=== PATIENT | female | born 1950 | race Caucasian/White ===

== ENCOUNTER 2025-03-13 08:30 | Outpatient (BNV) | payer OTHER, SELFPAY | END 2025-03-26 11:15 | PROVIDERS: Admitting Provider Psychiatry & Neurology Psychiatry; Visit Provider Internal Medicine Cardiovascular Disease | DX: R00.0 Tachycardia, unspecified (principal) | CPT/HCPCS: 93010 ==

== ENCOUNTER 2025-03-13 08:30 | Inpatient (IN) | payer OTHER, SELFPAY ==
--- NOTE | ~2025-03-13 | XR_ITS ---
CLINICAL HISTORY: constipation 1 view abdomen Comparison: None Findings: Nonobstructive bowel gas pattern. Moderate colonic stool. No abnormal calcifications. Surgical clips in the left upper quadrant in left lower quadrant. Left basilar subsegmental atelectasis versus scarring. No acute fractures. Degenerative changes of the spine. Mild deformity of left superior and inferior pubic rami likely healed fractures. IMPRESSION: 1. Nonobstructive bowel gas pattern. 2. Moderate colonic stool. This document has been electronically signed by: Lyssa Smith MD on 03/16/2025 17:26:45
[2025-03-13 09:42] VITALS: BP 120/58; PULSE 92; RESP 16; TEMP 36.5; O2SAT 100
--- OUTSIDE RECORDS SUMMARY | 2025-03-13 09:57 | XMS_ITS | Patient Health Record ---
Author Organization [facility] Address [address] [place] [address] Care Team Providers Care Tonguer Name Role Phone Marc Alvarez Primary Care Provider [phone] Mary Amaya Unavailable [phone] Noah, Osmar Unavailable [phone] Marissa Dillard Unavailable [phone] Anival Thomas Unavailable [phone] Demarco Goss Unavailable [phone] Janice Mary Unavailable [phone] Lauren Eldridge Unavailable [phone] Massiel Townsend Unavailable [phone] Allergies Allergen (clinical drug ingredient) Drug/Non Drug Allergy documented on EMR Reaction Allergy Type Onset Date Status contrast dye (uncoded) central nervous system Allergy Active succinylcholine Anectine shortness of breath and palpatations Drug Allergy Active Latex Latex throat closes Allergy Active Penicillin rash Drug Allergy Active Results Component Value Reference Range Notes CLOZAPINE Reviewed date:01/16/2025 01:51:18 PM Interpretation: Performing Lab: Notes/Report: [facility] Reported Date/Time: [id number] [facility] Results Received Date/Time: [id number] [facility] Collection Date/Time: [id number] Testing performed at: [facility], [facility], [address], [place], [place], , Sales Agent Business Services: Abdiel Metzger M.D.,PhD [facility] NORCLOZAPINE 52 25-400 mcg/L CLOZAPINE 148 The therapeutic response begins to appear at 100 mcg/L. Refractory schizophrenia appears to require a therapeutic concentration of at least 350 mcg/L This test was developed and its analytical performance characteristics have been determined by [facility] [place], [place]. It has not been cleared or approved by the U.S. Food and Drug Administration. This assay has been validated pursuant to the CLIA regulations and is used for clinical purposes. (trough, at steady state). Toxic range: Greater than 900 mcg/L CLOZAPINE Reviewed date:12/11/2024 11:48:02 AM Interpretation: Performing Lab: Notes/Report: [facility] Reported Date/Time: [id number] [facility] Results Received Date/Time: [id number] [facility] Collection Date/Time: [id number] Testing performed at: [employer], [address], [place], [place], , Sales Agent Business Services: Abdiel Metzger M.D.,PhD [facility] NORCLOZAPINE 47 25-400 mcg/L CLOZAPINE 156 The therapeutic response begins to appear at 100 mcg/L. Refractory schizophrenia appears to require a therapeutic concentration of at least 350 mcg/L (trough, at steady state). Toxic range: Greater than 900 mcg/L This test was developed and its analytical performance characteristics have been determined by [facility] [place], [place]. It has not been cleared or approved by the U.S. Food and Drug Administration. This assay has been validated pursuant to the CLIA regulations and is used for clinical purposes. CLOZAPINE Reviewed date:11/20/2024 08:28:24 PM Interpretation: Performing Lab: Notes/Report: [facility] Reported Date/Time: [id number] [facility] Results Received Date/Time: [id number] [facility] Collection Date/Time: [id number] [facility], [address], [place], [place], , Sales Agent Business [employer]: Abdiel Metzger M.D.,PhD [facility] NORCLOZAPINE 48 25-400 mcg/L CLOZAPINE 163 The therapeutic response begins to appear at 100 mcg/L. Refractory schizophrenia appears to require a therapeutic concentration of at least 350 mcg/L (trough, at steady state). Toxic range: Greater than 900 mcg/L This test was developed and its analytical performance characteristics have been determined by [facility] [place], [place]. It has not been cleared or approved by the U.S. Food and Drug Administration. This assay has been validated pursuant to the CLIA regulations and is used for clinical purposes. CT abdomen pelvis wo con Reviewed date:08/15/2024 02:52:14 PM Interpretation: Performing Lab: Notes/Report: See Below For Report [facility] CT abdomen pelvis w con Reviewed date:08/13/2024 11:44:30 AM Interpretation: Performing Lab: Notes/Report: See Below For Report [facility] XRAY ABDOMEN Reviewed date:09/10/2024 12:31:01 PM Interpretation:large stool burden Performing Lab: Notes/Report: EXAM: XR ABDOMEN INDICATION: Upper abdominal pain COMPARISON: None. TECHNIQUE: 2 view/s of the abdomen. FINDINGS: There is a nonspecific, nonobstructive bowel gas pattern. No evidence of free intraperitoneal air. There is a large colonic stool burden. Postoperative changes from ventral abdominal wall hernia repair. No suspicious calcifications are seen. There is a scoliotic curvature of the thoracolumbar spine with multilevel degenerative changes. IMPRESSION: Nonspecific, nonobstructive bowel gas pattern with a large colonic stool burden compatible fecal stasis and constipation. Electronically Signed By: Gab Lehman M.D. Signature Date: 09/07/2024 1:[address] CHEST LUNG CANCER SCREENI NG Reviewed date:04/18/2024 12:58:30 PM Interpretation: Performing Lab: Notes/Report: Exam: CT CHEST, LOW DOSE SCREENING History: Smoking history. Technique: CT helical 2.5 mm axial slices are obtained in lung and mediastinal windows, with 2.5 mm coronal and sagittal reconstruction slices. The CTDIvol is 2.04 mGy with the Total Exam DLP 64.21 mGy-cm. Comparison: CT chest low-dose screening 03/28/2023, 12/13/2020, 11/24/2019 Findings: Thoracic inlet: Unremarkable Tracheobronchial tree: Patent. No bronchiectasis. Lung parenchyma/pleura: No airspace consolidation. Left lung base linear scarring and atelectatic volume loss with elevated left hemidiaphragm, stable. No pleural effusions or pleural plaques. Right Lung Nodules: Interval development of a right middle lobe ill-defined margin mixed solid and groundglass opacity nodule measuring 15 mm in greatest dimensions, with a 10 mm solid nodular component (axial image 49, sagittal image 45, coronal image 52). Left Lung Nodules: None Mediastinum/cora: No mass nor abnormal lymphadenopathy. Cardiovascular: Cardiomegaly. Moderate aortic valvular calcification. Calcified mitral annulus. No pericardial effusion. Mild scattered coronary artery atherosclerotic calcifications. Normal course and caliber of the thoracic vasculature. Osseous/soft tissue: No fracture nor suspicious osseous abnormality. No subcutaneous abnormality. Visualized upper abdomen: Benign likely postinflammatory nodular calcification upper pole left renal parenchyma, stable. Midline subdiaphragmatic surgical clips anteriorly reidentified. Multiple benign splenules left upper quadrant of the abdomen, stable. Impression: Interval development of an ill-defined margined right middle lobe mixed solid and groundglass opacity nodule. LUNG-RADS category: 4B: SUSPICIOUS Additional diagnostic testing, PET CT and/or tissue sampling recommended. A [facility] message has been communicated to Mary Camacho via the [employer] application on 04/09/2024 6:53 AM, Message ID [id number]. Electronically Signed By: Mike Kaur M.D. Signature Date: 04/09/2024 6:53 AM XR chest 2V Reviewed date:07/16/2024 05:17:09 PM Interpretation: Performing Lab: Notes/Report: See Below For Report [facility] XR lumbar spine 2-3V Reviewed date:07/16/2024 05:17:09 PM Interpretation: Performing Lab: Notes/Report: See Below For Report [facility] Urinalysis Microscopic w/Ref baudilio to Culture ([facility]) Reviewed date:11/23/2024 03:32:07 PM Interpretation: Performing Lab:[facility] [address] [address]. Dietitian Helper Wilbur Watson MD Notes/Report: UWBC 6-10 None URBC 0-2 None UEPI 0-5 None CASTS None Seen None BACTERIA None Seen None ULTRASOUND ABDOMEN LIMITED Reviewed date:10/05/2024 03:32:02 PM Interpretation: Performing Lab: Notes/Report: PROCEDURE: Abdominal ultrasound INDICATION: Right upper quadrant abdominal pain COMPARISON: None. FINDINGS: Waters scale and color doppler imaging was performed. LIVER: Normal in size. Hepatic echotexture is normal without focal lesion. No intrahepatic biliary dilatation.Main portal vein is patent with appropriate directional flow. GALLBLADDER: No gallstones. No wall thickening, pericholecystic fluid or sonographic Busch's sign. CBD: 4 mm. PANCREAS: Visualized portions are unremarkable. RIGHT KIDNEY: The right kidney is normal in size and demonstrates normal echogenicity and echotexture. No evidence of hydronephrosis or nephrolithiasis. Anechoic simple cyst at the lower pole measuring 1.7 cm. PROXIMAL IVC: Visualized portions are unremarkable. There is no ascites. IMPRESSION: 1. No evidence of cholelithiasis or acute cholecystitis. 2. Small 1.7 cm right renal cyst. Electronically Signed By: Gab Lehman M.D. Signature Date: 10/05/2024 11:21 AM CULTURE, URINE, ROUTINE Reviewed date:11/27/2024 07:38:41 AM Interpretation: Performing Lab:[facility] [address] [place] [address] Notes/Report: LAB ORDERED BY: MARY AMAYA NP REQUESTED COPY TO [facility] GAMMA FACILITIES OPERATOR: RICH JHA URINE CULTURE SEE TEXT SOURCE SOURCE UNSPECIFIED. EVALUATED 'CLEAN CATCH'. STATUS: FINAL REPORT ORGANISM #1: 10,000 - <100,000 CFU/ML OF GROWTH SUGGESTIVE OF NORMAL UROGENITAL MESSI OR FECAL CONTAMINATION. RECOLLECT SPECIMEN FOR REPEAT CULTURE IF CLINICALLY INDICATED. DELIVERY TO LABORATORY SHOULD BE WITHIN 2 HOURS OF COLLECTION AND REFRIGERATED IF THERE IS A DELAY IN TRANSPORT. PET PET/CT SKULL TO MID THIG H Reviewed date:04/23/2024 08:20:06 AM Interpretation: Performing Lab: Notes/Report: Reason For Referral Reason cardiology f/u Referral Organization [facility] Luis Felipe plunkett Referring Provider First Name Marc Referring Provider Last Name Antonio Referring Provider Speciality Family Pra ctice Referred Organization [facility] Referred Provider Laurne Eldridge Referred Address [address] [place] [id number], Referred Provider Specialty Nurse Jus Bennett Notes Montserrat Huffman 04/16 05:11:45 PM >PCP referral is not required within the members referral mi'kmaq. Referral Priority Routine Reason cardiology f/u Referral Organization [facility] dimitrios Referring Provider First Name Marc Referring Provider Last Name [place] Referring Provider [facility] ctice Referred Organization [facility] Referred Provider ChenteLauren Referred Address [address], [place],[id number] Referred Provider Specialty Nurse Jus mg General Notes Montserrat Macias 04:05:03 PM > Referral not required Referral Priority Routine Reason refer to [facility] for back pain, needs home exercise program. pt needs morning appts ONLY Referring Provider First Name Marc Referring Provider Last Name Alvarez Referring Provider [facility] ctice Referred Provider Demarco Goss Referred Provider Specialty Physical The markelist General Notes Danielle Ruby 024 01:42:04 PM > Please call pt and schedule appt then send back to me thank you, Gianna De La Cruz 07/18/2024 02:59:08 PM > Patient left me on hold we will call Ernestina tavarez Lucille 07/24/2024 10:55:13 AM >please specify body part, Taylor Saha 08/01/2024 10:36:53 AM >pt has apt 08/29/24, Montserrat Huffman 08/01/2024 11:41:05 AM >no referral required. Referral Priority Routine Reason refer to [facility] for back pain, needs home exercise program. pt needs morning appts ONLY Diagnosis 1 Low back pain, unspe cified (M54.50) Referral Organization [facility] Luis Felipe plunkett Referring Provider First Name Marc Referring Provider Last Name Alvarez Referring Provider [facility] ctice Referred Organization [facility] Referred Provider Demarco Goss Referred Address [address], [place],[address],[place] Referred Provider Specialty Physical The clem General Notes Danielle Ruby 024 01:42:04 PM > Please call pt and schedule appt then send back to me thank youJono Rosemarie 07/18/2024 02:59:08 PM > Patient left me on hold we will call backErnestina Lucille 07/24/2024 10:55:13 AM >please specify body part, Taylor Saha 08/01/2024 10:36:53 AM >pt has apt 08/29/24, Montserrat Huffman 08/01/2024 11:41:05 AM >no referral required. Referral Priority Routine Reason REFER TO GI DONALD, RE CENT HOSPITALIZATION, MAY NEED COLONOSCOPY Diagnosis 1 Bowel perforation (K 63.1) Referral Organization [facility] Referring Provider First Name Marc Referring Provider Last Name [place] Referring Provider [facility] ctice Referred Provider Specialty Gastroentero logy Clinical Notes this is donald Referral Priority Routine Reason Please add Home PT t o patient's current services Diagnosis 1 Unsteady gait (R26.8 1) Diagnosis 2 Frequent falls (R29. 6) Diagnosis 3 Fibromyalgia (M79.7) Diagnosis 4 Arthralgia of multip le joints (M25.50) Referral Organization [facility] Referring Provider First Name Marc Referring Provider Last Name [place] Referring Provider [facility] ctice Referred Provider [facility] Referred Provider Specialty Home Health General Notes Requesting home PT e valuation for established patient. Clinical Notes faxed records thru E CW/fax complete Referral Priority Routine Medications Medication SIG (Take, Route, Frequency, Duration) Notes Start Date End Date Status Docusate Sodium 100 MG 1 capsule as needed Orally Once a day for 30 days Active Lidocaine 4 % 1 patch as needed Externally Once a day Not-Taking Lexapro 10 MG 1 tablet Orally Once a day for 30 day(s) Not-Taking Jardiance 25 MG TAKE 1 TABLET BY MOUTH EVERY DAY FOR 90 DAYS for 90 Active Metoclopramide HCl 10 TAKE 1 TABLET BY MOUTH TWICE DAILY DIRECTED for 30 Not-Taking Furosemide 40 MG TAKE 1 TABLET BY MOUTH TWICE A DAY FOR 30 DAYS for 30 Active metformin 500 mg 1 PO BID Roney01/22/2013 Entered by ANDRE MCRAE 01/22/2013 Not-Taking Losartan Potassium 100 mg 1 tablet Orally Once a day for 90 Not-Taking Esomeprazole Magnesium 20 MG TAKE 1 CAPSULE BY MOUTH TWICE A DAY for 90 days Active LORazepam 0.5 MG 1 tablet as needed Orally every 6 hrs Not-Taking Melatonin 3 MG as directed Orally AT NIGHT Active MiraLax 17 grams as directed Orally Once a day for 30 days 03/03/2015 Not-Taking Depakote ER 250 MG 1 tablet Orally Once a day Active Ferrous Sulfate 325 (65 Fe) MG TAKE 1 TABLET BY MOUTH EVERY DAY FOR ANEMIA for 90 days Active cloZAPine 100 MG 1 tablet Orally Once a day for 30 days Active rollator walker 1 DX: R 26.9 12/22/2022 Un known Loratadine 10 MG TAKE 1 TABLET BY MOUTH EVERY DAY FOR SEASONAL ALLERGIES 30 DAYS for 30 Active Ketoconazole 2 % 1 application as needed for vaginal itching Externally Once a day Active Metamucil 4 in 1 Fiber 55.6 % 1 teaspoon Orally once daily for 30 days 1 bottle 12/27/2024 06/25/2025 Active NOVOLOG 70/30 FLEXPEN (INSULIN ASPART 70/30 PEN) SC 01/22/2013 Not-Taking Nitroglycerin 0.4 MG as directed Sublingual q5 minutes prn chest pain for 30 Not-Taking traMADol HCl 50 MG 1 tablet as needed Orally q 8 hours prn pain Dx M79.7 08/29/2024 Active predniSONE 20 MG 2 tablets daily Orally Once a day Not-Taking Spironolactone 25 MG 1 tablet Orally Once a day for 90 days Active Pantoprazole Sodium 40 TAKE 1 TABLET BY MOUTH TWICE DAILY for 90 Not-Taking OLANZapine 5 MG 1 PO BID Roney01/22/2013 Entered by ANDRE MCRAE 01/22/2013 Not-Taking Nystatin 224749 UNIT/ML 4 mL Mouth/Throat Four times a day Not-Taking Acetaminophen 500 MG 1 tablet as needed Orally every 4 hrs Not-Taking quetiapine 25 mg 1 tablet by mouth in the morning Not-Taking A Thru Z Select - as directed Orally Not-Taking PROVENTIL HFA (ALBUTEROL INHALER HFA) 2 PUFF INH Q6H Roney05/22/2009 Entered by TIMMY LARSONMJoshuaAJoshua 05/22/2009 Not-Taking Triamcinolone Acetonide 0.025 % 1 application Externally 2 x daily 11/26/2024 Active ProAir HFA 108 (90 Base) MCG/ACT 2 puffs as needed Inhalation every 6 hrs Not-Taking traZODone HCl 100 MG 1 tablet at bedtime Orally Once a day Active Prevnar 20 0.5 ML as directed Intramuscular Not-Taking BONIVA (IBANDRONATE SODIUM) 3 MG 3 ML IV as directed Roney01/22/2013 Entered by ANDRE MCRAE 01/22/2013 Not-Taking Benztropine Mesylate 0.5 MG 1 tablet at bedtime Orally Once a day Not-Taking Benadryl 25 mg at bedtime Not-Taking Acid Merchandise For Resale Purchasing Agent Complete 10-800-165 MG 1 tablet as needed Orally Twice a day Not-Taking tramadol per pt not taking 1 PO Q6H 01/22/2013 Not-Taking SEROquel 25 mg 1 tablet Orally Once a day/ prn Not-Taking Remeron 15 MG 1 tablet before bedtime in the evening Orally Once a day Not-Taking cloZAPine 100 MG 1 tablet Orally Once a day for 30 day(s) Not-Taking Venlafaxine HCl ER 37.5 MG 1 capsule with food Orally bid Not-Taking Chlorthalidone 25 MG 1/2 tablet in the morning Orally Once a day Not-Taking Tylenol 1 tab Oral 650mg Not-Takin g CALCIUM + D (600 MG SHISHMAREF IRA CA) (CALCIUM CARBONATE 1500 MG (600 MG SHISHMAREF IRA CA)/ VIT D 200 IU) Not-Taking Trelegy Ellipta 100-62.5-25 MCG/ACT 1 puff Inhalation Once a day Not-Taking Trazodone 50mg 2 tabs Hs Not-T aking Crestor 20 MG 1 tablet Orally Once a day Not-Taking COMBIVENT (IPRATROPIUM AND ALBUTEROL SULFATE) 2 PUFF INH QID Roney01/22/2013 Entered by ANDRE MCRAE 01/22/2013 Not-Taking Zofran 4 MG 1 tablet as needed Orally tid for 30 05/05/2018 Not-Taking Colace 100 MG 1 capsule as needed Orally BID for 30 day(s) 05/18/2018 Not-Taking VITAMIN D2 (ERGOCALCIFEROL) 21011 UNITS 25 PO QWEEK Roney01/22/2013 Entered by ANDRE MCRAE 01/22/2013 Not-Taking Cogentin 1 MG 1 tablet at bedtime Orally Once a day Not-Taking VESIcare 5 MG 1 tablet Orally Once a day Not-Taking DOK 100 MG 1 capsule as needed Orally BID for 30 Not-Taking Atorvastatin Calcium 40 MG TAKE 1 TABLET BY MOUTH EVERY DAY for 90 Active Depakote ER 500 MG 1 tablet Orally Once a day Not-Taking Cyanocobalamin 100 MCG as directed Orally daily Not-Takin g Fluzone High-Dose 0.5 ML as directed Intramuscular Not-Taking Flonase 50 MCG/ACT 2 sprays each nostril Nasally QHS x 5 d, then continue prn for 30 day(s) 07/17/2020 Not-Taking Flonase 50 MCG/ACT 1 spray in each nostril Nasally Once a day Not-Taking Doxycycline 100 mg by mouth twice a day Not-Taking ZyPREXA 20 MG 1 tablet Orally Once a day Not-Taking JANUVIA (SITAGLIPTIN) per pt not taking 1 PO QD 01/22/2013 Not-Taking Haloperidol 5 MG 1 tablet Orally Once a day for 30 day(s) Not-Taking Calcium Carb-Cholecalciferol 600-10 MG-MCG TAKE 1 TABLET BY MOUTH TWICE A DAY WITH A MEAL for 30 Active Physical Therapy as directed Right groin strain 12/12/2020 Unknown one touch vario test strips Unknown Aspirin Low Dose 81 MG TAKE 1 TABLET BY MOUTH EVERY DAY for 90 Active One Touch Delica Lancets Unknown Albuterol Sulfate HFA 108 (90 Base) MCG/ACT INHALE 2 PUFFS INTO THE LUNGS EVERY 4 HOURS NEEDED FOR 30 DAYS for 30 Active Compression Stockings Knee Highs use daily while awake Sock 11/11/2022 Unknown Senna-Time 8.6 MG TAKE 2 TABLETS BY MOUTH EVERY DAY AT BEDTIME for 30 days Active Immunizations Vaccine Route Administration Date Status Comme nts Flu Given Out of Office Unknown 06/21/2024 Administered Flu, Flulaval Quad Unknown 07/18/2023 Others Pneumovax PPV23 IM Intramuscular 11/26/2019 Administered Shingrix Unknown 06/07/2022 Administered Shingrix Unknown 08/03/2024 Administered Vic Moderna Unknown 01/03/2024 Administered Zoster Shingles Unknown 08/03/2024 Administered ZZZZZPrevnar 13 Unknown 09/30/2016 Administered Social History Tobacco Use: Social History Observation Description Date Details (start date - stop date) Former Smoker NA - NA Tobacco Control (Standard) Question Answer Notes Tobacco use: Former smoker How long has it been since you last smoked? Grea ter than 10 years Section Notes: pets: one dog (real hair) pets: one dog (real hair) former smoker- quit 20 years ago 04/2024 pets: one dog (real hair) former smoker- quit 4 years ago pets: one dog (real hair) former smoker- quit 4 years ago pets: one dog (real hair) pets: one dog (real hair) former smoker- quit 20 years ago 04/2024 pets: one dog (real hair) former smoker- quit 4 years ago pets: one dog (real hair) former smoker- quit 4 years ago pets: one dog (real hair) former smoker- quit 4 years ago pets: one dog (real hair) former smoker- quit 4 years ago pets: one dog (real hair) former smoker- quit 4 years ago pets: one dog (real hair) former smoker- quit 4 years ago pets: one dog (real hair) pets: one dog (real hair) former smoker- quit 4 years ago pets: one dog (real hair) former smoker- quit 4 years ago pets: one dog (real hair) former smoker- quit 4 years ago pets: one dog (real hair) former smoker- quit 4 years ago pets: one dog (real hair) former smoker- quit 4 years ago pets: one dog (real hair) former smoker- quit 4 years ago pets: one dog (real hair) former smoker- quit 4 years ago pets: one dog (real hair) former smoker- quit 4 years ago pets: one dog (real hair) former smoker- quit 4 years ago pets: one dog (real hair) former smoker- quit 20 years ago 04/2024 pets: one dog (real hair) former smoker- quit 4 years ago pets: one dog (real hair) former smoker- quit 4 years ago pets: one dog (real hair) former smoker- quit 4 years ago pets: one dog (real hair) former smoker- quit 4 years ago pets: one dog (real hair) former smoker- quit 4 years ago pets: one dog (real hair) former smoker- quit 4 years ago pets: one dog (real hair) former smoker- quit 20 years ago 04/2024 pets: one dog (real hair) former smoker- quit 4 years ago pets: one dog (real hair) former smoker- quit 4 years ago pets: one dog (real hair) former smoker- quit 4 years ago pets: one dog (real hair) former smoker- quit 20 years ago 04/2024 pets: one dog (real hair) former smoker- quit 20 years ago 04/2024 pets: one dog (real hair) former smoker- quit 20 years ago 04/2024 pets: one dog (real hair) former smoker- quit 20 years ago 04/2024 pets: one dog (real hair) former smoker- quit 20 years ago 04/2024 pets: one dog (real hair) former smoker- quit 4 years ago pets: one dog (real hair) former smoker- quit 4 years ago pets: one dog (real hair) former smoker- quit 4 years ago pets: one dog (real hair) former smoker- quit 4 years ago pets: one dog (real hair) former smoker- quit 4 years ago pets: one dog (real hair) former smoker- quit 20 years ago 04/2024 pets: one dog (real hair) pets: one dog (real hair) former smoker- quit 4 years ago pets: one dog (real hair) former smoker- quit 4 years ago pets: one dog (real hair) former smoker- quit 4 years ago pets: one dog (real hair) former smoker- quit 4 years ago pets: one dog (real hair) pets: one dog (real hair) pets: one dog (real hair) former smoker- quit 4 years ago pets: one dog (real hair) former smoker- quit 4 years ago pets: one dog (real hair) former smoker- quit 4 years ago pets: one dog (real hair) former smoker- quit 4 years ago pets: one dog (real hair) former smoker- quit 4 years ago pets: one dog (real hair) former smoker- quit 4 years ago pets: one dog (real hair) former smoker- quit 4 years ago pets: one dog (real hair) former smoker- quit 4 years ago pets: one dog (real hair) former smoker- quit 4 years ago pets: one dog (real hair) former smoker- quit 4 years ago pets: one dog (real hair) former smoker- quit 4 years ago pets: one dog (real hair) former smoker- quit 20 years ago 04/2024 pets: one dog (real hair) pets: one dog (real hair) former smoker- quit 4 years ago pets: one dog (real hair) former smoker- quit 20 years ago 04/2024 Problems Problem Type SNOMED Code ICD Code Onset Dates Problem Status W/U Status Risk Notes Problem [id number] Pulmonary nodule (R91.1) Active confirmed Problem Iron deficiency anemia (38197558) Iron deficiency anemia (D50.9) Active confirmed Problem 79794202 Essential (primary) hypertension (I10) Active confirmed Problem [id number] Fibromyalgia (M79.7) Active confirmed complaining about diffuse soft tisue and joint pain Problem 152466904 Lung nodule (R91.1) Active confirmed Problem Shortness of breath (240374272) Shortness of breath (R06.02) Active confirmed Problem Morbid obesity (710990575) Morbid obesity (E66.01) Active confirmed Problem 117264469 Gastroparesis (K31.84) Active confirmed Problem 170592610 COPD exacerbatio n (J44.1) Active confirmed Problem Breast screening requested (907743619) Breast screening (Z12.39) Active confirmed Problem 767971176 Obesity (BMI 30-39.9) (E66.9) Active confirmed Problem 53491116 Achalasia (K22.0) Active confirmed Problem 735324991 Iron deficiency anemia due to chronic blood loss (D50.0) Active confirmed Problem Unsteady gait (08866888) Unsteady gait (R26.81) Active confirmed Problem 665109651 BMI 40.0-44.9, adult (Z68.41) Active confirmed Problem [id number] Lumbar paraspi nal muscle spasm (M62.830) Active confirmed Problem Frequent falls (R29.6) Active confirmed Problem 35190977899132 Morbid (severe) obesity due to excess calories (E66.01) Active confirmed Problem 831372777 BMI 36.0-36.9,adult (Z68.36) Active confirmed Problem 29665818 Schizophrenia (F20.9) 2008 Active confirmed Roney: Schizophreni a; Problem 061121581 Mixed hyperlipidemia (E78.2) Active confirmed Problem 97853173 Uterine prolapse (N81.4) Active confirmed Problem 282172666 Chronic diastoli c congestive heart failure (I50.32) Active confirmed Problem 33869002 Abnormality of gait (R26.9) Active confirmed Problem 106917868 GERD without esophagitis (K21.9) Active confirmed Problem History of polyp of colon (397417996) History of colon polyps (Z86.010) Active confirmed Problem Difficulty swallowing (635880430) Difficulty swallowing (R13.10) Active confirmed Problem 06717546 Hyperlipidemia LDL goal <160 (E78.5) 2008 Active confirmed Roney: Hyperlipidem ia; Problem 965273209 Type 2 diabetes mellitus without complications (E11.9) Active confirmed Problem Cigarette smoker (07994483) Cigarette smoker (F17.210) Active confirmed Problem 93981748 Mucopurulent chronic bronchitis (J41.1) Active confirmed Problem 82611265 Slow transit constipation (K59.01) Active confirmed Problem 22691804 Calculus of gallbladder without cholecystitis without obstruction (K80.20) Active confirmed Problem 715930675 Chest pain on breathing (R07.1) Active confirmed Problem 871350780 Generalized abdominal pain (R10.84) Active confirmed Problem 906361611 [facility] (current) use of insulin (Z79.4) Active confirmed Problem 78270357 Other chronic pain (G89.29) Active confirmed Problem 357113275 Nonrheumatic aortic valve stenosis (I35.0) Active confirmed Problem 156467071 Coronary artery calcification seen on CAT scan (I25.10) Active confirmed Problem 80249540 Diaphragmatic hernia (K44.9) 2008 Active confirmed Roney: Hiatal hernia; Problem Gastroesophageal reflux disease without esophagitis (821209850) Gastroesophageal reflux disease without esophagitis (K21.9) Active confirmed Problem Tobacco user (563705989) 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) Active confirmed Problem 58880424 Benign neoplasm of colon (D12.6) 2008 Active confirmed Roney: History of; H/O Colonic polyp; Problem 03538538 Bronchiectasis without complication (J47.9) Active confirmed Problem 07491364 Iron deficiency anemia, unspecified iron deficiency anemia type (D50.9) Active confirmed Problem 405303190 Leukocytosis, unspecified type (D72.829) Active confirmed Problem 42545450 Nicotine use disorder (F17.200) Active confirmed Problem 214746423 Polypharmacy (Z79.899) Active confirmed Problem 78348100 Psychiatric illness (F99) Active confirmed Problem 37310938 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) Active confirmed Problem 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, 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 Problem Acute exacerbation of chronic schizophrenia (954214569) Acute exacerbation of chronic schizophrenia (F20.9) Active confirmed Problem 822568456 Chronic heart failure with preserved ejection fraction (I50.32) Active confirmed Problem 675237439 Hyperglycemia du e to diabetes mellitus (E11.65) Active confirmed Problem 957215295 Chronic kidney disease, stage 3a (N18.31) Active confirmed Problem 916453974 Body mass index [BMI] 36.0-36.9, adult (Z68.36) Active confirmed Problem 956161158 Body mass index [BMI] 38.0-38.9, adult (Z68.38) Active confirmed Problem Esophagitis (30487944) Esophagitis (K20.90) Active confirmed Vital Signs Heart Rate 80 /min 12/27/2024 Temperature 97.7 degrees Fahrenheit 11/23/2024 Respiratory Rate 16 /min 06/26/2024 Blood pressure diastolic 74 mm Hg 11/23/2024 Oximetry 97 % 12/27/2024 Height 60 in 12/27/2024 Blood pressure systolic 122 mm Hg 11/23/2024 Weight 182 lbs 12/27/2024 BMI 35.54 kg/m2 12/27/2024 Encounters Encounter Location Date Provider Diagnosis [facility] [address] [place] [id number] 03/29/2024 Marc Alvarez Schizophrenia F20.9 [facility] [address] [place], [place] [id number] 04/12/2024 Marc Alvarez Acute exacerbation o f chronic schizophrenia F20.9 [facility] [address] [place], [place] [id number] 04/26/2024 Marc Briscoes Acute exacerbation o f chronic schizophrenia F20.9 [facility] [address] [place] [id number] 05/17/2024 Marc Alvarez Acute exacerbation o f chronic schizophrenia F20.9 [facility] [address] [place] [address] [id number] 06/13/2024 Marc Briscoes [facility] [address] [place], [place] [id number] 06/14/2024 Marc Alvarez Acute exacerbation o f chronic schizophrenia F20.9 [facility] [address] [place], [place] [id number] 06/26/2024 Lauren Eldridge [facility] [address] [place], [place] [id number] 07/18/2024 Marc Alvarez Schizophrenia F20.9 [facility] [address] [place], [place] [id number] 07/26/2024 Marc Alvarez Schizophrenia F20.9 [facility] [address] [place], [place] [id number] 07/31/2024 Marc Alvarez [facility] [address] [place], [place] [id number] 08/15/2024 Marc Alvarez [facility] [address] [place], [place] [id number] 08/28/2024 Marissa Gilma [facility] [address] [place], [place] [id number] 08/29/2024 Marc Alvraez [facility] [address] [place], [place] [id number] 08/31/2024 Marc Alvarez [facility] [address] [place], [place] [id number] 09/10/2024 Massiel Curalov [facility] [address] [place], [place] [id number] 09/11/2024 Massiel Vaughnalohelio Pain of upper abdome n R10.10 and Calculus of gallbladder without cholecystitis without obstruction K80.20 [facility] [address] [place], [place] [id number] 10/05/2024 Massiel Curalov [facility] [address] [place], [place] [id number] 10/08/2024 Massiel Vaughnalohelio [facility] [address] [place], [place] [id number] 10/18/2024 Marc Alvarez Acute exacerbation o f chronic schizophrenia F20.9 [facility] [address] [place], [place] [id number] 11/14/2024 Mary Amaya [facility] [address] [place] [address] 11/23/2024 Mary Camacho [facility] [address] [place], [place] [id number] 11/26/2024 Marc Alvarez Vaginitis and vulvovaginitis N76.0 [facility] [address] [place], [place] [id number] 12/20/2024 Lauren Eldridge Chronic heart failur e with preserved ejection fraction I50.32 [place] [address] [place], [place] [id number] 02/15/2025 Marc Alvarez [facility] [address] [place], [place] [id number] 02/26/2025 Massiel Townsend [facility] [address] [place], [place] [id number] 03/01/2025 Marc Alvarez Acute exacerbation o f chronic schizophrenia F20.9 [facility] [address] [place] [address] 02/07/[address] [facility] [address] [place], [place] [id number] 12/27/2024 Massiel Townsend Change in bowel habi ts R19.4 and Incomplete defecation R15.0 [facility] [address] [place], [place] [id number] 10/24/2024 Marc Alvarez Abnormality of gait R26.9 ; Hyperlipidemia LDL goal <160 E78.5 ; Essential (primary) hypertension I10 ; Morbid (severe) obesity due to excess calories E66.01 ; Type 2 diabetes mellitus without complications E11.9 ; Health care maintenance Z00.00 and Other snf (current) drug therapy Z79.899 [facility] [address] [place], [place] [id number] 09/07/2024 Massiel Townsend Change in bowel habi ts R19.4 ; Pain of upper abdomen R10.10 ; Calculus of gallbladder without cholecystitis without obstruction K80.20 and Free intraperitoneal air K66.8 [facility] [address] [place], [place] [id number] 08/29/2024 Marc Alvarez Fibromyalgia M79.7 ; Bowel perforation K63.1 ; Psychiatric illness F99 ; Generalized abdominal pain R10.84 ; Arthralgia of multiple joints M25.50 ; Other snf (current) drug therapy Z79.899 and Health care maintenance Z00.00 [facility] [address] [place] [address] 04/17/2024 Mary Janice History of tobacco abuse Z87.891 ; Shortness of breath R06.02 ; Hypoxia R09.02 ; Mucopurulent chronic bronchitis J41.1 ; Bronchiectasis without complication J47.9 ; Iron deficiency anemia, unspecified iron deficiency anemia type D50.9 ; Morbid obesity E66.01 ; Suspected sleep apnea R29.818 ; Chronic diastolic congestive heart failure I50.32 and Pulmonary nodule R91.1 [facility] [address] [place], [place] [id number] 07/04/2024 Marc Alvarez Essential (primary) hypertension I10 ; Diabetes 1.5, managed as type 1 E10.9 ; Morbid (severe) obesity due to excess calories E66.01 ; Other termite control technician (current) drug therapy Z79.899 and Health care maintenance Z00.00 [facility] [address] [place] [address] 05/02/2024 Mary Oskueshellie History of tobacco abuse Z87.891 ; Shortness of breath R06.02 ; Hypoxia R09.02 ; Mucopurulent chronic bronchitis J41.1 ; Bronchiectasis without complication J47.9 ; Iron deficiency anemia, unspecified iron deficiency anemia type D50.9 ; Morbid obesity E66.01 ; Suspected sleep apnea R29.818 ; Chronic diastolic congestive heart failure I50.32 and Pulmonary nodule [facility]91.1 [facility] [address] [place], [place] [id number] 11/23/2024 Mary Amaya Vaginal itching N89. 8 and Pelvic pressure in female R10.2 [facility] [address] [place], [place] [id number] 07/18/2024 Marc Alvarez Low back pain, unspecified M54.50 ; Other chronic pain G89.29 ; BMI 36.0-36.9,adult Z68.36 ; Morbid (severe) obesity due to excess calories E66.01 ; Body mass index [BMI] 36.0-36.9, adult Z68.36 ; Lumbar paraspinal muscle spasm M62.830 and Schizophrenia F20.9 [facility] [address] [place], [place] [id number] 03/28/2024 Marc Alvarez Hyperlipidemia LDL goal <160 E78.5 ; Health care maintenance Z00.00 ; Essential (primary) hypertension I10 and Other snf (current) drug therapy Z79.899 [facility] [place] [address] [place] [id number] 08/24/2024 Marc Alvarez Bowel perforation K63.1 ; Hospital discharge follow-up Z09 ; Generalized abdominal pain R10.84 and Lung nodule R91.1 [facility] [address] [place], [place] [id number] 04/30/2024 Lauren Eldridge Essential hypertensi on I10 ; Nonrheumatic aortic valve stenosis I35.0 ; Chronic heart failure with preserved ejection fraction I50.32 ; Coronary artery calcification seen on CAT scan I25.10 and Mixed hyperlipidemia E78.2 [facility] [address] [place], [place] [id number] 06/26/2024 Lauren Eldridge Chronic heart failur e with preserved ejection fraction I50.32 and Palpitations R00.2 [facility] [address] [id number] 04/07/2024 Mary Camacho History of tobacco abuse Z87.891 [facility] [address] [id number] 10/05/2024 Massiel Curalov Pain of upper abdome n R10.10 and Calculus of gallbladder without cholecystitis without obstruction K80.20 [facility] [address] [place] [address] 04/07/2024 Mary Oskuei [facility] [address] [id number] 09/07/2024 Massiel Curalov Pain of upper abdome n R10.10 ; Calculus of gallbladder without cholecystitis without obstruction K80.20 ; Change in bowel habits R19.4 and Free intraperitoneal air K66.8 Assessments Encounter Date Diagnosis (ICD Code) Assessment Notes Treatment Notes Treatment Clinical Notes Section Notes 11/23/2024 Vaginal itching (ICD-10 - N89.8) 11/23/2024 Pelvic pressure in female (ICD-10 - R10.2) Urine dip results only showed trace leukocytes however no nitrates. Not overly impressive for urinary tract infection therefore will hold off on any antibiotic treatment at this time. Will wait for urine culture 12/20/2024 Chronic heart failure with preserved ejection fraction (ICD-10 - I50.32) 12/27/2024 Change in bowel habits (ICD-10 - R19.4) patient is a 74-year-old female here today for follow-up on her bowels. She reports she continues with bowel issues. She states she has 1 stool daily, 3 on the [place] stool scale. She has no longer having diarrhea. She states she feels like she can not leave the house. She is unable to describe why. She denies SI but very upset that her boyfriend is in the care home. I suspect that some of her IBS symptoms are related to her emotional distress over this. She has not taking MiraLax as prescribed. I recommended that she can trial Metamucil 1 tsp once daily instead as she voices that her bowels become too loose with the MiraLax. I will follow up with her in 2-3 months to see how she is doing. 12/27/2024 Incomplete defecation (ICD-10 - R15.0) we discussed doing rectal manometry as she has fecal and urinary incontinence at times, she declined this. She also declined a repeat colonoscopy. She has no red flag symptoms 03/01/2025 Acute exacerbation of chronic schizophrenia (ICD-10 - F20.9) 07/18/2024 Low back pain, unspecified (ICD-10 - M54.50) 07/18/2024 Other chronic pain (ICD-10 - G89.29) 09/07/2024 Change in bowel habits (ICD-10 - R19.4) Patient is a 74-year-old female with a history of schizophrenia, hyperlipidemia, hypertension, obesity, achalasia, LUCIO, type 2 diabetes, GERD, and benign neoplasm of the colon. she is here today for hospital follow-up. She was seen at [facility] 08/13/24. Seen at [facility] for hand pain and abd pain. She had an abdominal CT 08/13 which showed free intraperitonel air, no bowel obstruction or wall thickening, there was a duodenal diverticulum, and a 5 mm nonobstructing left kidney stone. She had a f/u CT 08/14 with no significant change in the free air the next day 08/14/24. She was seen by surgery, no recommendation for surgery, f/u with GI. Abdominal u/s to assess abdominal pain. Pt has a negative murphys sign, unlikely cholelithiasis. Her pain is not postprandial, unlikely biliary colic. Abdominal exam is benign without any tenderness. Her symptoms are most consistent with overflow diarrhea related to constipation. I have ordered a KUB to assess for fecal loading. Further recommendations based on KUB results. She has no nausea or vomiting, unlikely SBO. 09/07/2024 Pain of upper abdomen (ICD-10 - R10.10) 09/07/2024 Pain of upper abdomen (ICD-10 - R10.10) 09/11/2024 Pain of upper abdomen (ICD-10 - R10.10) 04/17/2024 History of tobacco abuse (ICD-10 - Z87.891) 72-year-old female with prior history of splenectomy and multiple prior pneumonias, 77-ketc-bnjq smoking history and likely COPD who has exertional dyspnea as well as frequent episodes of bronchitis. Bronchiectasis noted on chest CTs due to previous recurrent infections. She may also have ongoing silent reflux, which explains her cough. She does not have daily sputum and therefore would not qualify for chest vest therapy or would not likely benefit from NaCl NEB. She also has mild anemia, which is contributing. Patient is morbidly obese and extremely sedentary. Patient's shortness of breathPatient's shortness of breath is likely combination of congestive heart failure and obesity. Pulmonary function testing shows significantt restrictive physiology. LDCT shows a 1.5 cm RML GGO/solid nodule with 1 cm solid component. Will obtain a PET/CT and then assess for CT guided biopsy 04/17/2024 Shortness of breath (ICD-10 - R06.02) On lasix 72-year-old female with prior history of splenectomy and multiple prior pneumonias, 63-tgox-cbaw smoking history and likely COPD who has exertional dyspnea as well as frequent episodes of bronchitis. Bronchiectasis noted on chest CTs due to previous recurrent infections. She may also have ongoing silent reflux, which explains her cough. She does not have daily sputum and therefore would not qualify for chest vest therapy or would not likely benefit from NaCl NEB. She also has mild anemia, which is contributing. Patient is morbidly obese and extremely sedentary. Patient's shortness of breathPatient's shortness of breath is likely combination of congestive heart failure and obesity. Pulmonary function testing shows significantt restrictive physiology. LDCT shows a 1.5 cm RML GGO/solid nodule with 1 cm solid component. Will obtain a PET/CT and then assess for CT guided biopsy 04/30/2024 Essential hypertension (ICD-10 - I10) stable hypertension, patient is normotensive on exam today 128/74. She remains on spironolactone 25 mg once daily. Discussed low-sodium dietary options. She will continue medical management echocardiogram showed no atrial enlargement. 04/30/2024 Nonrheumatic aortic valve stenosis (ICD-10 - I35.0) Stable nonrheumatic Aortic stenosis, monitored as mild on last echocardiogram January 02, 2024. Patient will continue with echocardiograms annually. Patient remains asymptomatic 03/29/2024 Schizophrenia (ICD-10 - F20.9) 04/26/2024 Acute exacerbation of chronic schizophrenia (ICD-10 - F20.9) 05/17/2024 Acute exacerbation of chronic schizophrenia (ICD-10 - F20.9) 06/26/2024 Palpitations (ICD-10 - R00.2) 30 day event will be planned to assess for patient's palpitations. She appears stable. She will follow-up on testing 06/26/2024 Chronic heart failure with preserved ejection fraction (ICD-10 - I50.32) Stable chronic heart failure with preserved ejection fraction. Patient appears euvolemic on exam today. Requesting refills on Lasix and spironolactone. Continue to encourage a low-sodium diet and remain on furosemide and spironolactone. patient previously on losartan and Jardiance daily, these were discontinued at some point. Patient can not recall why 03/28/2024 Health care maintenance (ICD-10 - Z00.00) Reviewed Diagnoses and Medication List. Explained Risk/Benefit of Medications. Discussed treatment options 03/28/2024 Hyperlipidemia LDL goal <160 (ICD-10 - E78.5) 10/24/2024 Abnormality of gait (ICD-10 - R26.9) 07/18/2024 Schizophrenia (ICD-10 - F20.9) 07/26/2024 Schizophrenia (ICD-10 - F20.9) 10/24/2024 Hyperlipidemia LDL goal <160 (ICD-10 - E78.5) Roney: Hyperlipidem ia; 08/24/2024 Hospital discharge follow-up (ICD-10 - Z09) Hospital records reviewed. Medications reviewed and reconciled. Reviewed treatment at the hospital and addressed ongoing symptoms. Patient advised to contact office if any problems with recent changes in treatment regimen. 08/24/2024 Bowel perforation (ICD-10 - K63.1) 08/29/2024 Fibromyalgia (ICD-10 - M79.7) complaining about diffuse soft tisue and joint pain 08/29/2024 Bowel perforation (ICD-10 - K63.1) her abdominal exam is improved compared to last visit 10/05/2024 Pain of upper abdomen (ICD-10 - R10.10) 10/18/2024 Acute exacerbation of chronic schizophrenia (ICD-10 - F20.9) 11/26/2024 Vaginitis and vulvovaginitis (ICD-10 - N76.0) 06/14/2024 Acute exacerbation of chronic schizophrenia (ICD-10 - F20.9) 05/02/2024 History of tobacco abuse (ICD-10 - Z87.891) 72-year-old female with prior history of splenectomy and multiple prior pneumonias, 88-wbyu-hrbt smoking history and likely COPD who has exertional dyspnea as well as frequent episodes of bronchitis. Bronchiectasis noted on chest CTs due to previous recurrent infections. She has chronic GERD and related cough. She does not have daily sputum and therefore would not qualify for chest vest therapy or would not likely benefit from NaCl NEB. She also has mild anemia, which is contributing. Patient is morbidly obese and extremely sedentary. Patient's shortness of breathPatient's shortness of breath is likely combination of congestive heart failure and obesity. Pulmonary function testing shows significantt restrictive physiology. Had a LDCT which shows a new 1.5 cm GGO/solid nodule; PET CT was negative and showed almost complete resolution of the RML nodule 05/02/2024 Shortness of breath (ICD-10 - R06.02) On lasix 72-year-old female with prior history of splenectomy and multiple prior pneumonias, 60-neyg-mbut smoking history and likely COPD who has exertional dyspnea as well as frequent episodes of bronchitis. Bronchiectasis noted on chest CTs due to previous recurrent infections. She has chronic GERD and related cough. She does not have daily sputum and therefore would not qualify for chest vest therapy or would not likely benefit from NaCl NEB. She also has mild anemia, which is contributing. Patient is morbidly obese and extremely sedentary. Patient's shortness of breathPatient's shortness of breath is likely combination of congestive heart failure and obesity. Pulmonary function testing shows significantt restrictive physiology. Had a LDCT which shows a new 1.5 cm GGO/solid nodule; PET CT was negative and showed almost complete resolution of the RML nodule 04/12/2024 Acute exacerbation of chronic schizophrenia (ICD-10 - F20.9) 04/07/2024 History of tobacco abuse (ICD-10 - Z87.891) 07/04/2024 Essential (primary) hypertension (ICD-10 - I10) 05/02/2024 Hypoxia (ICD-10 - R09.02) Mild hypoxia on exertion. No indication for supplemental oxygen. 72-year-old female with prior history of splenectomy and multiple prior pneumonias, 39-cyuw-ycwv smoking history and likely COPD who has exertional dyspnea as well as frequent episodes of bronchitis. Bronchiectasis noted on chest CTs due to previous recurrent infections. She has chronic GERD and related cough. She does not have daily sputum and therefore would not qualify for chest vest therapy or would not likely benefit from NaCl NEB. She also has mild anemia, which is contributing. Patient is morbidly obese and extremely sedentary. Patient's shortness of breathPatient's shortness of breath is likely combination of congestive heart failure and obesity. Pulmonary function testing shows significantt restrictive physiology. Had a LDCT which shows a new 1.5 cm GGO/solid nodule; PET CT was negative and showed almost complete resolution of the RML nodule 10/05/2024 Calculus of gallbladder without cholecystitis without obstruction (ICD-10 - K80.20) 08/24/2024 Generalized abdominal pain (ICD-10 - R10.84) 03/28/2024 Essential (primary) hypertension (ICD-10 - I10) 04/30/2024 Chronic heart failure with preserved ejection fraction (ICD-10 - I50.32) Stable chronic heart failure with preserved ejection fracture. Patient appears euvolemic here on exam today. Echocardiogram December 29, 2019 4 continues to show impaired relaxation with diastolic function, normal left atrial pressure and EF 55-60%. She will continue with diuretics for volume control. 10/24/2024 Essential (primary) hypertension (ICD-10 - I10) 04/17/2024 Hypoxia (ICD-10 - R09.02) Mild hypoxia on exertion. No indication for supplemental oxygen. 72-year-old female with prior history of splenectomy and multiple prior pneumonias, 22-qjzy-uzog smoking history and likely COPD who has exertional dyspnea as well as frequent episodes of bronchitis. Bronchiectasis noted on chest CTs due to previous recurrent infections. She may also have ongoing silent reflux, which explains her cough. She does not have daily sputum and therefore would not qualify for chest vest therapy or would not likely benefit from NaCl NEB. She also has mild anemia, which is contributing. Patient is morbidly obese and extremely sedentary. Patient's shortness of breathPatient's shortness of breath is likely combination of congestive heart failure and obesity. Pulmonary function testing shows significantt restrictive physiology. LDCT shows a 1.5 cm RML GGO/solid nodule with 1 cm solid component. Will obtain a PET/CT and then assess for CT guided biopsy 08/29/2024 Psychiatric illness (ICD-10 - F99) 07/04/2024 Diabetes 1.5, managed as type 1 (ICD-10 - E10.9) 09/11/2024 Calculus of gallbladder without cholecystitis without obstruction (ICD-10 - K80.20) 09/07/2024 Calculus of gallbladder without cholecystitis without obstruction (ICD-10 - K80.20) 07/18/2024 BMI 36.0-36.9,adult (ICD-10 - Z68.36) 07/18/2024 Morbid (severe) obesity due to excess calories (ICD-10 - E66.01) 09/07/2024 Change in bowel habits (ICD-10 - R19.4) 09/07/2024 Calculus of gallbladder without cholecystitis without obstruction (ICD-10 - K80.20) 04/17/2024 Mucopurulent chronic bronchitis (ICD-10 - J41.1) 72-year-old female with prior history of splenectomy and multiple prior pneumonias, 40-jwcn-oimb smoking history and likely COPD who has exertional dyspnea as well as frequent episodes of bronchitis. Bronchiectasis noted on chest CTs due to previous recurrent infections. She may also have ongoing silent reflux, which explains her cough. She does not have daily sputum and therefore would not qualify for chest vest therapy or would not likely benefit from NaCl NEB. She also has mild anemia, which is contributing. Patient is morbidly obese and extremely sedentary. Patient's shortness of breathPatient's shortness of breath is likely combination of congestive heart failure and obesity. Pulmonary function testing shows significantt restrictive physiology. LDCT shows a 1.5 cm RML GGO/solid nodule with 1 cm solid component. Will obtain a PET/CT and then assess for CT guided biopsy 04/30/2024 Coronary artery calcification seen on CAT scan (ICD-10 - I25.10) stable mild scattered coronary artery atherosclerotic calcifications seen on recent chest CT scan 04/07/2024. patient has had 3 previous nuclear stress test that showed no evidence of ischemia. She does remain on secondary prevention with aspirin 81 mg daily, atorvastatin daily. patient remains asymptomatic. She will continue with medical management. 10/24/2024 Morbid (severe) obesity due to excess calories (ICD-10 - E66.01) 03/28/2024 Other termite control technician (current) drug therapy (ICD-10 - Z79.899) Keep all the other medications same. Encouraged compliance 08/24/2024 Lung nodule (ICD-10 - R91.1) 08/29/2024 Generalized abdominal pain (ICD-10 - R10.84) 05/02/2024 Mucopurulent chronic bronchitis (ICD-10 - J41.1) 72-year-old female with prior history of splenectomy and multiple prior pneumonias, 06-oipp-fryb smoking history and likely COPD who has exertional dyspnea as well as frequent episodes of bronchitis. Bronchiectasis noted on chest CTs due to previous recurrent infections. She has chronic GERD and related cough. She does not have daily sputum and therefore would not qualify for chest vest therapy or would not likely benefit from NaCl NEB. She also has mild anemia, which is contributing. Patient is morbidly obese and extremely sedentary. Patient's shortness of breathPatient's shortness of breath is likely combination of congestive heart failure and obesity. Pulmonary function testing shows significantt restrictive physiology. Had a LDCT which shows a new 1.5 cm GGO/solid nodule; PET CT was negative and showed almost complete resolution of the RML nodule 07/04/2024 Morbid (severe) obesity due to excess calories (ICD-10 - E66.01) 05/02/2024 Bronchiectasis without complication (ICD-10 - J47.9) Normal immunoglobulin levels 72-year-old female with prior history of splenectomy and multiple prior pneumonias, 93-ihyc-kfap smoking history and likely COPD who has exertional dyspnea as well as frequent episodes of bronchitis. Bronchiectasis noted on chest CTs due to previous recurrent infections. She has chronic GERD and related cough. She does not have daily sputum and therefore would not qualify for chest vest therapy or would not likely benefit from NaCl NEB. She also has mild anemia, which is contributing. Patient is morbidly obese and extremely sedentary. Patient's shortness of breathPatient's shortness of breath is likely combination of congestive heart failure and obesity. Pulmonary function testing shows significantt restrictive physiology. Had a LDCT which shows a new 1.5 cm GGO/solid nodule; PET CT was negative and showed almost complete resolution of the RML nodule 08/29/2024 Arthralgia of multiple joints (ICD-10 - M25.50) 10/24/2024 Type 2 diabetes mellitus without complications (ICD-10 - E11.9) 04/30/2024 Mixed hyperlipidemia (ICD-10 - E78.2) Stable lipid profile patient remains on atorvastatin 40 mg once daily, secondary prevention aspirin 81 mg once daily. Last LDL 59 at goal March 29, 2024. she will continue with medical management, low-fat low-cholesterol diet encouraged 04/17/2024 Bronchiectasis without complication (ICD-10 - J47.9) Normal immunoglobulin levels 72-year-old female with prior history of splenectomy and multiple prior pneumonias, 64-uojt-mzyg smoking history and likely COPD who has exertional dyspnea as well as frequent episodes of bronchitis. Bronchiectasis noted on chest CTs due to previous recurrent infections. She may also have ongoing silent reflux, which explains her cough. She does not have daily sputum and therefore would not qualify for chest vest therapy or would not likely benefit from NaCl NEB. She also has mild anemia, which is contributing. Patient is morbidly obese and extremely sedentary. Patient's shortness of breathPatient's shortness of breath is likely combination of congestive heart failure and obesity. Pulmonary function testing shows significantt restrictive physiology. LDCT shows a 1.5 cm RML GGO/solid nodule with 1 cm solid component. Will obtain a PET/CT and then assess for CT guided biopsy 07/04/2024 Other termite control technician (current) drug therapy (ICD-10 - Z79.899) Keep all the other medications same. Encouraged compliance 09/07/2024 Free intraperitoneal air (ICD-10 - K66.8) 09/07/2024 Free intraperitoneal air (ICD-10 - K66.8) 07/18/2024 Body mass index [BMI] 36.0-36.9, adult (ICD-10 - Z68.36) 07/18/2024 Lumbar paraspinal muscle spasm (ICD-10 - M62.830) 04/17/2024 Iron deficiency anemia, unspecified iron deficiency anemia type (ICD-10 - D50.9) Improved, last hemoglobin was 10 Normal colonoscopy. Patient is on iron supplements 72-year-old female with prior history of splenectomy and multiple prior pneumonias, 50-jdow-szna smoking history and likely COPD who has exertional dyspnea as well as frequent episodes of bronchitis. Bronchiectasis noted on chest CTs due to previous recurrent infections. She may also have ongoing silent reflux, which explains her cough. She does not have daily sputum and therefore would not qualify for chest vest therapy or would not likely benefit from NaCl NEB. She also has mild anemia, which is contributing. Patient is morbidly obese and extremely sedentary. Patient's shortness of breathPatient's shortness of breath is likely combination of congestive heart failure and obesity. Pulmonary function testing shows significantt restrictive physiology. LDCT shows a 1.5 cm RML GGO/solid nodule with 1 cm solid component. Will obtain a PET/CT and then assess for CT guided biopsy 08/29/2024 Other snf (current) drug therapy (ICD-10 - Z79.899) Keep all the other medications same. Encouraged compliance 10/24/2024 Health care maintenance (ICD-10 - Z00.00) Reviewed Diagnoses and Medication List. Explained Risk/Benefit of Medications. Discussed treatment options 05/02/2024 Iron deficiency anemia, unspecified iron deficiency anemia type (ICD-10 - D50.9) Improved, last hemoglobin was > 10 Normal colonoscopy. Patient is on iron supplements 72-year-old female with prior history of splenectomy and multiple prior pneumonias, 58-wxvt-vgly smoking history and likely COPD who has exertional dyspnea as well as frequent episodes of bronchitis. Bronchiectasis noted on chest CTs due to previous recurrent infections. She has chronic GERD and related cough. She does not have daily sputum and therefore would not qualify for chest vest therapy or would not likely benefit from NaCl NEB. She also has mild anemia, which is contributing. Patient is morbidly obese and extremely sedentary. Patient's shortness of breathPatient's shortness of breath is likely combination of congestive heart failure and obesity. Pulmonary function testing shows significantt restrictive physiology. Had a LDCT which shows a new 1.5 cm GGO/solid nodule; PET CT was negative and showed almost complete resolution of the RML nodule 07/04/2024 Health care maintenance (ICD-10 - Z00.00) Reviewed Diagnoses and Medication List. Explained Risk/Benefit of Medications. Discussed treatment options 05/02/2024 Morbid obesity (ICD-10 - E66.01) On [facility] I encouraged patient to continue to focus on weight loss and stay active.Patient will Blood work history she comes back. 72-year-old female with prior history of splenectomy and multiple prior pneumonias, 28-smtj-mwzj smoking history and likely COPD who has exertional dyspnea as well as frequent episodes of bronchitis. Bronchiectasis noted on chest CTs due to previous recurrent infections. She has chronic GERD and related cough. She does not have daily sputum and therefore would not qualify for chest vest therapy or would not likely benefit from NaCl NEB. She also has mild anemia, which is contributing. Patient is morbidly obese and extremely sedentary. Patient's shortness of breathPatient's shortness of breath is likely combination of congestive heart failure and obesity. Pulmonary function testing shows significantt restrictive physiology. Had a LDCT which shows a new 1.5 cm GGO/solid nodule; PET CT was negative and showed almost complete resolution of the RML nodule 08/29/2024 Health care maintenance (ICD-10 - Z00.00) Reviewed Diagnoses and Medication List. Explained Risk/Benefit of Medications. Discussed treatment options 10/24/2024 Other snf (current) drug therapy (ICD-10 - Z79.899) Keep all the other medications same. Encouraged compliance 04/17/2024 Morbid obesity (ICD-10 - E66.01) On [employer] I encouraged patient to continue to focus on weight loss and stay active.Patient will Blood work history she comes back. 72-year-old female with prior history of splenectomy and multiple prior pneumonias, 72-jfpp-vxhe smoking history and likely COPD who has exertional dyspnea as well as frequent episodes of bronchitis. Bronchiectasis noted on chest CTs due to previous recurrent infections. She may also have ongoing silent reflux, which explains her cough. She does not have daily sputum and therefore would not qualify for chest vest therapy or would not likely benefit from NaCl NEB. She also has mild anemia, which is contributing. Patient is morbidly obese and extremely sedentary. Patient's shortness of breathPatient's shortness of breath is likely combination of congestive heart failure and obesity. Pulmonary function testing shows significantt restrictive physiology. LDCT shows a 1.5 cm RML GGO/solid nodule with 1 cm solid component. Will obtain a PET/CT and then assess for CT guided biopsy 07/18/2024 Schizophrenia (ICD-10 - F20.9) 04/17/2024 Suspected sleep apnea (ICD-10 - R29.818) Follow up with Sleep clinic next month 72-year-old female with prior history of splenectomy and multiple prior pneumonias, 11-gofg-ycmy smoking history and likely COPD who has exertional dyspnea as well as frequent episodes of bronchitis. Bronchiectasis noted on chest CTs due to previous recurrent infections. She may also have ongoing silent reflux, which explains her cough. She does not have daily sputum and therefore would not qualify for chest vest therapy or would not likely benefit from NaCl NEB. She also has mild anemia, which is contributing. Patient is morbidly obese and extremely sedentary. Patient's shortness of breathPatient's shortness of breath is likely combination of congestive heart failure and obesity. Pulmonary function testing shows significantt restrictive physiology. LDCT shows a 1.5 cm RML GGO/solid nodule with 1 cm solid component. Will obtain a PET/CT and then assess for CT guided biopsy 05/02/2024 Suspected sleep apnea (ICD-10 - R29.818) Follow up with Sleep clinic next month 72-year-old female with prior history of splenectomy and multiple prior pneumonias, 10-jvji-lbqw smoking history and likely COPD who has exertional dyspnea as well as frequent episodes of bronchitis. Bronchiectasis noted on chest CTs due to previous recurrent infections. She has chronic GERD and related cough. She does not have daily sputum and therefore would not qualify for chest vest therapy or would not likely benefit from NaCl NEB. She also has mild anemia, which is contributing. Patient is morbidly obese and extremely sedentary. Patient's shortness of breathPatient's shortness of breath is likely combination of congestive heart failure and obesity. Pulmonary function testing shows significantt restrictive physiology. Had a LDCT which shows a new 1.5 cm GGO/solid nodule; PET CT was negative and showed almost complete resolution of the RML nodule 05/02/2024 Chronic diastolic congestive heart failure (ICD-10 - I50.32) 72-year-old female with prior history of splenectomy and multiple prior pneumonias, 35-ineq-hptt smoking history and likely COPD who has exertional dyspnea as well as frequent episodes of bronchitis. Bronchiectasis noted on chest CTs due to previous recurrent infections. She has chronic GERD and related cough. She does not have daily sputum and therefore would not qualify for chest vest therapy or would not likely benefit from NaCl NEB. She also has mild anemia, which is contributing. Patient is morbidly obese and extremely sedentary. Patient's shortness of breathPatient's shortness of breath is likely combination of congestive heart failure and obesity. Pulmonary function testing shows significantt restrictive physiology. Had a LDCT which shows a new 1.5 cm GGO/solid nodule; PET CT was negative and showed almost complete resolution of the RML nodule 04/17/2024 Chronic diastolic congestive heart failure (ICD-10 - I50.32) 72-year-old female with prior history of splenectomy and multiple prior pneumonias, 90-eycm-uuqz smoking history and likely COPD who has exertional dyspnea as well as frequent episodes of bronchitis. Bronchiectasis noted on chest CTs due to previous recurrent infections. She may also have ongoing silent reflux, which explains her cough. She does not have daily sputum and therefore would not qualify for chest vest therapy or would not likely benefit from NaCl NEB. She also has mild anemia, which is contributing. Patient is morbidly obese and extremely sedentary. Patient's shortness of breathPatient's shortness of breath is likely combination of congestive heart failure and obesity. Pulmonary function testing shows significantt restrictive physiology. LDCT shows a 1.5 cm RML GGO/solid nodule with 1 cm solid component. Will obtain a PET/CT and then assess for CT guided biopsy 04/17/2024 Pulmonary nodule (ICD-10 - R91.1) 72-year-old female with prior history of splenectomy and multiple prior pneumonias, 70-laaf-deen smoking history and likely COPD who has exertional dyspnea as well as frequent episodes of bronchitis. Bronchiectasis noted on chest CTs due to previous recurrent infections. She may also have ongoing silent reflux, which explains her cough. She does not have daily sputum and therefore would not qualify for chest vest therapy or would not likely benefit from NaCl NEB. She also has mild anemia, which is contributing. Patient is morbidly obese and extremely sedentary. Patient's shortness of breathPatient's shortness of breath is likely combination of congestive heart failure and obesity. Pulmonary function testing shows significantt restrictive physiology. LDCT shows a 1.5 cm RML GGO/solid nodule with 1 cm solid component. Will obtain a PET/CT and then assess for CT guided biopsy 05/02/2024 Pulmonary nodule (ICD-10 - R91.1) LDCT 03/2025 72-year-old female with prior history of splenectomy and multiple prior pneumonias, 36-kfox-lfco smoking history and likely COPD who has exertional dyspnea as well as frequent episodes of bronchitis. Bronchiectasis noted on chest CTs due to previous recurrent infections. She has chronic GERD and related cough. She does not have daily sputum and therefore would not qualify for chest vest therapy or would not likely benefit from NaCl NEB. She also has mild anemia, which is contributing. Patient is morbidly obese and extremely sedentary. Patient's shortness of breathPatient's shortness of breath is likely combination of congestive heart failure and obesity. Pulmonary function testing shows significantt restrictive physiology. Had a LDCT which shows a new 1.5 cm GGO/solid nodule; PET CT was negative and showed almost complete resolution of the RML nodule 03/28/2024 Other Diabetes Mellitus Type 2 Management: a. Order blood work for diabetes monitoring, including HbA1c. b. Review results and adjust medications if necessary. c. Educate patient on appropriate dietary choices, emphasizing the importance of limiting carbohydrate intake, especially from bagels and sugary beverages. Sleep Disturbances Management: a. Encourage patient to maintain a regular sleep schedule. b. Follow up on the appointment with the sleep specialist. Urinary Incontinence Management: a. Monitor the situation. b. Advise the patient to try a different brand of pads if the current ones are causing discomfort. Fall Risk Management: a. Encourage patient to continue using the cane for ambulation. b. Advise patient to be cautious to prevent falls. General Health Maintenance Management: a. Continue monitoring patient's overall health, including blood pressure and annual urine tests. b. Schedule a follow-up appointment in three months. Medication Refills Management: a. Instruct patient to call if any medication refills are required before the next appointment. Followup w sleep specialist. I will add some additional lab work to monitor diabetes when she has her weekly labs done tomorrow. She refuses to go in fasting for the blood draw. She follows with psychiatric provider. Reviewed components wellness visit. Emphasize safety issues. I will call her if I need to adjust medication when I see the blood work. Counseled her to limit carbs in the diet. 07/04/2024 Other Check labs nex t. Followup with psych. She has followup w promotions specialist. She also will follow-up for event monitor at [facility] ordered by cardiology. She has a form that she needs completed for her insurance but only brought the second page. I did not change any medication at this time. 07/18/2024 Other Chronic Back Pain Management: - patient was given Lidocaine patch at ER but was not covered by her insurance. I advised her that that medication is usually only covered for Shingles pain. a. Prescribe meloxicam for pain relief. b. Prescribe tizanidine for muscle spasms. c. Refer the patient to physical therapy for muscle stretching and heat application. d. Schedule a follow-up appointment in one month to assess treatment effectiveness. Constipation Management: a. Encourage increased fluid and fiber intake. b. Monitor bowel movements and consider prescribing a stool softener or laxative if needed. Occasional Tachycardia Management: a. Monitor the patient's heart rate during future visits. b. Consider further evaluation if the problem worsens or becomes more frequent. Insomnia Management: a. Encourage regular sleep schedule and good sleep hygiene practices. b. The prescribed tizanidine may help with sleep due to its sedative effect. c. Reassess sleep quality at the next appointment. Tingling and Burning Sensation in Toes Management: a. Monitor the patient's symptoms. b. Consider further evaluation if the problem persists or worsens. c. Encourage reduced sugar intake and good foot care. Additional Notes: a. Patient uses a hospital bed at home. b. Patient prefers morning appointments. c. Patient has changed insurance to [facility]. d. Recommend range of motion exercises for the back, demonstrated, 10-[address]. As the Primary Care Provider, I am the focal point for comprehensive, consistent, and ongoing outpatient care for this patient. As the Primary Care Provider, I am the focal point for comprehensive, consistent, and ongoing outpatient care for this patient. 08/24/2024 Other Gastroenteritis Management: a. Prescribe Levaquin for another week, one pill daily in the morning. b. Monitor symptoms and follow up in 5 days. c. If abdominal pain worsens, advise the patient to seek emergency care. d. Patient reports vomiting twice recently. Abdominal Pain Management: a. Encourage the patient to complete blood work today at [facility] to check for infection. b. Follow up in 5 days to assess improvement. c. If pain worsens, advise the patient to seek emergency care. d. Patient reports pain is better than when in hospital but still present, especially when eating. Oncology Referral Management: a. Investigate the canceled oncology appointment and obtain details. b. Reschedule the appointment as needed. c. Patient mentions PET scan due to a spot seen. Will review records. That may have been done as part of the work up from the promotions specialist rather than related to recent GI issue. Colonoscopy Referral Management: a. Refer the patient to a GI specialist. Consider colonoscopy evaluation. b. Patient specifically requested this. Visual Disturbances Management: a. Is asking for referral to a different warehouse distribution specialist but I recommend that she follow up with her established eye doctor, Dr. Santillan, for evaluation and management. b. Patient reports seeing shadows and unclear vision. Dizziness Management: a. Monitor symptoms and address during the follow-up visit if persistent. b. Patient mentions feeling dizzy during the visit. Penicillin Allergy Management: a. Document allergy and avoid prescribing penicillin-based medications. Nutrition Management: a. Patient reports eating like a bird due to pain when eating. b. Monitor nutritional intake during follow-up. Blood Sugar Management: a. Patient mentioned blood sugar of 134 before leaving home. b. Consider monitoring during follow-up. Home Care Management: a. Patient reports having a nurse visit at home around 3:30-4:00 PM. b. Coordinate care with home health if needed. She is a very poor historian. Recent hospitalization, presumably for gastroenteritis after eating at [employer]. X-ray did show free air in the bowel. Etiology is still undetermined. She states that she had a referral to oncology, did not keep that appointment, we will try to get details about that. She is still having significant lower abdominal pain, I am going to keep her on antibiotic. I want her to check blood work today. She feels that she needs colonoscopy, will refer to GI office. I will see her back in just 5 days. I told her if the abdominal pain gets worse then she does need to go back to the emergency room. I will review records, try to get additional details, this is a very difficult patient 08/29/2024 Other Abdominal Pain Management: a. Continue monitoring the patient's progress. b. If the pain worsens, the patient should contact the clinic. Weight Loss Management: a. Monitor weight changes. b. Address any concerns during follow-up visits. Musculoskeletal Pain Management: a. Prescribe tramadol for joint pain management. b. Instruct the patient to take it as needed for severe pain. Paresthesia Management: a. Further evaluation may be needed if symptoms persist or worsen. b. Monitor during follow-up visits. Mobility Concerns Management: a. Provide the patient with the contact information for the [employer] ([phone]). b. Advise them to initiate the process. c. Schedule a separate visit for anchor.travelooter paperwork if needed. Nausea and Vomiting Management: a. Monitor for any further episodes. b. Address during follow-up visits if necessary. Follow-up Appointments Management: a. Schedule a follow-up appointment with Dr. Alvarez on September 26 at 8:50 AM. Laboratory Results Management: a. Continue monitoring lab results as needed during follow-up visits. Antibiotic Treatment Management: a. No further antibiotic treatment needed at this time. Home Care Management: a. Consider discussing home therapy options during the next visit. Reassured regarding progress. She can stop Levaquin when finished. She request evaluation for home physical therapy. Will see if we can arrange that through current nursing that administers her psychiatric meds. I gave her information for the [facility] and [facility], she needs to call them to get paperwork started. When she is ready will need a dedicated scooter visit to complete the paperwork. I will give her a small prescription of tramadol to use for pain. She should let me know if the abdominal pain gets worse again. 09/07/2024 Other recommended calling her PCP regarding her vaginal itching Parts of this note have been generated with voice recognition software. An attempt at proofreading has been made to minimize errors. Please contact the office for clarification. 10/24/2024 Other Mobility Impairment Management: a. Continue use of walker and cane for ambulation. b. Proceed with installation of tub cutout for easier bathroom access. c. Maintain handicapped parking space for accessibility. Dysphagia and Cervical Pain Management: a. Monitor symptoms and reassess at next visit. Diabetes Mellitus Management: a. Order blood work for diabetes screening at next laboratory visit. b. Continue current management plan (details not provided in transcript). c. Follow up in 3 months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
--- NOTE | 2025-03-13 11:19 | P.CONHOSP_ITS ---
History of Present Illness Data of Consult Service Date: 03/13/25 Primary Care Provider: Nonstaff Physician HPI Reason for consult: Medical evaluation 74-year-old female with a past medical history of hypertension, GERD, COPD, type 2 diabetes, anxiety and depression, CKD and schizophrenia, was brought to the ED by her son after experience auditory hallucinations and agitation. She had not been taking her medications for a couple of days. She was found to have a positive UTI and started on cefpodoxime 200 BID. On exam she is awake and alert, her vitals are stable. Patient with elevated LIPID panel, CKD with Creatinine clearance est 24. Review of Systems 2 Review of Systems: Denies any shortness of breath, chest pain, dizziness, lightheadedness, abdominal pain or discomfort, nausea vomiting or diarrhea PMFSH Social History Household Members: None Housing: Apartment Housing Other:: [facility] building Do you presently have visiting nurse or other home services: Yes Patient Tobacco Use Status: Former Tobacco user Tobacco use type: Cigarette Cigarette Packs Per Day: 1 Years Smoked: 45 Smoked in Last 30 Days: No e-Cigarette/Vaping Use: Never Used Patient Interested in Nicotine Replacement: No Patient Given Instructions on How to Stop Smoking: No Second Hand Smoke Exposure: No Have you been hit, kicked, punched, or otherwise hurt by someone within the past year? If so, by whom?: No Do you feel safe in your current relationship?: No Current Relationship Is there a partner from a previous relationship who is making you feel unsafe now?: No Are you made to feel afraid or neglected: No Islam Healthcare Practices: Pt is islam, sometimes prays Advance Directives: No Advance Directives Information Provided: Yes Do you have a plan to hurt others: No Plan Recently lost weight without trying: Unsure How much weight loss: Not applicable Eating poorly because of decreased appetite: No Nutrition screen score: 2 Nutrition Risks: No Nutritional Risk Patient : No : No Poor oral hygiene: No Meds Allergies Allergy/AdvReac Type Severity Reaction Status Date / Time Iodinated Contrast Media Allergy Severe hives Verified 03/13/25 11:42 Penicillins Allergy Severe Unknown Verified 03/13/25 11:42 lactose AdvReac Intermediate loose stool Verified 03/13/25 11:42 lisinopril AdvReac Intermediate Cough Verified 03/13/25 11:42 succinylcholine AdvReac Unknown Unknown Verified 03/13/25 11:42 [From Anectine] Active Medications: Current Medications Acetaminophen (Acetaminophen 325 Mg Tablet) 650 mg PO Q6H PRN PRN Reason: Headache/Pain, Scale 1-10 Al Hydroxide/Mg Hydroxide (Magnesium Hydrox/Alum Hydrox 30 Ml Oral.Susp) 30 ml PO Q6H PRN PRN Reason: Heartburn/Nausea Magnesium Hydroxide (Milk Of Magnesia 30 Ml Oral.Susp) 30 ml PO DAILY PRN PRN Reason: Constipation Olanzapine (Olanzapine 2.5 Mg Tablet) 2.5 mg PO TID PRN PRN Reason: agitation Trazodone HCl (Trazodone Hcl 50 Mg Tablet) 50 mg PO BEDTIME PRN PRN Reason: Insomnia Home Medications ?Medication ?Instructions ?Recorded ?Confirmed ?Last Taken ?Type aspirin 81 mg tablet,delayed 81 mg PO DAILY 03/13/25 03/13/25 Unknown History release cefpodoxime 200 mg tablet 200 mg PO BID 03/13/25 03/13/25 03/12/25 00:00 History 200 clozapine 100 mg tablet (Clozaril) 100 mg PO QAM 03/13/25 03/13/25 03/12/25 09:00 History 100 divalproex 250 mg tablet,extended 250 mg PO DAILY 03/13/25 03/13/25 03/12/25 18:00 History release 24 hr (Depakote ER) 250 divalproex 500 mg tablet,extended 500 mg PO 03/13/25 Unknown History release 24 hr empagliflozin 25 mg tablet 25 mg PO DAILY 03/13/25 03/13/25 Unknown History (Jardiance) esomeprazole magnesium 20 mg 20 mg PO BID 03/13/25 03/13/25 Unknown History capsule,delayed release ferrous sulfate 325 mg (65 mg 325 mg PO DAILY anemia 03/13/25 03/13/25 Unknown History iron) tablet furosemide 40 mg tablet 40 mg PO BID 03/13/25 03/13/25 Unknown History sennosides 8.6 mg tablet (senna) 17.2 mg PO BEDTIME 03/13/25 03/13/25 Unknown History spironolactone 25 mg tablet 25 mg PO DAILY 03/13/25 03/13/25 Unknown History spironolactone 25 mg tablet 25 mg PO DAILY 03/13/25 03/13/25 Unknown History Physical Exam 2 Vital Signs and Narrative: Vital Signs: Last Vital Signs Temp 97.7 F 03/13/25 09:42 Pulse 92 03/13/25 09:42 Resp 16 03/13/25 09:42 BP 120/58 L 03/13/25 09:42 Pulse Ox 100 03/13/25 09:42 O2 Del Method Room Air 03/13/25 09:42 Alert and oriented X3, able to give good history. Neuro: CN II-X11 intact, no deficits, visual acuity intact EYES: PERRLA, EOM intact ENT: hearing intact, uvula midline, lips moist Cardiac: S1 S2 RRR, no murmur, no JVD, no edema in Lower ext Pulmonary: lungs clear to auscultation, No increased WOB. Abdominal: BS active in all 4 quadrants, no guarding, tenderness + obesity MSK: Strength 5/5 upper and lower extremities : no CVA tenderness no bladder distension Extremities: No edema in lower extremities Psych: mood stable, quiet, engaging and cooperatve Skin: Warm and dry, Intact Results Labs 03/13/25 10:47 Assessment and Plan (1) UTI (urinary tract infection): Status: Acute Plan Type 2 diabetes with chronic kidney disease stage 3 Renally dose all meds. Estimated creatinine clearance 24 Continue Jardiance Consistent carbohydrate diet Schizophrenia/depression anxiety Per psychiatric team Urinary tract infection Found to have a UTI. Continue cefpodoxime 200 BID to complete course
[2025-03-13 11:21] VITALS: BMI 34.7
[2025-03-13 11:21] LABS: Alanine Aminotransferase 26 U/L (0-31); Albumin Level 4.5 g/dL (3.5-5.0); Alkaline Phosphatase 59 U/L (39-117); Anion Gap 15 (12-20); Aspartate Amino Transferase 24 U/L (5-31); Bilirubin Total 0.5 mg/dL (0.0-1.0); Blood Urea Nitrogen 19 mg/dL (9-16); Calcium 10.1 mg/dL (8.4-10.2); Carbon Dioxide 30 mmol/L (22-29); Chloride 99 mmol/L (96-108); Cholesterol 221 mg/dL (<200); Estimated Glomerular Filt Rate 44; Glucose Random 173 mg/dL (60-115); HDL Cholesterol 39 mg/dL (>40); LDL Cholesterol Calculated 134 mg/dL (<100); Potassium 4.5 mmol/L (3.3-5.1); Sodium 139 mmol/L (135-145); Total Protein 7.8 g/dL (6.5-8.0); Triglycerides 243 mg/dL (<150)
[2025-03-13 11:26] LABS: Estimated Average Glucose 146 mg/dL; Hemoglobin A1C 168.9344 umol/L; Hemoglobin A1c % 6.7 % (<6.0); Total Hemoglobin (HGBA1C) 3372.1126 umol/L
[2025-03-13 11:35] LABS: TSH reflex Free T4 2.48 uIU/mL (0.32-4.0)
--- NOTE | 2025-03-13 11:42 | P.HPPS_ITS ---
HPI Date of Service: 03/13/25 Chief Complaint: Unspecified Psychosis Sources of Information: patient interviewed, chart reviewed and crisis/core team assessment reviewed HPI Subjective Notes: Yeung Warning and Conditional Voluntary Narrative: Ms. Encarnacion is a 74 year-old woman with hx of schizophrenia. She was initially brought to [facility] ED due to increase agitation and auditory hallucinations in context of pt stopping antipsychotic clozapine. Pertinent labs completed in the ED include CBC with no leukocytosis, MCV slightly elevated 99 with H&H low end of normal (will check B12). CMP without electrolyte abnormalities, BUN 1.06, BUN 18. LFTs wnl. depakote level 12.5. Utox was negative. UA showed glucose and leukocytes. She was started on antibiotic for UTI. No information as to behavioral health assessment was completed. While patient was being transported to [facility], pt reported chest pain and was brought to [facility]. She had EKG which did not show signs of ischemia, negative troponin x 2 at 1:43 and 00:47 on 03/13/2025. On the unit, pt presents as somewhat guarded. She reports she stopped medications, unclear cause. She reports she does this at times. She reports she became more anxious and hearing more voices. When asked about what the voices are telling her, she seems somewhat guarded, stating they always ask me this questions. Despite this telegraphic typewriter installer explaining that since we are just meeting her want to hear from her. She later during interview asks this telegraphic typewriter installer if I can hear the noise which there was non in the room. She reports voices continue to talk to her telling her you're never going to get out of here. She reports voices tell her at times derogatory statements, but would not elaborate. She also hints that voices may tell her medications are not safe. She adamantly denies suicidal or homicidal ideation. She reports feeling anxious and also having poor sleep. She is in agreement to restart clozaril. Past Psychiatric History: Inpt: reports number of admission but can't remember when or where. She reports last one was a long time a go. She could not tell whether it was in the past 5 years or more than that. OP: Pt reports seeing Alma Rosa Ramesh, but she is no longer in the practice. She now sees Génesis Buck NP ([phone]). Past medication trials: depakote, clozapine. Pt can't remember if she has been on other medications. Medical Evaluation Reviewed: Yes [facility] Family History: mother- bipolar Social History: Pt reports she was born in [facility]. She reports she has been twice. She has two sons one but pt did not elaborate how or when, reported long time ago. She reports she did not finish [employer]. 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 Substance History: none Trauma History: not disclosed Diagnostics Vital Signs (24Hr): Vital Signs - 24 hr 03/13/25 09:42 Temperature 97.7 F Pulse Rate 92 Respiratory Rate 16 Blood Pressure 120/58 L Pulse Oximetry 100 Oxygen Delivery Method Room Air BMI result Body Mass Index 34.7 Labs 03/13/25 10:47 Labs: Laboratory Results - last 48 hr 03/13/25 10:47 Sodium 139 Potassium 4.5 Chloride 99 Carbon Dioxide 30 H Anion Gap 15 BUN 19 H Creatinine 1.20 Estim Creat Clear Calc TNP Estimated GFR 44 Random Glucose 173 H Estimat Average Glucose 146 Hemoglobin A1c % 6.7 H Calcium 10.1 Total Bilirubin 0.5 AST 24 ALT 26 Alkaline Phosphatase 59 Total Protein 7.8 Albumin 4.5 Triglycerides 243 H Cholesterol 221 H LDL Cholesterol, Calc 134 H HDL Cholesterol 39 L TSH 2.48 Meds/Allergies Meds Home Medications ?Medication ?Instructions ?Recorded ?Confirmed ?Type aspirin 81 mg tablet,delayed 81 mg PO DAILY 03/13/25 03/13/25 History release cefpodoxime 200 mg tablet 200 mg PO BID 03/13/25 03/13/25 History clozapine 100 mg tablet (Clozaril) 100 mg PO QAM 03/13/25 03/13/25 History divalproex 250 mg tablet,extended 250 mg PO DAILY 03/13/25 03/13/25 History release 24 hr (Depakote ER) divalproex 500 mg tablet,extended 500 mg PO 03/13/25 History release 24 hr empagliflozin 25 mg tablet 25 mg PO DAILY 03/13/25 03/13/25 History (Jardiance) esomeprazole magnesium 20 mg 20 mg PO BID 03/13/25 03/13/25 History capsule,delayed release ferrous sulfate 325 mg (65 mg 325 mg PO DAILY anemia 03/13/25 03/13/25 History iron) tablet furosemide 40 mg tablet 40 mg PO BID 03/13/25 03/13/25 History sennosides 8.6 mg tablet (senna) 17.2 mg PO BEDTIME 03/13/25 03/13/25 History spironolactone 25 mg tablet 25 mg PO DAILY 03/13/25 03/13/25 History spironolactone 25 mg tablet 25 mg PO DAILY 03/13/25 03/13/25 History Allergies Allergies Allergy/AdvReac Type Severity Reaction Status Date / Time Iodinated Contrast Media Allergy Severe hives Verified 03/13/25 11:42 Penicillins Allergy Severe Unknown Verified 03/13/25 11:42 lactose AdvReac Intermediate loose stool Verified 03/13/25 11:42 lisinopril AdvReac Intermediate Cough Verified 03/13/25 11:42 succinylcholine AdvReac Unknown Unknown Verified 03/13/25 11:42 [From Anectine] Mental Status Exam Mental Status Exam Narrative: Appearance: wearing hospital gown, fair hygiene, in NAD behavior: somewhat guarded and apprehensive Psychomotor: no tremors, no ataxia, no agitation or retardation. Speech: clear, mild delayed in response seems related to being internally preoccupied, spontaneous TP: thought blocking TC: bothered by voices Mood: anxious Affect: congruent SI: denies HI: denies VH/AH: auditory hallucinations, some derogatory comments, denies command hallucinations Delusions: some paranoia. Insight/judgment: poor x 2. Memory/cog: alert, oriented to place, month and year. vaguely to situation. MOCA completed score 8/30 with impairment in executive function/visuospatial (2/5), naming (2/3), attention (which suspects related to underlying psychosis), language flunce and repetition, recall, abstraction, orientation. Although do suspect underlying cognitive impairment, active psychosis may have affected some of the scores. ACL 4.2 Assessment & Plan Assessment & Plan (1) Schizophrenia: Status: Acute Qualifiers: Schizophrenia type: paranoid schizophrenia Qualified Code(s): F20.0 - Paranoid schizophrenia Code(s): F20.9 - Schizophrenia, unspecified Plan Ms. Encarnacion is a 74 year-old woman with hx of schizophrenia who was brought initially to [facility] ED due to increase AH, agitation. No details as to extend of agitation. It appears she intermittently stops clozaril. She presents as internally preoccupied and somewhat guarded. She denies SI/HI. She does not present with any aggression or agitation. We discussed risks, benefits and alternative treatment options, she agrees to restart (which ws restarted in ED) clozapine 100mg po daily. Pt also gave permission to contact her psychiatric provider Génesis Buck NP ([phone]) and her son for collateral information. PLAN 1. Admit to S1, CV, 15 minutes checks for safety 2. continue clozapine 100mg po daily, will check levels in about a week or so 3. continue depakote, will check ammonia and depakote levels in about 5 days. 4. obtain collateral information 5. OT assessments completed- MOCA 06/15, however, pt internally preoccupied which could have affected attention and recall. 6. aftercare planning. Patient educated on: diagnosis, medication risk/benefits and substance abuse Reason for continued inpatient stay Substantial Risk for: inability to function Statement Statement: I have reviewed the history and physical and performed a pertinent examination on my patient. No changes have occurred unless specified. If the History and Physical was not performed prior to admission, the Hospitalist's service will be consulted for completing the admission physical. Time Spent With Patient Time: Total time managing care of this patient today ____ minutes.
[2025-03-13] MEDS: Divalproex Sodium ER 250 MG TAB.ER.24H 750 MG PO (12:45)
[2025-03-13] MEDS: cefuroxime axetiL 500 MG TABLET PO (12:45)
[2025-03-13] MEDS: cloZAPine 100 MG TABLET PO (12:46)
[2025-03-13] MEDS: Loratadine 10 MG TABLET PO (12:46)
[2025-03-13] MEDS: Empagliflozin 25 MG TABLET PO (12:47)
[2025-03-13 12:52] LABS: Folate 14.1 ng/mL (> or = 4.0); Vitamin B12 445 pg/mL (200-900)
[2025-03-13 13:00] LABS: Neut%MD 75.6 %; Neutrophils Absolute Auto 7.2 x10*3/uL (2.0-8.3); WBCANC 9.5 X10*3/uL
[2025-03-13 13:23] VITALS: BP 121/60
[2025-03-13] MEDS: Spironolactone 25 MG TABLET PO (13:23)
[2025-03-13] MEDS: Furosemide 40 MG TABLET PO ×2 (13:23→20:36)
--- NOTE | 2025-03-13 17:49 | PC.ADMIT ---
Pt is a 74 year old female with a PMH significant for COPD and diabetes mellitus, who arrived to S1 via EMS on a CV @ 10:00 for the treatment of Schizophrenia. Precipitants of this admission include recent medication non-adherence and pt becoming increasingly agitated at home. Upon arrival to the unit, pt is AOx3 (oriented to self, place, and date) but with limited insight into situation. Pt was at times difficult to understand and tangential but calm and cooperative with the admission process. Pt has HCP who is her son Kam Encarnacion [phone]. Pt endorses hearing voices but could not elaborate on what they are saying. Pt also endorsed occasional visual hallucinations. Pt rated 6/10 for depression and no anxiety. Pt was adherent with meds and meals, cooperative with admission questions. Skin check revealed a rash under breast area. Pt denies SI/HI (no ideation, plan, or intent) and stated she feels safe on the unit, however pt got easily overwhelmed with loud noises on the unit and became anxious and requesting to go home. Scheduled medications were offered including Clozapine and Depakote, after which pt slept in bed for an extended time.
[2025-03-13 20:00] VITALS: BP 111/56; PULSE 95; RESP 16; TEMP 36.4; O2SAT 92
[2025-03-13 20:36] VITALS: BP 111/56
[2025-03-13] MEDS: Atorvastatin Calcium 40 MG TABLET PO (20:36)
[2025-03-13] MEDS: traZODone HCL 50 MG TABLET PO (20:38)
[2025-03-14] MEDS: Omeprazole 20 MG CAPSULE.DR PO (06:18)
[2025-03-14 08:38] VITALS: BP 97/56; PULSE 83; TEMP 36.9; O2SAT 98
[2025-03-14] MEDS: Fluticasone/Umeclidinium/Vilanterol 100/62.5/25 BLST.W.DEV 1 PUFF INHALE (09:23)
[2025-03-14] MEDS: Divalproex Sodium ER 250 MG TAB.ER.24H 750 MG PO (09:24)
[2025-03-14] MEDS: cloZAPine 100 MG TABLET PO (09:24)
[2025-03-14] MEDS: Ferrous Sulfate 324 MG TABLET.DR PO (09:25)
[2025-03-14] MEDS: Empagliflozin 25 MG TABLET PO (09:25)
[2025-03-14] MEDS: Aspirin Enteric Coated 81 MG TABLET.DR PO (09:26)
[2025-03-14] MEDS: Loratadine 10 MG TABLET PO (09:26)
[2025-03-14] MEDS: cefuroxime axetiL 500 MG TABLET PO (12:18)
[2025-03-14 13:51] VITALS: BMI 35.0
--- NOTE | 2025-03-14 15:21 | HO.PSYCHPN ---
Subjective Subjective Date of Service: 03/14/25 Reason For Visit: Unspecified Psychosis Subjective Notes: Conditional Voluntary Interim History: Pt slept most of the night. She continues to present as internally preoccupied, minimizes symptoms of psychosis and delusions but very guarded about taking medications and not forthcoming about extend of delusional content. She reports she does not think she needs medications because she thinks they are not being digested. When asked to elaborate, pt changes topic and then does not provide more information. She reports she has not heard the voices but during meeting keep mentioning that they are talking to her. She does not think she should talk about them. Review of Systems Review of Systems Denies any shortness of breath, chest pain, dizziness, lightheadedness, abdominal pain or discomfort, nausea vomiting or diarrhea Mental Status Exam Mental Status Exam Narrative: Appearance: wearing hospital gown, fair hygiene, in NAD behavior: somewhat guarded and apprehensive Psychomotor: no tremors, no ataxia, no agitation or retardation. Speech: clear, mild delayed in response seems related to being internally preoccupied, spontaneous TP: thought blocking TC: bothered by voices Mood: anxious Affect: congruent SI: denies HI: denies VH/AH: auditory hallucinations, some derogatory comments, denies command hallucinations Delusions: some paranoia. Insight/judgment: poor x 2. Memory/cog: alert, oriented to place, month and year. vaguely to situation. MOCA completed score 8/30 with impairment in executive function/visuospatial (2/5), naming (2/3), attention (which suspects related to underlying psychosis), language flunce and repetition, recall, abstraction, orientation. Although do suspect underlying cognitive impairment, active psychosis may have affected some of the scores. ACL 4.2 Diagnostics Vital Signs (24Hr): Vital Signs - 24 hr 03/13/25 20:00 03/13/25 20:36 03/14/25 08:38 Temperature 97.5 F 98.4 F Pulse Rate 95 83 Respiratory Rate 16 Blood Pressure 111/56 L 111/56 L 97/56 L Pulse Oximetry 92 98 Oxygen Delivery Method Room Air Room Air BMI result Body Mass Index 35.0 Labs 03/13/25 10:47 Labs: Laboratory Results - last 48 hr 03/13/25 03/13/25 03/13/25 10:47 11:55 12:52 Absolute Neuts (auto) 7.2 Sodium 139 Potassium 4.5 Chloride 99 Carbon Dioxide 30 H Anion Gap 15 BUN 19 H Creatinine 1.20 Estim Creat Clear Calc TNP Estimated GFR 44 Random Glucose 173 H Estimat Average Glucose 146 Hemoglobin A1c % 6.7 H Calcium 10.1 Total Bilirubin 0.5 AST 24 ALT 26 Alkaline Phosphatase 59 Total Protein 7.8 Albumin 4.5 Triglycerides 243 H Cholesterol 221 H LDL Cholesterol, Calc 134 H HDL Cholesterol 39 L Vitamin B12 445 Folate 14.1 TSH 2.48 Medications Medications Current Medications Acetaminophen (Acetaminophen 325 Mg Tablet) 650 mg PO Q6H PRN PRN Reason: Headache/Pain, Scale 1-10 Al Hydroxide/Mg Hydroxide (Magnesium Hydrox/Alum Hydrox 30 Ml Oral.Susp) 30 ml PO Q6H PRN PRN Reason: Heartburn/Nausea Aspirin (Aspirin Enteric Coated 81 Mg Tablet.) 81 mg PO DAILY [facility] Last Admin: 03/14/25 09:26 Dose: 81 mg Atorvastatin Calcium (Atorvastatin Calcium 40 Mg Tablet) 40 mg PO BEDTIME [facility] Last Admin: 03/13/25 20:36 Dose: 40 mg Cefuroxime Axetil (Cefuroxime Axetil 500 Mg Tablet) 500 mg PO Q24H [facility] Stop: 03/24/25 12:31 Last Admin: 03/14/25 12:18 Dose: 500 mg Clozapine (Clozapine 100 Mg Tablet) 100 mg PO DAILY [facility] Last Admin: 03/14/25 09:24 Dose: 100 mg Divalproex Sodium (Divalproex Sodium Er 250 Mg Tab.Er.24h) 750 mg PO DAILY [facility] Last Admin: 03/14/25 09:24 Dose: 750 mg Empagliflozin (Empagliflozin 25 Mg Tablet) 25 mg PO DAILY [facility] Last Admin: 03/14/25 09:25 Dose: 25 mg Ferrous Sulfate (Ferrous Sulfate 324 Mg Tablet.) 324 mg PO DAILY [facility] Last Admin: 03/14/25 09:25 Dose: 324 mg Fluticasone/Umeclidinium/Vilanterol (Fluticasone/Umeclidinium/Vilanterol 100/62.5/25 Blst.W.Dev) 1 puff INHALE RDAILY [facility] Last Admin: 03/14/25 09:23 Dose: 1 puff Furosemide (Furosemide 40 Mg Tablet) 40 mg PO BID [facility]; Protocol Last Admin: 03/14/25 09:31 Dose: Not Given Loratadine (Loratadine 10 Mg Tablet) 10 mg PO DAILY [facility] Last Admin: 03/14/25 09:26 Dose: 10 mg Magnesium Hydroxide (Milk Of Magnesia 30 Ml Oral.Susp) 30 ml PO DAILY PRN PRN Reason: Constipation Nitroglycerin (Nitroglycerin 0.4 Mg Tab.Subl) 0.4 mg SUBLINGUAL Q5MX3 PRN PRN Reason: Chest Pain Olanzapine (Olanzapine 2.5 Mg Tablet) 2.5 mg PO TID PRN PRN Reason: agitation Omeprazole (Omeprazole 20 Mg Capsule.Dr) 20 mg PO DAILY@0630 [facility] Last Admin: 03/14/25 06:18 Dose: 20 mg Senna (Sennosides 8.6 Mg Tablet) 17.2 mg PO BEDTIME [facility] Last Admin: 03/14/25 01:01 Dose: Not Given Spironolactone (Spironolactone 25 Mg Tablet) 25 mg PO DAILY [facility]; Protocol Last Admin: 03/14/25 09:31 Dose: Not Given Trazodone HCl (Trazodone Hcl 50 Mg Tablet) 50 mg PO BEDTIME PRN PRN Reason: Insomnia Last Admin: 03/13/25 20:38 Dose: 50 mg Allergies Allergies Allergy/AdvReac Type Severity Reaction Status Date / Time Iodinated Contrast Media Allergy Severe hives Verified 03/13/25 11:42 Penicillins Allergy Severe Unknown Verified 03/13/25 11:42 lactose AdvReac Intermediate loose stool Verified 03/13/25 11:42 lisinopril AdvReac Intermediate Cough Verified 03/13/25 11:42 succinylcholine AdvReac Unknown Unknown Verified 03/13/25 11:42 [From Anectine] Assessment & Plan Assessment & Plan (1) Schizophrenia: Qualifiers: Schizophrenia type: paranoid schizophrenia Qualified Code(s): F20.0 - Paranoid schizophrenia Status: Acute Code(s): F20.9 - Schizophrenia, unspecified Plan Ms. Encarnacion is a 74 year-old woman with hx of schizophrenia who was brought initially to [facility] ED due to increase AH, agitation. No details as to extend of agitation. It appears she intermittently stops clozaril. She presents as internally preoccupied and somewhat guarded. She denies SI/HI. She does not present with any aggression or agitation. We discussed risks, benefits and alternative treatment options, she agrees to restart (which ws restarted in ED) clozapine 100mg po daily. Pt also gave permission to contact her psychiatric provider Génesis Buck NP ([phone]) and her son for collateral information. PLAN 03/14 continue medications. will check clozapine level in few days and adjust dose. Reason for continued inpatient stay Substantial Risk for: inability to function Time Spent With Patient Time: Total time managing care of this patient today ____ minutes.
[2025-03-14 20:00] VITALS: BP 115/64; PULSE 79; RESP 16; TEMP 36.1; O2SAT 97
[2025-03-14] MEDS: Sennosides 8.6 MG TABLET 17.2 MG PO (20:21)
[2025-03-14] MEDS: Atorvastatin Calcium 40 MG TABLET PO (20:21)
[2025-03-15] MEDS: Omeprazole 20 MG CAPSULE.DR PO (06:31)
[2025-03-15 08:00] VITALS: BP 122/56; PULSE 86; RESP 16; TEMP 36.9; O2SAT 96
[2025-03-15 10:42] VITALS: BP 122/56
[2025-03-15] MEDS: Ferrous Sulfate 324 MG TABLET.DR PO (10:42)
[2025-03-15] MEDS: Spironolactone 25 MG TABLET PO (10:42)
[2025-03-15] MEDS: Empagliflozin 25 MG TABLET PO (10:42)
[2025-03-15] MEDS: Divalproex Sodium ER 250 MG TAB.ER.24H 750 MG PO (10:42)
[2025-03-15] MEDS: cloZAPine 100 MG TABLET PO (10:42)
[2025-03-15] MEDS: Aspirin Enteric Coated 81 MG TABLET.DR PO (10:43)
[2025-03-15] MEDS: Loratadine 10 MG TABLET PO (10:43)
--- NOTE | 2025-03-15 11:38 | P.PNPSI_ITS ---
Subjective Subjective Date of Service: 03/15/25 Reason For Visit: Unspecified Psychosis Subjective Notes: Conditional Voluntary Interim History: Pt slept most of the night. She continues to present as internally preoccupied, minimizes symptoms of psychosis and delusions but very guarded about taking medications and not forthcoming about extend of delusional content. pt reports she thinks she has a cassette/tape in her stomach which was inserted several years ago when she was in [place]. She thinks this is preventing medications to be dissolved. continues to present as delusional, guarded. Review of Systems Review of Systems Denies any shortness of breath, chest pain, dizziness, lightheadedness, abdominal pain or discomfort, nausea vomiting or diarrhea Mental Status Exam Mental Status Exam Narrative: Appearance: wearing hospital gown, fair hygiene, in NAD behavior: somewhat guarded and apprehensive Psychomotor: no tremors, no ataxia, no agitation or retardation. Speech: clear, mild delayed in response seems related to being internally preoccupied, spontaneous TP: thought blocking TC: bothered by voices Mood: anxious Affect: congruent SI: denies HI: denies VH/AH: auditory hallucinations, some derogatory comments, denies command hallucinations Delusions: some paranoia. Insight/judgment: poor x 2. Memory/cog: alert, oriented to place, month and year. vaguely to situation. MOCA completed score 8/30 with impairment in executive function/visuospatial (2/5), naming (2/3), attention (which suspects related to underlying psychosis), language flunce and repetition, recall, abstraction, orientation. Although do suspect underlying cognitive impairment, active psychosis may have affected some of the scores. ACL 4.2 Diagnostics Vital Signs (24Hr): Vital Signs - 24 hr 03/14/25 20:00 03/15/25 08:00 03/15/25 10:42 Temperature 97 F 98.4 F Pulse Rate 79 86 Respiratory Rate 16 16 Blood Pressure 115/64 122/56 L 122/56 L Pulse Oximetry 97 96 Oxygen Delivery Method Room Air Room Air BMI result Body Mass Index 35.0 Labs 03/13/25 10:47 Labs: Laboratory Results - last 48 hr 03/13/25 03/13/25 11:55 12:52 Absolute Neuts (auto) 7.2 Vitamin B12 445 Folate 14.1 Medications Medications Current Medications Acetaminophen (Acetaminophen 325 Mg Tablet) 650 mg PO Q6H PRN PRN Reason: Headache/Pain, Scale 1-10 Al Hydroxide/Mg Hydroxide (Magnesium Hydrox/Alum Hydrox 30 Ml Oral.Susp) 30 ml PO Q6H PRN PRN Reason: Heartburn/Nausea Aspirin (Aspirin Enteric Coated 81 Mg Tablet.) 81 mg PO DAILY [facility] Last Admin: 03/15/25 10:43 Dose: 81 mg Atorvastatin Calcium (Atorvastatin Calcium 40 Mg Tablet) 40 mg PO BEDTIME [facility] Last Admin: 03/14/25 20:21 Dose: 40 mg Cefuroxime Axetil (Cefuroxime Axetil 500 Mg Tablet) 500 mg PO Q24H [facility] Stop: 03/24/25 12:31 Last Admin: 03/14/25 12:18 Dose: 500 mg Clozapine (Clozapine 100 Mg Tablet) 100 mg PO DAILY [facility] Last Admin: 03/15/25 10:42 Dose: 100 mg Divalproex Sodium (Divalproex Sodium Er 250 Mg Tab.Er.24h) 750 mg PO DAILY [facility] Last Admin: 03/15/25 10:42 Dose: 750 mg Empagliflozin (Empagliflozin 25 Mg Tablet) 25 mg PO DAILY [facility] Last Admin: 03/15/25 10:42 Dose: 25 mg Ferrous Sulfate (Ferrous Sulfate 324 Mg Tablet.) 324 mg PO DAILY [facility] Last Admin: 03/15/25 10:42 Dose: 324 mg Fluticasone/Umeclidinium/Vilanterol (Fluticasone/Umeclidinium/Vilanterol 100/62.5/25 Blst.W.Dev) 1 puff INHALE RDAILY [facility] Last Admin: 03/15/25 10:55 Dose: Not Given Furosemide (Furosemide 40 Mg Tablet) 40 mg PO BID [facility]; Protocol Last Admin: 03/14/25 09:31 Dose: Not Given Loratadine (Loratadine 10 Mg Tablet) 10 mg PO DAILY [facility] Last Admin: 03/15/25 10:43 Dose: 10 mg Magnesium Hydroxide (Milk Of Magnesia 30 Ml Oral.Susp) 30 ml PO DAILY PRN PRN Reason: Constipation Nitroglycerin (Nitroglycerin 0.4 Mg Tab.Subl) 0.4 mg SUBLINGUAL Q5MX3 PRN PRN Reason: Chest Pain Olanzapine (Olanzapine 2.5 Mg Tablet) 2.5 mg PO TID PRN PRN Reason: agitation Omeprazole (Omeprazole 20 Mg Capsule.) 20 mg PO DAILY@0630 [facility] Last Admin: 03/15/25 06:31 Dose: 20 mg Senna (Sennosides 8.6 Mg Tablet) 17.2 mg PO BEDTIME [facility] Last Admin: 03/14/25 20:21 Dose: 17.2 mg Spironolactone (Spironolactone 25 Mg Tablet) 25 mg PO DAILY [facility]; Protocol Last Admin: 03/15/25 10:42 Dose: 25 mg Trazodone HCl (Trazodone Hcl 50 Mg Tablet) 50 mg PO BEDTIME PRN PRN Reason: Insomnia Last Admin: 03/13/25 20:38 Dose: 50 mg Allergies Allergies Allergy/AdvReac Type Severity Reaction Status Date / Time Iodinated Contrast Media Allergy Severe hives Verified 03/13/25 11:42 Penicillins Allergy Severe Unknown Verified 03/13/25 11:42 lactose AdvReac Intermediate loose stool Verified 03/13/25 11:42 lisinopril AdvReac Intermediate Cough Verified 03/13/25 11:42 succinylcholine AdvReac Unknown Unknown Verified 03/13/25 11:42 [From Anectine] Assessment & Plan Assessment & Plan (1) Schizophrenia: Qualifiers: Schizophrenia type: paranoid schizophrenia Qualified Code(s): F20.0 - Paranoid schizophrenia Status: Acute Code(s): F20.9 - Schizophrenia, unspecified Plan Ms. Encarnacion is a 74 year-old woman with hx of schizophrenia who was brought initially to [facility] ED due to increase AH, agitation. No details as to extend of agitation. It appears she intermittently stops clozaril. She presents as internally preoccupied and somewhat guarded. She denies SI/HI. She does not present with any aggression or agitation. We discussed risks, benefits and alternative treatment options, she agrees to restart (which ws restarted in ED) clozapine 100mg po daily. Pt also gave permission to contact her psychiatric provider Génesis Buck NP ([phone]) and her son for collateral information. PLAN 03/14 continue medications. will check clozapine level in few days and adjust dose. 03/15 continue tx. will order KUB r/o constipation Reason for continued inpatient stay Substantial Risk for: inability to function Time Spent With Patient Time: Total time managing care of this patient today ____ minutes.
[2025-03-15] MEDS: cefuroxime axetiL 500 MG TABLET PO (12:45)
[2025-03-15 20:00] VITALS: BP 129/65; PULSE 95; RESP 16; TEMP 36.3; O2SAT 96
[2025-03-15] MEDS: Sennosides 8.6 MG TABLET 17.2 MG PO (20:34)
[2025-03-15] MEDS: traZODone HCL 50 MG TABLET PO (20:34)
[2025-03-15] MEDS: Atorvastatin Calcium 40 MG TABLET PO (20:34)
[2025-03-16] MEDS: Omeprazole 20 MG CAPSULE.DR PO (05:48)
[2025-03-16 08:00] VITALS: BP 126/56; PULSE 76; RESP 16; TEMP 36.7; O2SAT 97
[2025-03-16] MEDS: Divalproex Sodium ER 250 MG TAB.ER.24H 750 MG PO (09:18)
[2025-03-16] MEDS: Fluticasone/Umeclidinium/Vilanterol 100/62.5/25 BLST.W.DEV 1 PUFF INHALE (09:18)
[2025-03-16 09:19] VITALS: BP 126/56
[2025-03-16] MEDS: cloZAPine 100 MG TABLET PO (09:19)
[2025-03-16] MEDS: Empagliflozin 25 MG TABLET PO (09:19)
[2025-03-16] MEDS: Spironolactone 25 MG TABLET PO (09:19)
[2025-03-16] MEDS: Ferrous Sulfate 324 MG TABLET.DR PO (09:19)
[2025-03-16] MEDS: Loratadine 10 MG TABLET PO (09:19)
[2025-03-16] MEDS: Aspirin Enteric Coated 81 MG TABLET.DR PO (09:19)
[2025-03-16] MEDS: cefuroxime axetiL 500 MG TABLET PO (12:49)
[2025-03-16] MEDS: Milk of Magnesia 30 ML ORAL.SUSP PO (16:20)
--- NOTE | 2025-03-16 17:35 | P.PNPSI_ITS ---
Subjective Subjective Date of Service: 03/16/25 Reason For Visit: Unspecified Psychosis Interim History: Pt slept most of the night. She continues to present as internally preoccupied, minimizes symptoms of psychosis and delusions but very guarded about taking medications and not forthcoming about extend of delusional content. had KUB which shows constipation. pt reports she thinks she has a cassette/tape in her stomach which was inserted several years ago when she was in [place]. She thinks this is preventing medications to be dissolved. continues to present as delusional, guarded. Review of Systems Review of Systems Denies any shortness of breath, chest pain, dizziness, lightheadedness, abdominal pain or discomfort, nausea vomiting or diarrhea Mental Status Exam Mental Status Exam Narrative: Appearance: wearing hospital gown, fair hygiene, in NAD behavior: somewhat guarded and apprehensive Psychomotor: no tremors, no ataxia, no agitation or retardation. Speech: clear, mild delayed in response seems related to being internally preoccupied, spontaneous TP: thought blocking TC: bothered by voices Mood: anxious Affect: congruent SI: denies HI: denies VH/AH: auditory hallucinations, some derogatory comments, denies command hallucinations Delusions: some paranoia. Insight/judgment: poor x 2. Memory/cog: alert, oriented to place, month and year. vaguely to situation. MOCA completed score 8/30 with impairment in executive function/visuospatial (2/5), naming (2/3), attention (which suspects related to underlying psychosis), language flunce and repetition, recall, abstraction, orientation. Although do suspect underlying cognitive impairment, active psychosis may have affected some of the scores. ACL 4.2 Diagnostics Vital Signs (24Hr): Vital Signs - 24 hr 03/15/25 20:00 03/16/25 08:00 03/16/25 09:19 Temperature 97.3 F 98.1 F Pulse Rate 95 76 Respiratory Rate 16 16 Blood Pressure 129/65 126/56 L 126/56 L Pulse Oximetry 96 97 Oxygen Delivery Method Room Air Room Air BMI result Body Mass Index 35.0 Labs 03/16/25 17:47 03/16/25 17:47 Medications Medications Current Medications Acetaminophen (Acetaminophen 325 Mg Tablet) 650 mg PO Q6H PRN PRN Reason: Headache/Pain, Scale 1-10 Al Hydroxide/Mg Hydroxide (Magnesium Hydrox/Alum Hydrox 30 Ml Oral.Susp) 30 ml PO Q6H PRN PRN Reason: Heartburn/Nausea Aspirin (Aspirin Enteric Coated 81 Mg Tablet.) 81 mg PO DAILY [facility] Last Admin: 03/16/25 09:19 Dose: 81 mg Atorvastatin Calcium (Atorvastatin Calcium 40 Mg Tablet) 40 mg PO BEDTIME [facility] Last Admin: 03/15/25 20:34 Dose: 40 mg Cefuroxime Axetil (Cefuroxime Axetil 500 Mg Tablet) 500 mg PO Q24H [facility] Stop: 03/24/25 12:31 Last Admin: 03/16/25 12:49 Dose: 500 mg Clozapine (Clozapine 100 Mg Tablet) 100 mg PO DAILY [facility] Last Admin: 03/16/25 09:19 Dose: 100 mg Divalproex Sodium (Divalproex Sodium Er 250 Mg Tab.Er.24h) 750 mg PO DAILY [facility] Last Admin: 03/16/25 09:18 Dose: 750 mg Empagliflozin (Empagliflozin 25 Mg Tablet) 25 mg PO DAILY [facility] Last Admin: 03/16/25 09:19 Dose: 25 mg Ferrous Sulfate (Ferrous Sulfate 324 Mg Tablet.) 324 mg PO DAILY [facility] Last Admin: 03/16/25 09:19 Dose: 324 mg Fluticasone/Umeclidinium/Vilanterol (Fluticasone/Umeclidinium/Vilanterol 100/62.5/25 Blst.W.Dev) 1 puff INHALE RDAILY [facility] Last Admin: 03/16/25 09:18 Dose: 1 puff Furosemide (Furosemide 40 Mg Tablet) 40 mg PO BID [facility]; Protocol Last Admin: 03/14/25 09:31 Dose: Not Given Loratadine (Loratadine 10 Mg Tablet) 10 mg PO DAILY [facility] Last Admin: 03/16/25 09:19 Dose: 10 mg Magnesium Hydroxide (Milk Of Magnesia 30 Ml Oral.Susp) 30 ml PO DAILY PRN PRN Reason: Constipation Last Admin: 03/16/25 16:20 Dose: 30 ml Nitroglycerin (Nitroglycerin 0.4 Mg Tab.Subl) 0.4 mg SUBLINGUAL Q5MX3 PRN PRN Reason: Chest Pain Olanzapine (Olanzapine 2.5 Mg Tablet) 2.5 mg PO TID PRN PRN Reason: agitation Omeprazole (Omeprazole 20 Mg Capsule.) 20 mg PO DAILY@0630 [facility] Last Admin: 03/16/25 05:48 Dose: 20 mg Senna (Sennosides 8.6 Mg Tablet) 17.2 mg PO BEDTIME [facility] Last Admin: 03/15/25 20:34 Dose: 17.2 mg Spironolactone (Spironolactone 25 Mg Tablet) 25 mg PO DAILY [facility]; Protocol Last Admin: 03/16/25 09:19 Dose: 25 mg Trazodone HCl (Trazodone Hcl 50 Mg Tablet) 50 mg PO BEDTIME PRN PRN Reason: Insomnia Last Admin: 03/15/25 20:34 Dose: 50 mg Allergies Allergies Allergy/AdvReac Type Severity Reaction Status Date / Time Iodinated Contrast Media Allergy Severe hives Verified 03/13/25 11:42 Penicillins Allergy Severe Unknown Verified 03/13/25 11:42 lactose AdvReac Intermediate loose stool Verified 03/13/25 11:42 lisinopril AdvReac Intermediate Cough Verified 03/13/25 11:42 succinylcholine AdvReac Unknown Unknown Verified 03/13/25 11:42 [From Anectine] Assessment & Plan Assessment & Plan (1) Schizophrenia: Qualifiers: Schizophrenia type: paranoid schizophrenia Qualified Code(s): F20.0 - Paranoid schizophrenia Status: Acute Code(s): F20.9 - Schizophrenia, unspecified Plan Ms. Encarnacion is a 74 year-old woman with hx of schizophrenia who was brought initially to [facility] ED due to increase AH, agitation. No details as to extend of agitation. It appears she intermittently stops clozaril. She presents as internally preoccupied and somewhat guarded. She denies SI/HI. She does not present with any aggression or agitation. We discussed risks, benefits and alternative treatment options, she agrees to restart (which ws restarted in ED) clozapine 100mg po daily. Pt also gave permission to contact her psychiatric provider Génesis Buck NP ([phone]) and her son for collateral information. PLAN 03/14 continue medications. will check clozapine level in few days and adjust dose. 03/15 continue tx. will order KUB r/o constipation 03/16 continue tx. Reason for continued inpatient stay Substantial Risk for: inability to function Time Spent With Patient Time: Total time managing care of this patient today ____ minutes.
[2025-03-16 17:51] LABS: MANUAL DIFF FLAG NO
[2025-03-16 17:54] LABS: Basophils Absolute Auto 0.1 X10*3/uL (0.0-0.2); Basophils Percent Auto 0.7 % (0-2); Eosinophils Absolute Auto 0.6 X10*3/uL (0.0-0.4); Eosinophils Percent Auto 6.7 % (0-4); Hematocrit 35.6 % (37.0-47.0); Hemoglobin 12.1 g/dl (12.0-16.0); Imm Gran Abs Auto 0.02 X10*3/uL (0.00-0.03); Imm Gran Pct Auto 0.2 % (0.0-0.4); Lymphocytes Absolute Auto 2.1 X10*3/uL (1.2-4.9); Lymphocytes Percent Auto 23.2 % (20-40); Mean Corpuscular Hemoglobin 32.9 pg (27.0-33.0); Mean Corpuscular Volume 96.7 fL (80.0-98.0); Mean Platelet Volume 9.7 fL (9.4-12.3); Monocytes Absolute Auto 0.8 X10*3/uL (0.1-1.2); Monocytes Percent Auto 9.1 % (2-11); Neutrophils Absolute Auto 5.4 x10*3/uL (2.0-8.3); Neutrophils Percent Auto 60.1 % (45-73); Platelet Count 273 X10*3/uL (160-400); Red Blood Count 3.68 X10*6/uL (4.20-5.50); Red Cell Distribution Width 13.1 % (11.0-16.0)
[2025-03-16 18:13] LABS: Alanine Aminotransferase 22 U/L (0-31); Albumin Level 4.4 g/dL (3.5-5.0); Alkaline Phosphatase 61 U/L (39-117); Anion Gap 15 (12-20); Aspartate Amino Transferase 19 U/L (5-31); Bilirubin Total 0.3 mg/dL (0.0-1.0); Blood Urea Nitrogen 20 mg/dL (9-16); Carbon Dioxide 28 mmol/L (22-29); Chloride 96 mmol/L (96-108); Creatinine Clr Calc Pharmacy 40.4; Estimated Glomerular Filt Rate 45; Glucose Random 155 mg/dL (60-115); Potassium 4.5 mmol/L (3.3-5.1); Sodium 134 mmol/L (135-145); Total Protein 7.6 g/dL (6.5-8.0)
[2025-03-16 19:43] VITALS: BP 108/58; PULSE 85; RESP 16; TEMP 36.3; O2SAT 96
[2025-03-16] MEDS: traZODone HCL 50 MG TABLET PO (19:44)
[2025-03-16] MEDS: Atorvastatin Calcium 40 MG TABLET PO (19:44)
[2025-03-16] MEDS: Sennosides 8.6 MG TABLET 17.2 MG PO (19:45)
[2025-03-17 08:00] VITALS: BP 111/61; PULSE 95; RESP 16; TEMP 36.6; O2SAT 95
[2025-03-17 08:22] VITALS: BP 111/61
[2025-03-17] MEDS: Empagliflozin 25 MG TABLET PO (08:22)
[2025-03-17] MEDS: Aspirin Enteric Coated 81 MG TABLET.DR PO (08:22)
[2025-03-17] MEDS: cloZAPine 100 MG TABLET PO (08:22)
[2025-03-17] MEDS: Spironolactone 25 MG TABLET PO (08:22)
[2025-03-17] MEDS: Loratadine 10 MG TABLET PO (08:23)
[2025-03-17] MEDS: Fluticasone/Umeclidinium/Vilanterol 100/62.5/25 BLST.W.DEV 1 PUFF INHALE (08:23)
[2025-03-17] MEDS: Divalproex Sodium ER 250 MG TAB.ER.24H 750 MG PO (08:23)
[2025-03-17] MEDS: Omeprazole 20 MG CAPSULE.DR PO (08:23)
[2025-03-17] MEDS: Ferrous Sulfate 324 MG TABLET.DR PO (10:52)
[2025-03-17] MEDS: cefuroxime axetiL 500 MG TABLET PO (14:00)
[2025-03-17 20:00] VITALS: BP 128/65; PULSE 90; RESP 16; TEMP 36.2; O2SAT 95
[2025-03-17] MEDS: Atorvastatin Calcium 40 MG TABLET PO (20:35)
[2025-03-17] MEDS: Sennosides 8.6 MG TABLET 17.2 MG PO (20:35)
--- NOTE | 2025-03-17 21:44 | P.PNPSI_ITS ---
Subjective Subjective Date of Service: 03/17/25 Reason For Visit: Unspecified Psychosis Interim History: Pt slept most of the night. She continues to present as internally preoccupied, minimizes symptoms of psychosis and delusions but very guarded about taking medications and not forthcoming about extend of delusional content. had KUB which shows constipation. pt reports she thinks she has a cassette/tape in her stomach which was inserted several years ago when she was in [place]. She thinks this is preventing medications to be dissolved. continues to present as delusional, guarded. Review of Systems Review of Systems Denies any shortness of breath, chest pain, dizziness, lightheadedness, abdominal pain or discomfort, nausea vomiting or diarrhea Mental Status Exam Mental Status Exam Narrative: Appearance: wearing hospital gown, fair hygiene, in NAD behavior: somewhat guarded and apprehensive Psychomotor: no tremors, no ataxia, no agitation or retardation. Speech: clear, mild delayed in response seems related to being internally preoccupied, spontaneous TP: thought blocking TC: bothered by voices Mood: anxious Affect: congruent SI: denies HI: denies VH/AH: auditory hallucinations, some derogatory comments, denies command hallucinations Delusions: some paranoia. Insight/judgment: poor x 2. Memory/cog: alert, oriented to place, month and year. vaguely to situation. MOCA completed score 8/30 with impairment in executive function/visuospatial (2/5), naming (2/3), attention (which suspects related to underlying psychosis), language flunce and repetition, recall, abstraction, orientation. Although do suspect underlying cognitive impairment, active psychosis may have affected some of the scores. ACL 4.2 Diagnostics Vital Signs (24Hr): Vital Signs - 24 hr 03/17/25 08:00 03/17/25 08:22 Temperature 97.9 F Pulse Rate 95 Respiratory Rate 16 Blood Pressure 111/61 111/61 Pulse Oximetry 95 Oxygen Delivery Method Room Air BMI result Body Mass Index 35.0 Labs 03/16/25 17:47 03/16/25 17:47 Labs: Laboratory Results - last 48 hr 03/16/25 17:47 WBC 9.0 RBC 3.68 L Hgb 12.1 Hct 35.6 L MCV 96.7 MCH 32.9 MCHC 34.0 RDW 13.1 Plt Count 273 MPV 9.7 Immature Gran % (Auto) 0.2 Neut % (Auto) 60.1 Lymph % (Auto) 23.2 [place] % (Auto) 9.1 Eos % (Auto) 6.7 H Baso % (Auto) 0.7 Lymph # (Auto) 2.1 [place] # (Auto) 0.8 Eos # (Auto) 0.6 H Baso # (Auto) 0.1 Abs Immat Gran (auto) 0.02 Absolute Neuts (auto) 5.4 Absolute Nucleated RBC 0.000 Nucleated RBC % (auto) 0.0 Sodium 134 L Potassium 4.5 Chloride 96 Carbon Dioxide 28 Anion Gap 15 BUN 20 H Creatinine 1.17 Estim Creat Clear Calc 40.4 Estimated GFR 45 Random Glucose 155 H Calcium 10.0 Total Bilirubin 0.3 AST 19 ALT 22 Alkaline Phosphatase 61 Total Protein 7.6 Albumin 4.4 Medications Medications Current Medications Acetaminophen (Acetaminophen 325 Mg Tablet) 650 mg PO Q6H PRN PRN Reason: Headache/Pain, Scale 1-10 Al Hydroxide/Mg Hydroxide (Magnesium Hydrox/Alum Hydrox 30 Ml Oral.Susp) 30 ml PO Q6H PRN PRN Reason: Heartburn/Nausea Aspirin (Aspirin Enteric Coated 81 Mg Tablet.) 81 mg PO DAILY [facility] Last Admin: 03/17/25 08:22 Dose: 81 mg Atorvastatin Calcium (Atorvastatin Calcium 40 Mg Tablet) 40 mg PO BEDTIME [facility] Last Admin: 03/17/25 20:35 Dose: 40 mg Cefuroxime Axetil (Cefuroxime Axetil 500 Mg Tablet) 500 mg PO Q24H [facility] Stop: 03/24/25 12:31 Last Admin: 03/17/25 14:00 Dose: 500 mg Clozapine (Clozapine 100 Mg Tablet) 100 mg PO DAILY [facility] Last Admin: 03/17/25 08:22 Dose: 100 mg Divalproex Sodium (Divalproex Sodium Er 250 Mg Tab.Er.24h) 750 mg PO DAILY [facility] Last Admin: 03/17/25 08:23 Dose: 750 mg Empagliflozin (Empagliflozin 25 Mg Tablet) 25 mg PO DAILY [facility] Last Admin: 03/17/25 08:22 Dose: 25 mg Ferrous Sulfate (Ferrous Sulfate 324 Mg Tablet.) 324 mg PO DAILY [facility] Last Admin: 03/17/25 10:52 Dose: 324 mg Fluticasone/Umeclidinium/Vilanterol (Fluticasone/Umeclidinium/Vilanterol 100/62.5/25 Blst.W.Dev) 1 puff INHALE RDAILY [facility] Last Admin: 03/17/25 08:23 Dose: 1 puff Furosemide (Furosemide 40 Mg Tablet) 40 mg PO BID [facility]; Protocol Last Admin: 03/14/25 09:31 Dose: Not Given Loratadine (Loratadine 10 Mg Tablet) 10 mg PO DAILY [facility] Last Admin: 03/17/25 08:23 Dose: 10 mg Magnesium Hydroxide (Milk Of Magnesia 30 Ml Oral.Susp) 30 ml PO DAILY PRN PRN Reason: Constipation Last Admin: 03/16/25 16:20 Dose: 30 ml Nitroglycerin (Nitroglycerin 0.4 Mg Tab.Subl) 0.4 mg SUBLINGUAL Q5MX3 PRN PRN Reason: Chest Pain Olanzapine (Olanzapine 2.5 Mg Tablet) 2.5 mg PO TID PRN PRN Reason: agitation Omeprazole (Omeprazole 20 Mg Capsule.Dr) 20 mg PO DAILY@0630 [facility] Last Admin: 03/17/25 08:23 Dose: 20 mg Senna (Sennosides 8.6 Mg Tablet) 17.2 mg PO BEDTIME [facility] Last Admin: 03/17/25 20:35 Dose: 17.2 mg Spironolactone (Spironolactone 25 Mg Tablet) 25 mg PO DAILY [facility]; Protocol Last Admin: 03/17/25 08:22 Dose: 25 mg Trazodone HCl (Trazodone Hcl 50 Mg Tablet) 50 mg PO BEDTIME PRN PRN Reason: Insomnia Last Admin: 03/16/25 19:44 Dose: 50 mg Allergies Allergies Allergy/AdvReac Type Severity Reaction Status Date / Time Iodinated Contrast Media Allergy Severe hives Verified 03/13/25 11:42 Penicillins Allergy Severe Unknown Verified 03/13/25 11:42 lactose AdvReac Intermediate loose stool Verified 03/13/25 11:42 lisinopril AdvReac Intermediate Cough Verified 03/13/25 11:42 succinylcholine AdvReac Unknown Unknown Verified 03/13/25 11:42 [From Anectine] Assessment & Plan Assessment & Plan (1) Schizophrenia: Qualifiers: Schizophrenia type: paranoid schizophrenia Qualified Code(s): F20.0 - Paranoid schizophrenia Status: Acute Code(s): F20.9 - Schizophrenia, unspecified Plan Ms. Encarnacion is a 74 year-old woman with hx of schizophrenia who was brought initially to [facility] ED due to increase AH, agitation. No details as to extend of agitation. It appears she intermittently stops clozaril. She presents as internally preoccupied and somewhat guarded. She denies SI/HI. She does not present with any aggression or agitation. We discussed risks, benefits and alternative treatment options, she agrees to restart (which ws restarted in ED) clozapine 100mg po daily. Pt also gave permission to contact her psychiatric provider Génesis Buck NP ([phone]) and her son for collateral information. PLAN 03/14 continue medications. will check clozapine level in few days and adjust dose. 03/15 continue tx. will order KUB r/o constipation 03/17 continue tx. may increase clozapine. Reason for continued inpatient stay Substantial Risk for: inability to function Time Spent With Patient Time: Total time managing care of this patient today ____ minutes.
[2025-03-18] MEDS: Omeprazole 20 MG CAPSULE.DR PO (06:03)
[2025-03-18 08:00] VITALS: BP 129/59; PULSE 88; RESP 16; TEMP 36.4; O2SAT 93
[2025-03-18] MEDS: Spironolactone 25 MG TABLET PO (08:17)
[2025-03-18] MEDS: cloZAPine 100 MG TABLET PO (08:17)
[2025-03-18] MEDS: Divalproex Sodium ER 250 MG TAB.ER.24H 750 MG PO (08:17)
[2025-03-18] MEDS: Empagliflozin 25 MG TABLET PO (08:18)
[2025-03-18] MEDS: Ferrous Sulfate 324 MG TABLET.DR PO (08:18)
[2025-03-18] MEDS: Loratadine 10 MG TABLET PO (08:18)
[2025-03-18] MEDS: Fluticasone/Umeclidinium/Vilanterol 100/62.5/25 BLST.W.DEV 1 PUFF INHALE (08:22)
[2025-03-18] MEDS: Aspirin Enteric Coated 81 MG TABLET.DR PO (09:33)
--- NOTE | 2025-03-18 11:10 | P.PNPSI_ITS ---
Subjective Subjective Date of Service: 03/18/25 Reason For Visit: Unspecified Psychosis Subjective Notes: Conditional Voluntary Interim History: Pt slept most of the night. She continues to present as internally preoccupied, minimizes symptoms of psychosis and delusions but very guarded about taking medications. She is suspicious and paranoid towards staff here. She has agreed to take medications now. No SI/HI. Review of Systems Review of Systems Denies any shortness of breath, chest pain, dizziness, lightheadedness, abdominal pain or discomfort, nausea vomiting or diarrhea Mental Status Exam Mental Status Exam Narrative: Appearance: wearing hospital gown, fair hygiene, in NAD behavior: somewhat guarded and apprehensive Psychomotor: no tremors, no ataxia, no agitation or retardation. Speech: clear, mild delayed in response seems related to being internally preoccupied, spontaneous TP: thought blocking TC: bothered by voices Mood: anxious Affect: congruent SI: denies HI: denies VH/AH: auditory hallucinations, some derogatory comments, denies command hallucinations Delusions: some paranoia. Insight/judgment: poor x 2. Memory/cog: alert, oriented to place, month and year. vaguely to situation. MOCA completed score 8/30 with impairment in executive function/visuospatial (2/5), naming (2/3), attention (which suspects related to underlying psychosis), language flunce and repetition, recall, abstraction, orientation. Although do suspect underlying cognitive impairment, active psychosis may have affected some of the scores. ACL 4.2 Diagnostics Vital Signs (24Hr): Vital Signs - 24 hr 03/17/25 20:00 03/18/25 08:00 Temperature 97.2 F 97.5 F Pulse Rate 90 88 Respiratory Rate 16 16 Blood Pressure 128/65 129/59 L Pulse Oximetry 95 93 Oxygen Delivery Method Room Air Room Air BMI result Body Mass Index 35.0 Labs 03/16/25 17:47 03/16/25 17:47 Labs: Laboratory Results - last 48 hr 03/16/25 17:47 WBC 9.0 RBC 3.68 L Hgb 12.1 Hct 35.6 L MCV 96.7 MCH 32.9 MCHC 34.0 RDW 13.1 Plt Count 273 MPV 9.7 Immature Gran % (Auto) 0.2 Neut % (Auto) 60.1 Lymph % (Auto) 23.2 [place] % (Auto) 9.1 Eos % (Auto) 6.7 H Baso % (Auto) 0.7 Lymph # (Auto) 2.1 [place] # (Auto) 0.8 Eos # (Auto) 0.6 H Baso # (Auto) 0.1 Abs Immat Gran (auto) 0.02 Absolute Neuts (auto) 5.4 Absolute Nucleated RBC 0.000 Nucleated RBC % (auto) 0.0 Sodium 134 L Potassium 4.5 Chloride 96 Carbon Dioxide 28 Anion Gap 15 BUN 20 H Creatinine 1.17 Estim Creat Clear Calc 40.4 Estimated GFR 45 Random Glucose 155 H Calcium 10.0 Total Bilirubin 0.3 AST 19 ALT 22 Alkaline Phosphatase 61 Total Protein 7.6 Albumin 4.4 Medications Medications Current Medications Acetaminophen (Acetaminophen 325 Mg Tablet) 650 mg PO Q6H PRN PRN Reason: Headache/Pain, Scale 1-10 Al Hydroxide/Mg Hydroxide (Magnesium Hydrox/Alum Hydrox 30 Ml Oral.Susp) 30 ml PO Q6H PRN PRN Reason: Heartburn/Nausea Aspirin (Aspirin Enteric Coated 81 Mg Tablet.) 81 mg PO DAILY [facility] Last Admin: 03/18/25 09:33 Dose: 81 mg Atorvastatin Calcium (Atorvastatin Calcium 40 Mg Tablet) 40 mg PO BEDTIME [facility] Last Admin: 03/17/25 20:35 Dose: 40 mg Cefuroxime Axetil (Cefuroxime Axetil 500 Mg Tablet) 500 mg PO Q24H [facility] Stop: 03/24/25 12:31 Last Admin: 03/17/25 14:00 Dose: 500 mg Clozapine (Clozapine 100 Mg Tablet) 100 mg PO DAILY [facility] Last Admin: 03/18/25 08:17 Dose: 100 mg Divalproex Sodium (Divalproex Sodium Er 250 Mg Tab.Er.24h) 750 mg PO DAILY [facility] Last Admin: 03/18/25 08:17 Dose: 750 mg Empagliflozin (Empagliflozin 25 Mg Tablet) 25 mg PO DAILY [facility] Last Admin: 03/18/25 08:18 Dose: 25 mg Ferrous Sulfate (Ferrous Sulfate 324 Mg Tablet.) 324 mg PO DAILY [facility] Last Admin: 03/18/25 08:18 Dose: 324 mg Fluticasone/Umeclidinium/Vilanterol (Fluticasone/Umeclidinium/Vilanterol 100/62.5/25 Blst.W.Dev) 1 puff INHALE RDAILY [facility] Last Admin: 03/18/25 08:22 Dose: 1 puff Furosemide (Furosemide 40 Mg Tablet) 40 mg PO BID [facility]; Protocol Last Admin: 03/14/25 09:31 Dose: Not Given Loratadine (Loratadine 10 Mg Tablet) 10 mg PO DAILY [facility] Last Admin: 03/18/25 08:18 Dose: 10 mg Magnesium Hydroxide (Milk Of Magnesia 30 Ml Oral.Susp) 30 ml PO DAILY PRN PRN Reason: Constipation Last Admin: 03/16/25 16:20 Dose: 30 ml Nitroglycerin (Nitroglycerin 0.4 Mg Tab.Subl) 0.4 mg SUBLINGUAL Q5MX3 PRN PRN Reason: Chest Pain Olanzapine (Olanzapine 2.5 Mg Tablet) 2.5 mg PO TID PRN PRN Reason: agitation Omeprazole (Omeprazole 20 Mg Capsule.Dr) 20 mg PO DAILY@0630 [facility] Last Admin: 03/18/25 06:03 Dose: 20 mg Senna (Sennosides 8.6 Mg Tablet) 17.2 mg PO BEDTIME [facility] Last Admin: 03/17/25 20:35 Dose: 17.2 mg Spironolactone (Spironolactone 25 Mg Tablet) 25 mg PO DAILY [facility]; Protocol Last Admin: 03/18/25 08:17 Dose: 25 mg Trazodone HCl (Trazodone Hcl 50 Mg Tablet) 50 mg PO BEDTIME PRN PRN Reason: Insomnia Last Admin: 03/16/25 19:44 Dose: 50 mg Allergies Allergies Allergy/AdvReac Type Severity Reaction Status Date / Time Iodinated Contrast Media Allergy Severe hives Verified 03/13/25 11:42 Penicillins Allergy Severe Unknown Verified 03/13/25 11:42 lactose AdvReac Intermediate loose stool Verified 03/13/25 11:42 lisinopril AdvReac Intermediate Cough Verified 03/13/25 11:42 succinylcholine AdvReac Unknown Unknown Verified 03/13/25 11:42 [From Anectine] Assessment & Plan Assessment & Plan (1) Schizophrenia: Qualifiers: Schizophrenia type: paranoid schizophrenia Qualified Code(s): F20.0 - Paranoid schizophrenia Status: Acute Code(s): F20.9 - Schizophrenia, unspecified Plan Ms. Encarnacion is a 74 year-old woman with hx of schizophrenia who was brought initially to [facility] ED due to increase AH, agitation. No details as to extend of agitation. It appears she intermittently stops clozaril. She presents as internally preoccupied and somewhat guarded. She denies SI/HI. She does not present with any aggression or agitation. We discussed risks, benefits and alternative treatment options, she agrees to restart (which ws restarted in ED) clozapine 100mg po daily. Pt also gave permission to contact her psychiatric provider Génesis Buck NP ([phone]) and her son for collateral information. PLAN 03/14 continue medications. will check clozapine level in few days and adjust dose. 03/15 continue tx. will order KUB r/o constipation 03/17 continue tx. may increase clozapine. 03/18 continue tx. Reason for continued inpatient stay Substantial Risk for: inability to function Time Spent With Patient Time: Total time managing care of this patient today ____ minutes.
[2025-03-18] MEDS: cefuroxime axetiL 500 MG TABLET PO (12:03)
[2025-03-18 20:00] VITALS: BP 113/56; PULSE 84; RESP 17; TEMP 36.9; O2SAT 96
[2025-03-18] MEDS: Sennosides 8.6 MG TABLET 17.2 MG PO (20:07)
[2025-03-18] MEDS: Atorvastatin Calcium 40 MG TABLET PO (20:07)
[2025-03-19] MEDS: Omeprazole 20 MG CAPSULE.DR PO (06:06)
[2025-03-19 08:00] VITALS: BP 130/57; PULSE 80; RESP 16; TEMP 36.9; O2SAT 95
[2025-03-19] MEDS: Divalproex Sodium ER 250 MG TAB.ER.24H 750 MG PO (09:59)
[2025-03-19] MEDS: Loratadine 10 MG TABLET PO (09:59)
[2025-03-19] MEDS: cloZAPine 100 MG TABLET PO (10:00)
[2025-03-19] MEDS: Spironolactone 25 MG TABLET PO (10:00)
[2025-03-19] MEDS: Empagliflozin 25 MG TABLET PO (10:00)
[2025-03-19] MEDS: Aspirin Enteric Coated 81 MG TABLET.DR PO (10:01)
[2025-03-19] MEDS: Ferrous Sulfate 324 MG TABLET.DR PO (10:01)
[2025-03-19] MEDS: Fluticasone/Umeclidinium/Vilanterol 100/62.5/25 BLST.W.DEV 1 PUFF INHALE (11:19)
[2025-03-19] MEDS: cefuroxime axetiL 500 MG TABLET PO (13:01)
--- NOTE | 2025-03-19 16:10 | HO.PSYCHPN ---
Subjective Subjective Date of Service: 03/19/25 Reason For Visit: Unspecified Psychosis Interim History: Pt slept most of the night. She continues to present as internally preoccupied, minimizes symptoms of psychosis and delusions but very guarded about taking medications. She is suspicious and paranoid towards staff here. She has agreed to take medications now. No SI/HI. Review of Systems Review of Systems Denies any shortness of breath, chest pain, dizziness, lightheadedness, abdominal pain or discomfort, nausea vomiting or diarrhea Mental Status Exam Mental Status Exam Narrative: Appearance: wearing hospital gown, fair hygiene, in NAD behavior: somewhat guarded and apprehensive Psychomotor: no tremors, no ataxia, no agitation or retardation. Speech: clear, mild delayed in response seems related to being internally preoccupied, spontaneous TP: thought blocking TC: bothered by voices Mood: anxious Affect: congruent SI: denies HI: denies VH/AH: auditory hallucinations, some derogatory comments, denies command hallucinations Delusions: some paranoia. Insight/judgment: poor x 2. Memory/cog: alert, oriented to place, month and year. vaguely to situation. MOCA completed score 8/30 with impairment in executive function/visuospatial (2/5), naming (2/3), attention (which suspects related to underlying psychosis), language flunce and repetition, recall, abstraction, orientation. Although do suspect underlying cognitive impairment, active psychosis may have affected some of the scores. ACL 4.2 Diagnostics Vital Signs (24Hr): Vital Signs - 24 hr 03/18/25 20:00 03/19/25 08:00 Temperature 98.4 F 98.4 F Pulse Rate 84 80 Respiratory Rate 17 16 Blood Pressure 113/56 L 130/57 L Pulse Oximetry 96 95 Oxygen Delivery Method Room Air Room Air BMI result Body Mass Index 35.0 Labs 03/16/25 17:47 03/16/25 17:47 Medications Medications Current Medications Acetaminophen (Acetaminophen 325 Mg Tablet) 650 mg PO Q6H PRN PRN Reason: Headache/Pain, Scale 1-10 Al Hydroxide/Mg Hydroxide (Magnesium Hydrox/Alum Hydrox 30 Ml Oral.Susp) 30 ml PO Q6H PRN PRN Reason: Heartburn/Nausea Aspirin (Aspirin Enteric Coated 81 Mg Tablet.) 81 mg PO DAILY [facility] Last Admin: 03/19/25 10:01 Dose: 81 mg Atorvastatin Calcium (Atorvastatin Calcium 40 Mg Tablet) 40 mg PO BEDTIME [facility] Last Admin: 03/18/25 20:07 Dose: 40 mg Cefuroxime Axetil (Cefuroxime Axetil 500 Mg Tablet) 500 mg PO Q24H [facility] Stop: 03/24/25 12:31 Last Admin: 03/19/25 13:01 Dose: 500 mg Clozapine (Clozapine 100 Mg Tablet) 100 mg PO DAILY [facility] Last Admin: 03/19/25 10:00 Dose: 100 mg Divalproex Sodium (Divalproex Sodium Er 250 Mg Tab.Er.24h) 750 mg PO DAILY [facility] Last Admin: 03/19/25 09:59 Dose: 750 mg Empagliflozin (Empagliflozin 25 Mg Tablet) 25 mg PO DAILY [facility] Last Admin: 03/19/25 10:00 Dose: 25 mg Ferrous Sulfate (Ferrous Sulfate 324 Mg Tablet.Dr) 324 mg PO DAILY [facility] Last Admin: 03/19/25 10:01 Dose: 324 mg Fluticasone/Umeclidinium/Vilanterol (Fluticasone/Umeclidinium/Vilanterol 100/62.5/25 Blst.W.Dev) 1 puff INHALE RDAILY [facility] Last Admin: 03/19/25 11:19 Dose: 1 puff Furosemide (Furosemide 40 Mg Tablet) 40 mg PO BID [facility]; Protocol Last Admin: 03/14/25 09:31 Dose: Not Given Loratadine (Loratadine 10 Mg Tablet) 10 mg PO DAILY [facility] Last Admin: 03/19/25 09:59 Dose: 10 mg Magnesium Hydroxide (Milk Of Magnesia 30 Ml Oral.Susp) 30 ml PO DAILY PRN PRN Reason: Constipation Last Admin: 03/16/25 16:20 Dose: 30 ml Nitroglycerin (Nitroglycerin 0.4 Mg Tab.Subl) 0.4 mg SUBLINGUAL Q5MX3 PRN PRN Reason: Chest Pain Olanzapine (Olanzapine 2.5 Mg Tablet) 2.5 mg PO TID PRN PRN Reason: agitation Omeprazole (Omeprazole 20 Mg Capsule.Dr) 20 mg PO DAILY@0630 [facility] Last Admin: 03/19/25 06:06 Dose: 20 mg Senna (Sennosides 8.6 Mg Tablet) 17.2 mg PO BEDTIME [facility] Last Admin: 03/18/25 20:07 Dose: 17.2 mg Spironolactone (Spironolactone 25 Mg Tablet) 25 mg PO DAILY [facility]; Protocol Last Admin: 03/19/25 10:00 Dose: 25 mg Trazodone HCl (Trazodone Hcl 50 Mg Tablet) 50 mg PO BEDTIME PRN PRN Reason: Insomnia Last Admin: 03/16/25 19:44 Dose: 50 mg Allergies Allergies Allergy/AdvReac Type Severity Reaction Status Date / Time Iodinated Contrast Media Allergy Severe hives Verified 03/13/25 11:42 Penicillins Allergy Severe Unknown Verified 03/13/25 11:42 lactose AdvReac Intermediate loose stool Verified 03/13/25 11:42 lisinopril AdvReac Intermediate Cough Verified 03/13/25 11:42 succinylcholine AdvReac Unknown Unknown Verified 03/13/25 11:42 [From Anectine] Assessment & Plan Assessment & Plan (1) Schizophrenia: Qualifiers: Schizophrenia type: paranoid schizophrenia Qualified Code(s): F20.0 - Paranoid schizophrenia Status: Acute Code(s): F20.9 - Schizophrenia, unspecified Plan Ms. Encarnacion is a 74 year-old woman with hx of schizophrenia who was brought initially to [facility] ED due to increase AH, agitation. No details as to extend of agitation. It appears she intermittently stops clozaril. She presents as internally preoccupied and somewhat guarded. She denies SI/HI. She does not present with any aggression or agitation. We discussed risks, benefits and alternative treatment options, she agrees to restart (which ws restarted in ED) clozapine 100mg po daily. Pt also gave permission to contact her psychiatric provider Génesis Buck NP ([phone]) and her son for collateral information. PLAN 03/14 continue medications. will check clozapine level in few days and adjust dose. 03/15 continue tx. will order KUB r/o constipation 03/17 continue tx. may increase clozapine. 03/18 continue tx. 03/19 increase clozapine to 100mg po daily and 50mg po qhs. Reason for continued inpatient stay Substantial Risk for: inability to function Time Spent With Patient Time: Total time managing care of this patient today ____ minutes.
[2025-03-19 20:00] VITALS: BP 134/60; PULSE 83; RESP 16; TEMP 36.9; O2SAT 98
[2025-03-19] MEDS: Sennosides 8.6 MG TABLET 17.2 MG PO (20:47)
[2025-03-19] MEDS: Atorvastatin Calcium 40 MG TABLET PO (20:47)
[2025-03-19] MEDS: cloZAPine 25 MG TABLET 50 MG PO (20:47)
[2025-03-20] MEDS: Omeprazole 20 MG CAPSULE.DR PO (06:00)
[2025-03-20 07:44] LABS: Neutrophils Absolute Auto 5.4 x10*3/uL (2.0-8.3); WBCANC 9.1 X10*3/uL
[2025-03-20 09:05] VITALS: BP 113/57; PULSE 88; RESP 18; TEMP 36.7; O2SAT 98
[2025-03-20] MEDS: Fluticasone/Umeclidinium/Vilanterol 100/62.5/25 BLST.W.DEV 1 PUFF INHALE (09:06)
[2025-03-20] MEDS: Divalproex Sodium ER 250 MG TAB.ER.24H 750 MG PO (09:07)
[2025-03-20] MEDS: Loratadine 10 MG TABLET PO (09:07)
[2025-03-20] MEDS: Ferrous Sulfate 324 MG TABLET.DR PO (09:08)
[2025-03-20] MEDS: Aspirin Enteric Coated 81 MG TABLET.DR PO (09:08)
[2025-03-20] MEDS: Spironolactone 25 MG TABLET PO (09:08)
[2025-03-20] MEDS: cloZAPine 100 MG TABLET PO (09:08)
[2025-03-20] MEDS: Empagliflozin 25 MG TABLET PO (09:08)
[2025-03-20] MEDS: cefuroxime axetiL 500 MG TABLET PO (11:55)
--- NOTE | 2025-03-20 13:33 | P.PNPSI_ITS ---
Subjective Subjective Date of Service: 03/20/25 Reason For Visit: Unspecified Psychosis Interim History: c/o left CVA pain. noted to have UTI. per staff, flat, withdrawn. anxiety. taking meds. + meals. slept well overnight. worsened AH, reactivity, negativity. Mental Status Exam Mental Status Exam Narrative: Appearance: wearing hospital gown, fair hygiene, in NAD behavior: somewhat guarded and apprehensive Psychomotor: no tremors, no ataxia, no agitation or retardation. Speech: clear, mild delayed in response seems related to being internally preoccupied, spontaneous TP: linear TC: bothered by left CVA pain Mood: not assessed Affect: constricted, hyper-intense SI: none expressed HI: none expressed VH/AH: none expressed Delusions: none expressed Insight/judgment: poor x 2. Memory/cog: alert, oriented to place, month and year. vaguely to situation. MOCA completed score 8/30 with impairment in executive function/visuospatial (2/5), naming (2/3), attention (which suspects related to underlying psychosis), language flunce and repetition, recall, abstraction, orientation. Although do suspect underlying cognitive impairment, active psychosis may have affected some of the scores. ACL 4.2 Diagnostics Vital Signs (24Hr): Vital Signs - 24 hr 03/19/25 20:00 03/20/25 09:05 Temperature 98.4 F 98.1 F Pulse Rate 83 88 Respiratory Rate 16 18 Blood Pressure 134/60 113/57 L Pulse Oximetry 98 98 Oxygen Delivery Method Room Air Room Air BMI result Body Mass Index 35.0 Labs 03/16/25 17:47 03/16/25 17:47 Labs: Laboratory Results - last 48 hr 03/20/25 07:21 Absolute Neuts (auto) 5.4 Medications Medications Current Medications Acetaminophen (Acetaminophen 325 Mg Tablet) 650 mg PO Q6H PRN PRN Reason: Headache/Pain, Scale 1-10 Al Hydroxide/Mg Hydroxide (Magnesium Hydrox/Alum Hydrox 30 Ml Oral.Susp) 30 ml PO Q6H PRN PRN Reason: Heartburn/Nausea Aspirin (Aspirin Enteric Coated 81 Mg Tablet.) 81 mg PO DAILY [facility] Last Admin: 03/20/25 09:08 Dose: 81 mg Atorvastatin Calcium (Atorvastatin Calcium 40 Mg Tablet) 40 mg PO BEDTIME [facility] Last Admin: 03/19/25 20:47 Dose: 40 mg Cefuroxime Axetil (Cefuroxime Axetil 500 Mg Tablet) 500 mg PO Q24H [facility] Stop: 03/24/25 12:31 Last Admin: 03/20/25 11:55 Dose: 500 mg Clozapine (Clozapine 100 Mg Tablet) 100 mg PO DAILY [facility] Last Admin: 03/20/25 09:08 Dose: 100 mg Clozapine (Clozapine 25 Mg Tablet) 50 mg PO BEDTIME [facility] Last Admin: 03/19/25 20:47 Dose: 50 mg Divalproex Sodium (Divalproex Sodium Er 250 Mg Tab.Er.24h) 750 mg PO DAILY [facility] Last Admin: 03/20/25 09:07 Dose: 750 mg Empagliflozin (Empagliflozin 25 Mg Tablet) 25 mg PO DAILY [facility] Last Admin: 03/20/25 09:08 Dose: 25 mg Ferrous Sulfate (Ferrous Sulfate 324 Mg Tablet.Dr) 324 mg PO DAILY [facility] Last Admin: 03/20/25 09:08 Dose: 324 mg Fluticasone/Umeclidinium/Vilanterol (Fluticasone/Umeclidinium/Vilanterol 100/62.5/25 Blst.W.Dev) 1 puff INHALE RDAILY [facility] Last Admin: 03/20/25 09:06 Dose: 1 puff Furosemide (Furosemide 40 Mg Tablet) 40 mg PO BID [facility]; Protocol Last Admin: 03/14/25 09:31 Dose: Not Given Loratadine (Loratadine 10 Mg Tablet) 10 mg PO DAILY [facility] Last Admin: 03/20/25 09:07 Dose: 10 mg Magnesium Hydroxide (Milk Of Magnesia 30 Ml Oral.Susp) 30 ml PO DAILY PRN PRN Reason: Constipation Last Admin: 03/16/25 16:20 Dose: 30 ml Nitroglycerin (Nitroglycerin 0.4 Mg Tab.Subl) 0.4 mg SUBLINGUAL Q5MX3 PRN PRN Reason: Chest Pain Olanzapine (Olanzapine 2.5 Mg Tablet) 2.5 mg PO TID PRN PRN Reason: agitation Omeprazole (Omeprazole 20 Mg Capsule.Dr) 20 mg PO DAILY@0630 [facility] Last Admin: 03/20/25 06:00 Dose: 20 mg Senna (Sennosides 8.6 Mg Tablet) 17.2 mg PO BEDTIME [facility] Last Admin: 03/19/25 20:47 Dose: 17.2 mg Spironolactone (Spironolactone 25 Mg Tablet) 25 mg PO DAILY [facility]; Protocol Last Admin: 03/20/25 09:08 Dose: 25 mg Trazodone HCl (Trazodone Hcl 50 Mg Tablet) 50 mg PO BEDTIME PRN PRN Reason: Insomnia Last Admin: 03/16/25 19:44 Dose: 50 mg Allergies Allergies Allergy/AdvReac Type Severity Reaction Status Date / Time Iodinated Contrast Media Allergy Severe hives Verified 03/13/25 11:42 Penicillins Allergy Severe Unknown Verified 03/13/25 11:42 lactose AdvReac Intermediate loose stool Verified 03/13/25 11:42 lisinopril AdvReac Intermediate Cough Verified 03/13/25 11:42 succinylcholine AdvReac Unknown Unknown Verified 03/13/25 11:42 [From Anectine] Assessment & Plan Assessment & Plan (1) Schizophrenia: Qualifiers: Schizophrenia type: paranoid schizophrenia Qualified Code(s): F20.0 - Paranoid schizophrenia Status: Acute Code(s): F20.9 - Schizophrenia, unspecified Plan Ms. Encarnacion is a 74 year-old woman with hx of schizophrenia who was brought initially to [facility] ED due to increase AH, agitation. No details as to extend of agitation. It appears she intermittently stops clozaril. She presents as internally preoccupied and somewhat guarded. She denies SI/HI. She does not present with any aggression or agitation. We discussed risks, benefits and alternative treatment options, she agrees to restart (which ws restarted in ED) clozapine 100mg po daily. Pt also gave permission to contact her psychiatric provider Génesis Buck NP ([phone]) and her son for collateral information. PLAN 03/14 continue medications. will check clozapine level in few days and adjust dose. 03/15 continue tx. will order KUB r/o constipation 03/17 continue tx. may increase clozapine. 03/18 continue tx. 03/19 increase clozapine to 100mg po daily and 50mg po qhs. 03/20: being treated for UTI. c/o left CVA pain. otherwise no complaints or requests. eating well, sleeping well. monitor for resolution of UTI and w/u CVA pain if persists. Reason for continued inpatient stay Substantial Risk for: inability to function Time Spent With Patient Time: Total time managing care of this patient today ____ minutes.
[2025-03-20] MEDS: Nicotine 14 MG PATCH.TD24 TRANSDERMA (14:44)
[2025-03-20] MEDS: Acetaminophen 325 MG TABLET 650 MG PO ×2 (15:00→22:17)
[2025-03-20 20:00] VITALS: BP 109/61; PULSE 70; RESP 18; TEMP 36.3; O2SAT 98
[2025-03-20] MEDS: cloZAPine 25 MG TABLET 50 MG PO (20:46)
[2025-03-20] MEDS: Atorvastatin Calcium 40 MG TABLET PO (20:46)
[2025-03-20] MEDS: Sennosides 8.6 MG TABLET 17.2 MG PO (20:46)
[2025-03-20] MEDS: traZODone HCL 50 MG TABLET PO (20:46)
[2025-03-21] MEDS: Omeprazole 20 MG CAPSULE.DR PO (06:06)
[2025-03-21 08:00] VITALS: BP 127/61; PULSE 82; RESP 16; TEMP 36.7; O2SAT 95
[2025-03-21] MEDS: Nicotine 14 MG PATCH.TD24 TRANSDERMA (08:19)
[2025-03-21] MEDS: Empagliflozin 25 MG TABLET PO (08:20)
[2025-03-21] MEDS: Ferrous Sulfate 324 MG TABLET.DR PO (08:20)
[2025-03-21] MEDS: Divalproex Sodium ER 250 MG TAB.ER.24H 750 MG PO (08:20)
[2025-03-21] MEDS: cloZAPine 100 MG TABLET PO (08:20)
[2025-03-21] MEDS: Spironolactone 25 MG TABLET PO (08:20)
[2025-03-21] MEDS: Loratadine 10 MG TABLET PO (08:20)
[2025-03-21] MEDS: Aspirin Enteric Coated 81 MG TABLET.DR PO (08:20)
[2025-03-21] MEDS: Fluticasone/Umeclidinium/Vilanterol 100/62.5/25 BLST.W.DEV 1 PUFF INHALE (08:21)
[2025-03-21 11:24] VITALS: BMI 35.6
[2025-03-21 11:29] LABS: Glucose, Whole Blood 178 mg/dL (60-115)
[2025-03-21] MEDS: cefuroxime axetiL 500 MG TABLET PO (11:55)
--- NOTE | 2025-03-21 12:21 | P.PNPSI_ITS ---
Subjective Subjective Date of Service: 03/21/25 Reason For Visit: Unspecified Psychosis Subjective Notes: Conditional Voluntary Interim History: Pt slept through the night. She reports hearing voices on and off but praying so they stop talking to her. when asked about what voices are saying to her she deflects the topics stating I'm praying it goes away. She denies SI/HI. She is somewhat suspicious about staff here. She is taking medications as prescribed. reports she had BM. Diagnostics Vital Signs (24Hr): Vital Signs - 24 hr 03/20/25 20:00 03/21/25 08:00 Temperature 97.4 F 98.1 F Pulse Rate 70 82 Respiratory Rate 18 16 Blood Pressure 109/61 127/61 Pulse Oximetry 98 95 Oxygen Delivery Method Room Air Room Air BMI result Body Mass Index 35.6 Labs 03/16/25 17:47 03/16/25 17:47 Labs: Laboratory Results - last 48 hr 03/20/25 03/21/25 07:21 11:23 Absolute Neuts (auto) 5.4 POC Glucose 178 H Medications Medications Current Medications Acetaminophen (Acetaminophen 325 Mg Tablet) 650 mg PO Q6H PRN PRN Reason: Headache/Pain, Scale 1-10 Last Admin: 03/20/25 22:17 Dose: 650 mg Al Hydroxide/Mg Hydroxide (Magnesium Hydrox/Alum Hydrox 30 Ml Oral.Susp) 30 ml PO Q6H PRN PRN Reason: Heartburn/Nausea Aspirin (Aspirin Enteric Coated 81 Mg Tablet.) 81 mg PO DAILY [facility] Last Admin: 03/21/25 08:20 Dose: 81 mg Atorvastatin Calcium (Atorvastatin Calcium 40 Mg Tablet) 40 mg PO BEDTIME [facility] Last Admin: 03/20/25 20:46 Dose: 40 mg Cefuroxime Axetil (Cefuroxime Axetil 500 Mg Tablet) 500 mg PO Q24H [facility] Stop: 03/24/25 12:31 Last Admin: 03/21/25 11:55 Dose: 500 mg Clozapine (Clozapine 100 Mg Tablet) 100 mg PO DAILY [facility] Last Admin: 03/21/25 08:20 Dose: 100 mg Clozapine (Clozapine 25 Mg Tablet) 50 mg PO BEDTIME [facility] Last Admin: 03/20/25 20:46 Dose: 50 mg Divalproex Sodium (Divalproex Sodium Er 250 Mg Tab.Er.24h) 750 mg PO DAILY [facility] Last Admin: 03/21/25 08:20 Dose: 750 mg Empagliflozin (Empagliflozin 25 Mg Tablet) 25 mg PO DAILY [facility] Last Admin: 03/21/25 08:20 Dose: 25 mg Ferrous Sulfate (Ferrous Sulfate 324 Mg Tablet.) 324 mg PO DAILY [facility] Last Admin: 03/21/25 08:20 Dose: 324 mg Fluticasone/Umeclidinium/Vilanterol (Fluticasone/Umeclidinium/Vilanterol 100/62.5/25 Blst.W.Dev) 1 puff INHALE RDAILY [facility] Last Admin: 03/21/25 08:21 Dose: 1 puff Furosemide (Furosemide 40 Mg Tablet) 40 mg PO BID [facility]; Protocol Last Admin: 03/14/25 09:31 Dose: Not Given Loratadine (Loratadine 10 Mg Tablet) 10 mg PO DAILY [facility] Last Admin: 03/21/25 08:20 Dose: 10 mg Magnesium Hydroxide (Milk Of Magnesia 30 Ml Oral.Susp) 30 ml PO DAILY PRN PRN Reason: Constipation Last Admin: 03/16/25 16:20 Dose: 30 ml Nicotine (Nicotine 14 Mg Patch.Td24) 14 mg TRANSDERMA DAILY [facility] Last Admin: 03/21/25 08:19 Dose: 14 mg Nitroglycerin (Nitroglycerin 0.4 Mg Tab.Subl) 0.4 mg SUBLINGUAL Q5MX3 PRN PRN Reason: Chest Pain Olanzapine (Olanzapine 2.5 Mg Tablet) 2.5 mg PO TID PRN PRN Reason: agitation Omeprazole (Omeprazole 20 Mg Capsule.) 20 mg PO DAILY@0630 [facility] Last Admin: 03/21/25 06:06 Dose: 20 mg Senna (Sennosides 8.6 Mg Tablet) 17.2 mg PO BEDTIME [facility] Last Admin: 03/20/25 20:46 Dose: 17.2 mg Spironolactone (Spironolactone 25 Mg Tablet) 25 mg PO DAILY [facility]; Protocol Last Admin: 03/21/25 08:20 Dose: 25 mg Trazodone HCl (Trazodone Hcl 50 Mg Tablet) 50 mg PO BEDTIME PRN PRN Reason: Insomnia Last Admin: 03/20/25 20:46 Dose: 50 mg Allergies Allergies Allergy/AdvReac Type Severity Reaction Status Date / Time Iodinated Contrast Media Allergy Severe hives Verified 03/13/25 11:42 Penicillins Allergy Severe Unknown Verified 03/13/25 11:42 lactose AdvReac Intermediate loose stool Verified 03/13/25 11:42 lisinopril AdvReac Intermediate Cough Verified 03/13/25 11:42 succinylcholine AdvReac Unknown Unknown Verified 03/13/25 11:42 [From Anectine] Assessment & Plan Assessment & Plan (1) Schizophrenia: Qualifiers: Schizophrenia type: paranoid schizophrenia Qualified Code(s): F20.0 - Paranoid schizophrenia Status: Acute Code(s): F20.9 - Schizophrenia, unspecified Plan Ms. Encarnacion is a 74 year-old woman with hx of schizophrenia who was brought initially to [facility] ED due to increase AH, agitation. No details as to extend of agitation. It appears she intermittently stops clozaril. She presents as internally preoccupied and somewhat guarded. She denies SI/HI. She does not present with any aggression or agitation. We discussed risks, benefits and alternative treatment options, she agrees to restart (which ws restarted in ED) clozapine 100mg po daily. Pt also gave permission to contact her psychiatric provider Génesis Buck NP ([phone]) and her son for collateral information. PLAN 03/14 continue medications. will check clozapine level in few days and adjust dose. 03/15 continue tx. will order KUB r/o constipation 03/17 continue tx. may increase clozapine. 03/18 continue tx. 03/19 increase clozapine to 100mg po daily and 50mg po qhs. 03/20: being treated for UTI. c/o left CVA pain. otherwise no complaints or requests. eating well, sleeping well. monitor for resolution of UTI and w/u CVA pain if persists. 03/21 increase clozaril to 100mg po BID. Reason for continued inpatient stay Substantial Risk for: inability to function Time Spent With Patient Time: Total time managing care of this patient today ____ minutes.
[2025-03-21] MEDS: Acetaminophen 325 MG TABLET 650 MG PO (15:14)
[2025-03-21 20:00] VITALS: RESP 18
[2025-03-21 20:17] LABS: Glucose, Whole Blood 142 mg/dL (60-115)
[2025-03-21] MEDS: Atorvastatin Calcium 40 MG TABLET PO (20:57)
[2025-03-21] MEDS: cloZAPine 25 MG TABLET 50 MG PO (20:58)
[2025-03-21] MEDS: Sennosides 8.6 MG TABLET 17.2 MG PO (20:58)
[2025-03-21] MEDS: traZODone HCL 50 MG TABLET PO (21:04)
[2025-03-22] MEDS: Omeprazole 20 MG CAPSULE.DR PO (05:57)
[2025-03-22 06:23] LABS: Glucose, Whole Blood 115 mg/dL (60-115)
[2025-03-22 08:00] VITALS: BP 122/58; PULSE 92; RESP 18; TEMP 36.6; O2SAT 95
[2025-03-22] MEDS: Fluticasone/Umeclidinium/Vilanterol 100/62.5/25 BLST.W.DEV 1 PUFF INHALE (09:02)
[2025-03-22] MEDS: Aspirin Enteric Coated 81 MG TABLET.DR PO (09:02)
[2025-03-22] MEDS: Nicotine 14 MG PATCH.TD24 TRANSDERMA (09:03)
[2025-03-22] MEDS: Divalproex Sodium ER 250 MG TAB.ER.24H 750 MG PO (09:04)
[2025-03-22 09:05] VITALS: BP 122/58
[2025-03-22] MEDS: cloZAPine 100 MG TABLET PO ×2 (09:05→20:30)
[2025-03-22] MEDS: Spironolactone 25 MG TABLET PO (09:05)
[2025-03-22] MEDS: Ferrous Sulfate 324 MG TABLET.DR PO (09:05)
[2025-03-22] MEDS: Empagliflozin 25 MG TABLET PO (09:05)
[2025-03-22] MEDS: Loratadine 10 MG TABLET PO (09:05)
--- NOTE | 2025-03-22 10:44 | HO.PSYCHPN ---
Subjective Subjective Date of Service: 03/22/25 Reason For Visit: Unspecified Psychosis Subjective Notes: Conditional Voluntary Interim History: Pt slept through the night. She continues to report hearing voices on and off but praying so they stop talking to her. she is not fully forthcoming in terms of paranoid delusions and content of auditory hallucinations. She is taking medications as prescribed. Less ideas about not needing medications nor wanting to take medications. She denies SI/HI. She is somewhat suspicious about staff here. She is taking medications as prescribed. reports she had BM. Review of Systems Review of Systems Denies any shortness of breath, chest pain, dizziness, lightheadedness, abdominal pain or discomfort, nausea vomiting or diarrhea Mental Status Exam Mental Status Exam Narrative: Appearance: wearing hospital gown, fair hygiene, in NAD behavior: somewhat guarded and apprehensive Psychomotor: no tremors, no ataxia, no agitation or retardation. Speech: clear, mild delayed in response seems related to being internally preoccupied, spontaneous TP: linear TC: bothered by left CVA pain Mood: not assessed Affect: constricted, hyper-intense SI: none expressed HI: none expressed VH/AH: none expressed Delusions: none expressed Insight/judgment: poor x 2. Memory/cog: alert, oriented to place, month and year. vaguely to situation. MOCA completed score 8/30 with impairment in executive function/visuospatial (2/5), naming (2/3), attention (which suspects related to underlying psychosis), language flunce and repetition, recall, abstraction, orientation. Although do suspect underlying cognitive impairment, active psychosis may have affected some of the scores. ACL 4.2 Diagnostics Vital Signs (24Hr): Vital Signs - 24 hr 03/21/25 20:00 03/22/25 08:00 03/22/25 09:05 Temperature 97.9 F Pulse Rate 92 Respiratory Rate 18 18 Blood Pressure 122/58 L 122/58 L Pulse Oximetry 95 Oxygen Delivery Method Room Air BMI result Body Mass Index 35.6 Labs 03/16/25 17:47 03/16/25 17:47 Labs: Laboratory Results - last 48 hr 03/21/25 03/21/25 03/22/25 11:23 20:12 06:17 POC Glucose 178 H 142 H 115 Medications Medications Current Medications Acetaminophen (Acetaminophen 325 Mg Tablet) 650 mg PO Q6H PRN PRN Reason: Headache/Pain, Scale 1-10 Last Admin: 03/21/25 15:14 Dose: 650 mg Al Hydroxide/Mg Hydroxide (Magnesium Hydrox/Alum Hydrox 30 Ml Oral.Susp) 30 ml PO Q6H PRN PRN Reason: Heartburn/Nausea Aspirin (Aspirin Enteric Coated 81 Mg Tablet.) 81 mg PO DAILY [facility] Last Admin: 03/22/25 09:02 Dose: 81 mg Atorvastatin Calcium (Atorvastatin Calcium 40 Mg Tablet) 40 mg PO BEDTIME [facility] Last Admin: 03/21/25 20:57 Dose: 40 mg Cefuroxime Axetil (Cefuroxime Axetil 500 Mg Tablet) 500 mg PO Q24H [facility] Stop: 03/24/25 12:31 Last Admin: 03/21/25 11:55 Dose: 500 mg Clozapine (Clozapine 100 Mg Tablet) 100 mg PO DAILY [facility] Last Admin: 03/22/25 09:05 Dose: 100 mg Clozapine (Clozapine 100 Mg Tablet) 100 mg PO BEDTIME [facility] Divalproex Sodium (Divalproex Sodium Er 250 Mg Tab.Er.24h) 750 mg PO DAILY [facility] Last Admin: 03/22/25 09:04 Dose: 750 mg Empagliflozin (Empagliflozin 25 Mg Tablet) 25 mg PO DAILY [facility] Last Admin: 03/22/25 09:05 Dose: 25 mg Ferrous Sulfate (Ferrous Sulfate 324 Mg Tablet.) 324 mg PO DAILY [facility] Last Admin: 03/22/25 09:05 Dose: 324 mg Fluticasone/Umeclidinium/Vilanterol (Fluticasone/Umeclidinium/Vilanterol 100/62.5/25 Blst.W.Dev) 1 puff INHALE RDAILY [facility] Last Admin: 03/22/25 09:02 Dose: 1 puff Furosemide (Furosemide 40 Mg Tablet) 40 mg PO BID [facility]; Protocol Last Admin: 03/14/25 09:31 Dose: Not Given Loratadine (Loratadine 10 Mg Tablet) 10 mg PO DAILY [facility] Last Admin: 03/22/25 09:05 Dose: 10 mg Magnesium Hydroxide (Milk Of Magnesia 30 Ml Oral.Susp) 30 ml PO DAILY PRN PRN Reason: Constipation Last Admin: 03/16/25 16:20 Dose: 30 ml Nicotine (Nicotine 14 Mg Patch.Td24) 14 mg TRANSDERMA DAILY [facility] Last Admin: 03/22/25 09:03 Dose: 14 mg Nitroglycerin (Nitroglycerin 0.4 Mg Tab.Subl) 0.4 mg SUBLINGUAL Q5MX3 PRN PRN Reason: Chest Pain Olanzapine (Olanzapine 2.5 Mg Tablet) 2.5 mg PO TID PRN PRN Reason: agitation Omeprazole (Omeprazole 20 Mg Capsule.Dr) 20 mg PO DAILY@0630 [facility] Last Admin: 03/22/25 05:57 Dose: 20 mg Senna (Sennosides 8.6 Mg Tablet) 17.2 mg PO BEDTIME [facility] Last Admin: 03/21/25 20:58 Dose: 17.2 mg Spironolactone (Spironolactone 25 Mg Tablet) 25 mg PO DAILY [facility]; Protocol Last Admin: 03/22/25 09:05 Dose: 25 mg Trazodone HCl (Trazodone Hcl 50 Mg Tablet) 50 mg PO BEDTIME PRN PRN Reason: Insomnia Last Admin: 03/21/25 21:04 Dose: 50 mg Allergies Allergies Allergy/AdvReac Type Severity Reaction Status Date / Time Iodinated Contrast Media Allergy Severe hives Verified 03/13/25 11:42 Penicillins Allergy Severe Unknown Verified 03/13/25 11:42 lactose AdvReac Intermediate loose stool Verified 03/13/25 11:42 lisinopril AdvReac Intermediate Cough Verified 03/13/25 11:42 succinylcholine AdvReac Unknown Unknown Verified 03/13/25 11:42 [From Anectine] Assessment & Plan Assessment & Plan (1) Schizophrenia: Qualifiers: Schizophrenia type: paranoid schizophrenia Qualified Code(s): F20.0 - Paranoid schizophrenia Status: Acute Code(s): F20.9 - Schizophrenia, unspecified Plan Ms. Encarnacion is a 74 year-old woman with hx of schizophrenia who was brought initially to [facility] ED due to increase AH, agitation. No details as to extend of agitation. It appears she intermittently stops clozaril. She presents as internally preoccupied and somewhat guarded. She denies SI/HI. She does not present with any aggression or agitation. We discussed risks, benefits and alternative treatment options, she agrees to restart (which ws restarted in ED) clozapine 100mg po daily. Pt also gave permission to contact her psychiatric provider Génesis Buck NP ([phone]) and her son for collateral information. PLAN 03/14 continue medications. will check clozapine level in few days and adjust dose. 03/15 continue tx. will order KUB r/o constipation 03/17 continue tx. may increase clozapine. 03/18 continue tx. 03/19 increase clozapine to 100mg po daily and 50mg po qhs. 03/20: being treated for UTI. c/o left CVA pain. otherwise no complaints or requests. eating well, sleeping well. monitor for resolution of UTI and w/u CVA pain if persists. 03/21 increase clozaril to 100mg po BID. 03/22 continue tx. Reason for continued inpatient stay Substantial Risk for: inability to function Time Spent With Patient Time: Total time managing care of this patient today ____ minutes.
[2025-03-22] MEDS: cefuroxime axetiL 500 MG TABLET PO (12:27)
[2025-03-22 19:58] LABS: Glucose, Whole Blood 112 mg/dL (60-115)
[2025-03-22 20:00] VITALS: BP 122/59; PULSE 77; RESP 16; TEMP 36.2; O2SAT 94
[2025-03-22] MEDS: Sennosides 8.6 MG TABLET 17.2 MG PO (20:30)
[2025-03-22] MEDS: traZODone HCL 50 MG TABLET PO (20:30)
[2025-03-22] MEDS: Atorvastatin Calcium 40 MG TABLET PO (20:30)
[2025-03-23] MEDS: traZODone HCL 50 MG TABLET PO ×2 (01:43→20:56)
[2025-03-23] MEDS: Omeprazole 20 MG CAPSULE.DR PO (05:35)
[2025-03-23 06:35] LABS: Glucose, Whole Blood 98 mg/dL (60-115)
[2025-03-23 08:00] VITALS: BP 120/58; PULSE 80; RESP 18; TEMP 36.7; O2SAT 96
[2025-03-23] MEDS: cloZAPine 100 MG TABLET PO ×2 (08:51→20:55)
[2025-03-23] MEDS: Divalproex Sodium ER 250 MG TAB.ER.24H 750 MG PO (08:52)
[2025-03-23] MEDS: Loratadine 10 MG TABLET PO (08:52)
[2025-03-23] MEDS: Ferrous Sulfate 324 MG TABLET.DR PO (08:52)
[2025-03-23] MEDS: Empagliflozin 25 MG TABLET PO (08:52)
[2025-03-23] MEDS: Aspirin Enteric Coated 81 MG TABLET.DR PO (08:52)
[2025-03-23] MEDS: Spironolactone 25 MG TABLET PO (08:53)
[2025-03-23] MEDS: Nicotine 14 MG PATCH.TD24 TRANSDERMA (08:57)
[2025-03-23] MEDS: Fluticasone/Umeclidinium/Vilanterol 100/62.5/25 BLST.W.DEV 1 PUFF INHALE (09:22)
--- NOTE | 2025-03-23 09:36 | HO.PSYCHPN ---
Subjective Subjective Date of Service: 03/23/25 Reason For Visit: Unspecified Psychosis Interim History: gruff, no complaints. per staff, slept 6 hours. FSBS good. attending groups. taking meals. irritable. Mental Status Exam Mental Status Exam Narrative: Appearance: wearing hospital gown, fair hygiene, in NAD behavior: somewhat guarded and apprehensive Psychomotor: no tremors, no ataxia, no agitation or retardation. Speech: clear, mild delayed in response seems related to being internally preoccupied, spontaneous TP: linear TC: no complaints or requests Mood: not assessed Affect: constricted, normo-intense SI: none expressed HI: none expressed VH/AH: none expressed Delusions: none expressed Insight/judgment: poor x 2. Memory/cog: alert, oriented to place, month and year. vaguely to situation. MOCA completed score 8/30 with impairment in executive function/visuospatial (2/5), naming (2/3), attention (which suspects related to underlying psychosis), language flunce and repetition, recall, abstraction, orientation. Although do suspect underlying cognitive impairment, active psychosis may have affected some of the scores. ACL 4.2 Diagnostics Vital Signs (24Hr): Vital Signs - 24 hr 03/22/25 20:00 03/23/25 08:00 Temperature 97.2 F 98.1 F Pulse Rate 77 80 Respiratory Rate 16 18 Blood Pressure 122/59 L 120/58 L Pulse Oximetry 94 96 Oxygen Delivery Method Room Air Room Air BMI result Body Mass Index 35.6 Labs 03/16/25 17:47 03/16/25 17:47 Labs: Laboratory Results - last 48 hr 03/21/25 03/21/25 03/22/25 11:23 20:12 06:17 POC Glucose 178 H 142 H 115 03/22/25 03/23/25 19:48 06:04 POC Glucose 112 98 Medications Medications Current Medications Acetaminophen (Acetaminophen 325 Mg Tablet) 650 mg PO Q6H PRN PRN Reason: Headache/Pain, Scale 1-10 Last Admin: 03/21/25 15:14 Dose: 650 mg Al Hydroxide/Mg Hydroxide (Magnesium Hydrox/Alum Hydrox 30 Ml Oral.Susp) 30 ml PO Q6H PRN PRN Reason: Heartburn/Nausea Aspirin (Aspirin Enteric Coated 81 Mg Tablet.) 81 mg PO DAILY [facility] Last Admin: 03/23/25 08:52 Dose: 81 mg Atorvastatin Calcium (Atorvastatin Calcium 40 Mg Tablet) 40 mg PO BEDTIME [facility] Last Admin: 03/22/25 20:30 Dose: 40 mg Cefuroxime Axetil (Cefuroxime Axetil 500 Mg Tablet) 500 mg PO Q24H [facility] Stop: 03/24/25 12:31 Last Admin: 03/22/25 12:27 Dose: 500 mg Clozapine (Clozapine 100 Mg Tablet) 100 mg PO DAILY [facility] Last Admin: 03/23/25 08:51 Dose: 100 mg Clozapine (Clozapine 100 Mg Tablet) 100 mg PO BEDTIME [facility] Last Admin: 03/22/25 20:30 Dose: 100 mg Divalproex Sodium (Divalproex Sodium Er 250 Mg Tab.Er.24h) 750 mg PO DAILY [facility] Last Admin: 03/23/25 08:52 Dose: 750 mg Empagliflozin (Empagliflozin 25 Mg Tablet) 25 mg PO DAILY [facility] Last Admin: 03/23/25 08:52 Dose: 25 mg Ferrous Sulfate (Ferrous Sulfate 324 Mg Tablet.Dr) 324 mg PO DAILY [facility] Last Admin: 03/23/25 08:52 Dose: 324 mg Fluticasone/Umeclidinium/Vilanterol (Fluticasone/Umeclidinium/Vilanterol 100/62.5/25 Blst.W.Dev) 1 puff INHALE RDAILY [facility] Last Admin: 03/23/25 09:22 Dose: 1 puff Furosemide (Furosemide 40 Mg Tablet) 40 mg PO BID [facility]; Protocol Last Admin: 03/14/25 09:31 Dose: Not Given Loratadine (Loratadine 10 Mg Tablet) 10 mg PO DAILY [facility] Last Admin: 03/23/25 08:52 Dose: 10 mg Magnesium Hydroxide (Milk Of Magnesia 30 Ml Oral.Susp) 30 ml PO DAILY PRN PRN Reason: Constipation Last Admin: 03/16/25 16:20 Dose: 30 ml Nicotine (Nicotine 14 Mg Patch.Td24) 14 mg TRANSDERMA DAILY [facility] Last Admin: 03/23/25 08:57 Dose: 14 mg Nitroglycerin (Nitroglycerin 0.4 Mg Tab.Subl) 0.4 mg SUBLINGUAL Q5MX3 PRN PRN Reason: Chest Pain Olanzapine (Olanzapine 2.5 Mg Tablet) 2.5 mg PO TID PRN PRN Reason: agitation Omeprazole (Omeprazole 20 Mg Capsule.) 20 mg PO DAILY@0630 [facility] Last Admin: 03/23/25 05:35 Dose: 20 mg Senna (Sennosides 8.6 Mg Tablet) 17.2 mg PO BEDTIME [facility] Last Admin: 03/22/25 20:30 Dose: 17.2 mg Spironolactone (Spironolactone 25 Mg Tablet) 25 mg PO DAILY [facility]; Protocol Last Admin: 03/23/25 08:53 Dose: 25 mg Trazodone HCl (Trazodone Hcl 50 Mg Tablet) 50 mg PO BEDTIME PRN PRN Reason: Insomnia Last Admin: 03/23/25 01:43 Dose: 50 mg Allergies Allergies Allergy/AdvReac Type Severity Reaction Status Date / Time Iodinated Contrast Media Allergy Severe hives Verified 03/13/25 11:42 Penicillins Allergy Severe Unknown Verified 03/13/25 11:42 lactose AdvReac Intermediate loose stool Verified 03/13/25 11:42 lisinopril AdvReac Intermediate Cough Verified 03/13/25 11:42 succinylcholine AdvReac Unknown Unknown Verified 03/13/25 11:42 [From Anectine] Assessment & Plan Assessment & Plan (1) Schizophrenia: Qualifiers: Schizophrenia type: paranoid schizophrenia Qualified Code(s): F20.0 - Paranoid schizophrenia Status: Acute Code(s): F20.9 - Schizophrenia, unspecified Plan Ms. Encarnacion is a 74 year-old woman with hx of schizophrenia who was brought initially to [facility] ED due to increase AH, agitation. No details as to extend of agitation. It appears she intermittently stops clozaril. She presents as internally preoccupied and somewhat guarded. She denies SI/HI. She does not present with any aggression or agitation. We discussed risks, benefits and alternative treatment options, she agrees to restart (which ws restarted in ED) clozapine 100mg po daily. Pt also gave permission to contact her psychiatric provider Génesis Buck NP ([phone]) and her son for collateral information. PLAN 03/14 continue medications. will check clozapine level in few days and adjust dose. 03/15 continue tx. will order KUB r/o constipation 03/17 continue tx. may increase clozapine. 03/18 continue tx. 03/19 increase clozapine to 100mg po daily and 50mg po qhs. 03/20: being treated for UTI. c/o left CVA pain. otherwise no complaints or requests. eating well, sleeping well. monitor for resolution of UTI and w/u CVA pain if persists. 03/21 increase clozaril to 100mg po BID. 03/22 continue tx. 03/23: no complaints or requests. continue current mgmt. Reason for continued inpatient stay Substantial Risk for: inability to function Time Spent With Patient Time: Total time managing care of this patient today ____ minutes.
[2025-03-23] MEDS: cefuroxime axetiL 500 MG TABLET PO (11:48)
[2025-03-23 20:00] VITALS: BP 117/57; PULSE 92; RESP 18; TEMP 36.1; O2SAT 97
[2025-03-23 20:18] LABS: Glucose, Whole Blood 121 mg/dL (60-115)
[2025-03-23] MEDS: Sennosides 8.6 MG TABLET 17.2 MG PO (20:55)
[2025-03-23] MEDS: Atorvastatin Calcium 40 MG TABLET PO (20:55)
[2025-03-24] MEDS: Omeprazole 20 MG CAPSULE.DR PO (05:30)
[2025-03-24 06:27] LABS: Glucose, Whole Blood 117 mg/dL (60-115)
[2025-03-24 07:48] VITALS: BP 134/57; PULSE 86; RESP 20; TEMP 36.2; O2SAT 96
[2025-03-24] MEDS: Aspirin Enteric Coated 81 MG TABLET.DR PO (08:32)
[2025-03-24] MEDS: Loratadine 10 MG TABLET PO (08:32)
[2025-03-24] MEDS: Spironolactone 25 MG TABLET PO (08:32)
[2025-03-24] MEDS: Divalproex Sodium ER 250 MG TAB.ER.24H 750 MG PO (08:33)
[2025-03-24] MEDS: Empagliflozin 25 MG TABLET PO (08:33)
[2025-03-24] MEDS: cloZAPine 100 MG TABLET PO ×2 (08:33→20:54)
[2025-03-24] MEDS: Ferrous Sulfate 324 MG TABLET.DR PO (08:33)
[2025-03-24] MEDS: Nicotine 14 MG PATCH.TD24 TRANSDERMA (08:33)
[2025-03-24] MEDS: Fluticasone/Umeclidinium/Vilanterol 100/62.5/25 BLST.W.DEV 1 PUFF INHALE (08:33)
[2025-03-24] MEDS: cefuroxime axetiL 500 MG TABLET PO (11:37)
--- NOTE | 2025-03-24 15:23 | P.PNPSI_ITS ---
Subjective Subjective Date of Service: 03/24/25 Reason For Visit: Unspecified Psychosis Interim History: no requests or complaints aside from she would like to go home. per staff, improved. less paranoid. more social. FSBS 117. slept 7 hours. Mental Status Exam Mental Status Exam Narrative: Appearance: wearing hospital gown, fair hygiene, in NAD behavior: somewhat guarded and apprehensive Psychomotor: no tremors, no ataxia, no agitation or retardation. Speech: clear, mild delayed in response seems related to being internally preoccupied, spontaneous TP: linear TC: asking to go home Mood: not assessed Affect: constricted, normo-intense SI: none expressed HI: none expressed VH/AH: none expressed Delusions: none expressed Insight/judgment: poor x 2. Memory/cog: alert, oriented to place, month and year. vaguely to situation. MOCA completed score 8/30 with impairment in executive function/visuospatial (2/5), naming (2/3), attention (which suspects related to underlying psychosis), language flunce and repetition, recall, abstraction, orientation. Although do suspect underlying cognitive impairment, active psychosis may have affected some of the scores. ACL 4.2 Diagnostics Vital Signs (24Hr): Vital Signs - 24 hr 03/23/25 20:00 03/24/25 07:48 Temperature 97 F 97.1 F Pulse Rate 92 86 Respiratory Rate 18 20 Blood Pressure 117/57 L 134/57 L Pulse Oximetry 97 96 Oxygen Delivery Method Room Air Room Air BMI result Body Mass Index 35.6 Labs 03/16/25 17:47 03/16/25 17:47 Labs: Laboratory Results - last 48 hr 03/22/25 03/23/25 03/23/25 19:48 06:04 19:59 POC Glucose 112 98 121 H 03/24/25 06:11 POC Glucose 117 H Medications Medications Current Medications Acetaminophen (Acetaminophen 325 Mg Tablet) 650 mg PO Q6H PRN PRN Reason: Headache/Pain, Scale 1-10 Last Admin: 03/21/25 15:14 Dose: 650 mg Al Hydroxide/Mg Hydroxide (Magnesium Hydrox/Alum Hydrox 30 Ml Oral.Susp) 30 ml PO Q6H PRN PRN Reason: Heartburn/Nausea Aspirin (Aspirin Enteric Coated 81 Mg Tablet.) 81 mg PO DAILY [facility] Last Admin: 03/24/25 08:32 Dose: 81 mg Atorvastatin Calcium (Atorvastatin Calcium 40 Mg Tablet) 40 mg PO BEDTIME [facility] Last Admin: 03/23/25 20:55 Dose: 40 mg Clozapine (Clozapine 100 Mg Tablet) 100 mg PO DAILY [facility] Last Admin: 03/24/25 08:33 Dose: 100 mg Clozapine (Clozapine 100 Mg Tablet) 100 mg PO BEDTIME [facility] Last Admin: 03/23/25 20:55 Dose: 100 mg Divalproex Sodium (Divalproex Sodium Er 250 Mg Tab.Er.24h) 750 mg PO DAILY [facility] Last Admin: 03/24/25 08:33 Dose: 750 mg Empagliflozin (Empagliflozin 25 Mg Tablet) 25 mg PO DAILY [facility] Last Admin: 03/24/25 08:33 Dose: 25 mg Ferrous Sulfate (Ferrous Sulfate 324 Mg Tablet.) 324 mg PO DAILY [facility] Last Admin: 03/24/25 08:33 Dose: 324 mg Fluticasone/Umeclidinium/Vilanterol (Fluticasone/Umeclidinium/Vilanterol 100/62.5/25 Blst.W.Dev) 1 puff INHALE RDAILY [facility] Last Admin: 03/24/25 08:33 Dose: 1 puff Furosemide (Furosemide 40 Mg Tablet) 40 mg PO BID [facility]; Protocol Last Admin: 03/14/25 09:31 Dose: Not Given Loratadine (Loratadine 10 Mg Tablet) 10 mg PO DAILY [facility] Last Admin: 03/24/25 08:32 Dose: 10 mg Magnesium Hydroxide (Milk Of Magnesia 30 Ml Oral.Susp) 30 ml PO DAILY PRN PRN Reason: Constipation Last Admin: 03/16/25 16:20 Dose: 30 ml Nicotine (Nicotine 14 Mg Patch.Td24) 14 mg TRANSDERMA DAILY [facility] Last Admin: 03/24/25 08:33 Dose: 14 mg Nitroglycerin (Nitroglycerin 0.4 Mg Tab.Subl) 0.4 mg SUBLINGUAL Q5MX3 PRN PRN Reason: Chest Pain Olanzapine (Olanzapine 2.5 Mg Tablet) 2.5 mg PO TID PRN PRN Reason: agitation Omeprazole (Omeprazole 20 Mg Capsule.) 20 mg PO DAILY@0630 [facility] Last Admin: 03/24/25 05:30 Dose: 20 mg Senna (Sennosides 8.6 Mg Tablet) 17.2 mg PO BEDTIME [facility] Last Admin: 03/23/25 20:55 Dose: 17.2 mg Spironolactone (Spironolactone 25 Mg Tablet) 25 mg PO DAILY [facility]; Protocol Last Admin: 03/24/25 08:32 Dose: 25 mg Trazodone HCl (Trazodone Hcl 50 Mg Tablet) 50 mg PO BEDTIME PRN PRN Reason: Insomnia Last Admin: 03/23/25 20:56 Dose: 50 mg Allergies Allergies Allergy/AdvReac Type Severity Reaction Status Date / Time Iodinated Contrast Media Allergy Severe hives Verified 03/13/25 11:42 Penicillins Allergy Severe Unknown Verified 03/13/25 11:42 lactose AdvReac Intermediate loose stool Verified 03/13/25 11:42 lisinopril AdvReac Intermediate Cough Verified 03/13/25 11:42 succinylcholine AdvReac Unknown Unknown Verified 03/13/25 11:42 [From Anectine] Assessment & Plan Assessment & Plan (1) Schizophrenia: Qualifiers: Schizophrenia type: paranoid schizophrenia Qualified Code(s): F20.0 - Paranoid schizophrenia Status: Acute Code(s): F20.9 - Schizophrenia, unspecified Plan Ms. Encarnacion is a 74 year-old woman with hx of schizophrenia who was brought initially to [facility] ED due to increase AH, agitation. No details as to extend of agitation. It appears she intermittently stops clozaril. She presents as internally preoccupied and somewhat guarded. She denies SI/HI. She does not present with any aggression or agitation. We discussed risks, benefits and alternative treatment options, she agrees to restart (which ws restarted in ED) clozapine 100mg po daily. Pt also gave permission to contact her psychiatric provider Génesis Buck NP ([phone]) and her son for collateral information. PLAN 03/14 continue medications. will check clozapine level in few days and adjust dose. 03/15 continue tx. will order KUB r/o constipation 03/17 continue tx. may increase clozapine. 03/18 continue tx. 03/19 increase clozapine to 100mg po daily and 50mg po qhs. 03/20: being treated for UTI. c/o left CVA pain. otherwise no complaints or requests. eating well, sleeping well. monitor for resolution of UTI and w/u CVA pain if persists. 03/21 increase clozaril to 100mg po BID. 03/22 continue tx. 03/23: no complaints or requests. continue current mgmt. 03/24: asking to go home. per staff, less paranoid, more social. continue current mgmt. Reason for continued inpatient stay Substantial Risk for: inability to function Time Spent With Patient Time: Total time managing care of this patient today ____ minutes.
[2025-03-24 19:27] VITALS: BP 113/58; PULSE 85; TEMP 36.3; O2SAT 97
[2025-03-24] MEDS: Atorvastatin Calcium 40 MG TABLET PO (20:54)
[2025-03-24] MEDS: traZODone HCL 50 MG TABLET PO (20:54)
[2025-03-24] MEDS: Sennosides 8.6 MG TABLET 17.2 MG PO (20:54)
[2025-03-24 22:08] LABS: Glucose, Whole Blood 123 mg/dL (60-115)
[2025-03-25] MEDS: Omeprazole 20 MG CAPSULE.DR PO (06:24)
[2025-03-25 06:38] LABS: Glucose, Whole Blood 103 mg/dL (60-115)
[2025-03-25 08:25] VITALS: BP 135/60; PULSE 86; RESP 20; TEMP 36.3; O2SAT 95
[2025-03-25] MEDS: cloZAPine 100 MG TABLET PO ×2 (08:27→20:19)
[2025-03-25] MEDS: Divalproex Sodium ER 250 MG TAB.ER.24H 750 MG PO (08:27)
[2025-03-25] MEDS: Ferrous Sulfate 324 MG TABLET.DR PO (08:28)
[2025-03-25] MEDS: Aspirin Enteric Coated 81 MG TABLET.DR PO (08:28)
[2025-03-25] MEDS: Empagliflozin 25 MG TABLET PO (08:28)
[2025-03-25] MEDS: Loratadine 10 MG TABLET PO (08:28)
[2025-03-25] MEDS: Spironolactone 25 MG TABLET PO (08:28)
[2025-03-25] MEDS: Fluticasone/Umeclidinium/Vilanterol 100/62.5/25 BLST.W.DEV 1 PUFF INHALE (08:45)
[2025-03-25] MEDS: Nicotine 14 MG PATCH.TD24 TRANSDERMA (09:19)
--- NOTE | 2025-03-25 09:25 | HO.PSYCHPN ---
Subjective Subjective Date of Service: 03/25/25 Reason For Visit: Unspecified Psychosis Subjective Notes: Conditional Voluntary Interim History: Pt slept. Pt reports not feeling work. No SI/HI. continues to report hearing voices and suspicious towards staff but will not disclose theme of delusions or what voices are saying. SHe is taking medications as prescribed. Medication Compliance: Yes Review of Systems Review of Systems Denies any shortness of breath, chest pain, dizziness, lightheadedness, abdominal pain or discomfort, nausea vomiting or diarrhea Mental Status Exam Mental Status Exam Narrative: Appearance: wearing hospital gown, fair hygiene, in NAD behavior: somewhat guarded and apprehensive Psychomotor: no tremors, no ataxia, no agitation or retardation. Speech: clear, mild delayed in response seems related to being internally preoccupied, spontaneous TP: linear TC: asking to go home Mood: not assessed Affect: constricted, normo-intense SI: none expressed HI: none expressed VH/AH: none expressed Delusions: none expressed Insight/judgment: poor x 2. Memory/cog: alert, oriented to place, month and year. vaguely to situation. MOCA completed score 8/30 with impairment in executive function/visuospatial (2/5), naming (2/3), attention (which suspects related to underlying psychosis), language flunce and repetition, recall, abstraction, orientation. Although do suspect underlying cognitive impairment, active psychosis may have affected some of the scores. ACL 4.2 Diagnostics Vital Signs (24Hr): Vital Signs - 24 hr 03/24/25 19:27 03/25/25 08:25 Temperature 97.3 F 97.3 F Pulse Rate 85 86 Respiratory Rate 20 Blood Pressure 113/58 L 135/60 Pulse Oximetry 97 95 Oxygen Delivery Method Room Air Room Air BMI result Body Mass Index 35.6 Labs 03/16/25 17:47 03/16/25 17:47 Labs: Laboratory Results - last 48 hr 03/23/25 03/24/25 03/24/25 19:59 06:11 22:02 POC Glucose 121 H 117 H 123 H 03/25/25 06:21 POC Glucose 103 Medications Medications Current Medications Acetaminophen (Acetaminophen 325 Mg Tablet) 650 mg PO Q6H PRN PRN Reason: Headache/Pain, Scale 1-10 Last Admin: 03/21/25 15:14 Dose: 650 mg Al Hydroxide/Mg Hydroxide (Magnesium Hydrox/Alum Hydrox 30 Ml Oral.Susp) 30 ml PO Q6H PRN PRN Reason: Heartburn/Nausea Aspirin (Aspirin Enteric Coated 81 Mg Tablet.) 81 mg PO DAILY [facility] Last Admin: 03/25/25 08:28 Dose: 81 mg Atorvastatin Calcium (Atorvastatin Calcium 40 Mg Tablet) 40 mg PO BEDTIME [facility] Last Admin: 03/24/25 20:54 Dose: 40 mg Clozapine (Clozapine 100 Mg Tablet) 100 mg PO DAILY [facility] Last Admin: 03/25/25 08:27 Dose: 100 mg Clozapine (Clozapine 100 Mg Tablet) 100 mg PO BEDTIME [facility] Last Admin: 03/24/25 20:54 Dose: 100 mg Divalproex Sodium (Divalproex Sodium Er 250 Mg Tab.Er.24h) 750 mg PO DAILY [facility] Last Admin: 03/25/25 08:27 Dose: 750 mg Empagliflozin (Empagliflozin 25 Mg Tablet) 25 mg PO DAILY [facility] Last Admin: 03/25/25 08:28 Dose: 25 mg Ferrous Sulfate (Ferrous Sulfate 324 Mg Tablet.) 324 mg PO DAILY [facility] Last Admin: 03/25/25 08:28 Dose: 324 mg Fluticasone/Umeclidinium/Vilanterol (Fluticasone/Umeclidinium/Vilanterol 100/62.5/25 Blst.W.Dev) 1 puff INHALE RDAILY [facility] Last Admin: 03/25/25 08:45 Dose: 1 puff Furosemide (Furosemide 40 Mg Tablet) 40 mg PO BID [facility]; Protocol Last Admin: 03/14/25 09:31 Dose: Not Given Loratadine (Loratadine 10 Mg Tablet) 10 mg PO DAILY [facility] Last Admin: 03/25/25 08:28 Dose: 10 mg Magnesium Hydroxide (Milk Of Magnesia 30 Ml Oral.Susp) 30 ml PO DAILY PRN PRN Reason: Constipation Last Admin: 03/16/25 16:20 Dose: 30 ml Nicotine (Nicotine 14 Mg Patch.Td24) 14 mg TRANSDERMA DAILY [facility] Last Admin: 03/25/25 09:19 Dose: 14 mg Nitroglycerin (Nitroglycerin 0.4 Mg Tab.Subl) 0.4 mg SUBLINGUAL Q5MX3 PRN PRN Reason: Chest Pain Olanzapine (Olanzapine 2.5 Mg Tablet) 2.5 mg PO TID PRN PRN Reason: agitation Omeprazole (Omeprazole 20 Mg Capsule.) 20 mg PO DAILY@0630 [facility] Last Admin: 03/25/25 06:24 Dose: 20 mg Senna (Sennosides 8.6 Mg Tablet) 17.2 mg PO BEDTIME [facility] Last Admin: 03/24/25 20:54 Dose: 17.2 mg Spironolactone (Spironolactone 25 Mg Tablet) 25 mg PO DAILY [facility]; Protocol Last Admin: 03/25/25 08:28 Dose: 25 mg Trazodone HCl (Trazodone Hcl 50 Mg Tablet) 50 mg PO BEDTIME PRN PRN Reason: Insomnia Last Admin: 03/24/25 20:54 Dose: 50 mg Allergies Allergies Allergy/AdvReac Type Severity Reaction Status Date / Time Iodinated Contrast Media Allergy Severe hives Verified 03/13/25 11:42 Penicillins Allergy Severe Unknown Verified 03/13/25 11:42 lactose AdvReac Intermediate loose stool Verified 03/13/25 11:42 lisinopril AdvReac Intermediate Cough Verified 03/13/25 11:42 succinylcholine AdvReac Unknown Unknown Verified 03/13/25 11:42 [From Anectine] Assessment & Plan Assessment & Plan (1) Schizophrenia: Qualifiers: Schizophrenia type: paranoid schizophrenia Qualified Code(s): F20.0 - Paranoid schizophrenia Status: Acute Code(s): F20.9 - Schizophrenia, unspecified Plan Ms. Encarnacion is a 74 year-old woman with hx of schizophrenia who was brought initially to [facility] ED due to increase AH, agitation. No details as to extend of agitation. It appears she intermittently stops clozaril. She presents as internally preoccupied and somewhat guarded. She denies SI/HI. She does not present with any aggression or agitation. We discussed risks, benefits and alternative treatment options, she agrees to restart (which ws restarted in ED) clozapine 100mg po daily. Pt also gave permission to contact her psychiatric provider Génesis Buck NP ([phone]) and her son for collateral information. PLAN 03/14 continue medications. will check clozapine level in few days and adjust dose. 03/15 continue tx. will order KUB r/o constipation 03/17 continue tx. may increase clozapine. 03/18 continue tx. 03/19 increase clozapine to 100mg po daily and 50mg po qhs. 03/20: being treated for UTI. c/o left CVA pain. otherwise no complaints or requests. eating well, sleeping well. monitor for resolution of UTI and w/u CVA pain if persists. 03/21 increase clozaril to 100mg po BID. 03/22 continue tx. 03/23: no complaints or requests. continue current mgmt. 03/24: asking to go home. per staff, less paranoid, more social. continue current mgmt. 03/25 continue tx. clozaril level scheduled for tomorrow AM. Reason for continued inpatient stay Substantial Risk for: inability to function Time Spent With Patient Time: Total time managing care of this patient today ____ minutes.
[2025-03-25 20:00] VITALS: BP 123/56; PULSE 82; TEMP 36.3; O2SAT 97
[2025-03-25] MEDS: Atorvastatin Calcium 40 MG TABLET PO (20:19)
[2025-03-25] MEDS: Sennosides 8.6 MG TABLET 17.2 MG PO (20:19)
[2025-03-25 20:37] LABS: Glucose, Whole Blood 127 mg/dL (60-115)
--- NOTE | 2025-03-26 | ECG_ITS ---
Test Reason : tachycardia Blood Pressure : */* mmHG Vent. Rate : 119 BPM Atrial Rate : 119 BPM P-R Int : 168 ms QRS Dur : 74 ms QT Int : 304 ms P-R-T Axes : 41 -37 30 degrees QTcB Int : 427 ms Sinus tachycardia Left axis deviation Anterior infarct , age undetermined Abnormal ECG No previous ECGs available Referred By: Vane Bueno Electronically Signed By: MARTHA PANDYA MD
[2025-03-26] MEDS: Omeprazole 20 MG CAPSULE.DR PO (05:34)
[2025-03-26 06:14] LABS: Glucose, Whole Blood 132 mg/dL (60-115)
[2025-03-26 08:00] VITALS: BP 125/86; PULSE 103; RESP 18; TEMP 36.6
[2025-03-26] MEDS: Acetaminophen 325 MG TABLET 650 MG PO ×2 (08:12→12:25)
[2025-03-26 08:13] VITALS: BP 125/86
[2025-03-26] MEDS: Aspirin Enteric Coated 81 MG TABLET.DR PO (08:13)
[2025-03-26] MEDS: Spironolactone 25 MG TABLET PO (08:13)
[2025-03-26] MEDS: Loratadine 10 MG TABLET PO (08:13)
[2025-03-26] MEDS: Empagliflozin 25 MG TABLET PO (08:13)
[2025-03-26] MEDS: Divalproex Sodium ER 250 MG TAB.ER.24H 750 MG PO (08:13)
[2025-03-26] MEDS: Ferrous Sulfate 324 MG TABLET.DR PO (08:13)
[2025-03-26] MEDS: cloZAPine 100 MG TABLET PO (08:14)
[2025-03-26] MEDS: Fluticasone/Umeclidinium/Vilanterol 100/62.5/25 BLST.W.DEV 1 PUFF INHALE (08:14)
[2025-03-26] MEDS: Nicotine 14 MG PATCH.TD24 TRANSDERMA (08:14)
[2025-03-26 09:30] VITALS: BP 90/46; PULSE 126; RESP 20; TEMP 37; O2SAT 95
[2025-03-26 09:35] LABS: Glucose, Whole Blood 140 mg/dL (60-115)
[2025-03-26] MEDS: Ondansetron ODT 4 MG TAB.RAPDIS TRANSLINGU (10:21)
[2025-03-26 10:46] LABS: Basophils Percent Auto 0.2 % (0-2); Eosinophils Percent Auto 0.1 % (0-4); Hemoglobin 12.2 g/dl (12.0-16.0); Imm Gran Abs Auto 0.04 X10*3/uL (0.00-0.03); Imm Gran Pct Auto 0.3 % (0.0-0.4); Lymphocytes Absolute Auto 0.6 X10*3/uL (1.2-4.9); Lymphocytes Percent Auto 3.7 % (20-40); MANUAL DIFF FLAG SCAN; Mean Platelet Volume 10.6 fL (9.4-12.3); Monocytes Absolute Auto 0.4 X10*3/uL (0.1-1.2); Monocytes Percent Auto 2.9 % (2-11); Neutrophils Percent Auto 92.8 % (45-73); Platelet Count 283 X10*3/uL (160-400); SCAN SMEAR FLAG 1; White Blood Count 15.1 X10*3/uL (4.8-10.8)
[2025-03-26 11:00] LABS: Alanine Aminotransferase 18 U/L (0-31); Albumin Level 4.3 g/dL (3.5-5.0); Alkaline Phosphatase 68 U/L (39-117); Anion Gap 16 (12-20); Aspartate Amino Transferase 19 U/L (5-31); Bilirubin Total 0.3 mg/dL (0.0-1.0); Blood Urea Nitrogen 21 mg/dL (9-16); Calcium 9.6 mg/dL (8.4-10.2); Carbon Dioxide 26 mmol/L (22-29); Chloride 102 mmol/L (96-108); Creatinine Clr Calc Pharmacy 46.3; Estimated Glomerular Filt Rate 53; Glucose Random 140 mg/dL (60-115); Potassium 4.6 mmol/L (3.3-5.1); Sodium 139 mmol/L (135-145); Total Protein 7.1 g/dL (6.5-8.0)
[2025-03-26] MEDS: 0.9 % Sodium Chloride 1,000 ML 999 ML IV (11:01)
--- NOTE | 2025-03-26 11:01 | P.PNPSI_ITS ---
Subjective Subjective Reason For Visit: Unspecified Psychosis Diagnostics Vital Signs (24Hr): Vital Signs - 24 hr 03/25/25 20:00 03/26/25 08:00 03/26/25 08:13 Temperature 97.3 F 97.9 F Pulse Rate 82 103 H Respiratory Rate 18 Blood Pressure 123/56 L 125/86 125/86 Pulse Oximetry 97 Oxygen Delivery Method Room Air 03/26/25 09:30 Temperature 98.6 F Pulse Rate 126 H Respiratory Rate 20 Blood Pressure 90/46 L Pulse Oximetry 95 Oxygen Delivery Method Room Air BMI result Body Mass Index 35.6 Labs 03/26/25 10:24 03/26/25 10:24 Labs: Laboratory Results - last 48 hr 03/24/25 03/25/25 03/25/25 22:02 06:21 19:59 WBC RBC Hgb Hct MCV MCH MCHC RDW Plt Count MPV Sodium Potassium Chloride Carbon Dioxide Anion Gap BUN Creatinine Estim Creat Clear Calc Estimated GFR POC Glucose 123 H 103 127 H Random Glucose Calcium Total Bilirubin AST ALT Alkaline Phosphatase Total Protein Albumin 03/26/25 03/26/25 03/26/25 06:03 09:27 10:24 WBC 15.1 H RBC 3.70 L Hgb 12.2 Hct 37.0 MCV 100.0 H MCH 33.0 MCHC 33.0 RDW 13.0 Plt Count 283 MPV 10.6 Sodium 139 Potassium 4.6 Chloride 102 Carbon Dioxide 26 Anion Gap 16 BUN 21 H Creatinine 1.03 Estim Creat Clear Calc 46.3 Estimated GFR 53 POC Glucose 132 H 140 H Random Glucose 140 H Calcium 9.6 Total Bilirubin 0.3 AST 19 ALT 18 Alkaline Phosphatase 68 Total Protein 7.1 Albumin 4.3 Medications Medications Current Medications Acetaminophen (Acetaminophen 325 Mg Tablet) 650 mg PO Q6H PRN PRN Reason: Headache/Pain, Scale 1-10 Last Admin: 03/26/25 08:12 Dose: 650 mg Al Hydroxide/Mg Hydroxide (Magnesium Hydrox/Alum Hydrox 30 Ml Oral.Susp) 30 ml PO Q6H PRN PRN Reason: Heartburn/Nausea Aspirin (Aspirin Enteric Coated 81 Mg Tablet.Dr) 81 mg PO DAILY [facility] Last Admin: 03/26/25 08:13 Dose: 81 mg Atorvastatin Calcium (Atorvastatin Calcium 40 Mg Tablet) 40 mg PO BEDTIME [facility] Last Admin: 03/25/25 20:19 Dose: 40 mg Clozapine (Clozapine 100 Mg Tablet) 100 mg PO DAILY [facility] Last Admin: 03/26/25 08:14 Dose: 100 mg Clozapine (Clozapine 100 Mg Tablet) 100 mg PO BEDTIME [facility] Last Admin: 03/25/25 20:19 Dose: 100 mg Divalproex Sodium (Divalproex Sodium Er 250 Mg Tab.Er.24h) 750 mg PO DAILY [facility] Last Admin: 03/26/25 08:13 Dose: 750 mg Empagliflozin (Empagliflozin 25 Mg Tablet) 25 mg PO DAILY [facility] Last Admin: 03/26/25 08:13 Dose: 25 mg Ferrous Sulfate (Ferrous Sulfate 324 Mg Tablet.) 324 mg PO DAILY [facility] Last Admin: 03/26/25 08:13 Dose: 324 mg Fluticasone/Umeclidinium/Vilanterol (Fluticasone/Umeclidinium/Vilanterol 100/62.5/ Blst.W.Dev) 1 puff INHALE RDAILY [facility] Last Admin: 03/26/25 08:14 Dose: 1 puff Furosemide (Furosemide 40 Mg Tablet) 40 mg PO BID [facility]; Protocol Last Admin: 03/14/25 09:31 Dose: Not Given Loratadine (Loratadine 10 Mg Tablet) 10 mg PO DAILY [facility] Last Admin: 03/26/25 08:13 Dose: 10 mg Magnesium Hydroxide (Milk Of Magnesia 30 Ml Oral.Susp) 30 ml PO DAILY PRN PRN Reason: Constipation Last Admin: 03/16/25 16:20 Dose: 30 ml Nicotine (Nicotine 14 Mg Patch.Td24) 14 mg TRANSDERMA DAILY [facility] Last Admin: 03/26/25 08:14 Dose: 14 mg Nitroglycerin (Nitroglycerin 0.4 Mg Tab.Subl) 0.4 mg SUBLINGUAL Q5MX3 PRN PRN Reason: Chest Pain Olanzapine (Olanzapine 2.5 Mg Tablet) 2.5 mg PO TID PRN PRN Reason: agitation Omeprazole (Omeprazole 20 Mg Capsule.) 20 mg PO DAILY@0630 [facility] Last Admin: 03/26/25 05:34 Dose: 20 mg Ondansetron HCl (Ondansetron Odt 4 Mg Tab.Rapdis) 4 mg TRANSLINGU Q6H PRN PRN Reason: Nausea and Vomiting Last Admin: 03/26/25 10:21 Dose: 4 mg Senna (Sennosides 8.6 Mg Tablet) 17.2 mg PO BEDTIME [facility] Last Admin: 03/25/25 20:19 Dose: 17.2 mg Spironolactone (Spironolactone 25 Mg Tablet) 25 mg PO DAILY [facility]; Protocol Last Admin: 03/26/25 08:13 Dose: 25 mg Trazodone HCl (Trazodone Hcl 50 Mg Tablet) 50 mg PO BEDTIME PRN PRN Reason: Insomnia Last Admin: 03/24/25 20:54 Dose: 50 mg Allergies Allergies Allergy/AdvReac Type Severity Reaction Status Date / Time Iodinated Contrast Media Allergy Severe hives Verified 03/13/25 11:42 Penicillins Allergy Severe Unknown Verified 03/13/25 11:42 lactose AdvReac Intermediate loose stool Verified 03/13/25 11:42 lisinopril AdvReac Intermediate Cough Verified 03/13/25 11:42 succinylcholine AdvReac Unknown Unknown Verified 03/13/25 11:42 [From Anectine] Assessment & Plan Assessment & Plan (1) Schizophrenia: Qualifiers: Schizophrenia type: paranoid schizophrenia Qualified Code(s): F20.0 - Paranoid schizophrenia Status: Acute Code(s): F20.9 - Schizophrenia, unspecified Plan Ms. Encarnacion is a 74 year-old woman with hx of schizophrenia who was brought initially to [facility] ED due to increase AH, agitation. No details as to extend of agitation. It appears she intermittently stops clozaril. She presents as internally preoccupied and somewhat guarded. She denies SI/HI. She does not present with any aggression or agitation. We discussed risks, benefits and alternative treatment options, she agrees to restart (which ws restarted in ED) clozapine 100mg po daily. Pt also gave permission to contact her psychiatric provider Génesis Buck NP ([phone]) and her son for collateral information. PLAN 03/14 continue medications. will check clozapine level in few days and adjust dose. 03/15 continue tx. will order KUB r/o constipation 03/17 continue tx. may increase clozapine. 03/18 continue tx. 03/19 increase clozapine to 100mg po daily and 50mg po qhs. 03/20: being treated for UTI. c/o left CVA pain. otherwise no complaints or requests. eating well, sleeping well. monitor for resolution of UTI and w/u CVA pain if persists. 03/21 increase clozaril to 100mg po BID. 03/22 continue tx. 03/23: no complaints or requests. continue current mgmt. 03/24: asking to go home. per staff, less paranoid, more social. continue current mgmt. 03/25 continue tx. clozaril level scheduled for tomorrow AM. Time Spent With Patient Time: Total time managing care of this patient today ____ minutes.
[2025-03-26 11:11] LABS: Lactic Acid 3.9 mmol/L (0.5-2.0)
--- NOTE | 2025-03-26 11:13 | PC.NURSE ---
Lab called with critical lab value, lactic acid of 3.9. Vane Lyn, America Bosch, Andrez Fierro, and Estefanía Agneles notified via priority tiger text.
--- NOTE | 2025-03-26 11:23 | HO.PM.IMCN ---
History of Present Illness Data of Consult Service Date: 03/26/25 Primary Care Provider: Nonstaff Physician ALBA Reason for consult: Medical evaluation 74-year-old female with a past medical history of hypertension, GERD, COPD, type 2 diabetes, anxiety and depression, CKD and schizophrenia and history of UTI she was brought to the ED by her son after experience auditory hallucinations and agitation and has been on the Geripsych unit for further treatment Prior to admit she had been off her medications. She has been medically stable since admit. Notified by nursing that she has experienced shaking, nausea and decreased oxygen saturations. On exam she reporting suprapubic pain, denies any shortness of breath or chest pain. Her lungs are clear. Patient has a history of UTIs, recently treated with cefpodoxime on admission. Patient is tachycardic on exam, feels fatigued. Denies any other concerns. Review of Systems Review of Systems: Denies any shortness of breath, chest pain, dizziness, lightheadedness, abdominal pain or discomfort, nausea vomiting or diarrhea PMFSH Social History Household Members: None Housing: Apartment Housing Other:: federal building Do you presently have visiting nurse or other home services: Yes Patient Tobacco Use Status: Former Tobacco user Tobacco use type: Cigarette Cigarette Packs Per Day: 1 Years Smoked: 45 e-Cigarette/Vaping Use: Never Used Second Hand Smoke Exposure: No service: No Sexual orientation: Straight/Heterosexual Meds Allergies Allergy/AdvReac Type Severity Reaction Status Date / Time Iodinated Contrast Media Allergy Severe hives Verified 03/13/25 11:42 Penicillins Allergy Severe Unknown Verified 03/13/25 11:42 lactose AdvReac Intermediate loose stool Verified 03/13/25 11:42 lisinopril AdvReac Intermediate Cough Verified 03/13/25 11:42 succinylcholine AdvReac Unknown Unknown Verified 03/13/25 11:42 [From Anectine] Active Medications: Current Medications Acetaminophen (Acetaminophen 325 Mg Tablet) 650 mg PO Q6H PRN PRN Reason: Headache/Pain, Scale 1-10 Last Admin: 03/26/25 08:12 Dose: 650 mg Al Hydroxide/Mg Hydroxide (Magnesium Hydrox/Alum Hydrox 30 Ml Oral.Susp) 30 ml PO Q6H PRN PRN Reason: Heartburn/Nausea Aspirin (Aspirin Enteric Coated 81 Mg Tablet.) 81 mg PO DAILY [facility] Last Admin: 03/26/25 08:13 Dose: 81 mg Atorvastatin Calcium (Atorvastatin Calcium 40 Mg Tablet) 40 mg PO BEDTIME [facility] Last Admin: 03/25/25 20:19 Dose: 40 mg Clozapine (Clozapine 100 Mg Tablet) 100 mg PO DAILY [facility] Last Admin: 03/26/25 08:14 Dose: 100 mg Clozapine (Clozapine 100 Mg Tablet) 100 mg PO BEDTIME [facility] Last Admin: 03/25/25 20:19 Dose: 100 mg Divalproex Sodium (Divalproex Sodium Er 250 Mg Tab.Er.24h) 750 mg PO DAILY [facility] Last Admin: 03/26/25 08:13 Dose: 750 mg Empagliflozin (Empagliflozin 25 Mg Tablet) 25 mg PO DAILY [facility] Last Admin: 03/26/25 08:13 Dose: 25 mg Ferrous Sulfate (Ferrous Sulfate 324 Mg Tablet.) 324 mg PO DAILY [facility] Last Admin: 03/26/25 08:13 Dose: 324 mg Fluticasone/Umeclidinium/Vilanterol (Fluticasone/Umeclidinium/Vilanterol 100/62.5/25 Blst.W.Dev) 1 puff INHALE RDAILY [facility] Last Admin: 03/26/25 08:14 Dose: 1 puff Furosemide (Furosemide 40 Mg Tablet) 40 mg PO BID [facility]; Protocol Last Admin: 03/14/25 09:31 Dose: Not Given Loratadine (Loratadine 10 Mg Tablet) 10 mg PO DAILY [facility] Last Admin: 03/26/25 08:13 Dose: 10 mg Magnesium Hydroxide (Milk Of Magnesia 30 Ml Oral.Susp) 30 ml PO DAILY PRN PRN Reason: Constipation Last Admin: 03/16/25 16:20 Dose: 30 ml Nicotine (Nicotine 14 Mg Patch.Td24) 14 mg TRANSDERMA DAILY [facility] Last Admin: 03/26/25 08:14 Dose: 14 mg Nitroglycerin (Nitroglycerin 0.4 Mg Tab.Subl) 0.4 mg SUBLINGUAL Q5MX3 PRN PRN Reason: Chest Pain Olanzapine (Olanzapine 2.5 Mg Tablet) 2.5 mg PO TID PRN PRN Reason: agitation Omeprazole (Omeprazole 20 Mg Capsule.) 20 mg PO DAILY@0630 [facility] Last Admin: 03/26/25 05:34 Dose: 20 mg Ondansetron HCl (Ondansetron Odt 4 Mg Tab.Rapdis) 4 mg TRANSLINGU Q6H PRN PRN Reason: Nausea and Vomiting Last Admin: 03/26/25 10:21 Dose: 4 mg Senna (Sennosides 8.6 Mg Tablet) 17.2 mg PO BEDTIME [facility] Last Admin: 03/25/25 20:19 Dose: 17.2 mg Spironolactone (Spironolactone 25 Mg Tablet) 25 mg PO DAILY [facility]; Protocol Last Admin: 03/26/25 08:13 Dose: 25 mg Trazodone HCl (Trazodone Hcl 50 Mg Tablet) 50 mg PO BEDTIME PRN PRN Reason: Insomnia Last Admin: 03/24/25 20:54 Dose: 50 mg Physical Exam Vital Signs and Narrative: Vital Signs: Last Vital Signs Temp 98.6 F 03/26/25 09:30 Pulse 126 H 03/26/25 09:30 Resp 20 03/26/25 09:30 BP 90/46 L 03/26/25 09:30 Pulse Ox 95 03/26/25 09:30 O2 Del Method Room Air 03/26/25 09:30 BMI result Body Mass Index 35.6 CONST: Alert and oriented, in NAD. Appears fatigued HEENT: Normocephalic, atraumatic, MMM, Eyes clear, Neck supple RESP: Lungs clear, RRR even and regular HEART:,RRR, S1, S2. no edema GI:Abdomen Soft NT, ND. + BS times four :Mild suprapubic tenderness SKIN: Warm dry and intact, no visible lesions or rashes NEURO:CN II-XII Intact bilaterally, Sensation intact. Speech clear PSYCH: Normal affect Results Labs 03/26/25 10:24 03/26/25 10:24 Labs: Laboratory Results - last 24 hr 03/25/25 03/26/25 03/26/25 19:59 06:03 09:27 MCV MCH MCHC RDW Plt Count MPV Anion Gap Estim Creat Clear Calc Estimated GFR POC Glucose 127 H 132 H 140 H Random Glucose Lactic Acid Calcium Total Bilirubin AST ALT Alkaline Phosphatase Total Protein Albumin 03/26/25 10:24 MCV 100.0 H MCH 33.0 MCHC 33.0 RDW 13.0 Plt Count 283 MPV 10.6 Anion Gap 16 Estim Creat Clear Calc 46.3 Estimated GFR 53 POC Glucose Random Glucose 140 H Lactic Acid 3.9 H* Calcium 9.6 Total Bilirubin 0.3 AST 19 ALT 18 Alkaline Phosphatase 68 Total Protein 7.1 Albumin 4.3 Assessment and Plan (1) UTI (urinary tract infection): Status: Acute Plan 74 year old female with PMH of hypertension, GERD, COPD, type 2 diabetes, anxiety and depression, CKD and schizophrenia and history of UTI initially admitted on Geripsych unit for hallucinations and not taking her medicatins. She has been medically stable since admit. Notified by nursing that she has experienced shaking, nausea and decreased oxygen saturations. Patient is being transferred to medical floor with sepsis. Sepsis suspected due to UTI/Leukocytosis Patient with hypotension, tachycardia EKG demonstrates Sinus tachycardia Now febrile- Received Tylenol. 1L IV fluids ordered and Ceftriaxone 1000 mgs Given UA pending. Will order chest Xray to rule out PNA Lactate level 3.9, WBC 15.1 Renal function stable UA pending Type 2 diabetes with chronic kidney disease stage 3 Renally dose all meds. Continue Jardiance Consistent carbohydrate diet Schizophrenia/depression anxiety Per psychiatric team
--- NOTE | 2025-03-26 11:27 | P.DS_ITS ---
DS: Providers Provider Date of Service: 03/26/25 Date of admission: 03/13/25 08:30 Date of discharge: 03/26/25 Primary care physician: Nonstaff Physician Consults: 03/12/25 22:30 Consult to Hospitalist Routine Comment: Consulting Provider: [facility] Hospitalists Reason For Exam: admission physical 03/26/25 09:43 Consult to Hospitalist Routine Comment: Consulting Provider: [facility] Hospitalists Reason For Exam: shaking, hotn, nausea DS: Diagnosis Discharge Diagnosis (1) Schizophrenia: Status: Acute DS: Medications Discharge Medications Home Medications: Previous Rx's ?Medication ?Instructions ?Recorded acetaminophen 325 mg tablet 650 mg (2 x 325 mg) PO Q6H PRN 03/26/25 Headache/Pain, Scale 1-10 #0 tabs aspirin 81 mg tablet,delayed 81 mg PO DAILY #0 tabs 03/26/25 release atorvastatin 40 mg tablet 40 mg PO BEDTIME #0 tabs 03/26/25 clozapine 100 mg tablet 100 mg PO BEDTIME #0 tabs 03/26/25 clozapine 100 mg tablet 100 mg PO DAILY #0 tabs 03/26/25 divalproex 250 mg tablet,extended 750 mg (3 x 250 mg) PO DAILY #0 03/26/25 release 24 hr tabs empagliflozin 25 mg tablet 25 mg PO DAILY #0 tabs 03/26/25 (Jardiance) ferrous sulfate 324 mg (65 mg 324 mg PO DAILY #0 tabs 03/26/25 iron) tablet,delayed release fluticasone fur. 100 mcg-umeclid 1 inh inhalation RDAILY #0 ea 03/26/25 62.5 mcg-vilant 25 mcg inhalat.powder (Trelegy Ellipta) loratadine 10 mg tablet 10 mg PO DAILY #0 tabs 03/26/25 nicotine 14 mg/24 hr daily 14 mg transdermal DAILY #0 ea 03/26/25 transdermal patch nitroglycerin 0.4 mg sublingual 0.4 mg sublingual Q5MX3 PRN Chest 03/26/25 tablet (Nitrostat) Pain #0 tabs omeprazole 20 mg capsule,delayed 20 mg PO DAILY@0630 #0 caps 03/26/25 release ondansetron 4 mg disintegrating 4 mg translingual Q6H PRN Nausea 03/26/25 tablet And Vomiting #0 tabs sennosides 8.6 mg tablet (Senna 17.2 mg (2 x 8.6 mg) PO BEDTIME #0 03/26/25 Lax) tabs spironolactone 25 mg tablet 25 mg PO DAILY #0 tabs 03/26/25 trazodone 50 mg tablet 50 mg PO BEDTIME PRN Insomnia #0 03/26/25 tabs Mental Status Exam Mental Status Exam Narrative: Pt in bed, feeling weak, able to speak, alert, oriented x 4. complaining of nausea. Data Data Completed and Pending Completed studies during hospitalization [Text1]: 03/20/25 03/21/25 03/21/25 07:21 11:23 20:12 WBC RBC Hgb Hct MCV MCH MCHC RDW Plt Count MPV Immature Gran % (Auto) Neut % (Auto) Lymph % (Auto) [place] % (Auto) Eos % (Auto) Baso % (Auto) Lymph # (Auto) [place] # (Auto) Eos # (Auto) Baso # (Auto) Abs Immat Gran (auto) Absolute Neuts (auto) 5.4 Absolute Nucleated RBC Nucleated RBC % (auto) Sodium Potassium Chloride Carbon Dioxide Anion Gap BUN Creatinine Estim Creat Clear Calc Estimated GFR POC Glucose 178 H 142 H Random Glucose Lactic Acid Calcium Total Bilirubin AST ALT Alkaline Phosphatase Total Protein Albumin Clozapine Norclozapine 03/22/25 03/22/25 03/23/25 06:17 19:48 06:04 WBC RBC Hgb Hct MCV MCH MCHC RDW Plt Count MPV Immature Gran % (Auto) Neut % (Auto) Lymph % (Auto) [place] % (Auto) Eos % (Auto) Baso % (Auto) Lymph # (Auto) [place] # (Auto) Eos # (Auto) Baso # (Auto) Abs Immat Gran (auto) Absolute Neuts (auto) Absolute Nucleated RBC Nucleated RBC % (auto) Sodium Potassium Chloride Carbon Dioxide Anion Gap BUN Creatinine Estim Creat Clear Calc Estimated GFR POC Glucose 115 112 98 Random Glucose Lactic Acid Calcium Total Bilirubin AST ALT Alkaline Phosphatase Total Protein Albumin Clozapine Norclozapine 03/23/25 03/24/25 03/24/25 19:59 06:11 22:02 WBC RBC Hgb Hct MCV MCH MCHC RDW Plt Count MPV Immature Gran % (Auto) Neut % (Auto) Lymph % (Auto) [place] % (Auto) Eos % (Auto) Baso % (Auto) Lymph # (Auto) [place] # (Auto) Eos # (Auto) Baso # (Auto) Abs Immat Gran (auto) Absolute Neuts (auto) Absolute Nucleated RBC Nucleated RBC % (auto) Sodium Potassium Chloride Carbon Dioxide Anion Gap BUN Creatinine Estim Creat Clear Calc Estimated GFR POC Glucose 121 H 117 H 123 H Random Glucose Lactic Acid Calcium Total Bilirubin AST ALT Alkaline Phosphatase Total Protein Albumin Clozapine Norclozapine 03/25/25 03/25/25 03/26/25 06:21 19:59 06:03 WBC RBC Hgb Hct MCV MCH MCHC RDW Plt Count MPV Immature Gran % (Auto) Neut % (Auto) Lymph % (Auto) [place] % (Auto) Eos % (Auto) Baso % (Auto) Lymph # (Auto) [place] # (Auto) Eos # (Auto) Baso # (Auto) Abs Immat Gran (auto) Absolute Neuts (auto) Absolute Nucleated RBC Nucleated RBC % (auto) Sodium Potassium Chloride Carbon Dioxide Anion Gap BUN Creatinine Estim Creat Clear Calc Estimated GFR POC Glucose 103 127 H 132 H Random Glucose Lactic Acid Calcium Total Bilirubin AST ALT Alkaline Phosphatase Total Protein Albumin Clozapine Norclozapine 03/26/25 03/26/25 03/26/25 07:58 09:27 10:24 WBC 15.1 H RBC 3.70 L Hgb 12.2 Hct 37.0 MCV 100.0 H MCH 33.0 MCHC 33.0 RDW 13.0 Plt Count 283 MPV 10.6 Immature Gran % (Auto) Pending Neut % (Auto) Pending Lymph % (Auto) Pending [place] % (Auto) Pending Eos % (Auto) Pending Baso % (Auto) Pending Lymph # (Auto) Pending [place] # (Auto) Pending Eos # (Auto) Pending Baso # (Auto) Pending Abs Immat Gran (auto) Pending Absolute Neuts (auto) Pending Absolute Nucleated RBC Pending Nucleated RBC % (auto) Pending Sodium 139 Potassium 4.6 Chloride 102 Carbon Dioxide 26 Anion Gap 16 BUN 21 H Creatinine 1.03 Estim Creat Clear Calc 46.3 Estimated GFR 53 POC Glucose 140 H Random Glucose 140 H Lactic Acid 3.9 H* Calcium 9.6 Total Bilirubin 0.3 AST 19 ALT 18 Alkaline Phosphatase 68 Total Protein 7.1 Albumin 4.3 Clozapine Pending Norclozapine Pending 03/26/25 10:39 Blood - Venous Blood Culture - Pending 03/26/25 10:33 Blood - Venous Blood Culture - Pending DS: Summary Hospital Course Hospital Course: Ms. Encarnacion is a 74 year-old woman with hx of schizophrenia. She was initially brought to [facility] ED due to increase agitation and auditory hallucinations in context of pt stopping antipsychotic clozapine. Pertinent labs completed in the ED include CBC with no leukocytosis, MCV slightly elevated 99 with H&H low end of normal (will check B12). CMP without electrolyte abnormalities, BUN 1.06, BUN 18. LFTs wnl. depakote level 12.5. Utox was negative. UA showed glucose and leukocytes. She was started on antibiotic for UTI. No information as to behavioral health assessment was completed. While patient was being transported to [facility], pt reported chest pain and was brought to [facility]. She had EKG which did not show signs of ischemia, negative troponin x 2 at 1:43 and 00:47 on 03/13/2025. On the unit, pt presents as somewhat guarded. She reports she stopped medications, unclear cause. She reports she does this at times. She reports she became more anxious and hearing more voices. When asked about what the voices are telling her, she seems somewhat guarded, stating they always ask me this questions. Despite this creative services writer explaining that since we are just meeting her want to hear from her. She later during interview asks this creative services writer if I can hear the noise which there was non in the room. She reports voices continue to talk to her telling her you're never going to get out of here. She reports voices tell her at times derogatory statements, but would not elaborate. She also hints that voices may tell her medications are not safe. She adamantly denies suicidal or homicidal ideation. She reports feeling anxious and also having poor sleep. She is in agreement to restart clozaril. Past Psychiatric History: Inpt: reports number of admission but can't remember when or where. She reports last one was a long time a go. She could not tell whether it was in the past 5 years or more than that. OP: Pt reports seeing Alma Rosa Ramesh, but she is no longer in the practice. She now sees Génesis Buck NP ([phone]). HOSPITAL COURSE On the unit, pt was admitted on CV and placed on 15 minutes checks for safety. Pt presented with auditory hallucinations, paranoid delusions. She was not forthcoming as to theme of delusional content and auditory hallucinations but presented as very fearful and mistrustful of staff. She denied SI/HI. We discussed risks, benefits and alternative treatment options, pt agreed to titrate clozaril to 100mg po BID. She was continued on depakote 750mg po daily. She was transferred to medical floor due to pt presenting with s/s of sepsis including hotn, febrile, leukocytosis, elevated lactic acid. O2sat stable on RA >90%. BP improved with IV fluids. Status at Discharge Cognitive/behavioral status at discharge: Pt with s/s of sepsis. Functional status at discharge: independent ambulation Overall status at discharge: patient is not back to baseline Time Spent with Patient Time attestation: Total time managing care of this patient today _40___ minutes. Time spent: Greater than 30 minutes Discharge Plan Discharge Anticipated Discharge Date/Time: 03/26/25 11:19 Patient Disposition: Xfer Acute Care Hospital Discharge Diagnosis: Schizophrenia Referrals: Physician,Nonstaff [Primary Care Provider] - 1 Week Discharge Medications: New loratadine 10 mg Tablet 10 mg PO DAILY Qty: 0 0RF Trelegy Ellipta 100-62.5-25 mcg Blister With Device 1 inh inhalation RDAILY Qty: 0 0RF atorvastatin 40 mg Tablet 40 mg PO BEDTIME Qty: 0 0RF sennosides [Senna Lax] 8.6 mg Tablet 17.2 mg PO BEDTIME Qty: 0 0RF acetaminophen 325 mg Tablet 650 mg PO Q6H PRN (Reason: Headache/Pain, Scale 1-10) Qty: 0 0RF nicotine 14 mg/24 hr Patch 24 Hour 14 mg transdermal DAILY Qty: 0 0RF trazodone 50 mg Tablet 50 mg PO BEDTIME PRN (Reason: Insomnia) Qty: 0 0RF clozapine 100 mg Tablet 100 mg PO DAILY Qty: 0 0RF clozapine 100 mg Tablet 100 mg PO BEDTIME Qty: 0 0RF aspirin 81 mg Tablet,Delayed Release (Dr/Ec) 81 mg PO DAILY Qty: 0 0RF spironolactone 25 mg Tablet 25 mg PO DAILY Qty: 0 0RF Protocol: Hold for SBP< HOLD for SBP < : 90 nitroglycerin [Nitrostat] 0.4 mg Tablet, Sublingual 0.4 mg sublingual Q5MX3 PRN (Reason: Chest Pain) Qty: 0 0RF omeprazole 20 mg Capsule,Delayed Release(Dr/Ec) 20 mg PO DAILY@0630 Qty: 0 0RF ondansetron 4 mg Tablet,Disintegrating 4 mg translingual Q6H PRN (Reason: Nausea And Vomiting) Qty: 0 0RF divalproex 250 mg Tablet Extended Release 24 Hr 750 mg PO DAILY Qty: 0 0RF ferrous sulfate 324 mg (65 mg iron) Tablet,Delayed Release (Dr/Ec) 324 mg PO DAILY Qty: 0 0RF Jardiance 25 mg Tablet 25 mg PO DAILY Qty: 0 0RF Discontinued clozapine [Clozaril] 100 mg tablet 100 mg PO QAM divalproex [Depakote ER] 250 mg tablet extended release 24 hr 250 mg PO DAILY cefpodoxime 200 mg Tablet 200 mg PO BID Rx Instructions: must administer with a meal/food Jardiance 25 mg tablet 25 mg PO DAILY divalproex 500 mg tablet extended release 24 hr 500 mg PO furosemide 40 mg tablet 40 mg PO BID aspirin 81 mg tablet,delayed release (DR/EC) 81 mg PO DAILY esomeprazole magnesium 20 mg capsule,delayed release(DR/EC) 20 mg PO BID ferrous sulfate 325 mg (65 mg iron) tablet 325 mg PO DAILY spironolactone 25 mg tablet 25 mg PO DAILY spironolactone 25 mg tablet 25 mg PO DAILY sennosides [senna] 8.6 mg tablet 17.2 mg PO BEDTIME Discharge Orders: Discharge Order (Routine); Ordered 03/26/25 Ordered By: Vane Bueno Diet: Advance to usual diet Activity on Discharge: As tolerated Stand Alone Forms: Patient Portal Discharge page Print Language: Bahraini Care Plan Goals: transfer to medicine Health Concerns: transfer to medicine Plan of Treatment: transfer to medicine Assessment: Pt in bed, unwell physically. febrile.
[2025-03-26 11:40] LABS: Appearance Urine Cloudy; Color Urine Yellow; Glucose Urine UA >=1000 mg/dL (Negative); Leukocyte Esterase Urine Moderate (2+) (Negative); Nitrite Urine Negative (Negative); PH 5.5 (5.0-9.0); Specific Gravity - Urine >= 1.030 (1.005-1.025); UMIC TRIGGER UACC YES; Urine Blood Negative (Negative); Urine Ketones Trace mg/dL (Negative); Urine Protein Negative (Neg-Trace)
[2025-03-26] MEDS: cefTRIAXone sodium 1 GM VIAL IM (11:42)
[2025-03-26 11:53] LABS: Bacteria Urine Trace (None Seen); Hyaline Casts Urine 0-2 /LPF (0-2); RBC Urine 0-2 /HPF (0-2); UACC Culture Trigger YES; WBC Clumps Urine Present
[2025-03-26 12:42] LABS: Reflex Lactate? Lactic Acid Added
[2025-03-26 13:23] LABS: ~Lactic Acid-LAB USE ONLY 1.4 mmol/L (0.5-2.0)
--- NOTE | 2025-03-26 13:45 | PC.NURSE ---
Patient didn't feel well at am. Alert, oriented x4, after breakfast c/o feeling tired, weak, generalized pains and aches, occasional chills. Medicated with Tylenol with some good effect. VS at 8am: 107/53 on one arm and 125/86 on the other arm, p 103, T 97.9, O2sat 90-93% on RA. At 9:30 noted increased heart rate 126, BP 90/46, T 98.6, R 20, O2sat 91-95% on RA. Pt nauseated and vomited, some shakiness of her arms. Assessed by the provider Vane ATKINSON and America Bosch, new orders for labs, ECG, KUB, IV fluids, urine sample for u/a and cult., also IM Rocephin. IV site on right antecubital unremarkable. IV hydration completed without issue, urine sample collected, labs done, Rocephin IM administered. At 11:10am T 100.4, P 121, BP 132/64. Critical Lactic acid 3.9 reported to Vane. Pt's temp gradually increased to 101.1 at 12:00, BP 160/124, p 106, O2sat 91% on RA. Received Tylenol 650mg per provider America Bosch. permission. New order to discharge to medical floor R [id number]. Report given to Rain CHANDLER. Pt left the unit via a stretcher, able to get up from her bed to a stretcher. Accompanied by two nurses.
[2025-03-26 14:36] LABS: SLIDE REVIEW VERIFIED
[2025-03-29 23:43] LABS: Clozapine (Clozaril) 492 mcg/L; Norclozapine 125 mcg/L (25-400)
== END 2025-03-26 13:00 | disposition short-term general hospital (02) | DRG 885 ==
PROVIDERS: Psychiatry & Neurology Psychiatry; Social Worker; Admitting Provider Psychiatry & Neurology Psychiatry
DX: F20.9 Schizophrenia, unspecified (principal); N39.0 Urinary tract infection, site not specified; J44.9 Chronic obstructive pulmonary disease, unspecified; F32.A Depression, unspecified; F41.9 Anxiety disorder, unspecified; I12.9 Hypertensive chronic kidney disease with stage 1 through stage 4 chronic kidney disease, or unspecified chronic kidney disease; N18.30 Chronic kidney disease, stage 3 unspecified; E11.22 Type 2 diabetes mellitus with diabetic chronic kidney disease; Z87.891 Personal history of nicotine dependence; Z79.899 Other long term (current) drug therapy
CPT/HCPCS: 36415; 74018; 80053; 80061; 80159; 81001; 82607; 82746; 82947; 83036; 83605; 84443; 85025; 85048; 87040; 87086; 93005; J0696

== ENCOUNTER 2025-03-13 08:30 | Outpatient (BNV) | payer OTHER, SELFPAY | END 2025-03-16 15:22 | PROVIDERS: Admitting Provider Psychiatry & Neurology Psychiatry; Visit Provider Specialist | DX: K56.41 Fecal impaction (principal); R14.0 Abdominal distension (gaseous) | CPT/HCPCS: 74018 ==

== ENCOUNTER → 2025-03-13 08:30 | Outpatient (BNV) | payer OTHER, SELFPAY | PROVIDERS: Admitting Provider Psychiatry & Neurology Psychiatry; Visit Provider Social Worker | DX: F20.0 Paranoid schizophrenia (principal) | CPT/HCPCS: 90792; 99231; 99232; 99239 ==

== ENCOUNTER → 2025-03-13 08:30 | Outpatient (BNV) | payer OTHER, SELFPAY | PROVIDERS: Admitting Provider Psychiatry & Neurology Psychiatry; Visit Provider Nurse Practitioner Family | DX: N39.0 Urinary tract infection, site not specified (principal) | CPT/HCPCS: 99222 ==

== ENCOUNTER 2025-03-26 11:48 | Outpatient (BNV) | payer OTHER, SELFPAY | END 2025-03-26 12:35 | PROVIDERS: Admitting Provider Internal Medicine; Visit Provider Radiology Diagnostic Radiology | DX: R91.8 Other nonspecific abnormal finding of lung field (principal) | CPT/HCPCS: 71045; 71250 ==

== ENCOUNTER 2025-03-26 11:48 | Outpatient (BNV) | payer OTHER, SELFPAY | END 2025-03-28 15:05 | PROVIDERS: Admitting Provider Internal Medicine; Visit Provider Radiology Diagnostic Radiology | DX: S32.502A Unspecified fracture of left pubis, initial encounter for closed fracture (principal) | CPT/HCPCS: 73502 ==

== ENCOUNTER 2025-03-26 11:48 | Outpatient (BNV) | payer OTHER, SELFPAY | END 2025-03-29 11:20 | PROVIDERS: Admitting Provider Internal Medicine; PCP Family Medicine; Visit Provider Radiology Diagnostic Radiology | DX: M17.12 Unilateral primary osteoarthritis, left knee (principal) | CPT/HCPCS: 73560 ==

== ENCOUNTER 2025-03-26 11:48 | Inpatient (IN) | payer OTHER, SELFPAY ==
--- NOTE | ~2025-03-26 | XR_ITS ---
EXAMINATION: XR KNEE, LEFT CLINICAL INFORMATION: PAIN COMPARISON: None available. TECHNIQUE: AP and lateral views of the left knee. FINDINGS: Joint space narrowing involving the medial compartment with associated sclerosis along the articular surface of the medial tibial plateau. Marginal osteophyte formation and medial tibial plateau. No acute cortical disruption or malalignment. No lytic or blastic lesions. No suprapatellar bursa joint effusion. XR/XR knee LT 2V IMPRESSION: Medial compartment osteoarthrosis. Electronically signed by: Wood Page MD 03/29/2025 11:36 AM EDT
--- NOTE | ~2025-03-26 | CT_ITS ---
EXAMINATION: CT CHEST WITHOUT IV CONTRAST INDICATION: eval right lung mass COMPARISON: Correlation is made with an AP portable view of the chest performed earlier in the day. TECHNIQUE: Helical CT scan of the chest was performed without intravenous contrast. Coronal and sagittal reformatted images were generated and reviewed. This CT exam was performed with one or more of the following dose reduction techniques: automated exposure control, adjustment of the mA and/or kV according to patient size, use of iterative reconstruction technique. DLP: 282 mGy-cm CHEST: THYROID: There is a 1.3 cm left thyroid nodule. LUNGS: There are confluent airspace opacities with air bronchograms in both lower lobes, consistent with pneumonia. MEDIASTINUM: There is a 1.3 cm precarinal lymph node. BERTHA: Evaluation of the hilar regions is limited by lack of intravenous contrast material. CARDIOVASCULATURE: The heart is normal in size. There is no pericardial effusion. The thoracic aorta is normal in caliber. DEGREE OF CORONARY CALCIFICATION: none PLEURA: There is no pleural effusion. No pneumothorax. MAIN AIRWAYS: The mainstem bronchi and proximal branches are patent. AXILLA: There is no axillary lymphadenopathy. BONES AND SOFT TISSUES: There is degenerative disc disease of the spine. UPPER ABDOMEN: The visualized portions of the liver and adrenal glands have an unremarkable unenhanced appearance. Multiple spleen fragments are noted with an associated surgical clip. This may be posttraumatic in nature. CT/CT chest wo IV con IMPRESSION: Bilateral lower lobe pneumonia. Follow-up is recommended to document resolution and exclude neoplasm. Electronically signed by: Zeus Peterson MD 03/27/2025 08:10 AM EDT
--- NOTE | ~2025-03-26 | XR_ITS ---
EXAMINATION: XR HIP, LEFT CLINICAL INFORMATION: pain COMPARISON: None available. TECHNIQUE: Two views of the left hip. FINDINGS: Cortical irregularity in the superior and inferior left pubic rami. Left femoral head is intact and well seated in the left acetabulum. Proximal left femur is intact. Degenerative changes in the symphysis pubis. XR/XR hip LT min 2V IMPRESSION: Traumatic deformity, superior and inferior left pubic rami. No acute fracture or dislocation left hip. Electronically signed by: Wood Page MD 03/28/2025 03:43 PM EDT
--- NOTE | ~2025-03-26 | XR_ITS ---
EXAMINATION: XR CHEST 1 VIEW HISTORY: fever, leukocytosis COMPARISON: There are no prior studies available for comparison. FINDINGS: A single AP portable view of the chest performed at 1:35 PM is submitted. There is a lobulated masslike opacity in the right hilar region. There is patchy airspace opacity at the left lung base which may represent pneumonia. There is a small left pleural effusion. No definite right pleural effusion. No pneumothorax or pulmonary vascular congestion. The heart is normal in size. The aorta is calcified. There is degenerative disc disease of the spine. XR/XR chest 1V IMPRESSION: Masslike opacity in the right hilar region. Probable left lower lobe pneumonia with an associated pleural effusion. Findings were communicated to America Grayson NP on 03/26/2025 at 3:16 pm, and acknowledged as read. Electronically signed by: Zeus Peterson MD 03/26/2025 03:19 PM EDT
--- NOTE | ~2025-03-26 | CT_ITS ---
CLINICAL HISTORY: eval left hip xray findings,... hip pain CT pelvis without contrast Comparison: CR/SR - XR HIP LT MIN 2V - 03/28/25 15:10 EDT Findings: The left superior and inferior pubic rami cortical irregularity seen on the prior radiographs appears old. No evidence of acute fracture. Mild right worse than left hip osteoarthritis. Lumbosacral facet osteoarthritis and mild discogenic degenerative disease. Transitional lumbosacral anatomy with a left-sided assimilation joint. Mild degenerative change of the bilateral sacroiliac joints and pubic symphysis. Operative change of the ventral abdomen. Calcific atherosclerosis. IMPRESSION: Old healed left pubic rami fractures. No acute fracture. Mild right worse than left hip osteoarthritis. This document has been electronically signed by: Carroll Gallagher DO on 03/30/2025 09:11:36
[2025-03-26 13:34] VITALS: BP 107/54; PULSE 122; RESP 16; TEMP 37.3; O2SAT 91; BMI 30.4
--- OUTSIDE RECORDS SUMMARY | 2025-03-26 15:19 | XMS_ITS | Encounter Summary ---
Author Organization [facility] Address [address] [place] [address] Care Team Providers Care Meter Reader Name Role Phone Zeus Santillan MD Unavailable Cassie Blair Unavailable Kiran Gonsalez MD Unavailable [phone] Arabelal Fong NP Unavailable [phone] Martin Avalos MD Unavailable [phone] Antonio MOLINA DO, Charles H. Primary Care Provid er Encounter Details Date Type Department Care Team (Late st Contact Info) Description 06/12/2024 Procedure Pass [facility] - [address] [address] Social History Tobacco Use Types Packs/Day Years Used Date Smoking Tobacco: Former Cigarettes 1 45 0 10/17/1969 - 10/17/2014 Smokeless Tobacco: Former Comments:quit 2017 Alcohol Use Standard Drinks/Week Comments Not Currently 0 (1 standard drink = 0.6 oz pur e alcohol) Comments No Sex and Gender Information Value Date Recorded Sex Assigned at Female 07/09/2022 12:41 PM EDT Legal Sex Female 11:21 PM EDT Gender Identity Female 07/09/2022 12:41 PM EDT Sexual Orientation Straight 08/07/2024 1: 18 AM EDT documented as of this encounter Plan of Treatment Upcoming Encounters Date Type Department Care Team (Late st Contact Info) Description 05/21/2025 1:15 PM EDT Office Visit [facility] [address] [place] [address] Marc Gr MD [address] [place] [address] documented as of this encounter Visit Diagnoses Not on filedocumented in this encounter Care Teams Meter Reader Relationship Specialty Start Date End Date Marc Alvarez III, DO [address] [place] [address] PCP - General Family Medicine 11/02/22 Zeus Santillan MD [address] [place] [id number] Physician Ophthalmology 09/06/15 Cassie Blair [address] [place] [phone] Mental Health 09/06/15 Kiran Gonsalez MD [address] [place] [phone] Physician Gastroenterology 09/06/15 Arabella Fong NP [address] [place] [phone] Nurse Practitioner Endocrinology 09/06/15 Martin Avalos MD [address] [place] [address] [facility] [place] [address] Physician Cardiology 09/06/15 documented as of this encounter
[2025-03-26 15:44] LABS: Anion Gap 12 (12-20); Blood Urea Nitrogen 19 mg/dL (9-16); Calcium 9.1 mg/dL (8.4-10.2); Carbon Dioxide 28 mmol/L (22-29); Chloride 104 mmol/L (96-108); Creatinine Clr Calc Pharmacy 42.3; Estimated Glomerular Filt Rate 50; Glucose Random 134 mg/dL (60-115); Potassium 4.7 mmol/L (3.3-5.1); Sodium 139 mmol/L (135-145)
--- NOTE | 2025-03-26 15:46 | P.HPHOSP_ITS ---
History of Present Illness Date of Service: 03/26/25 Chief Complaint: Medical H&P 74-year-old female with a past medical history of hypertension, GERD, COPD, type 2 diabetes, anxiety and depression, CKD and schizophrenia and history of UTI she was initially brought to the ED by her son after experiencing auditory hallucinations and agitation and has been on the Geripsych unit for further treatment Prior to admit she had been off her medications. She has been medically stable since admit. Notified by nursing that she had rigors, nausea and decreased oxygen saturations. Met sepsis criteria, Lactic acid 3.9, inproved to 1.4. WBC Chest Xray with lobulated mass like opacity right [place], probable Left LLL with small pleural effusion. Chest CT ordered for further examination. On exam she reporting SOB, + nausea. UA positive, Received ceftriaxone times one dose and 1 L IVF. Patient is tachycardic on exam, feels fatigued. EKG demonstrated sinus tach, no ischemic changes. Review of Systems 2 Review of Systems: Reports shortness of breath. Denies chest pain, dizziness, lightheadedness, abdominal pain or discomfort, + nausea, no vomiting or diarrhea PMFSH Social History Household Members: None Housing: Apartment Housing Other:: federal building Do you presently have visiting nurse or other home services: Yes Patient Tobacco Use Status: Former Tobacco user Tobacco use type: Cigarette Cigarette Packs Per Day: 1 Years Smoked: 45 e-Cigarette/Vaping Use: Never Used Second Hand Smoke Exposure: No Have you been hit, kicked, punched, or otherwise hurt by someone within the past year? If so, by whom?: No Do you feel safe in your current relationship?: No Is there a partner from a previous relationship who is making you feel unsafe now?: No Are you made to feel afraid or neglected: No Advance Directives: No Advance Directives Information Provided: No Do you have a plan to hurt others: No Plan Recently lost weight without trying: No Eating poorly because of decreased appetite: No Nutrition Risks: No Nutritional Risk Patient : No Poor oral hygiene: No service: No Sexual orientation: Straight/Heterosexual Meds Allergies Allergy/AdvReac Type Severity Reaction Status Date / Time Iodinated Contrast Media Allergy Severe hives Verified 03/13/25 11:42 Penicillins Allergy Severe Unknown Verified 03/13/25 11:42 lactose AdvReac Intermediate loose stool Verified 03/13/25 11:42 lisinopril AdvReac Intermediate Cough Verified 03/13/25 11:42 succinylcholine AdvReac Unknown Unknown Verified 03/13/25 11:42 [From Anectine] Active Medications: Current Medications Calcium Carbonate (Calcium Carbonate 750 Mg Tab.Chew) 750 mg PO Q4H PRN PRN Reason: Heartburn Ceftriaxone Sodium (Ceftriaxone Sodium 1 Gm Vial) 1 gm IVPUSH Q24H WILVER Enoxaparin Sodium (Enoxaparin Sodium 40 Mg/0.4 Ml Syringe) 40 mg SUBCUT Q24H WILVER Melatonin (Melatonin 3 Mg Tablet) 6 mg PO BEDTIME PRN PRN Reason: Insomnia Oxycodone HCl (Oxycodone Hcl Immed Release 5 Mg Tablet) 5 mg PO Q6H PRN PRN Reason: Pain, Severe (Pain Scale 7-10) Sodium Chloride (0.9 % Sodium Chloride Flush 3 Ml Syringe) 3 ml IVFLUSH QSHIFT WILVER Physical Exam 2 Vital Signs and Narrative: Vital Signs: Last Vital Signs Temp 99.1 F 03/26/25 13:34 Pulse 122 H 03/26/25 13:34 Resp 16 03/26/25 13:34 BP 107/54 L 03/26/25 13:34 Pulse Ox 91 L 03/26/25 13:34 O2 Del Method Room Air 03/26/25 13:34 BMI result Body Mass Index 30.4 CONST: Alert and oriented, in NAD. Appears fatigued, more alert than this morning HEENT: Normocephalic, atraumatic, MMM, Eyes clear, Neck supple RESP: Lungs clear and diminished LLL, no wheeze or crackles noted. RRR even and regular HEART:,RRR, S1, S2. no edema GI:Abdomen Soft NT, ND. + BS times four :Mild suprapubic tenderness SKIN: Warm dry and intact, no visible lesions or rashes NEURO:CN II-XII Intact bilaterally, Sensation intact. Speech clear PSYCH: Normal affect Results Labs 03/26/25 15:21 Labs: Laboratory Results - last 24 hr 03/26/25 15:21 Anion Gap 12 Estim Creat Clear Calc 42.3 Estimated GFR 50 Random Glucose 134 H Calcium 9.1 Imaging Radiologist's Impressions: Impressions Chest X-Ray 03/26/25 12:35 IMPRESSION: Masslike opacity in the right hilar region. Probable left lower lobe pneumonia with an associated pleural effusion. Findings were communicated to America Grayson NP on 03/26/2025 at 3:16 pm, and acknowledged as read. Electronically signed by: Zeus Peterson MD 03/26/2025 03:19 PM EDT RP Assessment and Plan (1) UTI (urinary tract infection): Qualifiers: Urinary tract infection type: site unspecified Hematuria presence: w ithout hematuria Qualified Code(s): N39.0 - Urinary tract infection, site not specified Status: Acute (2) LLL pneumonia: Qualifiers: Pneumonia type: due to unspecified organism Qualified Code(s): J18.9 - Pneumonia, unspecified organism Status: Acute Plan 74 year old female with PMH of hypertension, GERD, COPD, type 2 diabetes, anxiety and depression, CKD and schizophrenia and history of UTI initially admitted on Geripsych unit for hallucinations and not taking her medicatins. She has been medically stable since admit to Geripsych. Developed rigors, fever, SOB. Patient is being transferred to medical floor with sepsis, UTI and probable PNA. Sepsis suspected due to UTI/LLL PNA EKG demonstrates Sinus tachycardia Now afebrile S/P 1 Liter IV fluids and Ceftriaxone 1000 mgs Given UA positive, culture pending Lactate level initially 3.9, improved to 1.4 after IV fluids. Renal function stable Type 2 diabetes with chronic kidney disease stage 3 Renally dose all meds. Continue Jardiance Consistent carbohydrate diet Lispro SS and POC glucose. Schizophrenia/depression anxiety Per psychiatric team Quality Stroke Does the patient have a stroke diagnosis?: No VTE Prior VTE?: No VTE Risk Level:: Medical - moderate - high VTE Device Contraindication: Treatment Not Indicated VTE Drug Contraindication: N/A - Med Ordered
[2025-03-26 15:56] VITALS: BP 100/48; PULSE 105; RESP 18; TEMP 36.5; O2SAT 92
[2025-03-26] MEDS: 0.9 % Sodium Chloride Flush 3 ML SYRINGE IVFLUSH ×2 (16:05→21:49)
[2025-03-26 16:58] LABS: Glucose, Whole Blood 124 mg/dL (60-115)
--- NOTE | 2025-03-26 18:45 | PC.NURSE ---
Patient's belongings given to Maksim/S3 by Mayra/S1 financial secretary. Voice mail left to Kam Encarnacion patient's son, for callback. .
[2025-03-26 19:11] VITALS: BP 105/51; PULSE 98; RESP 18; TEMP 37.6; O2SAT 94
[2025-03-26 21:25] LABS: Glucose, Whole Blood 95 mg/dL (60-115)
[2025-03-26] MEDS: oxyCODONE HCl Immed Release 5 MG TABLET PO (21:46)
[2025-03-26] MEDS: Calcium Carbonate 750 MG TAB.CHEW PO (21:46)
[2025-03-26] MEDS: Melatonin 3 MG TABLET 6 MG PO (21:47)
[2025-03-27 03:09] VITALS: BP 97/54; PULSE 99; RESP 16; TEMP 36.2; O2SAT 94
[2025-03-27 06:25] LABS: Basophils Absolute Auto 0.1 X10*3/uL (0.0-0.2); Basophils Percent Auto 0.4 % (0-2); Eosinophils Absolute Auto 0.2 X10*3/uL (0.0-0.4); Eosinophils Percent Auto 0.9 % (0-4); Hematocrit 32.2 % (37.0-47.0); Hemoglobin 10.6 g/dl (12.0-16.0); Imm Gran Abs Auto 0.24 X10*3/uL (0.00-0.03); Lymphocytes Absolute Auto 1.4 X10*3/uL (1.2-4.9); Lymphocytes Percent Auto 5.7 % (20-40); MANUAL DIFF FLAG SCAN; Mean Corpuscular HGB Conc 32.9 g/dl (31.0-35.0); Mean Corpuscular Hemoglobin 33.3 pg (27.0-33.0); Mean Corpuscular Volume 101.3 fL (80.0-98.0); Mean Platelet Volume 10.8 fL (9.4-12.3); Monocytes Percent Auto 8.1 % (2-11); Neutrophils Absolute Auto 20.6 x10*3/uL (2.0-8.3); Neutrophils Percent Auto 83.9 % (45-73); Platelet Count 251 X10*3/uL (160-400); Red Blood Count 3.18 X10*6/uL (4.20-5.50); Red Cell Distribution Width 13.3 % (11.0-16.0); SCAN SMEAR FLAG 1; White Blood Count 24.6 X10*3/uL (4.8-10.8)
[2025-03-27 06:51] LABS: Anion Gap 12 (12-20); Blood Urea Nitrogen 21 mg/dL (9-16); Calcium 9.4 mg/dL (8.4-10.2); Carbon Dioxide 29 mmol/L (22-29); Chloride 102 mmol/L (96-108); Creatinine Clr Calc Pharmacy 42.8; Estimated Glomerular Filt Rate 50; Glucose Random 84 mg/dL (60-115); Potassium 4.7 mmol/L (3.3-5.1); Sodium 138 mmol/L (135-145)
[2025-03-27 07:13] VITALS: BP 98/62; PULSE 94; RESP 16; TEMP 36.5; O2SAT 92
[2025-03-27 07:37] LABS: Glucose, Whole Blood 110 mg/dL (60-115)
[2025-03-27 07:44] LABS: SLIDE REVIEW VERIFIED
--- NOTE | 2025-03-27 07:44 | PHA.MEDREC ---
Pharmacy Consult ? Medication Reconciliation Pharmacy has completed the medication reconciliation. Utilized [id number], pt transferred from 182 to 368. Med rec completed.
--- NOTE | 2025-03-27 09:09 | HO.PM.IMPN ---
Subjective Subjective Date of Service: 03/27/25 Interval History: fatigue Physical Exam Vital Signs: Vital Signs: Last Vital Signs Temp 97.7 F 03/27/25 07:13 Pulse 94 03/27/25 07:13 Resp 16 03/27/25 07:13 BP 98/62 03/27/25 07:13 Pulse Ox 92 03/27/25 07:13 O2 Del Method Room Air 03/27/25 07:13 BMI result Body Mass Index 30.4 General: lethargic O X 3, no acute distress Resp: Crackles bilateral, no accessory muscles used CVS: S1,S2,RRR GI: soft, non tender, non distended Neuro: motor grossly intact Objective Data Active Medications Aspirin (Aspirin Enteric Coated 81 Mg Tablet.) 81 mg PO DAILY [facility] Atorvastatin Calcium (Atorvastatin Calcium 40 Mg Tablet) 40 mg PO BEDTIME [facility] Calcium Carbonate (Calcium Carbonate 750 Mg Tab.Chew) 750 mg PO Q4H PRN PRN Reason: Heartburn Last Admin: 03/26/25 21:46 Dose: 750 mg Documented By: GABRIELE Ceftriaxone Sodium (Ceftriaxone Sodium 1 Gm Vial) 1 gm IVPUSH Q24H [facility] Clozapine (Clozapine 100 Mg Tablet) 100 mg PO BEDTIME [facility] Clozapine (Clozapine 100 Mg Tablet) 100 mg PO DAILY [facility] Divalproex Sodium (Divalproex Sodium Er 250 Mg Tab.Er.24h) 750 mg PO DAILY [facility] Enoxaparin Sodium (Enoxaparin Sodium 40 Mg/0.4 Ml Syringe) 40 mg SUBCUT Q24H [facility] Last Admin: 03/26/25 16:00 Dose: Not Given Documented By: SATISH Non-Admin Reason: pt not on unit Ferrous Sulfate (Ferrous Sulfate 324 Mg Tablet.) 324 mg PO DAILY [facility] Fluticasone/Umeclidinium/Vilanterol (Fluticasone/Umeclidinium/Vilanterol 100/62.5/25 Blst.W.Dev) 1 puff INHALE RDAILY [facility] Insulin Human Lispro (Insulin Lispro 100 Unit/Ml 3 Ml Vial) 0 unit SUBCUT QIDACHS [facility]; Protocol Last Admin: 03/27/25 07:32 Dose: Not Given Documented By: MELBA Non-Admin Reason: No Insulin Coverage Loratadine (Loratadine 10 Mg Tablet) 10 mg PO DAILY [facility] Melatonin (Melatonin 3 Mg Tablet) 6 mg PO BEDTIME PRN PRN Reason: Insomnia Last Admin: 03/26/25 21:47 Dose: 6 mg Documented By: GABRIELE Olanzapine (Olanzapine 2.5 Mg Tablet) 2.5 mg PO TID PRN PRN Reason: Agitation Omeprazole (Omeprazole 20 Mg Capsule.Dr) 20 mg PO DAILY@0630 [facility] Oxycodone HCl (Oxycodone Hcl Immed Release 5 Mg Tablet) 5 mg PO Q6H PRN PRN Reason: Pain, Severe (Pain Scale 7-10) Last Admin: 03/26/25 21:46 Dose: 5 mg Documented By: GABRIELE Sodium Chloride (0.9 % Sodium Chloride Flush 3 Ml Syringe) 3 ml IVFLUSH QSHIFT [facility] Last Admin: 03/26/25 21:49 Dose: 3 ml Documented By: GABRIELE Trazodone HCl (Trazodone Hcl 50 Mg Tablet) 50 mg PO BEDTIME PRN PRN Reason: Insomnia Labs 03/27/25 05:35 03/27/25 05:35 Labs: Laboratory Results - last 24 hr 03/26/25 03/26/25 03/26/25 15:21 16:52 21:22 MCV MCH MCHC RDW Plt Count MPV Immature Gran % (Auto) Neut % (Auto) Lymph % (Auto) [place] % (Auto) Eos % (Auto) Baso % (Auto) Lymph # (Auto) [place] # (Auto) Eos # (Auto) Baso # (Auto) Abs Immat Gran (auto) Absolute Neuts (auto) Absolute Nucleated RBC Nucleated RBC % (auto) Smear Tech's Comments Anion Gap 12 Estim Creat Clear Calc 42.3 Estimated GFR 50 POC Glucose 124 H 95 Random Glucose 134 H Calcium 9.1 03/27/25 03/27/25 05:35 07:17 MCV 101.3 H MCH 33.3 H MCHC 32.9 RDW 13.3 Plt Count 251 MPV 10.8 Immature Gran % (Auto) 1.0 H Neut % (Auto) 83.9 H Lymph % (Auto) 5.7 L [place] % (Auto) 8.1 Eos % (Auto) 0.9 Baso % (Auto) 0.4 Lymph # (Auto) 1.4 [place] # (Auto) 2.0 H Eos # (Auto) 0.2 Baso # (Auto) 0.1 Abs Immat Gran (auto) 0.24 H Absolute Neuts (auto) 20.6 H Absolute Nucleated RBC 0.000 Nucleated RBC % (auto) 0.0 Smear Tech's Comments VERIFIED Anion Gap 12 Estim Creat Clear Calc 42.8 Estimated GFR 50 POC Glucose 110 Random Glucose 84 Calcium 9.4 Assessment and Plan (1) LLL pneumonia: Status: Acute Plan 74F PMH htn, gerd, copd, dm, schizophrenia admitted from inpatient psychiatry for fevers, found to have sepsis due to pna/uti sepsis due to bilateral pneumonia, +/- UTI continue rocephin, doxy follow up cultures dm insulin sliding scale htn low normal, hold aldactone schizophrenia olanzapine, clozaril, depakote, care team prior to dc copd trelegy dvt prophylaxis - lovenox full code reason for continued hospitalization:sepsis Quality Stroke Does the patient have a stroke diagnosis?: No VTE Prior VTE?: No VTE Risk Level:: Medical - moderate - high VTE Device Contraindication: Treatment Not Indicated VTE Drug Contraindication: N/A - Med Ordered
[2025-03-27] MEDS: Loratadine 10 MG TABLET PO (10:41)
[2025-03-27] MEDS: Ferrous Sulfate 324 MG TABLET.DR PO (10:41)
[2025-03-27] MEDS: Divalproex Sodium ER 250 MG TAB.ER.24H 750 MG PO (10:41)
[2025-03-27] MEDS: Doxycycline Monohydrate 100 MG CAPSULE PO ×2 (10:42→21:04)
[2025-03-27] MEDS: 0.9 % Sodium Chloride Flush 3 ML SYRINGE IVFLUSH ×3 (10:42→21:07)
[2025-03-27] MEDS: cloZAPine 100 MG TABLET PO ×2 (10:42→10:48)
[2025-03-27] MEDS: Aspirin Enteric Coated 81 MG TABLET.DR PO (10:42)
[2025-03-27] MEDS: Fluticasone/Umeclidinium/Vilanterol 100/62.5/25 BLST.W.DEV 1 PUFF INHALE (11:24)
[2025-03-27 11:26] VITALS: PULSE 94; RESP 16; O2SAT 95
[2025-03-27 11:34] LABS: Glucose, Whole Blood 125 mg/dL (60-115)
[2025-03-27] MEDS: cefTRIAXone sodium 1 GM VIAL IVPUSH (11:34)
[2025-03-27] MEDS: Enoxaparin Sodium 40 MG/0.4 ML SYRINGE SUBCUT (11:47)
--- NOTE | 2025-03-27 13:55 | MHC.CM.PN ---
Addendum entered by Mila Cummins RN 03/27/25 14:07: PT'S PHARMACY ADDED TO EXPANSE [facility] Original Note: CM MET W/PT WHO WAS ABLE TO ANSWER SOME QUESTIONS HOWEVER WAS DOZING OFF THROUGHOUT AND REQUESTS CM CONTACT SON/HCP MARY. IMM 03/27/25 DELIVERED TO MARY [phone] at [employer], MARY REPORTS PT LIVES AONE, HAS A CANE AND A WALKER AT HOME HOWEVER DOESN'T ALWAYS USE THEM OR NEED TO USE THEM AND DID NOT NEED WHILE ON GERIPSYCH, PT HAS BID VNA W/[employer] [facility] AND HAS [employer] FOR [employer] CONSULTANT FOR CLEANING/SHOPPING/LAUNDRY 2XWK. MARY REPORTS PT ENDS UP OFF HER MEDS ABOUT EVERY 3 YRS AND REPORTS HER BF AUBREY WHOM SHE SPENT MOST OF HER TIME W/HAS BEEN IN THE HOSPITAL/STR AND BELIEVES THAT WAS HER TRIGGER AND WHEN SHE STARTED TO DECOMPENSATE. SAMANTHA REPORTS HE DOES NOT FEEL PT WILL BE READY TO RETURN HOME ONCE MEDICALLY CLEARED AND WOULD LIKE HER TO RETURN TO [facility]. HCP RETRIEVED FROM MEDICAL RECORDS AND UPLOADED TO [employer]. PCP SNEHA MICHELLE [phone] [facility] [phone] [facility] [phone]
[2025-03-27 15:36] VITALS: BP 118/68; PULSE 103; RESP 18; TEMP 37.3; O2SAT 93
[2025-03-27 16:24] LABS: Glucose, Whole Blood 116 mg/dL (60-115)
[2025-03-27 19:34] VITALS: BP 111/54; PULSE 109; RESP 18; TEMP 37.5; O2SAT 93
[2025-03-27 20:11] VITALS: BP 145/64; PULSE 82; RESP 16; TEMP 36.8; O2SAT 97
[2025-03-27] MEDS: traZODone HCL 50 MG TABLET PO (21:04)
[2025-03-27] MEDS: Atorvastatin Calcium 40 MG TABLET PO (21:04)
[2025-03-27] MEDS: Insulin Lispro 100 UNIT/ML 3 ML VIAL SUBCUT (21:04)
[2025-03-27 21:09] LABS: Glucose, Whole Blood 154 mg/dL (60-115)
[2025-03-28 03:10] VITALS: BP 105/57; PULSE 96; RESP 18; TEMP 36.7; O2SAT 95
[2025-03-28] MEDS: Omeprazole 20 MG CAPSULE.DR PO (05:49)
[2025-03-28 07:22] VITALS: BP 95/48; PULSE 92; RESP 18; TEMP 36.4; O2SAT 93
[2025-03-28 07:46] LABS: Glucose, Whole Blood 92 mg/dL (60-115)
[2025-03-28] MEDS: 0.9 % Sodium Chloride Flush 3 ML SYRINGE IVFLUSH ×3 (09:28→22:35)
[2025-03-28] MEDS: Divalproex Sodium ER 250 MG TAB.ER.24H 750 MG PO (09:28)
[2025-03-28] MEDS: oxyCODONE HCl Immed Release 5 MG TABLET PO (09:29)
[2025-03-28] MEDS: cloZAPine 100 MG TABLET PO ×2 (09:29→22:32)
[2025-03-28] MEDS: Doxycycline Monohydrate 100 MG CAPSULE PO ×2 (09:29→22:32)
[2025-03-28] MEDS: Loratadine 10 MG TABLET PO (09:29)
[2025-03-28] MEDS: Ferrous Sulfate 324 MG TABLET.DR PO (09:30)
[2025-03-28] MEDS: Aspirin Enteric Coated 81 MG TABLET.DR PO (09:30)
--- NOTE | 2025-03-28 10:12 | HO.PM.IMPN ---
Subjective Subjective Date of Service: 03/28/25 Interval History: left hip pain, low grade fever yesterday Physical Exam Vital Signs: Vital Signs: Last Vital Signs Temp 97.6 F 03/28/25 07:22 Pulse 92 03/28/25 07:22 Resp 18 03/28/25 07:22 BP 95/48 L 03/28/25 07:22 Pulse Ox 93 03/28/25 07:22 O2 Del Method Room Air 03/28/25 07:22 BMI result Body Mass Index 30.4 General: more alert O X 3, no acute distress Resp: Crackles bilateral, no accessory muscles used CVS: S1,S2,RRR GI: soft, non tender, non distended Neuro: motor grossly intact Objective Data Active Medications Aspirin (Aspirin Enteric Coated 81 Mg Tablet.) 81 mg PO DAILY [facility] Last Admin: 03/28/25 09:30 Dose: 81 mg Documented By: CARTER Atorvastatin Calcium (Atorvastatin Calcium 40 Mg Tablet) 40 mg PO BEDTIME [facility] Last Admin: 03/27/25 21:04 Dose: 40 mg Documented By: SALINA Calcium Carbonate (Calcium Carbonate 750 Mg Tab.Chew) 750 mg PO Q4H PRN PRN Reason: Heartburn Last Admin: 03/26/25 21:46 Dose: 750 mg Documented By: GABRIELE Ceftriaxone Sodium (Ceftriaxone Sodium 1 Gm Vial) 1 gm IVPUSH Q24H [facility] Last Admin: 03/27/25 11:34 Dose: 1 gm Documented By: GWEN Clozapine (Clozapine 100 Mg Tablet) 100 mg PO BEDTIME [facility] Last Admin: 03/27/25 10:42 Dose: 100 mg Documented By: GWEN Clozapine (Clozapine 100 Mg Tablet) 100 mg PO DAILY [facility] Last Admin: 03/28/25 09:29 Dose: 100 mg Documented By: CARTER Divalproex Sodium (Divalproex Sodium Er 250 Mg Tab.Er.24h) 750 mg PO DAILY [facility] Last Admin: 03/28/25 09:28 Dose: 750 mg Documented By: CARTER Doxycycline Monohydrate (Doxycycline Monohydrate 100 Mg Capsule) 100 mg PO Q12H [facility] Last Admin: 03/28/25 09:29 Dose: 100 mg Documented By: CARTER Enoxaparin Sodium (Enoxaparin Sodium 40 Mg/0.4 Ml Syringe) 40 mg SUBCUT Q24H [facility] Last Admin: 03/27/25 11:47 Dose: 40 mg Documented By: GWEN Ferrous Sulfate (Ferrous Sulfate 324 Mg Tablet.) 324 mg PO DAILY [facility] Last Admin: 03/28/25 09:30 Dose: 324 mg Documented By: CARTER Fluticasone/Umeclidinium/Vilanterol (Fluticasone/Umeclidinium/Vilanterol 100/62.5/ Blst.W.Dev) 1 puff INHALE RDAILY [facility] Last Admin: 03/28/25 08:08 Dose: Not Given Documented By: CLAUDE Non-Admin Reason: Patient Refused Insulin Human Lispro (Insulin Lispro 100 Unit/Ml 3 Ml Vial) 0 unit SUBCUT QIDACHS [facility]; Protocol Last Admin: 03/28/25 07:48 Dose: Not Given Documented By: CARTER Non-Admin Reason: No Insulin Coverage Loratadine (Loratadine 10 Mg Tablet) 10 mg PO DAILY [facility] Last Admin: 03/28/25 09:29 Dose: 10 mg Documented By: CARTER Melatonin (Melatonin 3 Mg Tablet) 6 mg PO BEDTIME PRN PRN Reason: Insomnia Last Admin: 03/26/25 21:47 Dose: 6 mg Documented By: GABRIELE Olanzapine (Olanzapine 2.5 Mg Tablet) 2.5 mg PO TID PRN PRN Reason: Agitation Omeprazole (Omeprazole 20 Mg Capsule.) 20 mg PO DAILY@0630 [facility] Last Admin: 03/28/25 05:49 Dose: 20 mg Documented By: SALINA Oxycodone HCl (Oxycodone Hcl Immed Release 5 Mg Tablet) 5 mg PO Q6H PRN PRN Reason: Pain, Severe (Pain Scale 7-10) Last Admin: 03/28/25 09:29 Dose: 5 mg Documented By: CARTER Sodium Chloride (0.9 % Sodium Chloride Flush 3 Ml Syringe) 3 ml IVFLUSH QSHIFT [facility] Last Admin: 03/28/25 09:28 Dose: 3 ml Documented By: CARTER Trazodone HCl (Trazodone Hcl 50 Mg Tablet) 50 mg PO BEDTIME PRN PRN Reason: Insomnia Last Admin: 06/11/25 21:04 Dose: 50 mg Documented By: SALINA Labs 03/27/25 05:35 03/27/25 05:35 Labs: Laboratory Results - last 24 hr 03/27/25 03/27/25 03/27/25 11:26 16:15 20:59 POC Glucose 125 H 116 H 154 H 03/28/25 07:25 POC Glucose 92 Assessment and Plan (1) LLL pneumonia: Status: Acute Plan 74F PMH htn, gerd, copd, dm, schizophrenia admitted from inpatient psychiatry for fevers, found to have sepsis due to pna/uti sepsis due to bilateral pneumonia, +/- UTI continue rocephin, doxy urine growing mixed alva blood cultures negative so far left hip pain check xray dm insulin sliding scale htn low normal, holding aldactone schizophrenia olanzapine, clozaril, depakote, care team prior to dc copd trelegy dvt prophylaxis - lovenox full code reason for continued hospitalization: awaiting defervesence Quality Stroke Does the patient have a stroke diagnosis?: No VTE Prior VTE?: No VTE Risk Level:: Medical - moderate - high VTE Device Contraindication: Treatment Not Indicated VTE Drug Contraindication: N/A - Med Ordered
[2025-03-28 11:42] LABS: Glucose, Whole Blood 120 mg/dL (60-115)
[2025-03-28] MEDS: Enoxaparin Sodium 40 MG/0.4 ML SYRINGE SUBCUT (12:51)
[2025-03-28] MEDS: cefTRIAXone sodium 1 GM VIAL IVPUSH (12:51)
[2025-03-28 15:27] VITALS: BP 120/58; PULSE 94; RESP 18; TEMP 37.2; O2SAT 92
[2025-03-28 16:24] LABS: Glucose, Whole Blood 118 mg/dL (60-115)
[2025-03-28 19:33] VITALS: BP 95/46; PULSE 99; RESP 18; TEMP 37.2; O2SAT 92
[2025-03-28 20:30] LABS: Glucose, Whole Blood 162 mg/dL (60-115)
[2025-03-28] MEDS: Atorvastatin Calcium 40 MG TABLET PO (22:32)
[2025-03-28] MEDS: Insulin Lispro 100 UNIT/ML 3 ML VIAL SUBCUT (22:32)
[2025-03-29 03:32] VITALS: BP 109/63; PULSE 94; RESP 16; TEMP 36; O2SAT 99
[2025-03-29] MEDS: Omeprazole 20 MG CAPSULE.DR PO (05:33)
[2025-03-29 06:20] LABS: Hematocrit 32.1 % (37.0-47.0); Hemoglobin 10.6 g/dl (12.0-16.0); Mean Corpuscular Hemoglobin 33.1 pg (27.0-33.0); Mean Corpuscular Volume 100.3 fL (80.0-98.0); Mean Platelet Volume 11.1 fL (9.4-12.3); Platelet Count 231 X10*3/uL (160-400); Red Cell Distribution Width 13.3 % (11.0-16.0); White Blood Count 17.8 X10*3/uL (4.8-10.8)
[2025-03-29 06:37] LABS: Alanine Aminotransferase 15 U/L (0-31); Albumin Level 3.6 g/dL (3.5-5.0); Alkaline Phosphatase 80 U/L (39-117); Anion Gap 12 (12-20); Aspartate Amino Transferase 16 U/L (5-31); Bilirubin Direct < 0.2 mg/dL (0.0-0.5); Bilirubin Total 0.2 mg/dL (0.0-1.0); Blood Urea Nitrogen 19 mg/dL (9-16); Carbon Dioxide 29 mmol/L (22-29); Chloride 99 mmol/L (96-108); Creatinine Clr Calc Pharmacy 45.2; Estimated Glomerular Filt Rate 54; Glucose Random 92 mg/dL (60-115); Magnesium 2.2 mg/dL (1.6-2.6); Potassium 4.1 mmol/L (3.3-5.1); Sodium 136 mmol/L (135-145); Total Protein 6.7 g/dL (6.5-8.0)
[2025-03-29] MEDS: oxyCODONE HCl Immed Release 5 MG TABLET PO (07:34)
[2025-03-29] MEDS: Fluticasone/Umeclidinium/Vilanterol 100/62.5/25 BLST.W.DEV 1 PUFF INHALE (07:40)
[2025-03-29 07:41] VITALS: PULSE 94; RESP 16; O2SAT 97
[2025-03-29 07:51] LABS: Glucose, Whole Blood 102 mg/dL (60-115)
[2025-03-29 08:00] VITALS: BP 104/63; PULSE 90; RESP 18; TEMP 37; O2SAT 96
--- NOTE | 2025-03-29 09:25 | P.PNIM_ITS ---
Subjective Subjective Date of Service: 03/29/25 Interval History: feeling better Physical Exam 2 Vital Signs: Vital Signs: Last Vital Signs Temp 98.6 F 03/29/25 08:00 Pulse 90 03/29/25 08:00 Resp 18 03/29/25 08:00 BP 104/63 03/29/25 08:00 Pulse Ox 96 03/29/25 08:00 O2 Del Method Room Air 03/29/25 08:00 BMI result Body Mass Index 30.4 General: more alert O X 3, no acute distress Resp: Cta bilateral, no accessory muscles used CVS: S1,S2,RRR GI: soft, non tender, non distended Neuro: motor grossly intact Objective Data Active Medications Aspirin (Aspirin Enteric Coated 81 Mg Tablet.) 81 mg PO DAILY [facility] Last Admin: 03/28/25 09:30 Dose: 81 mg Documented By: CARTER Atorvastatin Calcium (Atorvastatin Calcium 40 Mg Tablet) 40 mg PO BEDTIME [facility] Last Admin: 03/28/25 22:32 Dose: 40 mg Documented By: GABRIELE Calcium Carbonate (Calcium Carbonate 750 Mg Tab.Chew) 750 mg PO Q4H PRN PRN Reason: Heartburn Last Admin: 03/26/25 21:46 Dose: 750 mg Documented By: GABRIELE Ceftriaxone Sodium (Ceftriaxone Sodium 1 Gm Vial) 1 gm IVPUSH Q24H [facility] Last Admin: 03/28/25 12:51 Dose: 1 gm Documented By: CARTER Clozapine (Clozapine 100 Mg Tablet) 100 mg PO BEDTIME [facility] Last Admin: 03/28/25 22:32 Dose: 100 mg Documented By: GABRIELE Clozapine (Clozapine 100 Mg Tablet) 100 mg PO DAILY [facility] Last Admin: 03/28/25 09:29 Dose: 100 mg Documented By: CARTER Divalproex Sodium (Divalproex Sodium Er 250 Mg Tab.Er.24h) 750 mg PO DAILY [facility] Last Admin: 03/28/25 09:28 Dose: 750 mg Documented By: CARTER Doxycycline Monohydrate (Doxycycline Monohydrate 100 Mg Capsule) 100 mg PO Q12H [facility] Last Admin: 03/28/25 22:32 Dose: 100 mg Documented By: GABRIELE Enoxaparin Sodium (Enoxaparin Sodium 40 Mg/0.4 Ml Syringe) 40 mg SUBCUT Q24H [facility] Last Admin: 03/28/25 12:51 Dose: 40 mg Documented By: CARTER Ferrous Sulfate (Ferrous Sulfate 324 Mg Tablet.) 324 mg PO DAILY [facility] Last Admin: 03/28/25 09:30 Dose: 324 mg Documented By: CARTER Fluticasone/Umeclidinium/Vilanterol (Fluticasone/Umeclidinium/Vilanterol 100/62.5/25 Blst.W.Dev) 1 puff INHALE RDAILY [facility] Last Admin: 03/29/25 07:40 Dose: 1 puff Documented By: ANAHI Insulin Human Lispro (Insulin Lispro 100 Unit/Ml 3 Ml Vial) 0 unit SUBCUT QIDACHS [facility]; Protocol Last Admin: 03/29/25 08:15 Dose: Not Given Documented By: ELOISA Non-Admin Reason: No Insulin Coverage Loratadine (Loratadine 10 Mg Tablet) 10 mg PO DAILY [facility] Last Admin: 03/28/25 09:29 Dose: 10 mg Documented By: CARTER Melatonin (Melatonin 3 Mg Tablet) 6 mg PO BEDTIME PRN PRN Reason: Insomnia Last Admin: 03/26/25 21:47 Dose: 6 mg Documented By: GABRIELE Olanzapine (Olanzapine 2.5 Mg Tablet) 2.5 mg PO TID PRN PRN Reason: Agitation Omeprazole (Omeprazole 20 Mg Capsule.) 20 mg PO DAILY@0630 [facility] Last Admin: 03/29/25 05:33 Dose: 20 mg Documented By: GABRIELE Oxycodone HCl (Oxycodone Hcl Immed Release 5 Mg Tablet) 5 mg PO Q6H PRN PRN Reason: Pain, Severe (Pain Scale 7-10) Last Admin: 03/29/25 07:34 Dose: 5 mg Documented By: PATRICIO Sodium Chloride (0.9 % Sodium Chloride Flush 3 Ml Syringe) 3 ml IVFLUSH QSHIFT [facility] Last Admin: 03/28/25 22:35 Dose: 3 ml Documented By: GABRIELE Trazodone HCl (Trazodone Hcl 50 Mg Tablet) 50 mg PO BEDTIME PRN PRN Reason: Insomnia Last Admin: 03/27/25 21:04 Dose: 50 mg Documented By: SALINA Labs 03/29/25 05:50 03/29/25 05:50 Labs: Laboratory Results - last 24 hr 03/28/25 03/28/25 03/28/25 11:28 15:45 20:23 MCV MCH MCHC RDW Plt Count MPV Absolute Nucleated RBC Nucleated RBC % (auto) Anion Gap Estim Creat Clear Calc Estimated GFR POC Glucose 120 H 118 H 162 H Random Glucose Calcium Magnesium Total Bilirubin Direct Bilirubin AST ALT Alkaline Phosphatase Total Protein Albumin 03/29/25 03/29/25 05:50 07:39 MCV 100.3 H MCH 33.1 H MCHC 33.0 RDW 13.3 Plt Count 231 MPV 11.1 Absolute Nucleated RBC 0.000 Nucleated RBC % (auto) 0.0 Anion Gap 12 Estim Creat Clear Calc 45.2 Estimated GFR 54 POC Glucose 102 Random Glucose 92 Calcium 9.0 Magnesium 2.2 Total Bilirubin 0.2 Direct Bilirubin < 0.2 AST 16 ALT 15 Alkaline Phosphatase 80 Total Protein 6.7 Albumin 3.6 Assessment and Plan (1) LLL pneumonia: Status: Acute Plan 74F PMH htn, gerd, copd, dm, schizophrenia admitted from inpatient psychiatry for fevers, found to have sepsis due to pna/uti sepsis due to bilateral pneumonia, +/- UTI continue rocephin, doxy - ceftin doxy on dc urine growing mixed alva blood cultures negative so far leukocytosis improving, no further fevers left hip pain Traumatic deformity, superior and inferior left pubic rami. No acute fracture or dislocation left hip. PT eval dm insulin sliding scale htn low normal, holding aldactone schizophrenia olanzapine, clozaril, depakote, care team copd trelegy dvt prophylaxis - lovenox full code reason for continued hospitalization: care team Quality Stroke Does the patient have a stroke diagnosis?: No VTE Prior VTE?: No VTE Risk Level:: Medical - moderate - high VTE Device Contraindication: Treatment Not Indicated VTE Drug Contraindication: N/A - Med Ordered
[2025-03-29] MEDS: 0.9 % Sodium Chloride Flush 3 ML SYRINGE IVFLUSH ×2 (09:31→20:18)
[2025-03-29] MEDS: Aspirin Enteric Coated 81 MG TABLET.DR PO (09:32)
[2025-03-29] MEDS: Loratadine 10 MG TABLET PO (09:32)
[2025-03-29] MEDS: Divalproex Sodium ER 250 MG TAB.ER.24H 750 MG PO (09:32)
[2025-03-29] MEDS: cloZAPine 100 MG TABLET PO ×2 (09:32→20:18)
[2025-03-29] MEDS: Doxycycline Monohydrate 100 MG CAPSULE PO ×2 (09:32→20:17)
[2025-03-29] MEDS: Ferrous Sulfate 324 MG TABLET.DR PO (09:32)
[2025-03-29 10:28] VITALS: BP 104/63; PULSE 90; O2SAT 96
[2025-03-29 12:19] LABS: Glucose, Whole Blood 92 mg/dL (60-115)
[2025-03-29] MEDS: Enoxaparin Sodium 40 MG/0.4 ML SYRINGE SUBCUT (12:43)
[2025-03-29] MEDS: cefTRIAXone sodium 1 GM VIAL IVPUSH (12:43)
--- NOTE | 2025-03-29 13:42 | MHC.CARE ---
Pt continues to meet the criteria for VIRGILIO IPLOC. Section 12a in chart. Hospitalist in agreement. HCP (son) is advocating for Pt to remain at [facility] and return to [facility] as he thought the [place] was fantastic.
[2025-03-29 15:17] VITALS: BP 125/58; PULSE 93; RESP 17; TEMP 36.3; O2SAT 93
[2025-03-29 16:08] LABS: Glucose, Whole Blood 123 mg/dL (60-115)
[2025-03-29 19:55] VITALS: BP 127/60; PULSE 84; RESP 18; TEMP 37.1; O2SAT 95
[2025-03-29 20:13] LABS: Glucose, Whole Blood 129 mg/dL (60-115)
[2025-03-29] MEDS: Atorvastatin Calcium 40 MG TABLET PO (20:17)
[2025-03-29] MEDS: traZODone HCL 50 MG TABLET PO (20:18)
[2025-03-30] MEDS: oxyCODONE HCl Immed Release 5 MG TABLET PO ×2 (02:39→12:54)
[2025-03-30] MEDS: OLANZapine 2.5 MG TABLET PO ×2 (02:49→16:51)
[2025-03-30 03:18] VITALS: BP 121/59; PULSE 111; RESP 20; TEMP 37.5; O2SAT 90
[2025-03-30 04:10] VITALS: O2SAT 85; O2SAT 93
--- NOTE | 2025-03-30 04:17 | PC.NURSE ---
Pt seen on bed at shift change, alert and oriented x1-2, impulsive with BR need, assisted with a walker, compliant to meds. PT c/o back pain, and restless, reposition on bed, needs met, prn Oxycodone given with effect. Pt was then becoming restless and agitated, with visual / auditory hallucination, seeing people in room talking to her, prn Zyprexa given, slept thereafter but arousable. Routine vitals around 3am with O2 sats at 90% RA, repeated few mins after, O2 sats was noted from 83-85% RA, O2 at 2L/min via NC placed, O2 sats went to 93%, Dr. Gilman was notified.
[2025-03-30] MEDS: Omeprazole 20 MG CAPSULE.DR PO (05:35)
[2025-03-30 07:26] LABS: Glucose, Whole Blood 107 mg/dL (60-115)
[2025-03-30 07:41] VITALS: BP 123/60; PULSE 99; RESP 20; TEMP 36.9; O2SAT 93
--- NOTE | 2025-03-30 08:11 | P.DS_ITS ---
DS: Providers Provider Date of Service: 03/29/25 <Elias Sprague MD - Last Filed: 03/29/25 09:37> 03/30/25 <Alejandro Love MD - Last Filed: 03/30/25 08:12> Date of admission: 03/26/25 11:48 <Elias Sprague MD - Last Filed: 03/29/25 09:37> Date of discharge: 03/29/25 <Elias Sprague MD - Last Filed: 03/29/25 09:37> 03/30/25 <Alejandro Love MD - Last Filed: 03/30/25 08:12> Primary care physician: Marc Alvarez DO <Elias Sprague MD - Last Filed: 03/29/25 09:37> Consults: 03/29/25 09:07 Inpt CARE Team Crisis Consult Routine Comment: Reason for consultation: medically cleared, from inpataient psych <Elias Sprague MD - Last Filed: 03/29/25 09:37> DS: Diagnosis Discharge Diagnosis (1) LLL pneumonia: Status: Acute <Elias Sprague MD - Last Filed: 03/29/25 09:37> DS: Summary Hospital Course Hospital Course: from initial hpi: 74-year-old female with a past medical history of hypertension, GERD, COPD, type 2 diabetes, anxiety and depression, CKD and schizophrenia and history of UTI she was initially brought to the ED by her son after experiencing auditory hallucinations and agitation and has been on the Geripsych unit for further treatment Prior to admit she had been off her medications. She has been medically stable since admit. Notified by nursing that she had rigors, nausea and decreased oxygen saturations. Met sepsis criteria, Lactic acid 3.9, inproved to 1.4. WBC Chest Xray with lobulated mass like opacity right [place], probable Left LLL with small pleural effusion. Chest CT ordered for further examination. On exam she reporting SOB, + nausea. UA positive, Received ceftriaxone times one dose and 1 L IVF. Patient is tachycardic on exam, feels fatigued. EKG demonstrated sinus tach, no ischemic changes. hospital course: Patient was admitted for sepsis due to bilateral pneumonia plus-minus UTI. Was treated with ceftriaxone doxycycline for total 7 days. Urine culture grew mixed alva, blood cultures were negative. CT chest showed bilateral patchy pneumonia. Sepsis resolved, patient became afebrile leukocytosis improving. Should repeat labs in about [address] chest in about 1 month. For left hip pain x-ray showed traumatic deformity of superior and inferior left pubic rami without acute fracture or dislocation. Would recommend weight- bearing as tolerated can follow up CT pelvis and physical therapy. For diabetes was continued on insulin sliding scale. For hypertension blood pressure has been low normal and Aldactone has been discontinued. For schizophrenia was continued on olanzapine, Clozaril, Depakote. For COPD remained on Trelegy and stable. Patient is feeling better will be discharged back to inpatient psychiatry. <Elias Sprague MD - Last Filed: 03/29/25 09:37> Time Attestation Discharge Coordination Time (in mins): 33 <Elias Sprague MD - Last Filed: 03/29/25 09:37> Quality: Safe Use of Opioids Does Pt have an Active Cancer Diagnosis on the Problem List?: No <Elias Sprague MD - Last Filed: 03/29/25 09:37> Quality: Stroke Does the patient have a stroke diagnosis?: No <Elias Sprague MD - Last Filed: 03/29/25 09:37> Physical Exam Vital Signs: Vital Signs: Last Vital Signs Temp 98.6 F 03/29/25 08:00 Pulse 90 03/29/25 08:00 Resp 18 03/29/25 08:00 BP 104/63 03/29/25 08:00 Pulse Ox 96 03/29/25 08:00 O2 Del Method Room Air 03/29/25 08:00 BMI result Body Mass Index 30.4 <Elias Sprague MD - Last Filed: 03/29/25 09:37> Vital Signs: Selected Entries 03/30/25 07:41 Temperature 98.4 F Pulse Rate 99 Respiratory Rate 20 Blood Pressure 123/60 Pulse Oximetry 93 Oxygen Delivery Me thod Nasal Cannula Oxygen Flow Rate 2 <Alejandro Love MD - Last Filed: 03/30/25 08:12> General: more alert O X 3, no acute distress Resp: Cta bilateral, no accessory muscles used CVS: S1,S2,RRR GI: soft, non tender, non distended Neuro: motor grossly intact <Elias Sprague MD - Last Filed: 03/29/25 09:37> DS: Data Data Completed and Pending Labs on day of discharge: Laboratory Results - last 24 hr 03/28/25 03/28/25 03/28/25 11:28 15:45 20:23 WBC RBC Hgb Hct MCV MCH MCHC RDW Plt Count MPV Absolute Nucleated RBC Nucleated RBC % (auto) Sodium Potassium Chloride Carbon Dioxide Anion Gap BUN Creatinine Estim Creat Clear Calc Estimated GFR POC Glucose 120 H 118 H 162 H Random Glucose Calcium Magnesium Total Bilirubin Direct Bilirubin AST ALT Alkaline Phosphatase Total Protein Albumin 03/29/25 03/29/25 05:50 07:39 WBC 17.8 H RBC 3.20 L Hgb 10.6 L Hct 32.1 L MCV 100.3 H MCH 33.1 H MCHC 33.0 RDW 13.3 Plt Count 231 MPV 11.1 Absolute Nucleated RBC 0.000 Nucleated RBC % (auto) 0.0 Sodium 136 Potassium 4.1 Chloride 99 Carbon Dioxide 29 Anion Gap 12 BUN 19 H Creatinine 1.01 Estim Creat Clear Calc 45.2 Estimated GFR 54 POC Glucose 102 Random Glucose 92 Calcium 9.0 Magnesium 2.2 Total Bilirubin 0.2 Direct Bilirubin < 0.2 AST 16 ALT 15 Alkaline Phosphatase 80 Total Protein 6.7 Albumin 3.6 <Elias Sprague MD - Last Filed: 03/29/25 09:37> Discharge Plan Discharge Anticipated Discharge Date/Time: 04/01/25 11:12 <Elias Sprague MD - Last Filed: 03/29/25 09:37> Patient Disposition: Xfer Other <Elias Sprague MD - Last Filed: 03/29/25 09:37> Discharge Diagnosis: Pneumonia Hip pain <Elias Sprague MD - Last Filed: 03/29/25 09:37> Pneumonia Hip pain <Alejandro Love MD - Last Filed: 03/30/25 08:12> Referrals: Marc Alvarez DO [Primary Care Provider] - 1 Week <Elias Sprague MD - Last Filed: 03/29/25 09:37> Discharge Medications: Continued loratadine 10 mg Tablet 10 mg PO DAILY Qty: 0 0RF Trelegy Ellipta 100-62.5-25 mcg Blister With Device 1 inh inhalation RDAILY Qty: 0 0RF atorvastatin 40 mg Tablet 40 mg PO BEDTIME Qty: 0 0RF sennosides [Senna Lax] 8.6 mg Tablet 17.2 mg PO BEDTIME Qty: 0 0RF acetaminophen 325 mg Tablet 650 mg PO Q6H PRN (Reason: Headache/Pain, Scale 1-10) Qty: 0 0RF nicotine 14 mg/24 hr Patch 24 Hour 14 mg transdermal DAILY Qty: 0 0RF trazodone 50 mg Tablet 50 mg PO BEDTIME PRN (Reason: Insomnia) Qty: 0 0RF clozapine 100 mg Tablet 100 mg PO DAILY Qty: 0 0RF clozapine 100 mg Tablet 100 mg PO BEDTIME Qty: 0 0RF aspirin 81 mg Tablet,Delayed Release (Dr/Ec) 81 mg PO DAILY Qty: 0 0RF nitroglycerin [Nitrostat] 0.4 mg Tablet, Sublingual 0.4 mg sublingual Q5MX3 PRN (Reason: Chest Pain) Qty: 0 0RF omeprazole 20 mg Capsule,Delayed Release(Dr/Ec) 20 mg PO DAILY@0630 Qty: 0 0RF ondansetron 4 mg Tablet,Disintegrating 4 mg translingual Q6H PRN (Reason: Nausea And Vomiting) Qty: 0 0RF divalproex 250 mg Tablet Extended Release 24 Hr 750 mg PO DAILY Qty: 0 0RF ferrous sulfate 324 mg (65 mg iron) Tablet,Delayed Release (Dr/Ec) 324 mg PO DAILY Qty: 0 0RF Jardiance 25 mg Tablet 25 mg PO DAILY Qty: 0 0RF olanzapine 2.5 mg Tablet 2.5 mg PO TID PRN (Reason: Agitation) magnesium hydroxide [Milk of Magnesia] 400 mg/5 mL Suspension 400 mg PO Q6H PRN (Reason: Heartburn/Nausea) alum-mag hydroxide-simeth 200-200-20 mg/5 mL Suspension 30 ml PO Q6H PRN (Reason: Constipation) Rx Instructions: administer between meals and at bedtime Discontinued spironolactone 25 mg Tablet 25 mg PO DAILY Qty: 0 0RF Protocol: Hold for SBP< HOLD for SBP < : 90 <Elias Sprague MD - Last Filed: 03/29/25 09:37> Discharge Orders: Discharge Order (Routine); Ordered 04/01/25 Ordered By: Malu Barcenas <Elias Sprague MD - Last Filed: 03/29/25 09:37> Diet: Advance to usual diet <Elias Sprague MD - Last Filed: 03/29/25 09:37> Advance to usual diet <Alejandro Love MD - Last Filed: 03/30/25 08:12> Activity on Discharge: As tolerated <Elias Sprague MD - Last Filed: 03/29/25 09:37> As tolerated <Alejandro Love MD - Last Filed: 03/30/25 08:12> Stand Alone Forms: Patient Portal Discharge page <Elias Sprague MD - Last Filed: 03/29/25 09:37> Print Language: Citizen Of [place] <Elias Sprague MD - Last Filed: 03/29/25 09:37> Care Plan Goals: Completed a total of 7 days treatment for pneumonia <Elias Sprague MD - Last Filed: 03/29/25 09:37> Health Concerns: Pneumonia Hip pain <Elias Sprague MD - Last Filed: 03/29/25 09:37> Plan of Treatment: Weightbearing as tolerated, may use walker <Elias Sprague MD - Last Filed: 03/29/25 09:37> Assessment: See discharge summary <Elias Sprague MD - Last Filed: 03/29/25 09:37> Discharge Date/Time: 04/01/25 12:18 <Elias Sprague MD - Last Filed: 03/29/25 09:37>
[2025-03-30] MEDS: Fluticasone/Umeclidinium/Vilanterol 100/62.5/25 BLST.W.DEV 1 PUFF INHALE (08:17)
[2025-03-30 08:18] VITALS: PULSE 92; RESP 16
--- NOTE | 2025-03-30 09:17 | P.PNIM_ITS ---
Subjective Subjective Date of Service: 03/30/25 Interval History: feels better, no new issues awaiting discharge back to Psych Physical Exam 2 Vital Signs: Vital Signs: Last Vital Signs Temp 98.4 F 03/30/25 07:41 Pulse 92 03/30/25 08:18 Resp 16 03/30/25 08:18 BP 123/60 03/30/25 07:41 Pulse Ox 93 03/30/25 07:41 O2 Del Method Nasal Cannula 03/30/25 07:41 O2 Flow Rate 2 03/30/25 07:41 BMI result Body Mass Index 30.4 General: more alert O X 2, no acute distress Resp: Cta bilateral, no accessory muscles used CVS: S1,S2,RRR GI: soft, non tender, non distended Neuro: motor grossly intact Objective Data Active Medications Aspirin (Aspirin Enteric Coated 81 Mg Tablet.) 81 mg PO DAILY [facility] Last Admin: 03/29/25 09:32 Dose: 81 mg Documented By: ELOISA Atorvastatin Calcium (Atorvastatin Calcium 40 Mg Tablet) 40 mg PO BEDTIME [facility] Last Admin: 03/29/25 20:17 Dose: 40 mg Documented By: DANII Calcium Carbonate (Calcium Carbonate 750 Mg Tab.Chew) 750 mg PO Q4H PRN PRN Reason: Heartburn Last Admin: 03/26/25 21:46 Dose: 750 mg Documented By: GABRIELE Ceftriaxone Sodium (Ceftriaxone Sodium 1 Gm Vial) 1 gm IVPUSH Q24H [facility] Last Admin: 03/29/25 12:43 Dose: 1 gm Documented By: ELOISA Clozapine (Clozapine 100 Mg Tablet) 100 mg PO BEDTIME [facility] Last Admin: 03/29/25 20:18 Dose: 100 mg Documented By: DANII Clozapine (Clozapine 100 Mg Tablet) 100 mg PO DAILY [facility] Last Admin: 03/29/25 09:32 Dose: 100 mg Documented By: ELOISA Divalproex Sodium (Divalproex Sodium Er 250 Mg Tab.Er.24h) 750 mg PO DAILY [facility] Last Admin: 03/29/25 09:32 Dose: 750 mg Documented By: ELOISA Doxycycline Monohydrate (Doxycycline Monohydrate 100 Mg Capsule) 100 mg PO Q12H [facility] Last Admin: 03/29/25 20:17 Dose: 100 mg Documented By: DANII Enoxaparin Sodium (Enoxaparin Sodium 40 Mg/0.4 Ml Syringe) 40 mg SUBCUT Q24H [facility] Last Admin: 03/29/25 12:43 Dose: 40 mg Documented By: ELOISA Ferrous Sulfate (Ferrous Sulfate 324 Mg Tablet.) 324 mg PO DAILY [facility] Last Admin: 03/29/25 09:32 Dose: 324 mg Documented By: ELOISA Fluticasone/Umeclidinium/Vilanterol (Fluticasone/Umeclidinium/Vilanterol 100/62.5/ Blst.W.Dev) 1 puff INHALE RDAILY [facility] Last Admin: 03/30/25 08:17 Dose: 1 puff Documented By: OMAR Insulin Human Lispro (Insulin Lispro 100 Unit/Ml 3 Ml Vial) 0 unit SUBCUT QIDACHS [facility]; Protocol Last Admin: 03/30/25 07:43 Dose: Not Given Documented By: CARETR Non-Admin Reason: No Insulin Coverage Loratadine (Loratadine 10 Mg Tablet) 10 mg PO DAILY [facility] Last Admin: 03/29/25 09:32 Dose: 10 mg Documented By: ELOISA Melatonin (Melatonin 3 Mg Tablet) 6 mg PO BEDTIME PRN PRN Reason: Insomnia Last Admin: 03/26/25 21:47 Dose: 6 mg Documented By: GABRIELE Olanzapine (Olanzapine 2.5 Mg Tablet) 2.5 mg PO TID PRN PRN Reason: Agitation Last Admin: 03/30/25 02:49 Dose: 2.5 mg Documented By: DANII Omeprazole (Omeprazole 20 Mg Capsule.) 20 mg PO DAILY@0630 [facility] Last Admin: 03/30/25 05:35 Dose: 20 mg Documented By: DANII Oxycodone HCl (Oxycodone Hcl Immed Release 5 Mg Tablet) 5 mg PO Q6H PRN PRN Reason: Pain, Severe (Pain Scale 7-10) Last Admin: 03/30/25 02:39 Dose: 5 mg Documented By: DANII Sodium Chloride (0.9 % Sodium Chloride Flush 3 Ml Syringe) 3 ml IVFLUSH QSHIFT [facility] Last Admin: 03/29/25 20:18 Dose: 3 ml Documented By: DANII Trazodone HCl (Trazodone Hcl 50 Mg Tablet) 50 mg PO BEDTIME PRN PRN Reason: Insomnia Last Admin: 03/29/25 20:18 Dose: 50 mg Documented By: DANII Labs 03/29/25 05:50 03/29/25 05:50 Labs: Laboratory Results - last 24 hr 03/29/25 03/29/25 03/29/25 12:15 15:54 20:09 POC Glucose 92 123 H 129 H 03/30/25 07:21 POC Glucose 107 Assessment and Plan (1) LLL pneumonia: Status: Acute Plan 74F PMH htn, gerd, copd, dm, schizophrenia admitted from inpatient psychiatry for fevers, found to have sepsis due to pna/uti sepsis due to bilateral pneumonia, +/- UTI continue rocephin, doxy - ceftin doxy on dc urine growing mixed alva blood cultures negative so far leukocytosis improving, no further fevers left hip pain Traumatic deformity, superior and inferior left pubic rami. No acute fracture or dislocation left hip. Seen by PT dm insulin sliding scale htn low normal, holding aldactone schizophrenia olanzapine, clozaril, depakote, care team copd trelegy dvt prophylaxis - lovenox full code reason for continued hospitalization: care team Back to Psych when bed available Quality Stroke Does the patient have a stroke diagnosis?: No VTE Prior VTE?: No VTE Risk Level:: Medical - moderate - high VTE Device Contraindication: Treatment Not Indicated VTE Drug Contraindication: N/A - Med Ordered
[2025-03-30] MEDS: 0.9 % Sodium Chloride Flush 3 ML SYRINGE IVFLUSH ×2 (09:44→16:51)
[2025-03-30] MEDS: cloZAPine 100 MG TABLET PO ×2 (09:44→21:24)
[2025-03-30] MEDS: Doxycycline Monohydrate 100 MG CAPSULE PO ×2 (09:45→21:24)
[2025-03-30] MEDS: Divalproex Sodium ER 250 MG TAB.ER.24H 750 MG PO (09:45)
[2025-03-30] MEDS: Ferrous Sulfate 324 MG TABLET.DR PO (09:45)
[2025-03-30] MEDS: Aspirin Enteric Coated 81 MG TABLET.DR PO (09:45)
[2025-03-30] MEDS: Loratadine 10 MG TABLET PO (09:45)
[2025-03-30 11:36] LABS: Glucose, Whole Blood 127 mg/dL (60-115)
[2025-03-30] MEDS: cefTRIAXone sodium 1 GM VIAL IVPUSH (12:53)
[2025-03-30] MEDS: Enoxaparin Sodium 40 MG/0.4 ML SYRINGE SUBCUT (12:55)
[2025-03-30 15:19] VITALS: BP 138/60; PULSE 88; RESP 17; TEMP 36.2; O2SAT 95
[2025-03-30 16:14] LABS: Glucose, Whole Blood 100 mg/dL (60-115)
[2025-03-30 19:39] VITALS: BP 135/68; PULSE 89; RESP 18; TEMP 36.2; O2SAT 95
[2025-03-30 20:17] LABS: Glucose, Whole Blood 138 mg/dL (60-115)
[2025-03-30] MEDS: Atorvastatin Calcium 40 MG TABLET PO (21:24)
[2025-03-30] MEDS: traZODone HCL 50 MG TABLET PO (21:24)
[2025-03-31] VITALS (7 sets, daily range): BP systolic 116–132; BP diastolic 56–87; PULSE 89–96; RESP 16–20; TEMP 36.4–36.9; O2SAT 84–97
[2025-03-31] MEDS: Omeprazole 20 MG CAPSULE.DR PO (05:29)
[2025-03-31] MEDS: Fluticasone/Umeclidinium/Vilanterol 100/62.5/25 BLST.W.DEV 1 PUFF INHALE (08:13)
[2025-03-31 08:21] LABS: Glucose, Whole Blood 85 mg/dL (60-115)
[2025-03-31] MEDS: Loratadine 10 MG TABLET PO (09:09)
[2025-03-31] MEDS: Ferrous Sulfate 324 MG TABLET.DR PO (09:10)
[2025-03-31] MEDS: Divalproex Sodium ER 250 MG TAB.ER.24H 750 MG PO (09:10)
[2025-03-31] MEDS: Doxycycline Monohydrate 100 MG CAPSULE PO ×2 (09:10→21:13)
[2025-03-31] MEDS: cloZAPine 100 MG TABLET PO (09:10)
[2025-03-31] MEDS: Aspirin Enteric Coated 81 MG TABLET.DR PO (09:10)
--- NOTE | 2025-03-31 10:43 | PC.NURSE ---
pt returned to baseline and woke up, began to yell and ambulated to restroom to void upon MD arrival to room to assess pt.
[2025-03-31 11:52] LABS: Glucose, Whole Blood 103 mg/dL (60-115)
[2025-03-31] MEDS: Enoxaparin Sodium 40 MG/0.4 ML SYRINGE SUBCUT (12:01)
[2025-03-31] MEDS: cefTRIAXone sodium 1 GM VIAL IVPUSH (12:01)
--- NOTE | 2025-03-31 15:38 | P.PNIM_ITS ---
Subjective Subjective Date of Service: 03/31/25 Interval History: seen and examined this morning follow up for pneumonia No overnight events Unable to get much history, no specific complaint Review of Systems Review of Systems: Yes all other systems are reviewed and are negative Constitutional Constitutional: Denies chills and Denies fever(s) Physical Exam 2 Vital Signs: Vital Signs: Last Vital Signs Temp 98.4 F 03/31/25 15:35 Pulse 93 03/31/25 15:35 Resp 17 03/31/25 15:35 BP 116/61 03/31/25 15:35 Pulse Ox 96 03/31/25 15:35 O2 Del Method Nasal Cannula 03/31/25 15:35 O2 Flow Rate 2 03/31/25 15:35 BMI result Body Mass Index 30.4 Const: General: cooperative, no acute distress, alert and awake O rientation/consciousness: patient oriented x3 Resp: Effort & Inspection: normal respiratory effort and able to speak in complete sentences Cardio: Rate: regular rate Neuro: Other: observed ambulating with steady gait with walker to bathroom General: patient oriented x3, moves all extremities and CN's II-XI intact bilaterally Objective Data Active Medications Aspirin (Aspirin Enteric Coated 81 Mg Tablet.) 81 mg PO DAILY [facility] Last Admin: 03/31/25 09:10 Dose: 81 mg Documented By: ARLENE Atorvastatin Calcium (Atorvastatin Calcium 40 Mg Tablet) 40 mg PO BEDTIME [facility] Last Admin: 03/30/25 21:24 Dose: 40 mg Documented By: DANII Calcium Carbonate (Calcium Carbonate 750 Mg Tab.Chew) 750 mg PO Q4H PRN PRN Reason: Heartburn Last Admin: 03/26/25 21:46 Dose: 750 mg Documented By: GABRIELE Ceftriaxone Sodium (Ceftriaxone Sodium 1 Gm Vial) 1 gm IVPUSH Q24H [facility] Last Admin: 03/31/25 12:01 Dose: 1 gm Documented By: ARLENE Clozapine (Clozapine 100 Mg Tablet) 100 mg PO BEDTIME [facility] Last Admin: 03/30/25 21:24 Dose: 100 mg Documented By: DANII Clozapine (Clozapine 100 Mg Tablet) 100 mg PO DAILY [facility] Last Admin: 03/31/25 09:10 Dose: 100 mg Documented By: ARLENE Divalproex Sodium (Divalproex Sodium Er 250 Mg Tab.Er.24h) 750 mg PO DAILY [facility] Last Admin: 03/31/25 09:10 Dose: 750 mg Documented By: ARLENE Doxycycline Monohydrate (Doxycycline Monohydrate 100 Mg Capsule) 100 mg PO Q12H [facility] Last Admin: 03/31/25 09:10 Dose: 100 mg Documented By: ARLENE Enoxaparin Sodium (Enoxaparin Sodium 40 Mg/0.4 Ml Syringe) 40 mg SUBCUT Q24H [facility] Last Admin: 03/31/25 12:01 Dose: 40 mg Documented By: ARLENE Ferrous Sulfate (Ferrous Sulfate 324 Mg Tablet.) 324 mg PO DAILY [facility] Last Admin: 03/31/25 09:10 Dose: 324 mg Documented By: ARLENE Fluticasone/Umeclidinium/Vilanterol (Fluticasone/Umeclidinium/Vilanterol 100/.03/10 Blst.W.Dev) 1 puff INHALE RDAILY [facility] Last Admin: 03/31/25 08:13 Dose: 1 puff Documented By: OMAR Insulin Human Lispro (Insulin Lispro 100 Unit/Ml 3 Ml Vial) 0 unit SUBCUT QIDACHS [facility]; Protocol Last Admin: 03/31/25 11:54 Dose: Not Given Documented By: ARLENE Non-Admin Reason: low poc Loratadine (Loratadine 10 Mg Tablet) 10 mg PO DAILY [facility] Last Admin: 03/31/25 09:09 Dose: 10 mg Documented By: ARLENE Melatonin (Melatonin 3 Mg Tablet) 6 mg PO BEDTIME PRN PRN Reason: Insomnia Last Admin: 03/26/25 21:47 Dose: 6 mg Documented By: GABRIELE Olanzapine (Olanzapine 2.5 Mg Tablet) 2.5 mg PO TID PRN PRN Reason: Agitation Last Admin: 03/30/25 16:51 Dose: 2.5 mg Documented By: CARTER Omeprazole (Omeprazole 20 Mg Capsule.) 20 mg PO DAILY@0630 [facility] Last Admin: 03/31/25 05:29 Dose: 20 mg Documented By: CASTILDanitza Oxycodone HCl (Oxycodone Hcl Immed Release 5 Mg Tablet) 5 mg PO Q6H PRN PRN Reason: Pain, Severe (Pain Scale 7-10) Last Admin: 03/30/25 12:54 Dose: 5 mg Documented By: CARTER Sodium Chloride (0.9 % Sodium Chloride Flush 3 Ml Syringe) 3 ml IVFLUSH QSHIFT [facility] Last Admin: 03/31/25 06:56 Dose: Not Given Documented By: ARLENE Non-Admin Reason: Previously Administered Trazodone HCl (Trazodone Hcl 50 Mg Tablet) 50 mg PO BEDTIME PRN PRN Reason: Insomnia Last Admin: 03/30/25 21:24 Dose: 50 mg Documented By: CASTILM Labs 03/29/25 05:50 03/29/25 05:50 Labs: Laboratory Results - last 24 hr 03/30/25 03/30/25 03/31/25 16:10 20:12 08:17 POC Glucose 100 138 H 85 03/31/25 11:45 POC Glucose 103 Assessment and Plan (1) LLL pneumonia: Status: Acute Plan This is a 74F PMH htn, gerd, copd, dm, schizophrenia admitted from inpatient psychiatry for fevers, found to have sepsis due to pna/uti sepsis due to bilateral pneumonia, +/- UTI continue rocephin, doxy started 03/27 - ceftin/doxy on dc urine growing mixed alva blood cultures negative so far leukocytosis improving, no further fevers left hip pain chronic Traumatic deformity, superior and inferior left pubic rami. No acute fracture or dislocation left hip. Seen by PT, ambulating safely with walker dm insulin sliding scale htn low normal, holding aldactone hld statin schizophrenia olanzapine, clozaril, depakote, care team copd trelegy dvt prophylaxis - lovenox full code Back to Psych when bed available Quality Stroke Does the patient have a stroke diagnosis?: No VTE Prior VTE?: No VTE Risk Level:: Medical - moderate - high VTE Device Contraindication: Treatment Not Indicated VTE Drug Contraindication: N/A - Med Ordered
[2025-03-31] MEDS: 0.9 % Sodium Chloride Flush 3 ML SYRINGE IVFLUSH ×2 (15:43→21:14)
[2025-03-31 16:11] LABS: Glucose, Whole Blood 98 mg/dL (60-115)
[2025-03-31 16:34] LABS: Mean Corpuscular HGB Conc 33.3 g/dl (31.0-35.0); Mean Platelet Volume 10.5 fL (9.4-12.3); PLT CLUMP 1; Red Blood Count 3.03 X10*6/uL (4.20-5.50); Red Cell Distribution Width 13.4 % (11.0-16.0)
[2025-03-31 16:40] LABS: Platelet Count 222 X10*3/uL (160-400); White Blood Count 13.9 X10*3/uL (4.8-10.8)
[2025-03-31 20:33] LABS: Glucose, Whole Blood 114 mg/dL (60-115)
[2025-03-31] MEDS: Atorvastatin Calcium 40 MG TABLET PO (21:13)
[2025-04-01 03:50] VITALS: BP 109/52; PULSE 86; RESP 18; TEMP 36.5; O2SAT 94
--- NOTE | 2025-04-01 03:52 | PC.NURSE ---
Pt seen on bed asleep and awakens briefly only when name is called, lethargic, rest of neuros are WNL,Dr. Gilman was updated, Clozapine was held, tolerated rest of po meds, needs attended.
[2025-04-01] MEDS: Omeprazole 20 MG CAPSULE.DR PO (05:19)
[2025-04-01 07:21] LABS: Glucose, Whole Blood 87 mg/dL (60-115)
[2025-04-01 07:34] VITALS: BP 133/60; PULSE 84; RESP 14; TEMP 36.3; O2SAT 95
[2025-04-01 09:16] VITALS: PULSE 64; RESP 14; O2SAT 95
[2025-04-01] MEDS: Aspirin Enteric Coated 81 MG TABLET.DR PO (09:17)
[2025-04-01] MEDS: Ferrous Sulfate 324 MG TABLET.DR PO (09:17)
[2025-04-01] MEDS: Divalproex Sodium ER 250 MG TAB.ER.24H 750 MG PO (09:17)
[2025-04-01] MEDS: cloZAPine 100 MG TABLET PO (09:18)
[2025-04-01] MEDS: Doxycycline Monohydrate 100 MG CAPSULE PO (09:18)
[2025-04-01] MEDS: Loratadine 10 MG TABLET PO (09:18)
[2025-04-01 11:11] LABS: Glucose, Whole Blood 120 mg/dL (60-115)
[2025-04-01] MEDS: Enoxaparin Sodium 40 MG/0.4 ML SYRINGE SUBCUT (11:19)
[2025-04-01] MEDS: oxyCODONE HCl Immed Release 5 MG TABLET PO (11:19)
[2025-04-01] MEDS: cefTRIAXone sodium 1 GM VIAL IVPUSH (11:19)
--- NOTE | 2025-04-01 11:22 | PM.DS ---
DS: Providers Provider Date of Service: 04/01/25 Date of admission: 03/26/25 11:48 Date of discharge: 04/01/25 Primary care physician: Marc Alvarez DO Consults: 03/29/25 09:07 In CARE Team Crisis Consult Routine Comment: Reason for consultation: medically cleared, from inpataient psych DS: Diagnosis Discharge Diagnosis (1) LLL pneumonia: Status: Acute DS: Summary Hospital Course Hospital Course: from initial hpi: 74-year-old female with a past medical history of hypertension, GERD, COPD, type 2 diabetes, anxiety and depression, CKD and schizophrenia and history of UTI she was initially brought to the ED by her son after experiencing auditory hallucinations and agitation and has been on the Geripsych unit for further treatment Prior to admit she had been off her medications. She has been medically stable since admit. Notified by nursing that she had rigors, nausea and decreased oxygen saturations. Met sepsis criteria, Lactic acid 3.9, inproved to 1.4. WBC Chest Xray with lobulated mass like opacity right [place], probable Left LLL with small pleural effusion. Chest CT ordered for further examination. On exam she reporting SOB, + nausea. UA positive, Received ceftriaxone times one dose and 1 L IVF. Patient is tachycardic on exam, feels fatigued. EKG demonstrated sinus tach, no ischemic changes. hospital course: Patient was admitted for sepsis due to bilateral pneumonia plus-minus UTI. Was treated with ceftriaxone doxycycline for total 7 days. Urine culture grew mixed alva, blood cultures were negative. CT chest showed bilateral patchy pneumonia. Sepsis resolved, patient became afebrile leukocytosis improving. Should repeat labs in about [address] chest in about 1 month. For left hip pain x-ray showed traumatic deformity of superior and inferior left pubic rami without acute fracture or dislocation. Would recommend weight-bearing as tolerated can follow up CT pelvis and physical therapy. For diabetes was continued on insulin sliding scale. For hypertension blood pressure has been low normal and Aldactone has been discontinued. For schizophrenia was continued on olanzapine, Clozaril, Depakote. For COPD remained on Trelegy and stable. Patient is feeling better will be discharged back to inpatient psychiatry. Time Attestation Discharge Coordination Time (in mins): 40 Quality: Safe Use of Opioids Does Pt have an Active Cancer Diagnosis on the Problem List?: No Quality: Stroke Does the patient have a stroke diagnosis?: No Physical Exam Vital Signs: Vital Signs: Last Vital Signs Temp 97.4 F 04/01/25 07:34 Pulse 64 04/01/25 09:16 Resp 14 04/01/25 09:16 BP 133/60 04/01/25 07:34 Pulse Ox 95 04/01/25 07:34 O2 Del Method Nasal Cannula 04/01/25 07:34 O2 Flow Rate 1 04/01/25 07:34 BMI result Body Mass Index 30.4 Appearing in no acute distress head is normocephalic atraumatic eyes pupils are PERRLA sclera is anicteric mouth throat mucous membranes are intact and moist neck is supple no lymphadenopathy, no JVD noted lung sounds are clear to auscultation heart regular rate rhythm, clear S1, S2 positive bowel sounds, abdomen is soft, nontender neuro patient is alert x3, no focal deficits DS: Data Data Completed and Pending Labs on day of discharge: Laboratory Results - last 24 hr 03/31/25 03/31/25 03/31/25 11:45 16:03 16:24 WBC 13.9 H RBC 3.03 L Hgb 10.0 L Hct 30.0 L MCV 99.0 H MCH 33.0 MCHC 33.3 RDW 13.4 Plt Count 222 MPV 10.5 Absolute Nucleated RBC 0.000 Nucleated RBC % (auto) 0.0 POC Glucose 103 98 03/31/25 04/01/25 04/01/25 20:29 07:14 11:03 WBC RBC Hgb Hct MCV MCH MCHC RDW Plt Count MPV Absolute Nucleated RBC Nucleated RBC % (auto) POC Glucose 114 87 120 H Discharge Plan Discharge Anticipated Discharge Date/Time: 04/01/25 11:12 Patient Disposition: Xfer Other Discharge Diagnosis: Pneumonia Hip pain Referrals: Marc Alvarez DO [Primary Care Provider] - 1 Week Discharge Medications: Continued loratadine 10 mg Tablet 10 mg PO DAILY Qty: 0 0RF Trelegy Ellipta 100-62.5-25 mcg Blister With Device 1 inh inhalation RDAILY Qty: 0 0RF atorvastatin 40 mg Tablet 40 mg PO BEDTIME Qty: 0 0RF sennosides [Senna Lax] 8.6 mg Tablet 17.2 mg PO BEDTIME Qty: 0 0RF acetaminophen 325 mg Tablet 650 mg PO Q6H PRN (Reason: Headache/Pain, Scale 1-10) Qty: 0 0RF nicotine 14 mg/24 hr Patch 24 Hour 14 mg transdermal DAILY Qty: 0 0RF trazodone 50 mg Tablet 50 mg PO BEDTIME PRN (Reason: Insomnia) Qty: 0 0RF clozapine 100 mg Tablet 100 mg PO DAILY Qty: 0 0RF clozapine 100 mg Tablet 100 mg PO BEDTIME Qty: 0 0RF aspirin 81 mg Tablet,Delayed Release (Dr/Ec) 81 mg PO DAILY Qty: 0 0RF nitroglycerin [Nitrostat] 0.4 mg Tablet, Sublingual 0.4 mg sublingual Q5MX3 PRN (Reason: Chest Pain) Qty: 0 0RF omeprazole 20 mg Capsule,Delayed Release(Dr/Ec) 20 mg PO DAILY@0630 Qty: 0 0RF ondansetron 4 mg Tablet,Disintegrating 4 mg translingual Q6H PRN (Reason: Nausea And Vomiting) Qty: 0 0RF divalproex 250 mg Tablet Extended Release 24 Hr 750 mg PO DAILY Qty: 0 0RF ferrous sulfate 324 mg (65 mg iron) Tablet,Delayed Release (Dr/Ec) 324 mg PO DAILY Qty: 0 0RF Jardiance 25 mg Tablet 25 mg PO DAILY Qty: 0 0RF olanzapine 2.5 mg Tablet 2.5 mg PO TID PRN (Reason: Agitation) magnesium hydroxide [Milk of Magnesia] 400 mg/5 mL Suspension 400 mg PO Q6H PRN (Reason: Heartburn/Nausea) alum-mag hydroxide-simeth 200-200-20 mg/5 mL Suspension 30 ml PO Q6H PRN (Reason: Constipation) Rx Instructions: administer between meals and at bedtime Discontinued spironolactone 25 mg Tablet 25 mg PO DAILY Qty: 0 0RF Protocol: Hold for SBP< HOLD for SBP < : 90 Discharge Orders: Discharge Order (Routine); Ordered 04/01/25 Ordered By: Malu Barcenas Diet: Advance to usual diet Activity on Discharge: As tolerated Stand Alone Forms: Patient Portal Discharge page Print Language: Citizen Of [place] Care Plan Goals: Completed a total of 7 days treatment for pneumonia Health Concerns: Pneumonia Hip pain Plan of Treatment: Weightbearing as tolerated, may use walker Assessment: See discharge summary
--- NOTE | 2025-04-01 11:30 | MHC.CM.PN ---
DP: PT HAS BEEN MEDICALLY CLEARED FOR TRANSFER TO [facility].
--- NOTE | 2025-04-01 13:45 | P.CDIM_ITS ---
PROVIDER RESPONSE TEXT: To clarify, the appropriate diagnosis supported by the clinical indicators: Obesity Due to excess calories QUERY TEXT: PHYSICIAN'S DOCUMENTATION REQUEST Date of Query: 04/01/2025 07:50 AM EDT Patient Name: Julisa Encarnacion Admit Date: 03/26/2025 Dear Malu Barcenas FOOD PHOTOGRAPHER, A review of the medical record indicates additional documentation may be needed. Please review below and update the documentation accordingly. Clinical Indicators: Height: ( ) 5'1 Weight: ( ) 72.9 kg BMI: ( ) 30.4 Other Clinical Notes Supporting Significance of the BMI: Nutritional Risk Assessment 03/27/25: nutritional problems identified: yes on therapeutic diet If possible, please provide an associated diagnosis related to the abnormal BMI, such as: Overweight Obesity Due to excess calories Obesity Drug induced Obesity Due to other cause Specify the other cause Severe or Morbid Obesity With alveolar hypoventilation Severe or Morbid Obesity Without alveolar hypoventilation BMI is not significant Other (explain) Clinically unable to determine (explain) Thank you, Romina Xavier RN Use of terms such as suspected, likely, concern for, or probable (associated with a specific diagnosi s that is being evaluated, monitored, or treated as if it exists) are acceptable and can be coded in the inpatient se tting, when documented at the time of discharge. Please use your independent medical judgment in providing your response. THIS QUERY IS PART OF THE PERMANENT MEDICAL RECORD
== END 2025-04-01 12:18 | disposition other institution (70) | DRG 871 ==
PROVIDERS: Internal Medicine; Nurse Practitioner Family; Physician Assistant Medical; Admitting Provider Internal Medicine; PCP Family Medicine; Visit Provider Nurse Practitioner Acute Care
DX: A41.9 Sepsis, unspecified organism (principal); J18.9 Pneumonia, unspecified organism; J44.0 Chronic obstructive pulmonary disease with (acute) lower respiratory infection; N39.0 Urinary tract infection, site not specified; I12.9 Hypertensive chronic kidney disease with stage 1 through stage 4 chronic kidney disease, or unspecified chronic kidney disease; M25.552 Pain in left hip; N18.30 Chronic kidney disease, stage 3 unspecified; E66.09 Other obesity due to excess calories; Z68.30 Body mass index [BMI] 30.0-30.9, adult; E11.22 Type 2 diabetes mellitus with diabetic chronic kidney disease; F20.9 Schizophrenia, unspecified; Z87.891 Personal history of nicotine dependence; Z79.82 Long term (current) use of aspirin; Z79.899 Other long term (current) drug therapy
CPT/HCPCS: 36415; 71045; 71250; 72192; 73502; 73560; 80048; 80076; 82947; 83735; 85025; 85027; 94640; 97161; J0696; J1650; S9485

== ENCOUNTER → 2025-03-26 11:48 | Outpatient (BNV) | payer OTHER, SELFPAY | PROVIDERS: Admitting Provider Internal Medicine; Visit Provider Nurse Practitioner Family | DX: J18.9 Pneumonia, unspecified organism (principal) | CPT/HCPCS: 99232; 99233 ==

== ENCOUNTER 2025-04-01 12:31 | Inpatient (IN) | payer OTHER, SELFPAY ==
[2025-04-01 12:28] VITALS: BP 129/59; PULSE 94; RESP 12; TEMP 36.2; O2SAT 93
[2025-04-01 12:52] VITALS: BMI 22.0
--- OUTSIDE RECORDS SUMMARY | 2025-04-01 13:54 | XMS_ITS | Patient Health Record ---
Author Organization [facility] Address [address] [place] [address] Care Team Providers Care Material Mixer Name Role Phone Marc Alvarez Primary Care Provider [phone] Mary Amaya Unavailable [phone] Noah, Osmar Unavailable [phone] Marissa Dillard Unavailable [phone] Anival Thomas Unavailable [phone] Demarco Goss Unavailable [phone] Janice Mary Unavailable [phone] Lauren Eldridge Unavailable [phone] Massiel Townsend Unavailable [phone] Allergies Allergen (clinical drug ingredient) Drug/Non Drug Allergy documented on EMR Reaction Allergy Type Onset Date Status contrast dye (uncoded) central nervous system Allergy Active succinylcholine Anectine shortness of breath and palpatations Drug Allergy Active Latex Latex throat closes Allergy Active Penicillin rash Drug Allergy Active Results Component Value Reference Range Notes CLOZAPINE Reviewed date:11/20/2024 08:28:24 PM Interpretation: Performing Lab: Notes/Report: [facility] Reported Date/Time: [id number] [facility] Results Received Date/Time: [id number] [facility] Collection Date/Time: [id number] Testing performed at: [facility], [employer], [address], [place], [address], Beauty Artist: Abdiel Metzger M.D.,PhD [facility] NORCLOZAPINE 48 25-400 mcg/L CLOZAPINE 163 The therapeutic response begins to appear at 100 mcg/L. Refractory schizophrenia appears to require a therapeutic concentration of at least 350 mcg/L (trough, at steady state). Toxic range: Greater than 900 mcg/L This test was developed and its analytical performance characteristics have been determined by [employer] [place], [place]. It has not been cleared or approved by the U.S. Food and Drug Administration. This assay has been validated pursuant to the CLIA regulations and is used for clinical purposes. CLOZAPINE Reviewed date:12/11/2024 11:48:02 AM Interpretation: Performing Lab: Notes/Report: [facility] Reported Date/Time: [id number] [facility] Results Received Date/Time: [id number] [facility] Collection Date/Time: [id number] Testing performed at: [facility], [address], [place], [place], , Beauty Artist: Abdiel Metzger M.D.,PhD [facility] NORCLOZAPINE 47 25-400 mcg/L CLOZAPINE 156 The therapeutic response begins to appear at 100 mcg/L. Refractory schizophrenia appears to require a therapeutic concentration of at least 350 mcg/L (trough, at steady state). Toxic range: Greater than 900 mcg/L This test was developed and its analytical performance characteristics have been determined by [employer] [place], [place]. It has not been cleared or approved by the U.S. Food and Drug Administration. This assay has been validated pursuant to the CLIA regulations and is used for clinical purposes. CLOZAPINE Reviewed date:01/16/2025 01:51:18 PM Interpretation: Performing Lab: Notes/Report: [facility] Reported Date/Time: [id number] [facility] Results Received Date/Time: [id number] [facility] Collection Date/Time: [id number] [facility], [address], [place], [place], , Beauty Artist: Abdiel Metzger M.D.,PhD [facility] NORCLOZAPINE 52 25-400 mcg/L CLOZAPINE 148 The therapeutic response begins to appear at 100 mcg/L. Refractory schizophrenia appears to require a therapeutic concentration of at least 350 mcg/L This test was developed and its analytical performance characteristics have been determined by [employer] [place], [place]. It has not been cleared or approved by the U.S. Food and Drug Administration. This assay has been validated pursuant to the CLIA regulations and is used for clinical purposes. (trough, at steady state). Toxic range: Greater than 900 mcg/L CT abdomen pelvis w con Reviewed date:08/13/2024 11:44:30 AM Interpretation: Performing Lab: Notes/Report: See Below For Report [facility] Urinalysis Microscopic w/Ref baudilio to Culture ([facility]) Reviewed date:11/23/2024 03:32:07 PM Interpretation: Performing Lab:[address] [address]. Director Prospect Wilbur Watson MD Notes/Report: UWBC 6-10 None URBC 0-2 None UEPI 0-5 None CASTS None Seen None BACTERIA None Seen None PET PET/CT SKULL TO MID THIG H Reviewed date:04/23/2024 08:20:06 AM Interpretation: Performing Lab: Notes/Report: XR chest 2V Reviewed date:07/16/2024 05:17:09 PM Interpretation: Performing Lab: Notes/Report: See Below For Report [facility] XR lumbar spine 2-3V Reviewed date:07/16/2024 05:17:09 PM Interpretation: Performing Lab: Notes/Report: See Below For Report [facility] CT abdomen pelvis wo con Reviewed date:08/15/2024 02:52:14 PM Interpretation: Performing Lab: Notes/Report: See Below For Report [facility] CULTURE, URINE, ROUTINE Reviewed date:11/27/2024 07:38:41 AM Interpretation: Performing Lab:[facility] [address] [place] [address] Notes/Report: LAB ORDERED BY: MARY AMAYA NP REQUESTED COPY TO BANNER MANAGER SQL: RICH JHA URINE CULTURE SEE TEXT SOURCE SOURCE UNSPECIFIED. EVALUATED 'CLEAN CATCH'. STATUS: FINAL REPORT ORGANISM #1: 10,000 - <100,000 CFU/ML OF GROWTH SUGGESTIVE OF NORMAL UROGENITAL MESSI OR FECAL CONTAMINATION. RECOLLECT SPECIMEN FOR REPEAT CULTURE IF CLINICALLY INDICATED. DELIVERY TO LABORATORY SHOULD BE WITHIN 2 HOURS OF COLLECTION AND REFRIGERATED IF THERE IS A DELAY IN TRANSPORT. XRAY ABDOMEN Reviewed date:09/10/2024 12:31:01 PM Interpretation:large [...] Lehman M.D. Signature Date: 09/07/2024 1:34 PM ULTRASOUND ABDOMEN LIMITED Reviewed date:10/05/2024 03:32:02 PM [...] Lehman M.D. Signature Date: 10/05/2024 11:[address] CHEST LUNG CANCER SCREENI NG Reviewed [...] PET CT and/or tissue sampling recommended. A DONALD message has been communicated to Mary Camacho via the [employer] application on 04/09/2024 6:53 AM, Message ID [id number]. Electronically Signed By: Mike Kaur M.D. Signature Date: 04/09/2024 6:53 AM Reason For Referral Reason cardiology f/u Referral Organization [facility] Luis Felipe plunkett Referring Provider First Name Marc Referring Provider Last Name Antonio Referring Provider Speciality Family Pra ctice Referred Organization [facility] Referred Provider Lauren Eldridge Referred Address [address] [place] [phone], Referred Provider Specialty Nurse Jus mg General Notes Montserrat Huffman 04/16 05:11:45 PM >PCP referral is not required within the members referral saxman. Referral Priority Routine Reason cardiology f/u Referral Organization [facility] dimitrios Referring Provider First Name Marc Referring Provider Last Name [place] Referring Provider [facility] ctice Referred Organization [facility] Referred Provider ChenteLauren Referred Address [address], [place],[id number],[place] Referred Provider Specialty Nurse Jus mg General [...] back pain, unspe cified (M54.50) Referral Organization [facility] Luis Felipe plunkett Referring Provider First Name Marc Referring Provider Last Name Alvarez Referring Provider [facility] ctice Referred Organization [facility] Referred Provider Demarco Goss Referred Address [address] [place], [place],[address],[place] Referred Provider Specialty Physical The [facility] General [...] 1 Bowel perforation (K 63.1) Referral Organization [facility] Referring Provider First Name Marc Referring Provider Last Name [place] Referring Provider [facility] ctice Referred Provider Specialty Gastroentero logy Clinical Notes this is donald Referral Priority Routine Reason Please add Home PT t o patient's current services Diagnosis 1 Unsteady gait (R26.8 1) Diagnosis 2 Frequent falls (R29. 6) Diagnosis 3 Fibromyalgia (M79.7) Diagnosis 4 Arthralgia of multip le joints (M25.50) Referral Organization [facility] Referring Provider First Name Marc Referring Provider Last Name [place] Referring Provider [facility] ctice Referred Provider [facility] Referred Provider [...] Entered by ANDRE MCRAE 01/22/2013 Not-Taking Nystatin 257230 UNIT/ML 4 mL Mouth/Throat Four times a [...] Benadryl 25 mg at bedtime Not-Taking Acid Die Finisher Complete 10-800-165 MG 1 tablet as needed [...] Not-Takin g CALCIUM + D (600 MG [place]) (CALCIUM CARBONATE 1500 MG (600 MG [place])/ VIT D 200 IU) Not-Taking Trelegy [...] 30 day(s) 05/18/2018 Not-Taking VITAMIN D2 (ERGOCALCIFEROL) 78123 UNITS 25 PO QWEEK Roney01/22/2013 Entered by [...] Section Notes: pets: one dog (real hair) former smoker- [...] hair) former smoker- quit 4 years ago Problems Problem Type SNOMED Code ICD Code Onset Dates Problem Status W/U Status Risk Notes Problem 220861686 Pulmonary nodule (R91.1) Active confirmed Problem Iron deficiency anemia (94228944) Iron deficiency anemia (D50.9) Active confirmed Problem 00831142 Essential (primary) hypertension (I10) Active confirmed Problem 632059979 Fibromyalgia (M79.7) Active confirmed complaining about diffuse soft tisue and joint pain Problem 403482644 Lung nodule (R91.1) Active confirmed Problem Shortness of breath (190453511) Shortness of breath (R06.02) Active confirmed Problem Morbid obesity (112094441) Morbid obesity (E66.01) Active confirmed Problem 196229444 Gastroparesis (K31.84) Active confirmed Problem 042282369 COPD exacerbatio n (J44.1) Active confirmed Problem Breast screening requested (549776872) Breast screening (Z12.39) Active confirmed Problem 494614230 Obesity (BMI 30-39.9) (E66.9) Active confirmed Problem 29767552 Achalasia (K22.0) Active confirmed Problem 820297925 Iron deficiency anemia due to chronic blood loss (D50.0) Active confirmed Problem Unsteady gait (58153256) Unsteady gait (R26.81) Active confirmed Problem 871583438 BMI 40.0-44.9, adult (Z68.41) Active confirmed Problem 14258375353986539 Lumbar paraspi nal muscle spasm (M62.830) Active confirmed Problem Recurrent falls (877555202) Frequent falls (R29.6) Active confirmed Problem 61127891590611 Morbid (severe) obesity due to excess calories (E66.01) Active confirmed Problem 444991441 BMI 36.0-36.9,adult (Z68.36) Active confirmed Problem 67991081 Schizophrenia (F20.9) 2008 Active confirmed Roney: Schizophreni a; Problem 925400998 Mixed hyperlipidemia (E78.2) Active confirmed Problem 96872399 Uterine prolapse (N81.4) Active confirmed Problem 511441737 Chronic diastoli c congestive heart failure (I50.32) Active confirmed Problem 87214698 Abnormality of gait (R26.9) Active confirmed Problem 575836437 GERD without esophagitis (K21.9) Active confirmed Problem History of polyp of colon (478900262) History of colon polyps (Z86.010) Active confirmed Problem Difficulty swallowing (309582128) Difficulty swallowing (R13.10) Active confirmed Problem 13197711 Hyperlipidemia LDL goal <160 (E78.5) 2008 Active confirmed Roney: Hyperlipidem ia; Problem 934398629 Type 2 diabetes mellitus without complications (E11.9) Active confirmed Problem Cigarette smoker (68530052) Cigarette smoker (F17.210) Active confirmed Problem 65794414 Mucopurulent chronic bronchitis (J41.1) Active confirmed Problem 11527440 Slow transit constipation (K59.01) Active confirmed Problem 26395199 Calculus of gallbladder without cholecystitis without obstruction (K80.20) Active confirmed Problem 353161897 Chest pain on breathing (R07.1) Active confirmed Problem 677343058 Generalized abdominal pain (R10.84) Active confirmed Problem 039318204 salvage determiner (current) use of insulin (Z79.4) Active confirmed Problem 23185911 Other chronic pain (G89.29) Active confirmed Problem 411346476 Nonrheumatic aortic valve stenosis (I35.0) Active confirmed Problem 299862894 Coronary artery calcification seen on CAT scan (I25.10) Active confirmed Problem 75604806 Diaphragmatic hernia (K44.9) 2008 Active confirmed Roney: Hiatal hernia; Problem Gastroesophageal reflux disease without esophagitis (436330835) Gastroesophageal reflux disease without esophagitis (K21.9) Active confirmed Problem Tobacco user (819349034) 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) Active confirmed Problem 16406222 Benign neoplasm of colon (D12.6) 2008 Active confirmed Roney: History of; H/O Colonic polyp; Problem 31932510 Bronchiectasis without complication (J47.9) Active confirmed Problem 97507542 Iron deficiency anemia, unspecified iron deficiency anemia type (D50.9) Active confirmed Problem 639662227 Leukocytosis, unspecified type (D72.829) Active confirmed Problem 74406059 Nicotine use disorder (F17.200) Active confirmed Problem 797346077 Polypharmacy (Z79.899) Active confirmed Problem 42675753 Psychiatric illness (F99) Active confirmed Problem 50121181 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) Active confirmed Problem 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, 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 Problem Acute exacerbation of chronic schizophrenia (585174390) Acute exacerbation of chronic schizophrenia (F20.9) Active confirmed Problem 572834058 Chronic heart failure with preserved ejection fraction (I50.32) Active confirmed Problem 850342269 Hyperglycemia du e to diabetes mellitus (E11.65) Active confirmed Problem 157783788 Chronic kidney disease, stage 3a (N18.31) Active confirmed Problem 183067281 Body mass index [BMI] 36.0-36.9, adult (Z68.36) Active confirmed Problem 473368486 Body mass index [BMI] 38.0-38.9, adult (Z68.38) Active confirmed Problem Esophagitis (78070100) Esophagitis (K20.90) Active confirmed Vital Signs Heart Rate 80 /min 12/27/2024 Temperature 97.7 degrees Fahrenheit 11/23/2024 Respiratory Rate 16 /min 06/26/2024 Oximetry 97 % 12/27/2024 Blood pressure diastolic 74 mm Hg 11/23/2024 Height 60 in 12/27/2024 Blood pressure systolic 122 mm Hg 11/23/2024 Weight 182 lbs 12/27/2024 BMI 35.54 kg/m2 12/27/2024 Encounters Encounter Location Date Provider Diagnosis [facility] [address] [place] [address] 04/07/2024 Mary Oskuei [facility] [address] [id number] 04/07/2024 Mary Camacho History of tobacco abuse Z87.891 [facility] [address] [id number] 09/07/2024 Massiel Curalov Pain of upper abdome n R10.10 ; Calculus of gallbladder without cholecystitis without obstruction K80.20 ; Change in bowel habits R19.4 and Free intraperitoneal air K66.8 [facility] [address] [id number] 10/05/2024 Massiel Curalov Pain of upper abdome n R10.10 and Calculus of gallbladder without cholecystitis without obstruction K80.20 [facility] [address], [place] [id number] 04/30/2024 Lauren Eldridge Essential hypertensi on I10 ; Nonrheumatic aortic valve stenosis I35.0 ; Chronic heart failure with preserved ejection fraction I50.32 ; Coronary artery calcification seen on CAT scan I25.10 and Mixed hyperlipidemia E78.2 [facility] [address] [place] [address] 04/17/2024 Mary Oskueshellie History of tobacco abuse Z87.891 ; Shortness of breath R06.02 ; Hypoxia R09.02 ; Mucopurulent chronic bronchitis J41.1 ; Bronchiectasis without complication J47.9 ; Iron deficiency anemia, unspecified iron deficiency anemia type D50.9 ; Morbid obesity E66.01 ; Suspected sleep apnea R29.818 ; Chronic diastolic congestive heart failure I50.32 and Pulmonary nodule R91.1 [facility] [address] [place], [place] [id number] 07/04/2024 Marc Alvarez Essential (primary) hypertension I10 ; Diabetes 1.5, managed as type 1 E10.9 ; Morbid (severe) obesity due to excess calories E66.01 ; Other long-term (current) drug therapy Z79.899 and Health care maintenance Z00.00 [facility] [address], [place] [id number] 04/12/2024 Marc Alvarez Acute exacerbation o f chronic schizophrenia F20.9 [facility] [address] [place] [address] 05/02/2024 Mary Camacho History of tobacco abuse Z87.891 ; Shortness of breath R06.02 ; Hypoxia R09.02 ; Mucopurulent chronic bronchitis J41.1 ; Bronchiectasis without complication J47.9 ; Iron deficiency anemia, unspecified iron deficiency anemia type D50.9 ; Morbid obesity E66.01 ; Suspected sleep apnea R29.818 ; Chronic diastolic congestive heart failure I50.32 and Pulmonary nodule R91.1 [facility] [address], [place] [id number] 04/26/2024 Marc Alvarez Acute exacerbation o f chronic schizophrenia F20.9 [facility] [address] [place], [place] [id number] 05/17/2024 Marc Alvarez Acute exacerbation o f chronic schizophrenia F20.9 [facility] [address] [place], [place] [id number] 06/13/2024 Marc Alvarez [facility] [address], [place] [id number] 06/26/2024 Lauren Realry Chronic heart failur e with preserved ejection fraction I50.32 and Palpitations R00.2 [facility] [address], [place] [id number] 06/14/2024 Marc Alvarez Acute exacerbation o f chronic schizophrenia F20.9 [facility] [address], [place] [id number] 06/26/2024 Lauren Eldridge [facility] [address], [place] [id number] 10/24/2024 Marc Antonio Abnormality of gait R26.9 ; Hyperlipidemia LDL goal <160 E78.5 ; Essential (primary) hypertension I10 ; Morbid (severe) obesity due to excess calories E66.01 ; Type 2 diabetes mellitus without complications E11.9 ; Health care maintenance Z00.00 and Other salvage determiner (current) drug therapy Z79.899 [facility] [address], [place] [id number] 07/18/2024 Marc Alvarez Low back pain, unspecified M54.50 ; Other chronic pain G89.29 ; BMI 36.0-36.9,adult Z68.36 ; Morbid (severe) obesity due to excess calories E66.01 ; Body mass index [BMI] 36.0-36.9, adult Z68.36 ; Lumbar paraspinal muscle spasm M62.830 and Schizophrenia F20.9 [facility] [address] [place], [place] [id number] 07/18/2024 Marc Alvarez Schizophrenia F20.9 [facility] [address] [place], [place] [id number] 07/26/2024 Marc Alvarez Schizophrenia F20.9 [facility] [address] [place], [place] [id number] 07/31/2024 Marc Alvarez [facility] [address] [place], [place] [id number] 08/15/2024 Marc Alvarez [facility] [place] [address] [facility], [place] [id number] 08/24/2024 Marc Alvarez Bowel perforation K63.1 ; Hospital discharge follow-up Z09 ; Generalized abdominal pain R10.84 and Lung nodule R91.1 [facility] [place] [facility] [address], [place] [id number] 08/29/2024 Mrac Alvarez Fibromyalgia M79.7 ; Bowel perforation K63.1 ; Psychiatric illness F99 ; Generalized abdominal pain R10.84 ; Arthralgia of multiple joints M25.50 ; Other long-term (current) drug therapy Z79.899 and Health care maintenance Z00.00 [facility] [address], [place] [id number] 08/28/2024 Marissavandana Dillard [facility] [address], [place] [id number] 09/07/2024 Massiel Townsend Change in bowel habi ts R19.4 ; Pain of upper abdomen R10.10 ; Calculus of gallbladder without cholecystitis without obstruction K80.20 and Free intraperitoneal air K66.8 [facility] [place] [address] [facility], [place] [id number] 08/29/2024 Marc Alvarez [facility] [place] [address] [facility], [place] [id number] 08/31/2024 Marc Alvarez [facility] [address], [place] [id number] 09/10/2024 Massiel Townsend [facility] [address], [place] [id number] 09/11/2024 Massiel Townsend Pain of upper abdome n R10.10 and Calculus of gallbladder without cholecystitis without obstruction K80.20 [facility] [address], [place] [id number] 10/05/2024 Massiel Townsend [facility] [address], [place] [id number] 10/08/2024 Massiel Townsend [facility] [place] [facility] [address] [place], [place] [id number] 10/18/2024 Marc Alvarez Acute exacerbation o f chronic schizophrenia F20.9 [facility] [address], [place] [id number] 11/14/2024 Mary Amaya [facility] [address], [place] [id number] 12/27/2024 Massiel Townsend Change in bowel habi ts R19.4 and Incomplete defecation R15.0 [facility] [address], [place] [id number] 11/23/2024 Mary Amaya Vaginal itching N89. 8 and Pelvic pressure in female R10.2 [facility] [address] [place] [address] 11/23/2024 Mary Hawkinskvaleria [facility] [place] [address] [place], [place] [id number] 11/26/2024 Marc Alvarez Vaginitis and vulvovaginitis N76.0 [facility] [address], [place] [id number] 12/20/2024 Lauren Eldridge Chronic heart failur e with preserved ejection fraction I50.32 [facility] [address] [place] [address] 02/07/2025 Mary Oskuei [facility] [place] [address] [place], [place] [id number] 02/15/2025 Marc Alvarez [facility] [address], [place] [id number] 02/26/2025 Massiel Townsend [facility] [place] [facility] [address] [place], [place] [id number] 03/01/2025 Marc Alvarez Acute exacerbation o f chronic schizophrenia F20.9 [facility] [address] [place] [address] 03/18/2025 Mary Camacho Assessments Encounter Date Diagnosis (ICD Code) Assessment Notes Treatment Notes Treatment Clinical Notes Section Notes 11/23/2024 Vaginal itching (ICD-10 - N89.8) 11/23/2024 Pelvic pressure in female (ICD-10 - R10.2) Urine dip results only showed trace leukocytes however no nitrates. Not overly impressive for urinary tract infection therefore will hold off on any antibiotic treatment at this time. Will wait for urine culture 11/26/2024 Vaginitis and vulvovaginitis (ICD-10 - N76.0) 12/20/2024 Chronic heart failure with preserved ejection fraction (ICD-10 - I50.32) 12/27/2024 Change in bowel habits (ICD-10 - R19.4) patient is a 74-year-old female here today for follow-up on her bowels. She reports she continues with bowel issues. She states she has 1 stool daily, 3 on the Fowler stool scale. She has no longer having diarrhea. She states she feels like she can not leave the house. She is unable to describe why. She denies SI but very upset that her boyfriend is in the penitentiary. I suspect that some of her IBS [...] exacerbation of chronic schizophrenia (ICD-10 - F20.9) 10/18/2024 Acute exacerbation of chronic schizophrenia (ICD-10 - F20.9) 10/24/2024 Abnormality of gait (ICD-10 - R26.9) 10/24/2024 Hyperlipidemia LDL goal <160 (ICD-10 - E78.5) Roney: Hyperlipidem ia; 04/07/2024 History of tobacco abuse (ICD-10 - Z87.891) 04/30/2024 Essential hypertension (ICD-10 - I10) stable [...] continue with echocardiograms annually. Patient remains asymptomatic 09/11/2024 Pain of upper abdomen (ICD-10 - R10.10) 10/05/2024 Pain of upper abdomen (ICD-10 - R10.10) 07/18/2024 Other chronic pain (ICD-10 - G89.29) 08/24/2024 Hospital discharge follow-up (ICD-10 - Z09) [...] exam is improved compared to last visit 09/07/2024 Change in bowel habits (ICD-10 - R19.4) Patient is a 74-year-old female with a history of schizophrenia, hyperlipidemia, hypertension, obesity, achalasia, LUCIO, type 2 diabetes, GERD, and benign neoplasm of the colon. she is here today for hospital follow-up. She was seen at [facility] 08/13/24. Seen at [facility] for hand pain and abd pain. She [...] history of splenectomy and multiple prior pneumonias, [id number]-ucsq smoking history and likely COPD who has [...] history of splenectomy and multiple prior pneumonias, 86-dqhr-mjhc smoking history and likely COPD who has [...] then assess for CT guided biopsy 07/04/2024 Essential (primary) hypertension (ICD-10 - I10) 04/12/2024 Acute exacerbation of chronic schizophrenia (ICD-10 - F20.9) 05/02/2024 History of tobacco abuse (ICD-10 - Z87.891) 72-year-old female with prior history of splenectomy and multiple prior pneumonias, 22-kpoz-lqtr smoking history and likely COPD who has [...] history of splenectomy and multiple prior pneumonias, 22-csud-vwmh smoking history and likely COPD who has [...] almost complete resolution of the RML nodule 04/26/2024 Acute exacerbation of chronic schizophrenia (ICD-10 [...] some point. Patient can not recall why 06/14/2024 Acute exacerbation of chronic schizophrenia (ICD-10 - F20.9) 07/18/2024 Low back pain, unspecified (ICD-10 - M54.50) 07/18/2024 Schizophrenia (ICD-10 - F20.9) 07/26/2024 Schizophrenia (ICD-10 - F20.9) 05/02/2024 Hypoxia (ICD-10 - R09.02) Mild hypoxia on exertion. No indication for supplemental oxygen. 72-year-old female with prior history of splenectomy and multiple prior pneumonias, 39-logp-bdkh smoking history and likely COPD who has [...] complete resolution of the RML nodule 04/17/2024 Hypoxia (ICD-10 - R09.02) Mild hypoxia on exertion. No indication for supplemental oxygen. 72-year-old female with prior history of splenectomy and multiple prior pneumonias, 31-rzcg-lwkd smoking history and likely COPD who has [...] and then assess for CT guided biopsy 09/07/2024 Calculus of gallbladder without cholecystitis without obstruction (ICD-10 - K80.20) 08/29/2024 Psychiatric illness (ICD-10 - F99) 08/24/2024 Generalized abdominal pain (ICD-10 - R10.84) 07/04/2024 Diabetes 1.5, managed as type 1 (ICD-10 - E10.9) 07/18/2024 BMI 36.0-36.9,adult (ICD-10 - Z68.36) 09/11/2024 Calculus of gallbladder without cholecystitis without obstruction (ICD-10 - K80.20) 04/30/2024 Chronic heart failure with preserved ejection fraction (ICD-10 - I50.32)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
--- NOTE | 2025-04-01 14:35 | P.HPPS_ITS ---
HPI Date of Service: 04/01/25 Chief Complaint: Paranoia Sources of Information: patient interviewed, chart reviewed and crisis/core team assessment reviewed HPI Subjective Notes: Yeung Warning and Conditional Voluntary Narrative: Ms. Encarnacion is a 74 year-old woman with hx of schizophrenia. She was initially brought to [facility] ED due to increase agitation and auditory hallucinations in context of pt stopping antipsychotic clozapine. She was admitted to on 03/13/2025. She was restarted on clozaril, titrated to 100mg po BID. She developed s/s of sepsis due to pneumonia and transferred to medical floor on 03/26/2025. She was treated with ceftriaxone and doxycycline for 7 days. She was assessed by care team once medically cleared and had continued to report auditory and ideas that she does not need medications. On the unit, pt presents as very tired and fatigue. She reports she feels very weak and with difficulty ambulating which she did not have prior to pneumonia. She has been afebrile. She reports less AH. She continues to take medications. She reports feeling safe here and needing to rest. Will lower clozaril at bedtime to avoid oversedation while she recovers from pneumonia. Past Psychiatric History: Inpt: reports number of admission but can't remember when or where. She reports last one was a long time a go. She could not tell whether it was in the past 5 years or more than that. OP: Pt reports seeing Alma Rosa Ramesh, but she is no longer in the practice. She now sees Génesis Buck NP ([phone]). Past medication trials: depakote, clozapine. Pt can't remember if she has been on other medications. Medical Evaluation Reviewed: Yes [facility] Family History: mother- bipolar Social History: Pt reports she was born in [facility]. She reports she has been twice. She has two sons one but pt did not elaborate how or when, reported long time ago. She reports she did not finish HS. 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 Trauma History: not disclosed Diagnostics Vital Signs (24Hr): Vital Signs - 24 hr 04/01/25 12:28 Temperature 97.1 F Pulse Rate 94 Respiratory Rate 12 Blood Pressure 129/59 L Pulse Oximetry 93 Oxygen Delivery Method Room Air BMI result Body Mass Index 22.0 Labs 04/04/25 07:23 06/19/25 07:23 Meds/Allergies Meds Home Medications ?Medication ?Instructions ?Recorded ?Confirmed ?Type aluminum-mag hydroxide-simethicone 30 ml PO Q6H PRN Co nstipation 03/27/25 03/27/25 History 200 mg-200 mg-20 mg/5 mL oral susp magnesium hydroxide 400 mg/5 mL 400 mg PO Q6H PRN Hear tburn/Nausea 03/27/25 03/27/25 History oral suspension (Milk of Magnesia) olanzapine 2.5 mg tablet 2.5 mg PO TID PRN Agitation 03/27/25 03/27/25 History Allergies Allergies Allergy/AdvReac Type Severity Reaction Status Date / Time Iodinated Contrast Media Allergy Severe hives Verified 03/13/25 11:42 Penicillins Allergy Severe Unknown Verified 03/13/25 11:42 lisinopril AdvReac Intermediate Cough Verified 03/13/25 11:42 succinylcholine (From AdvReac Unknown Unknown Verified 03/13/25 11:42 Anectine) Mental Status Exam Mental Status Exam Narrative: Appearance: wearing hospital gown, fair hygiene, in NAD behavior: somewhat guarded and apprehensive Psychomotor: no tremors, no ataxia, no agitation or retardation. Speech: clear, mild delayed in response seems related to being internally preoccupied, spontaneous TP: linear TC: asking to go home Mood: not assessed Affect: constricted, normo-intense SI: none expressed HI: none expressed VH/AH: none expressed Delusions: none expressed Insight/judgment: poor x 2. Memory/cog: alert, oriented to place, month and year. vaguely to situation. MOCA completed score 8/30 with impairment in executive function/visuospatial (2/5), naming (2/3), attention (which suspects related to underlying psychosis), language flunce and repetition, recall, abstraction, orientation. Although do suspect underlying cognitive impairment, active psychosis may have affected some of the scores. ACL 4.2 Assessment & Plan Assessment & Plan (1) Schizophrenia: Status: Acute Qualifiers: Schizophrenia type: paranoid schizophrenia Qualified Code(s): F20.0 - Paranoid schizophrenia Code(s): F20.9 - Schizophrenia, unspecified Plan Ms. Encarnacion is a 74 year-old with hx of schizophrenia. She was initially admitted to S1 for increase AH in context of stopping clozaril. She was restarted on medication and titrated to 100mg po BID. She was transferred to medical floor due to sepsis in context of pneumonia. She was treated with ceftriaxone and doxycycline for 7 days. She had continued to report AH and CAH of not taking medications while on medical floor. On the unit, pt presents as very tired, fatigued and de-conditioned. She is now using walker to ambulate. She does not report SI/HI. She reports less AH, continues to take medications. I will recheck clozaril ratio on 03/26 was 3.9 shows decreased metabolism of clozapine maybe due to acute illness (ideal ratio is 1.32). PT consult ordered. Continue incentive spirometer. PLAN 1. Admit to S1, CV, 15 minutes checks for safety 2. will lower clozapine 100mg po daily and 50mg po qhs to avoid oversedation 3. lower depakote from 750mg po daily to 500mg po daily- also oversedation as she recovers from pneumonia. 4. aftercare planning Patient educated on: diagnosis and medication risk/benefits Reason for continued inpatient stay Substantial Risk for: inability to function Statement Statement: I have reviewed the history and physical and performed a pertinent examination on my patient. No changes have occurred unless specified. If the History and Physical was not performed prior to admission, the Hospitalist's service will be consulted for completing the admission physical. Time Spent With Patient Time: Total time managing care of this patient today ____ minutes.
--- NOTE | 2025-04-01 18:18 | PC.ADMIT ---
Pt is a 74 year old female with a history of schizophrenia, T2DM, and recent sepsis/pneumonia who was transfered to S1 from S3 (med surg floor) at 1245 on a CV. precipitants of admission iclude pt having auditory hallucinations and a decline in overall function. Pt endorses hearing voices telling her to not cry and seeing shadows. Pt endorses depression and anxiety but is unable to rate. Upon arrival to the unit pt is lethargic and sedated. Pt is on chlozoril but dose was held last night by the MD due to increased sedation. Pt is independent overall however uses a walker for ambulation d/t a recent hip fracture and recommendation of MD. Pt unable to sign legals or ROIs due to sedation. Skin check completed with no significant findings. Pt was intermittendly using oxygen while in the med surg floor due to O2 sats in the 80s.
[2025-04-01 20:00] VITALS: BP 108/50; PULSE 77; RESP 16; TEMP 36.4; O2SAT 91
[2025-04-01 20:46] LABS: Glucose, Whole Blood 138 mg/dL (60-115)
[2025-04-02 05:47] LABS: Glucose, Whole Blood 99 mg/dL (60-115)
[2025-04-02 08:00] VITALS: BP 125/58; PULSE 90; RESP 16; TEMP 36.4; O2SAT 95
[2025-04-02 08:58] LABS: Hemoglobin A1C 123.9055 umol/L; Total Hemoglobin (HGBA1C) 2733.5809 umol/L
[2025-04-02 09:02] LABS: Alanine Aminotransferase 24 U/L (0-31); Albumin Level 3.2 g/dL (3.5-5.0); Alkaline Phosphatase 75 U/L (39-117); Anion Gap 11 (12-20); Aspartate Amino Transferase 27 U/L (5-31); Blood Urea Nitrogen 14 mg/dL (9-16); Calcium 9.3 mg/dL (8.4-10.2); Carbon Dioxide 31 mmol/L (22-29); Chloride 100 mmol/L (96-108); Cholesterol 126 mg/dL (<200); Creatinine Clr Calc Pharmacy 46.7; Estimated Glomerular Filt Rate > 60; HDL Cholesterol 22 mg/dL (>40); Potassium 4.0 mmol/L (3.3-5.1); Sodium 138 mmol/L (135-145); Total Protein 6.3 g/dL (6.5-8.0); Triglycerides 117 mg/dL (<150)
[2025-04-02] MEDS: Fluticasone/Umeclidinium/Vilanterol 100/62.5/25 BLST.W.DEV 1 PUFF INHALE (09:24)
[2025-04-02] MEDS: Aspirin Enteric Coated 81 MG TABLET.DR PO (09:25)
[2025-04-02 09:31] LABS: Vitamin B12 561 pg/mL (200-900)
[2025-04-02 09:42] LABS: Thyroid Stimulating Hormone 2.50 uIU/mL (0.32-4.0)
--- NOTE | 2025-04-02 10:37 | HO.PM.IMCN ---
History of Present Illness Data of Consult Service Date: 04/02/25 Primary Care Provider: Unknown Physician HPI Reason for consult: Readmission to [facility] PNA 74-year-old female with a past medical history of hypertension, GERD, COPD, type 2 diabetes, anxiety and depression, CKD and schizophrenia and history of UTI she was initially brought to the ED by her son after experiencing auditory hallucinations and agitation and has been readmitted to Geripsych unit after treatment for bilateral pneumonia plus-minus UTI. She was treated with ceftriaxone and doxycycline for 7 days. Urine culture grew mixed alva, blood cultures were negative. CT chest showed bilateral patchy pneumonia. Sepsis resolved, patient has been afebrile, leukocytosis improving. Patient had left hip pain, x-ray showed traumatic deformity of superior and inferior left pubic rami without acute fracture or dislocation. Weight-bearing as tolerated. Review of Systems Review of Systems: Denies any shortness of breath, chest pain, dizziness, lightheadedness, abdominal pain or discomfort, nausea vomiting or diarrhea PMFSH Social History Household Members: None Housing: Apartment Housing Other:: federal building Do you presently have visiting nurse or other home services: Yes Patient Tobacco Use Status: Former Tobacco user Tobacco use type: Cigarette Cigarette Packs Per Day: 1 Years Smoked: 45 e-Cigarette/Vaping Use: Never Used Second Hand Smoke Exposure: No Currently Displaying Signs/Symptoms of Drug Intoxication Withdrawal: No Have you been hit, kicked, punched, or otherwise hurt by someone within the past year? If so, by whom?: No Do you feel safe in your current relationship?: No Is there a partner from a previous relationship who is making you feel unsafe now?: No Are you made to feel afraid or neglected: No Spiritual Healthcare Practices: none Yazdanism Healthcare Practices: none Cultural Healthcare Practices: none Advance Directives: No Advance Directives Information Provided: Yes Do you have thoughts of harming others: None Do you have a plan to hurt others: No Plan Recently lost weight without trying: No How much weight loss: Not applicable Eating poorly because of decreased appetite: No Nutrition screen score: 0 Nutrition Risks: No Nutritional Risk Patient : No : No Poor oral hygiene: No service: No Sexual orientation: Straight/Heterosexual Meds Allergies Allergy/AdvReac Type Severity Reaction Status Date / Time Iodinated Contrast Media Allergy Severe hives Verified 03/13/25 11:42 Penicillins Allergy Severe Unknown Verified 03/13/25 11:42 lactose AdvReac Intermediate loose stool Verified 03/13/25 11:42 lisinopril AdvReac Intermediate Cough Verified 03/13/25 11:42 succinylcholine AdvReac Unknown Unknown Verified 03/13/25 11:42 [From Anectine] Active Medications: Current Medications Acetaminophen (Acetaminophen 325 Mg Tablet) 650 mg PO Q6H PRN PRN Reason: Headache/Pain, Scale 1-10 Al Hydroxide/Mg Hydroxide (Magnesium Hydrox/Alum Hydrox 30 Ml Oral.Susp) 30 ml PO Q6H PRN PRN Reason: Heartburn/Nausea Ascorbic Acid (Ascorbic Acid 250 Mg Tablet) 250 mg PO DAILY [facility] Last Admin: 04/02/25 09:25 Dose: 250 mg Aspirin (Aspirin Enteric Coated 81 Mg Tablet.Dr) 81 mg PO DAILY [facility] Last Admin: 04/02/25 09:25 Dose: 81 mg Atorvastatin Calcium (Atorvastatin Calcium 40 Mg Tablet) 40 mg PO BEDTIME [facility] Last Admin: 04/01/25 20:32 Dose: 40 mg Clozapine (Clozapine 100 Mg Tablet) 100 mg PO DAILY [facility] Last Admin: 04/02/25 09:25 Dose: 100 mg Clozapine (Clozapine 25 Mg Tablet) 50 mg PO BEDTIME [facility] Last Admin: 04/01/25 20:32 Dose: 50 mg Divalproex Sodium (Divalproex Sodium Er 500 Mg Tab.Er.24h) 500 mg PO DAILY [facility] Last Admin: 04/02/25 09:25 Dose: 500 mg Empagliflozin (Empagliflozin 25 Mg Tablet) 25 mg PO DAILY [facility] Last Admin: 04/02/25 09:26 Dose: 25 mg Ferrous Sulfate (Ferrous Sulfate 300 Mg/5 Ml Liquid) 300 mg PO DAILY [facility] Last Admin: 04/02/25 09:27 Dose: Not Given Fluticasone/Umeclidinium/Vilanterol (Fluticasone/Umeclidinium/Vilanterol 100/62.5/25 Blst.W.Dev) 1 puff INHALE RDAILY [facility] Last Admin: 04/02/25 09:24 Dose: 1 puff Loratadine (Loratadine 10 Mg Tablet) 10 mg PO DAILY [facility] Last Admin: 04/02/25 09:25 Dose: 10 mg Magnesium Hydroxide (Milk Of Magnesia 30 Ml Oral.Susp) 30 ml PO DAILY PRN PRN Reason: Constipation Nitroglycerin (Nitroglycerin 0.4 Mg Tab.Subl) 0.4 mg SUBLINGUAL Q5MX3 PRN PRN Reason: chest pain Omeprazole (Omeprazole 20 Mg Capsule.Dr) 20 mg PO DAILY@0700 [facility] Last Admin: 04/02/25 05:38 Dose: 20 mg Senna/Docusate Sodium (Sennosides/Docusate Sodium Tablet) 1 tab PO BID [facility] Last Admin: 04/02/25 09:25 Dose: 1 tab Trazodone HCl (Trazodone Hcl 50 Mg Tablet) 50 mg PO BEDTIME MRX1 PRN PRN Reason: Insomnia Home Medications ?Medication ?Instructions ?Recorded ?Confirmed ?Last Taken ?Type aluminum-mag hydroxide-simethicone 30 ml PO Q6H PRN Constipation 03/27/25 03/27/25 Unknown History 200 mg-200 mg-20 mg/5 mL oral susp magnesium hydroxide 400 mg/5 mL 400 mg PO Q6H PRN Heartburn/Nausea 03/27/25 03/27/25 Unknown History oral suspension (Milk of Magnesia) olanzapine 2.5 mg tablet 2.5 mg PO TID PRN Agitation 03/27/25 03/27/25 Unknown History Physical Exam Vital Signs and Narrative: Vital Signs: Last Vital Signs Temp 97.5 F 04/01/25 20:00 Pulse 77 04/01/25 20:00 Resp 16 04/01/25 20:00 BP 108/50 L 04/01/25 20:00 Pulse Ox 91 L 04/01/25 20:00 O2 Del Method Room Air 04/01/25 20:00 BMI result Body Mass Index 22.0 CONST: Alert and confused. In NAD. Well nourished, fatigued HEENT: Normocephalic, atraumatic, MMM, Eyes clear, Neck supple RESP: Lungs clear, RRR even and regular HEART:,RRR, S1, S2. No murmur, no edema GI:Abdomen Soft NT, ND. + BS times four :Deferred SKIN: Warm dry and intact, no visible lesions or rashes NEURO:CN II-XII Intact bilaterally, Sensation intact. Speech clear PSYCH: Normal affect Results Labs 04/02/25 07:36 Labs: Laboratory Results - last 24 hr 04/01/25 04/02/25 04/02/25 20:43 05:37 07:36 Anion Gap 11 L Estim Creat Clear Calc 46.7 Estimated GFR > 60 POC Glucose 138 H 99 Random Glucose 105 Estimat Average Glucose 134 Hemoglobin A1c % 6.3 H Calcium 9.3 Total Bilirubin 0.1 AST 27 ALT 24 Alkaline Phosphatase 75 Total Protein 6.3 L Albumin 3.2 L Triglycerides 117 Cholesterol 126 LDL Cholesterol, Calc 81 HDL Cholesterol 22 L Vitamin B12 561 TSH 2.50 Assessment and Plan (1) LLL pneumonia: Qualifiers: Pneumonia type: due to unspecified organism Qualified Code(s): J18.9 - Pneumonia, unspecified organism Status: Acute Plan 74-year-old female readmitted to [facility] psych floor after bilateral pneumonia, treated with a 7 day course of ceftriaxone and doxy. Originally admitted for schizophrenia with auditory hallucinations, she returns to [facility] for continued treatment. Paranoid schizophrenia with auditory hallucinations Treatment per psychiatry team. Bilateral pneumonia Received 7 day course of ceftriaxone and Doxy Patient should have repeat CT chest in about 1 month. Mobilize patient, follow labs. 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 Type 2 diabetes with chronic kidney disease stage 3 Renally dose all meds. Continue Jardiance Consistent carbohydrate diet Hypertension Blood pressure has been low normal and Aldactone has been discontinued. COPD Continue Trelegy
[2025-04-02 13:08] LABS: Glucose, Whole Blood 138 mg/dL (60-115)
--- NOTE | 2025-04-02 16:38 | HO.PSYCHPN ---
Subjective Subjective Date of Service: 04/02/25 Reason For Visit: Paranoia Subjective Notes: Conditional Voluntary Interim History: Pt slept all night. She continues to present as very tired, mostly in bed. She reports feeling tired and weak. She denies SI/HI. She reports less AH. She has continued taking medications. continue incentive spirometer, encourage proper hydration and ambulation during the day. Review of Systems Review of Systems Denies any shortness of breath, chest pain, dizziness, lightheadedness, abdominal pain or discomfort, nausea vomiting or diarrhea Mental Status Exam Mental Status Exam Narrative: Appearance: wearing hospital gown, fair hygiene, in NAD behavior: somewhat guarded and apprehensive Psychomotor: no tremors, no ataxia, no agitation or retardation. Speech: clear, mild delayed in response seems related to being internally preoccupied, spontaneous TP: linear TC: asking to go home Mood: not assessed Affect: constricted, normo-intense SI: none expressed HI: none expressed VH/AH: none expressed Delusions: none expressed Insight/judgment: poor x 2. Memory/cog: alert, oriented to place, month and year. vaguely to situation. MOCA completed score 8/30 with impairment in executive function/visuospatial (2/5), naming (2/3), attention (which suspects related to underlying psychosis), language flunce and repetition, recall, abstraction, orientation. Although do suspect underlying cognitive impairment, active psychosis may have affected some of the scores. ACL 4.2 Diagnostics Vital Signs (24Hr): Vital Signs - 24 hr 04/01/25 20:00 04/02/25 08:00 Temperature 97.5 F 97.5 F Pulse Rate 77 90 Respiratory Rate 16 16 Blood Pressure 108/50 L 125/58 L Pulse Oximetry 91 L 95 Oxygen Delivery Method Room Air Room Air BMI result Body Mass Index 22.0 Labs 04/02/25 07:36 Labs: Laboratory Results - last 48 hr 04/01/25 04/02/25 04/02/25 20:43 05:37 07:36 Sodium 138 Potassium 4.0 Chloride 100 Carbon Dioxide 31 H Anion Gap 11 L BUN 14 Creatinine 0.77 Estim Creat Clear Calc 46.7 Estimated GFR > 60 POC Glucose 138 H 99 Random Glucose 105 Estimat Average Glucose 134 Hemoglobin A1c % 6.3 H Calcium 9.3 Total Bilirubin 0.1 AST 27 ALT 24 Alkaline Phosphatase 75 Total Protein 6.3 L Albumin 3.2 L Triglycerides 117 Cholesterol 126 LDL Cholesterol, Calc 81 HDL Cholesterol 22 L Vitamin B12 561 TSH 2.50 04/02/25 12:59 Sodium Potassium Chloride Carbon Dioxide Anion Gap BUN Creatinine Estim Creat Clear Calc Estimated GFR POC Glucose 138 H Random Glucose Estimat Average Glucose Hemoglobin A1c % Calcium Total Bilirubin AST ALT Alkaline Phosphatase Total Protein Albumin Triglycerides Cholesterol LDL Cholesterol, Calc HDL Cholesterol Vitamin B12 TSH Medications Medications Current Medications Acetaminophen (Acetaminophen 325 Mg Tablet) 650 mg PO Q6H PRN PRN Reason: Headache/Pain, Scale 1-10 Last Admin: 04/02/25 16:18 Dose: 650 mg Al Hydroxide/Mg Hydroxide (Magnesium Hydrox/Alum Hydrox 30 Ml Oral.Susp) 30 ml PO Q6H PRN PRN Reason: Heartburn/Nausea Ascorbic Acid (Ascorbic Acid 250 Mg Tablet) 250 mg PO DAILY [facility] Last Admin: 04/02/25 09:25 Dose: 250 mg Aspirin (Aspirin Enteric Coated 81 Mg Tablet.Dr) 81 mg PO DAILY [facility] Last Admin: 04/02/25 09:25 Dose: 81 mg Atorvastatin Calcium (Atorvastatin Calcium 40 Mg Tablet) 40 mg PO BEDTIME [facility] Last Admin: 04/01/25 20:32 Dose: 40 mg Clozapine (Clozapine 100 Mg Tablet) 100 mg PO DAILY [facility] Last Admin: 04/02/25 09:25 Dose: 100 mg Clozapine (Clozapine 25 Mg Tablet) 50 mg PO BEDTIME [facility] Last Admin: 04/01/25 20:32 Dose: 50 mg Divalproex Sodium (Divalproex Sodium Er 500 Mg Tab.Er.24h) 500 mg PO DAILY [facility] Last Admin: 04/02/25 09:25 Dose: 500 mg Empagliflozin (Empagliflozin 25 Mg Tablet) 25 mg PO DAILY [facility] Last Admin: 04/02/25 09:26 Dose: 25 mg Ferrous Sulfate (Ferrous Sulfate 300 Mg/5 Ml Liquid) 300 mg PO DAILY [facility] Last Admin: 04/02/25 09:27 Dose: Not Given Fluticasone/Umeclidinium/Vilanterol (Fluticasone/Umeclidinium/Vilanterol 100/62.5/25 Blst.W.Dev) 1 puff INHALE RDAILY [facility] Last Admin: 04/02/25 09:24 Dose: 1 puff Loratadine (Loratadine 10 Mg Tablet) 10 mg PO DAILY [facility] Last Admin: 04/02/25 09:25 Dose: 10 mg Magnesium Hydroxide (Milk Of Magnesia 30 Ml Oral.Susp) 30 ml PO DAILY PRN PRN Reason: Constipation Nitroglycerin (Nitroglycerin 0.4 Mg Tab.Subl) 0.4 mg SUBLINGUAL Q5MX3 PRN PRN Reason: chest pain Omeprazole (Omeprazole 20 Mg Capsule.Dr) 20 mg PO DAILY@0700 [facility] Last Admin: 04/02/25 05:38 Dose: 20 mg Senna/Docusate Sodium (Sennosides/Docusate Sodium Tablet) 1 tab PO BID [facility] Last Admin: 04/02/25 09:25 Dose: 1 tab Trazodone HCl (Trazodone Hcl 50 Mg Tablet) 50 mg PO BEDTIME MRX1 PRN PRN Reason: Insomnia Allergies Allergies Allergy/AdvReac Type Severity Reaction Status Date / Time Iodinated Contrast Media Allergy Severe hives Verified 03/13/25 11:42 Penicillins Allergy Severe Unknown Verified 03/13/25 11:42 lactose AdvReac Intermediate loose stool Verified 03/13/25 11:42 lisinopril AdvReac Intermediate Cough Verified 03/13/25 11:42 succinylcholine AdvReac Unknown Unknown Verified 03/13/25 11:42 [From Anectine] Assessment & Plan Assessment & Plan (1) Schizophrenia: Qualifiers: Schizophrenia type: paranoid schizophrenia Qualified Code(s): F20.0 - Paranoid schizophrenia Status: Acute Code(s): F20.9 - Schizophrenia, unspecified Plan Ms. Encarnacion is a 74 year-old with hx of schizophrenia. She was initially admitted to for increase AH in context of stopping clozaril. She was restarted on medication and titrated to 100mg po BID. She was transferred to medical floor due to sepsis in context of pneumonia. She was treated with ceftriaxone and doxycycline for 7 days. She had continued to report AH and CAH of not taking medications while on medical floor. On the unit, pt presents as very tired, fatigued and de-conditioned. She is now using walker to ambulate. She does not report SI/HI. She reports less AH, continues to take medications. I will recheck clozaril ratio on 03/26 was 3.9 shows decreased metabolism of clozapine maybe due to acute illness (ideal ratio is 1.32). PT consult ordered. Continue incentive spirometer. PLAN 04/02 continue tx. Reason for continued inpatient stay Substantial Risk for: inability to function Time Spent With Patient Time: Total time managing care of this patient today ____ minutes.
[2025-04-02 19:56] LABS: Glucose, Whole Blood 139 mg/dL (60-115)
[2025-04-02 20:00] VITALS: BP 107/55; PULSE 79; RESP 18; TEMP 36.3; O2SAT 95
[2025-04-03 07:00] LABS: Glucose, Whole Blood 115 mg/dL (60-115)
[2025-04-03 08:00] VITALS: BP 120/59; PULSE 72; RESP 16; TEMP 36.7; O2SAT 94
[2025-04-03 08:20] LABS: Neut%MD 59.0 %; WBCANC 11.7 X10*3/uL
[2025-04-03] MEDS: Fluticasone/Umeclidinium/Vilanterol 100/62.5/25 BLST.W.DEV 1 PUFF INHALE (08:47)
[2025-04-03] MEDS: Aspirin Enteric Coated 81 MG TABLET.DR PO (08:48)
[2025-04-03 10:23] LABS: Glucose, Whole Blood 119 mg/dL (60-115)
[2025-04-03 20:00] VITALS: BP 121/57; PULSE 78; RESP 18; TEMP 36.8; O2SAT 94
--- NOTE | 2025-04-03 20:41 | P.PNPSI_ITS ---
Subjective Subjective Date of Service: 04/03/25 Reason For Visit: Paranoia Subjective Notes: Conditional Voluntary Interim History: Pt slept all night. Pt presents as less tired more visible, somewhat irritable. She is guarded about voices. She reports they continue there but she tries to ignore them. She denies SI/HI. She is worried that she is going to fall and using walker. Medication Compliance: Yes Review of Systems Review of Systems Denies any shortness of breath, chest pain, dizziness, lightheadedness, abdominal pain or discomfort, nausea vomiting or diarrhea Mental Status Exam Mental Status Exam Narrative: Appearance: wearing hospital gown, fair hygiene, in NAD behavior: somewhat guarded and apprehensive Psychomotor: no tremors, no ataxia, no agitation or retardation. Speech: clear, mild delayed in response seems related to being internally preoccupied, spontaneous TP: linear TC: asking to go home Mood: not assessed Affect: constricted, normo-intense SI: none expressed HI: none expressed VH/AH: none expressed Delusions: none expressed Insight/judgment: poor x 2. Memory/cog: alert, oriented to place, month and year. vaguely to situation. MOCA completed score 8/30 with impairment in executive function/visuospatial (2/5), naming (2/3), attention (which suspects related to underlying psychosis), language flunce and repetition, recall, abstraction, orientation. Although do suspect underlying cognitive impairment, active psychosis may have affected some of the scores. ACL 4.2 Diagnostics Vital Signs (24Hr): Vital Signs - 24 hr 04/03/25 08:00 04/03/25 20:00 Temperature 98.1 F 98.2 F Pulse Rate 72 78 Respiratory Rate 16 18 Blood Pressure 120/59 L 121/57 L Pulse Oximetry 94 94 Oxygen Delivery Method Room Air Room Air BMI result Body Mass Index 22.0 Labs 04/04/25 07:23 04/04/25 07:23 Labs: Laboratory Results - last 48 hr 04/01/25 04/02/25 04/02/25 20:43 05:37 07:36 Absolute Neuts (auto) Sodium 138 Potassium 4.0 Chloride 100 Carbon Dioxide 31 H Anion Gap 11 L BUN 14 Creatinine 0.77 Estim Creat Clear Calc 46.7 Estimated GFR > 60 POC Glucose 138 H 99 Random Glucose 105 Estimat Average Glucose 134 Hemoglobin A1c % 6.3 H Calcium 9.3 Total Bilirubin 0.1 AST 27 ALT 24 Alkaline Phosphatase 75 Total Protein 6.3 L Albumin 3.2 L Triglycerides 117 Cholesterol 126 LDL Cholesterol, Calc 81 HDL Cholesterol 22 L Vitamin B12 561 TSH 2.50 04/02/25 04/02/25 04/03/25 12:59 19:51 06:56 Absolute Neuts (auto) Sodium Potassium Chloride Carbon Dioxide Anion Gap BUN Creatinine Estim Creat Clear Calc Estimated GFR POC Glucose 138 H 139 H 115 Random Glucose Estimat Average Glucose Hemoglobin A1c % Calcium Total Bilirubin AST ALT Alkaline Phosphatase Total Protein Albumin Triglycerides Cholesterol LDL Cholesterol, Calc HDL Cholesterol Vitamin B12 TSH 04/03/25 04/03/25 08:15 10:18 Absolute Neuts (auto) 6.9 Sodium Potassium Chloride Carbon Dioxide Anion Gap BUN Creatinine Estim Creat Clear Calc Estimated GFR POC Glucose 119 H Random Glucose Estimat Average Glucose Hemoglobin A1c % Calcium Total Bilirubin AST ALT Alkaline Phosphatase Total Protein Albumin Triglycerides Cholesterol LDL Cholesterol, Calc HDL Cholesterol Vitamin B12 TSH Medications Medications Current Medications Acetaminophen (Acetaminophen 325 Mg Tablet) 650 mg PO Q6H PRN PRN Reason: Headache/Pain, Scale 1-10 Last Admin: 04/02/25 16:18 Dose: 650 mg Al Hydroxide/Mg Hydroxide (Magnesium Hydrox/Alum Hydrox 30 Ml Oral.Susp) 30 ml PO Q6H PRN PRN Reason: Heartburn/Nausea Ascorbic Acid (Ascorbic Acid 250 Mg Tablet) 250 mg PO DAILY [facility] Last Admin: 04/03/25 08:48 Dose: 250 mg Aspirin (Aspirin Enteric Coated 81 Mg Tablet.Dr) 81 mg PO DAILY [facility] Last Admin: 04/03/25 08:48 Dose: 81 mg Atorvastatin Calcium (Atorvastatin Calcium 40 Mg Tablet) 40 mg PO BEDTIME [facility] Last Admin: 04/02/25 20:10 Dose: 40 mg Clozapine (Clozapine 100 Mg Tablet) 100 mg PO DAILY [facility] Last Admin: 04/03/25 08:48 Dose: 100 mg Clozapine (Clozapine 25 Mg Tablet) 50 mg PO BEDTIME [facility] Last Admin: 04/02/25 20:10 Dose: 50 mg Divalproex Sodium (Divalproex Sodium Er 500 Mg Tab.Er.24h) 500 mg PO DAILY [facility] Last Admin: 04/03/25 08:48 Dose: 500 mg Empagliflozin (Empagliflozin 25 Mg Tablet) 25 mg PO DAILY [facility] Last Admin: 04/03/25 08:48 Dose: 25 mg Ferrous Sulfate (Ferrous Sulfate 300 Mg/5 Ml Liquid) 300 mg PO DAILY [facility] Last Admin: 04/03/25 08:49 Dose: Not Given Fluticasone/Umeclidinium/Vilanterol (Fluticasone/Umeclidinium/Vilanterol 100/62.03/10 Blst.W.Dev) 1 puff INHALE RDAILY [facility] Last Admin: 04/03/25 08:47 Dose: 1 puff Loratadine (Loratadine 10 Mg Tablet) 10 mg PO DAILY [facility] Last Admin: 04/03/25 08:48 Dose: 10 mg Magnesium Hydroxide (Milk Of Magnesia 30 Ml Oral.Susp) 30 ml PO DAILY PRN PRN Reason: Constipation Nitroglycerin (Nitroglycerin 0.4 Mg Tab.Subl) 0.4 mg SUBLINGUAL Q5MX3 PRN PRN Reason: chest pain Omeprazole (Omeprazole 20 Mg Capsule.Dr) 20 mg PO DAILY@0700 [facility] Last Admin: 04/03/25 06:12 Dose: 20 mg Senna/Docusate Sodium (Sennosides/Docusate Sodium Tablet) 1 tab PO BID [facility] Last Admin: 04/03/25 08:49 Dose: 1 tab Trazodone HCl (Trazodone Hcl 50 Mg Tablet) 50 mg PO BEDTIME MRX1 PRN PRN Reason: Insomnia Last Admin: 04/02/25 20:10 Dose: 50 mg Allergies Allergies Allergy/AdvReac Type Severity Reaction Status Date / Time Iodinated Contrast Media Allergy Severe hives Verified 03/13/25 11:42 Penicillins Allergy Severe Unknown Verified 03/13/25 11:42 lactose AdvReac Intermediate loose stool Verified 03/13/25 11:42 lisinopril AdvReac Intermediate Cough Verified 03/13/25 11:42 succinylcholine (From AdvReac Unknown Unknown Verified 03/13/25 11:42 Anectine) Assessment & Plan Assessment & Plan (1) Schizophrenia: Qualifiers: Schizophrenia type: paranoid schizophrenia Qualified Code(s): F20.0 - Paranoid schizophrenia Status: Acute Code(s): F20.9 - Schizophrenia, unspecified Plan Ms. Encarnacion is a 74 year-old with hx of schizophrenia. She was initially admitted to for increase AH in context of stopping clozaril. She was restarted on medication and titrated to 100mg po BID. She was transferred to medical floor due to sepsis in context of pneumonia. She was treated with ceftriaxone and doxycycline for 7 days. She had continued to report AH and CAH of not taking medications while on medical floor. On the unit, pt presents as very tired, fatigued and de-conditioned. She is now using walker to ambulate. She does not report SI/HI. She reports less AH, continues to take medications. I will recheck clozaril ratio on 03/26 was 3.9 shows decreased metabolism of clozapine maybe due to acute illness (ideal ratio is 1.32). PT consult ordered. Continue incentive spirometer. PLAN 04/02 continue tx. 04/03 continue tx. will check ortho VS. Reason for continued inpatient stay Substantial Risk for: inability to function Time Spent With Patient Time: Total time managing care of this patient today ____ minutes.
[2025-04-03 20:44] LABS: Glucose, Whole Blood 127 mg/dL (60-115)
[2025-04-04 06:47] LABS: Glucose, Whole Blood 87 mg/dL (60-115)
[2025-04-04 08:00] VITALS: BP 115/56; PULSE 80; RESP 16; TEMP 36.1; O2SAT 94
[2025-04-04 08:11] LABS: MANUAL DIFF FLAG NO
[2025-04-04 08:15] LABS: Hematocrit 34.6 % (37.0-47.0); Hemoglobin 11.1 g/dl (12.0-16.0); Imm Gran Abs Auto 0.57 X10*3/uL (0.00-0.03); Imm Gran Pct Auto 4.8 % (0.0-0.4); Lymphocytes Absolute Auto 2.4 X10*3/uL (1.2-4.9); Mean Corpuscular HGB Conc 32.1 g/dl (31.0-35.0); Mean Corpuscular Hemoglobin 32.6 pg (27.0-33.0); Mean Corpuscular Volume 101.5 fL (80.0-98.0); NRBC Abs Auto 0.000 X10*3/uL (0.0-0.012); NRBC Pct Auto 0.0 /100WBC (0.0-0.2); Platelet Count 476 X10*3/uL (160-400); Red Blood Count 3.41 X10*6/uL (4.20-5.50); White Blood Count 11.8 X10*3/uL (4.8-10.8)
[2025-04-04 08:28] LABS: Anion Gap 13 (12-20); Blood Urea Nitrogen 11 mg/dL (9-16); Calcium 9.3 mg/dL (8.4-10.2); Carbon Dioxide 31 mmol/L (22-29); Chloride 101 mmol/L (96-108); Creatinine Clr Calc Pharmacy 46.7; Estimated Glomerular Filt Rate > 60; Potassium 4.6 mmol/L (3.3-5.1); Sodium 140 mmol/L (135-145)
[2025-04-04] MEDS: Fluticasone/Umeclidinium/Vilanterol 100/62.5/25 BLST.W.DEV 1 PUFF INHALE (09:29)
[2025-04-04] MEDS: Aspirin Enteric Coated 81 MG TABLET.DR PO (09:30)
[2025-04-04 11:10] LABS: Glucose, Whole Blood 111 mg/dL (60-115)
[2025-04-04 13:49] VITALS: BMI 34.6
[2025-04-04] MEDS: Ferrous Sulfate 324 MG TABLET.DR PO (15:39)
[2025-04-04 20:00] VITALS: BP 125/59; PULSE 74; RESP 18; TEMP 36.4; O2SAT 94
--- NOTE | 2025-04-04 21:41 | HO.PSYCHPN ---
Subjective Subjective Date of Service: 04/04/25 Reason For Visit: Paranoia Subjective Notes: Conditional Voluntary Interim History: Pt slept all night. Less tired, more awake and visible on the unit. She was very irritable this morning, upset about not being able to get pancakes due to reported lactose intolerance. deleted lactose intolerance from allergy list. Pt reports voices continue to bother her, not fully forthcoming about content of AH. She reports they do tell her at times that she should not take medications but she reports she continues to take them. She was tearful reporting she misses her family, especially her son and hopes to see them soon. Review of Systems Review of Systems Denies any shortness of breath, chest pain, dizziness, lightheadedness, abdominal pain or discomfort, nausea vomiting or diarrhea Mental Status Exam Mental Status Exam Narrative: Appearance: wearing hospital gown, fair hygiene, in NAD behavior: somewhat guarded and apprehensive Psychomotor: no tremors, no ataxia, no agitation or retardation. Speech: clear, mild delayed in response seems related to being internally preoccupied, spontaneous TP: linear TC: asking to go home Mood: not assessed Affect: constricted, normo-intense SI: none expressed HI: none expressed VH/AH: none expressed Delusions: none expressed Insight/judgment: poor x 2. Memory/cog: alert, oriented to place, month and year. vaguely to situation. MOCA completed score 8/30 with impairment in executive function/visuospatial (2/5), naming (2/3), attention (which suspects related to underlying psychosis), language flunce and repetition, recall, abstraction, orientation. Although do suspect underlying cognitive impairment, active psychosis may have affected some of the scores. ACL 4.2 Diagnostics Vital Signs (24Hr): Vital Signs - 24 hr 04/04/25 08:00 04/04/25 20:00 Temperature 97 F 97.5 F Pulse Rate 80 74 Respiratory Rate 16 18 Blood Pressure 115/56 L 125/59 L Pulse Oximetry 94 94 Oxygen Delivery Method Room Air Room Air BMI result Body Mass Index 34.6 Labs 04/04/25 07:23 04/04/25 07:23 Labs: Laboratory Results - last 48 hr 04/03/25 04/03/25 04/03/25 06:56 08:15 10:18 WBC RBC Hgb Hct MCV MCH MCHC RDW Plt Count MPV Immature Gran % (Auto) Neut % (Auto) Lymph % (Auto) Dickens % (Auto) Eos % (Auto) Baso % (Auto) Lymph # (Auto) Dickens # (Auto) Eos # (Auto) Baso # (Auto) Abs Immat Gran (auto) Absolute Neuts (auto) 6.9 Absolute Nucleated RBC Nucleated RBC % (auto) Sodium Potassium Chloride Carbon Dioxide Anion Gap BUN Creatinine Estim Creat Clear Calc Estimated GFR POC Glucose 115 119 H Random Glucose Calcium 04/03/25 04/04/25 04/04/25 20:39 06:37 07:23 WBC 11.8 H RBC 3.41 L Hgb 11.1 L Hct 34.6 L MCV 101.5 H MCH 32.6 MCHC 32.1 RDW 13.4 Plt Count 476 H D MPV 9.6 Immature Gran % (Auto) 4.8 H Neut % (Auto) 60.5 Lymph % (Auto) 20.3 Dickens % (Auto) 6.6 Eos % (Auto) 7.0 H Baso % (Auto) 0.8 Lymph # (Auto) 2.4 Dickens # (Auto) 0.8 Eos # (Auto) 0.8 H Baso # (Auto) 0.1 Abs Immat Gran (auto) 0.57 H Absolute Neuts (auto) 7.1 Absolute Nucleated RBC 0.000 Nucleated RBC % (auto) 0.0 Sodium 140 Potassium 4.6 Chloride 101 Carbon Dioxide 31 H Anion Gap 13 BUN 11 Creatinine 0.77 Estim Creat Clear Calc 46.7 Estimated GFR > 60 POC Glucose 127 H 87 Random Glucose 99 Calcium 9.3 04/04/25 11:04 WBC RBC Hgb Hct MCV MCH MCHC RDW Plt Count MPV Immature Gran % (Auto) Neut % (Auto) Lymph % (Auto) Dickens % (Auto) Eos % (Auto) Baso % (Auto) Lymph # (Auto) Dickens # (Auto) Eos # (Auto) Baso # (Auto) Abs Immat Gran (auto) Absolute Neuts (auto) Absolute Nucleated RBC Nucleated RBC % (auto) Sodium Potassium Chloride Carbon Dioxide Anion Gap BUN Creatinine Estim Creat Clear Calc Estimated GFR POC Glucose 111 Random Glucose Calcium Medications Medications Current Medications Acetaminophen (Acetaminophen 325 Mg Tablet) 650 mg PO Q6H PRN PRN Reason: Headache/Pain, Scale 1-10 Last Admin: 04/02/25 16:18 Dose: 650 mg Al Hydroxide/Mg Hydroxide (Magnesium Hydrox/Alum Hydrox 30 Ml Oral.Susp) 30 ml PO Q6H PRN PRN Reason: Heartburn/Nausea Ascorbic Acid (Ascorbic Acid 250 Mg Tablet) 250 mg PO DAILY [facility] Last Admin: 04/04/25 09:30 Dose: 250 mg Aspirin (Aspirin Enteric Coated 81 Mg Tablet.) 81 mg PO DAILY [facility] Last Admin: 04/04/25 09:30 Dose: 81 mg Atorvastatin Calcium (Atorvastatin Calcium 40 Mg Tablet) 40 mg PO BEDTIME [facility] Last Admin: 04/04/25 20:33 Dose: 40 mg Clozapine (Clozapine 100 Mg Tablet) 100 mg PO DAILY [facility] Last Admin: 04/04/25 09:30 Dose: 100 mg Clozapine (Clozapine 25 Mg Tablet) 50 mg PO BEDTIME [facility] Last Admin: 04/04/25 20:33 Dose: 50 mg Divalproex Sodium (Divalproex Sodium Er 500 Mg Tab.Er.24h) 500 mg PO DAILY [facility] Last Admin: 04/04/25 09:29 Dose: 500 mg Empagliflozin (Empagliflozin 25 Mg Tablet) 25 mg PO DAILY [facility] Last Admin: 04/04/25 09:30 Dose: 25 mg Ferrous Sulfate (Ferrous Sulfate 324 Mg Tablet.) 324 mg PO DAILY [facility] Last Admin: 04/04/25 15:39 Dose: 324 mg Fluticasone/Umeclidinium/Vilanterol (Fluticasone/Umeclidinium/Vilanterol 100/62.5/25 Blst.W.Dev) 1 puff INHALE RDAILY [facility] Last Admin: 04/04/25 09:29 Dose: 1 puff Loratadine (Loratadine 10 Mg Tablet) 10 mg PO DAILY [facility] Last Admin: 04/04/25 09:29 Dose: 10 mg Magnesium Hydroxide (Milk Of Magnesia 30 Ml Oral.Susp) 30 ml PO DAILY PRN PRN Reason: Constipation Nitroglycerin (Nitroglycerin 0.4 Mg Tab.Subl) 0.4 mg SUBLINGUAL Q5MX3 PRN PRN Reason: chest pain Omeprazole (Omeprazole 20 Mg Capsule.) 20 mg PO DAILY@0700 [facility] Last Admin: 04/04/25 06:14 Dose: 20 mg Senna/Docusate Sodium (Sennosides/Docusate Sodium Tablet) 1 tab PO BID [facility] Last Admin: 04/04/25 20:33 Dose: 1 tab Trazodone HCl (Trazodone Hcl 50 Mg Tablet) 50 mg PO BEDTIME MRX1 PRN PRN Reason: Insomnia Last Admin: 04/04/25 20:33 Dose: 50 mg Allergies Allergies Allergy/AdvReac Type Severity Reaction Status Date / Time Iodinated Contrast Media Allergy Severe hives Verified 03/13/25 11:42 Penicillins Allergy Severe Unknown Verified 03/13/25 11:42 lisinopril AdvReac Intermediate Cough Verified 03/13/25 11:42 succinylcholine (From AdvReac Unknown Unknown Verified 03/13/25 11:42 Anectine) Assessment & Plan Assessment & Plan (1) Schizophrenia: Qualifiers: Schizophrenia type: paranoid schizophrenia Qualified Code(s): F20.0 - Paranoid schizophrenia Status: Acute Code(s): F20.9 - Schizophrenia, unspecified Plan Ms. Encarnacion is a 74 year-old with hx of schizophrenia. She was initially admitted to S1 for increase AH in context of stopping clozaril. She was restarted on medication and titrated to 100mg po BID. She was transferred to medical floor due to sepsis in context of pneumonia. She was treated with ceftriaxone and doxycycline for 7 days. She had continued to report AH and CAH of not taking medications while on medical floor. On the unit, pt presents as very tired, fatigued and de-conditioned. She is now using walker to ambulate. She does not report SI/HI. She reports less AH, continues to take medications. I will recheck clozaril ratio on 03/26 was 3.9 shows decreased metabolism of clozapine maybe due to acute illness (ideal ratio is 1.32). PT consult ordered. Continue incentive spirometer. PLAN 04/02 continue tx. 04/03 continue tx 04/04 continue tx. Reason for continued inpatient stay Substantial Risk for: inability to function Time Spent With Patient Time: Total time managing care of this patient today ____ minutes.
[2025-04-05 06:11] LABS: Glucose, Whole Blood 111 mg/dL (60-115)
[2025-04-05 08:00] VITALS: BP 102/45; PULSE 83; RESP 14; TEMP 36.6; O2SAT 93
[2025-04-05] MEDS: Ferrous Sulfate 324 MG TABLET.DR PO (08:37)
[2025-04-05] MEDS: Fluticasone/Umeclidinium/Vilanterol 100/62.5/25 BLST.W.DEV 1 PUFF INHALE (08:37)
[2025-04-05] MEDS: Aspirin Enteric Coated 81 MG TABLET.DR PO (08:39)
--- NOTE | 2025-04-05 09:00 | HO.PSYCHPN ---
Subjective Subjective Date of Service: 04/05/25 Reason For Visit: Paranoia Subjective Notes: Conditional Voluntary Interim History: Pt slept through the night. She is has been more visible. She reports feeling better. She does miss her son and becomes tearful when talking about him. She denies voices telling her things that are scary or disturbing, but she has also been not fully forthcoming with extend of delusions. Review of Systems Review of Systems Denies any shortness of breath, chest pain, dizziness, lightheadedness, abdominal pain or discomfort, nausea vomiting or diarrhea Mental Status Exam Mental Status Exam Narrative: Appearance: wearing hospital gown, fair hygiene, in NAD behavior: somewhat guarded and apprehensive Psychomotor: no tremors, no ataxia, no agitation or retardation. Speech: clear, mild delayed in response seems related to being internally preoccupied, spontaneous TP: linear TC: asking to go home Mood: not assessed Affect: constricted, normo-intense SI: none expressed HI: none expressed VH/AH: none expressed Delusions: none expressed Insight/judgment: poor x 2. Memory/cog: alert, oriented to place, month and year. vaguely to situation. MOCA completed score 8/30 with impairment in executive function/visuospatial (2/5), naming (2/3), attention (which suspects related to underlying psychosis), language flunce and repetition, recall, abstraction, orientation. Although do suspect underlying cognitive impairment, active psychosis may have affected some of the scores. ACL 4.2 Diagnostics Vital Signs (24Hr): Vital Signs - 24 hr 04/04/25 20:00 04/05/25 08:00 Temperature 97.5 F 98 F Pulse Rate 74 83 Respiratory Rate 18 14 Blood Pressure 125/59 L 102/45 L Pulse Oximetry 94 93 Oxygen Delivery Method Room Air Room Air BMI result Body Mass Index 34.6 Labs 04/04/25 07:23 04/04/25 07:23 Labs: Laboratory Results - last 48 hr 04/03/25 04/03/25 04/04/25 10:18 20:39 06:37 WBC RBC Hgb Hct MCV MCH MCHC RDW Plt Count MPV Immature Gran % (Auto) Neut % (Auto) Lymph % (Auto) Baker % (Auto) Eos % (Auto) Baso % (Auto) Lymph # (Auto) Baker # (Auto) Eos # (Auto) Baso # (Auto) Abs Immat Gran (auto) Absolute Neuts (auto) Absolute Nucleated RBC Nucleated RBC % (auto) Sodium Potassium Chloride Carbon Dioxide Anion Gap BUN Creatinine Estim Creat Clear Calc Estimated GFR POC Glucose 119 H 127 H 87 Random Glucose Calcium 04/04/25 04/04/25 04/05/25 07:23 11:04 06:06 WBC 11.8 H RBC 3.41 L Hgb 11.1 L Hct 34.6 L MCV 101.5 H MCH 32.6 MCHC 32.1 RDW 13.4 Plt Count 476 H D MPV 9.6 Immature Gran % (Auto) 4.8 H Neut % (Auto) 60.5 Lymph % (Auto) 20.3 Baker % (Auto) 6.6 Eos % (Auto) 7.0 H Baso % (Auto) 0.8 Lymph # (Auto) 2.4 Baker # (Auto) 0.8 Eos # (Auto) 0.8 H Baso # (Auto) 0.1 Abs Immat Gran (auto) 0.57 H Absolute Neuts (auto) 7.1 Absolute Nucleated RBC 0.000 Nucleated RBC % (auto) 0.0 Sodium 140 Potassium 4.6 Chloride 101 Carbon Dioxide 31 H Anion Gap 13 BUN 11 Creatinine 0.77 Estim Creat Clear Calc 46.7 Estimated GFR > 60 POC Glucose 111 111 Random Glucose 99 Calcium 9.3 Medications Medications Current Medications Acetaminophen (Acetaminophen 325 Mg Tablet) 650 mg PO Q6H PRN PRN Reason: Headache/Pain, Scale 1-10 Last Admin: 04/02/25 16:18 Dose: 650 mg Al Hydroxide/Mg Hydroxide (Magnesium Hydrox/Alum Hydrox 30 Ml Oral.Susp) 30 ml PO Q6H PRN PRN Reason: Heartburn/Nausea Ascorbic Acid (Ascorbic Acid 250 Mg Tablet) 250 mg PO DAILY [facility] Last Admin: 04/05/25 08:39 Dose: 250 mg Aspirin (Aspirin Enteric Coated 81 Mg Tablet.) 81 mg PO DAILY [facility] Last Admin: 04/05/25 08:39 Dose: 81 mg Atorvastatin Calcium (Atorvastatin Calcium 40 Mg Tablet) 40 mg PO BEDTIME [facility] Last Admin: 04/04/25 20:33 Dose: 40 mg Clozapine (Clozapine 100 Mg Tablet) 100 mg PO DAILY [facility] Last Admin: 04/05/25 08:40 Dose: 100 mg Clozapine (Clozapine 25 Mg Tablet) 50 mg PO BEDTIME [facility] Last Admin: 04/04/25 20:33 Dose: 50 mg Divalproex Sodium (Divalproex Sodium Er 500 Mg Tab.Er.24h) 500 mg PO DAILY [facility] Last Admin: 04/05/25 08:38 Dose: 500 mg Empagliflozin (Empagliflozin 25 Mg Tablet) 25 mg PO DAILY [facility] Last Admin: 04/05/25 08:40 Dose: 25 mg Ferrous Sulfate (Ferrous Sulfate 324 Mg Tablet.) 324 mg PO DAILY [facility] Last Admin: 04/05/25 08:37 Dose: 324 mg Fluticasone/Umeclidinium/Vilanterol (Fluticasone/Umeclidinium/Vilanterol 100/62.5/ Blst.W.Dev) 1 puff INHALE RDAILY [facility] Last Admin: 04/05/25 08:37 Dose: 1 puff Loratadine (Loratadine 10 Mg Tablet) 10 mg PO DAILY [facility] Last Admin: 04/04/25 09:29 Dose: 10 mg Magnesium Hydroxide (Milk Of Magnesia 30 Ml Oral.Susp) 30 ml PO DAILY PRN PRN Reason: Constipation Nitroglycerin (Nitroglycerin 0.4 Mg Tab.Subl) 0.4 mg SUBLINGUAL Q5MX3 PRN PRN Reason: chest pain Omeprazole (Omeprazole 20 Mg Capsule.) 20 mg PO DAILY@0700 [facility] Last Admin: 04/05/25 06:00 Dose: 20 mg Senna/Docusate Sodium (Sennosides/Docusate Sodium Tablet) 1 tab PO BID [facility] Last Admin: 04/05/25 08:38 Dose: 1 tab Trazodone HCl (Trazodone Hcl 50 Mg Tablet) 50 mg PO BEDTIME MRX1 PRN PRN Reason: Insomnia Last Admin: 04/04/25 20:33 Dose: 50 mg Allergies Allergies Allergy/AdvReac Type Severity Reaction Status Date / Time Iodinated Contrast Media Allergy Severe hives Verified 03/13/25 11:42 Penicillins Allergy Severe Unknown Verified 03/13/25 11:42 lisinopril AdvReac Intermediate Cough Verified 03/13/25 11:42 succinylcholine (From AdvReac Unknown Unknown Verified 03/13/25 11:42 Anectine) Assessment & Plan Assessment & Plan (1) Schizophrenia: Qualifiers: Schizophrenia type: paranoid schizophrenia Qualified Code(s): F20.0 - Paranoid schizophrenia Status: Acute Code(s): F20.9 - Schizophrenia, unspecified Plan Ms. Encarnacion is a 74 year-old with hx of schizophrenia. She was initially admitted to S1 for increase AH in context of stopping clozaril. She was restarted on medication and titrated to 100mg po BID. She was transferred to medical floor due to sepsis in context of pneumonia. She was treated with ceftriaxone and doxycycline for 7 days. She had continued to report AH and CAH of not taking medications while on medical floor. On the unit, pt presents as very tired, fatigued and de-conditioned. She is now using walker to ambulate. She does not report SI/HI. She reports less AH, continues to take medications. I will recheck clozaril ratio on 03/26 was 3.9 shows decreased metabolism of clozapine maybe due to acute illness (ideal ratio is 1.32). PT consult ordered. Continue incentive spirometer. PLAN 04/02 continue tx. 04/03 continue tx 04/04 continue tx. 04/05 continue tx. Reason for continued inpatient stay Substantial Risk for: inability to function Time Spent With Patient Time: Total time managing care of this patient today ____ minutes.
[2025-04-05 12:19] LABS: Clozapine (Clozaril) 595 mcg/L
[2025-04-05 20:00] VITALS: BP 141/87; PULSE 99; RESP 18; TEMP 37; O2SAT 93
[2025-04-05] MEDS: Magnesium Hydrox/Alum Hydrox 30 ML ORAL.SUSP PO (21:40)
[2025-04-05 22:10] LABS: Glucose, Whole Blood 151 mg/dL (60-115)
[2025-04-06 06:33] LABS: Glucose, Whole Blood 107 mg/dL (60-115)
[2025-04-06 08:15] VITALS: BP 118/59; PULSE 85; RESP 19; TEMP 36.8; O2SAT 94
[2025-04-06 08:25] VITALS: BP 118/59; PULSE 85; RESP 21; TEMP 36.8; O2SAT 94
[2025-04-06] MEDS: Fluticasone/Umeclidinium/Vilanterol 100/62.5/25 BLST.W.DEV 1 PUFF INHALE (09:38)
[2025-04-06] MEDS: Aspirin Enteric Coated 81 MG TABLET.DR PO (09:40)
[2025-04-06] MEDS: Ferrous Sulfate 324 MG TABLET.DR PO (09:40)
[2025-04-06 19:59] LABS: Glucose, Whole Blood 90 mg/dL (60-115)
[2025-04-06 20:00] VITALS: BP 119/51; PULSE 74; RESP 17; TEMP 36.8; O2SAT 92
--- NOTE | 2025-04-07 05:25 | HO.PSYCHPN ---
Subjective Subjective Date of Service: 04/06/25 Reason For Visit: Paranoia Interim History: Pt seen. Discussed with her team who reports she is recovering from pneumonia. Today, pt has vomited, Zofran given. She is awake, lying in bed, reports feeling poorly with GI sx, however is able to rest. Medication Compliance: Yes Side effects from medications: No Attending Groups: Intermittent Review of Systems as noted Review of Systems Review of Systems GI sx today with vomiting. Mental Status Exam Mental Status Exam Patient Appearance: Fatigued Patient Orientation: Person Level of Consciousness: Drowsy Patient Behavior: Passive and Poor Eye Contact Mood Description: Flat Affect Description: Flat Patient Cognition Impaired: No Ability to Follow Directions: Fair Speech Pattern: Spontaneous Speech Memory Description: Remote Impaired Thought Process: Distracted Judgement: Poor Diagnostics Vital Signs (24Hr): Vital Signs - 24 hr 04/06/25 08:15 04/06/25 08:25 04/06/25 20:00 Temperature 98.2 F 98.2 F 98.2 F Pulse Rate 85 85 74 Respiratory Rate 19 21 H 17 Blood Pressure 118/59 L 118/59 L 119/51 L Pulse Oximetry 94 94 92 Oxygen Delivery Method Room Air Room Air Room Air BMI result Body Mass Index 34.6 Labs 04/04/25 07:23 04/04/25 07:23 Labs: Laboratory Results - last 48 hr 04/02/25 04/05/25 04/05/25 07:36 06:06 22:06 POC Glucose 111 151 H Clozapine 595 Norclozapine 154 04/06/25 04/06/25 06:26 19:54 POC Glucose 107 90 Clozapine Norclozapine Medications Medications Current Medications Acetaminophen (Acetaminophen 325 Mg Tablet) 650 mg PO Q6H PRN PRN Reason: Headache/Pain, Scale 1-10 Last Admin: 04/06/25 20:49 Dose: 650 mg Al Hydroxide/Mg Hydroxide (Magnesium Hydrox/Alum Hydrox 30 Ml Oral.Susp) 30 ml PO Q6H PRN PRN Reason: Heartburn/Nausea Last Admin: 04/05/25 21:40 Dose: 30 ml Ascorbic Acid (Ascorbic Acid 250 Mg Tablet) 250 mg PO DAILY [facility] Last Admin: 04/06/25 09:40 Dose: 250 mg Aspirin (Aspirin Enteric Coated 81 Mg Tablet.Dr) 81 mg PO DAILY [facility] Last Admin: 04/06/25 09:40 Dose: 81 mg Atorvastatin Calcium (Atorvastatin Calcium 40 Mg Tablet) 40 mg PO BEDTIME [facility] Last Admin: 04/06/25 20:48 Dose: 40 mg Clozapine (Clozapine 100 Mg Tablet) 100 mg PO DAILY [facility] Last Admin: 04/06/25 09:41 Dose: 100 mg Clozapine (Clozapine 25 Mg Tablet) 50 mg PO BEDTIME [facility] Last Admin: 04/06/25 20:48 Dose: 50 mg Divalproex Sodium (Divalproex Sodium Er 500 Mg Tab.Er.24h) 500 mg PO DAILY [facility] Last Admin: 04/06/25 09:40 Dose: 500 mg Empagliflozin (Empagliflozin 25 Mg Tablet) 25 mg PO DAILY [facility] Last Admin: 04/06/25 09:41 Dose: 25 mg Ferrous Sulfate (Ferrous Sulfate 324 Mg Tablet.) 324 mg PO DAILY [facility] Last Admin: 04/06/25 09:40 Dose: 324 mg Fluticasone/Umeclidinium/Vilanterol (Fluticasone/Umeclidinium/Vilanterol 100/62.5/25 Blst.W.Dev) 1 puff INHALE RDAILY [facility] Last Admin: 04/06/25 09:38 Dose: 1 puff Loratadine (Loratadine 10 Mg Tablet) 10 mg PO DAILY [facility] Last Admin: 04/06/25 09:40 Dose: 10 mg Magnesium Hydroxide (Milk Of Magnesia 30 Ml Oral.Susp) 30 ml PO DAILY PRN PRN Reason: Constipation Nitroglycerin (Nitroglycerin 0.4 Mg Tab.Subl) 0.4 mg SUBLINGUAL Q5MX3 PRN PRN Reason: chest pain Omeprazole (Omeprazole 20 Mg Capsule.) 20 mg PO DAILY@0700 [facility] Last Admin: 04/06/25 06:09 Dose: 20 mg Senna/Docusate Sodium (Sennosides/Docusate Sodium Tablet) 1 tab PO BID [facility] Last Admin: 04/06/25 20:48 Dose: 1 tab Trazodone HCl (Trazodone Hcl 50 Mg Tablet) 50 mg PO BEDTIME MRX1 PRN PRN Reason: Insomnia Last Admin: 04/06/25 20:48 Dose: 50 mg Allergies Allergies Allergy/AdvReac Type Severity Reaction Status Date / Time Iodinated Contrast Media Allergy Severe hives Verified 03/13/25 11:42 Penicillins Allergy Severe Unknown Verified 03/13/25 11:42 lisinopril AdvReac Intermediate Cough Verified 03/13/25 11:42 succinylcholine (From AdvReac Unknown Unknown Verified 03/13/25 11:42 Anectine) Assessment & Plan Assessment & Plan (1) Schizophrenia: Qualifiers: Schizophrenia type: paranoid schizophrenia Qualified Code(s): F20.0 - Paranoid schizophrenia Status: Acute Code(s): F20.9 - Schizophrenia, unspecified Plan Ms. Encarnacion is a 74 year-old with hx of schizophrenia. She was initially admitted to S1 for increase AH in context of stopping clozaril. She was restarted on medication and titrated to 100mg po BID. She was transferred to medical floor due to sepsis in context of pneumonia. She was treated with ceftriaxone and doxycycline for 7 days. She had continued to report AH and CAH of not taking medications while on medical floor. On the unit, pt presents as very tired, fatigued and de-conditioned. She is now using walker to ambulate. She does not report SI/HI. She reports less AH, continues to take medications. I will recheck clozaril ratio on 03/26 was 3.9 shows decreased metabolism of clozapine maybe due to acute illness (ideal ratio is 1.32). PT consult ordered. Continue incentive spirometer. PLAN 04/02 continue tx. 04/03 continue tx 04/04 continue tx. 04/05 continue tx. 04/06 Monitor physical sx. no treatment changes today. Reason for continued inpatient stay Substantial Risk for: rapid decompensation and med/psych decompensation Time Spent With Patient Time: Total time managing care of this patient today ____ minutes.
--- NOTE | 2025-04-07 05:28 | HO.PSYCHPN ---
Subjective Subjective Date of Service: 04/07/25 Reason For Visit: Paranoia Interim History: Pt seen, discussed with her team. Appears much improved today- in group, interacting with the group process, active with her team and attentive. Team reports GI sx have subsided Team reports that at times her room-mate does prompt pt's anxiety. Medication Compliance: Yes Side effects from medications: No Attending Groups: Yes Review of Systems Acute medical concerns: No Review of Systems Review of Systems Currently, GI sx have resolved Mental Status Exam Mental Status Exam Patient Appearance: Fatigued Patient Orientation: Person Level of Consciousness: Drowsy Patient Behavior: Passive and Poor Eye Contact Mood Description: Flat Affect Description: Flat Patient Cognition Impaired: No Ability to Follow Directions: Fair Speech Pattern: Spontaneous Speech Memory Description: Remote Impaired Thought Process: Distracted Judgement: Poor Diagnostics Vital Signs (24Hr): Vital Signs - 24 hr 04/06/25 08:15 04/06/25 08:25 04/06/25 20:00 Temperature 98.2 F 98.2 F 98.2 F Pulse Rate 85 85 74 Respiratory Rate 19 21 H 17 Blood Pressure 118/59 L 118/59 L 119/51 L Pulse Oximetry 94 94 92 Oxygen Delivery Method Room Air Room Air Room Air BMI result Body Mass Index 34.6 Labs 04/04/25 07:23 04/04/25 07:23 Labs: Laboratory Results - last 48 hr 04/02/25 04/05/25 04/05/25 07:36 06:06 22:06 POC Glucose 111 151 H Clozapine 595 Norclozapine 154 04/06/25 04/06/25 06:26 19:54 POC Glucose 107 90 Clozapine Norclozapine Medications Medications Current Medications Acetaminophen (Acetaminophen 325 Mg Tablet) 650 mg PO Q6H PRN PRN Reason: Headache/Pain, Scale 1-10 Last Admin: 04/06/25 20:49 Dose: 650 mg Al Hydroxide/Mg Hydroxide (Magnesium Hydrox/Alum Hydrox 30 Ml Oral.Susp) 30 ml PO Q6H PRN PRN Reason: Heartburn/Nausea Last Admin: 04/05/25 21:40 Dose: 30 ml Ascorbic Acid (Ascorbic Acid 250 Mg Tablet) 250 mg PO DAILY [facility] Last Admin: 04/06/25 09:40 Dose: 250 mg Aspirin (Aspirin Enteric Coated 81 Mg Tablet.) 81 mg PO DAILY [facility] Last Admin: 04/06/25 09:40 Dose: 81 mg Atorvastatin Calcium (Atorvastatin Calcium 40 Mg Tablet) 40 mg PO BEDTIME [facility] Last Admin: 04/06/25 20:48 Dose: 40 mg Clozapine (Clozapine 100 Mg Tablet) 100 mg PO DAILY [facility] Last Admin: 04/06/25 09:41 Dose: 100 mg Clozapine (Clozapine 25 Mg Tablet) 50 mg PO BEDTIME [facility] Last Admin: 04/06/25 20:48 Dose: 50 mg Divalproex Sodium (Divalproex Sodium Er 500 Mg Tab.Er.24h) 500 mg PO DAILY [facility] Last Admin: 04/06/25 09:40 Dose: 500 mg Empagliflozin (Empagliflozin 25 Mg Tablet) 25 mg PO DAILY [facility] Last Admin: 04/06/25 09:41 Dose: 25 mg Ferrous Sulfate (Ferrous Sulfate 324 Mg Tablet.Dr) 324 mg PO DAILY [facility] Last Admin: 04/06/25 09:40 Dose: 324 mg Fluticasone/Umeclidinium/Vilanterol (Fluticasone/Umeclidinium/Vilanterol 100/62.5/25 Blst.W.Dev) 1 puff INHALE RDAILY [facility] Last Admin: 04/06/25 09:38 Dose: 1 puff Loratadine (Loratadine 10 Mg Tablet) 10 mg PO DAILY [facility] Last Admin: 04/06/25 09:40 Dose: 10 mg Magnesium Hydroxide (Milk Of Magnesia 30 Ml Oral.Susp) 30 ml PO DAILY PRN PRN Reason: Constipation Nitroglycerin (Nitroglycerin 0.4 Mg Tab.Subl) 0.4 mg SUBLINGUAL Q5MX3 PRN PRN Reason: chest pain Omeprazole (Omeprazole 20 Mg Capsule.Dr) 20 mg PO DAILY@0700 [facility] Last Admin: 04/06/25 06:09 Dose: 20 mg Senna/Docusate Sodium (Sennosides/Docusate Sodium Tablet) 1 tab PO BID [facility] Last Admin: 04/06/25 20:48 Dose: 1 tab Trazodone HCl (Trazodone Hcl 50 Mg Tablet) 50 mg PO BEDTIME MRX1 PRN PRN Reason: Insomnia Last Admin: 04/06/25 20:48 Dose: 50 mg Allergies Allergies Allergy/AdvReac Type Severity Reaction Status Date / Time Iodinated Contrast Media Allergy Severe hives Verified 03/13/25 11:42 Penicillins Allergy Severe Unknown Verified 03/13/25 11:42 lisinopril AdvReac Intermediate Cough Verified 03/13/25 11:42 succinylcholine (From AdvReac Unknown Unknown Verified 03/13/25 11:42 Anectine) Assessment & Plan Assessment & Plan (1) Schizophrenia: Qualifiers: Schizophrenia type: paranoid schizophrenia Qualified Code(s): F20.0 - Paranoid schizophrenia Status: Acute Code(s): F20.9 - Schizophrenia, unspecified Plan Ms. Encarnacion is a 74 year-old with hx of schizophrenia. She was initially admitted to S1 for increase AH in context of stopping clozaril. She was restarted on medication and titrated to 100mg po BID. She was transferred to medical floor due to sepsis in context of pneumonia. She was treated with ceftriaxone and doxycycline for 7 days. She had continued to report AH and CAH of not taking medications while on medical floor. On the unit, pt presents as very tired, fatigued and de-conditioned. She is now using walker to ambulate. She does not report SI/HI. She reports less AH, continues to take medications. I will recheck clozaril ratio on 03/26 was 3.9 shows decreased metabolism of clozapine maybe due to acute illness (ideal ratio is 1.32). PT consult ordered. Continue incentive spirometer. PLAN 04/02 continue tx. 04/03 continue tx 04/04 continue tx. 04/05 continue tx. 04/07 GI sx have resolved. Continue tx Reason for continued inpatient stay Substantial Risk for: rapid decompensation and med/psych decompensation Time Spent With Patient Time: Total time managing care of this patient today ____ minutes.
[2025-04-07 06:31] LABS: Glucose, Whole Blood 80 mg/dL (60-115)
[2025-04-07 08:35] VITALS: BP 114/57; PULSE 66; RESP 20; TEMP 36.4; O2SAT 94
[2025-04-07] MEDS: Fluticasone/Umeclidinium/Vilanterol 100/62.5/25 BLST.W.DEV 1 PUFF INHALE (09:12)
[2025-04-07] MEDS: Ferrous Sulfate 324 MG TABLET.DR PO (09:13)
[2025-04-07] MEDS: Aspirin Enteric Coated 81 MG TABLET.DR PO (09:14)
[2025-04-07 20:10] VITALS: BP 112/52; PULSE 82; RESP 15; TEMP 36.4; O2SAT 93
[2025-04-07 21:16] LABS: Glucose, Whole Blood 113 mg/dL (60-115)
[2025-04-08 05:36] LABS: Glucose, Whole Blood 113 mg/dL (60-115)
[2025-04-08 08:00] VITALS: BP 134/78; PULSE 78; RESP 18; TEMP 36.9; O2SAT 97
[2025-04-08] MEDS: Aspirin Enteric Coated 81 MG TABLET.DR PO (10:57)
[2025-04-08] MEDS: Ferrous Sulfate 324 MG TABLET.DR PO (10:58)
[2025-04-08] MEDS: Fluticasone/Umeclidinium/Vilanterol 100/62.5/25 BLST.W.DEV 1 PUFF INHALE (11:01)
--- NOTE | 2025-04-08 11:03 | P.PNPSI_ITS ---
Subjective Subjective Date of Service: 04/08/25 Reason For Visit: Paranoia Subjective Notes: Conditional Voluntary Interim History: Pt slept through the night. She reports she is feeling better, less anxious. She states I've done many things wrong. When asked to elaborate, she states never mind. She reports less voices, but also not fully forthcoming. She has been more visible, and social. She denies SI/HI. Review of Systems Review of Systems Currently, GI sx have resolved Mental Status Exam Mental Status Exam Narrative: Appearance: wearing hospital gown, fair hygiene, in NAD behavior: somewhat guarded and apprehensive Psychomotor: no tremors, no ataxia, no agitation or retardation. Speech: clear, mild delayed in response seems related to being internally preoccupied, spontaneous TP: linear TC: asking to go home Mood: not assessed Affect: constricted, normo-intense SI: none expressed HI: none expressed VH/AH: none expressed Delusions: none expressed Insight/judgment: poor x 2. Memory/cog: alert, oriented to place, month and year. vaguely to situation. MOCA completed score 8/30 with impairment in executive function/visuospatial (2/5), naming (2/3), attention (which suspects related to underlying psychosis), language flunce and repetition, recall, abstraction, orientation. Although do suspect underlying cognitive impairment, active psychosis may have affected some of the scores. ACL 4.2 Diagnostics Vital Signs (24Hr): Vital Signs - 24 hr 04/07/25 20:10 Temperature 97.5 F Pulse Rate 82 Respiratory Rate 15 Blood Pressure 112/52 L Pulse Oximetry 93 Oxygen Delivery Method Room Air BMI result Body Mass Index 34.6 Labs 04/04/25 07:23 04/04/25 07:23 Labs: Laboratory Results - last 48 hr 04/06/25 04/07/25 04/07/25 19:54 06:26 20:42 POC Glucose 90 80 113 04/08/25 05:28 POC Glucose 113 Medications Medications Current Medications Acetaminophen (Acetaminophen 325 Mg Tablet) 650 mg PO Q6H PRN PRN Reason: Headache/Pain, Scale 1-10 Last Admin: 04/06/25 20:49 Dose: 650 mg Al Hydroxide/Mg Hydroxide (Magnesium Hydrox/Alum Hydrox 30 Ml Oral.Susp) 30 ml PO Q6H PRN PRN Reason: Heartburn/Nausea Last Admin: 04/05/25 21:40 Dose: 30 ml Ascorbic Acid (Ascorbic Acid 250 Mg Tablet) 250 mg PO DAILY [facility] Last Admin: 04/08/25 10:58 Dose: 250 mg Aspirin (Aspirin Enteric Coated 81 Mg Tablet.) 81 mg PO DAILY [facility] Last Admin: 04/08/25 10:57 Dose: 81 mg Atorvastatin Calcium (Atorvastatin Calcium 40 Mg Tablet) 40 mg PO BEDTIME [facility] Last Admin: 04/07/25 20:12 Dose: 40 mg Clozapine (Clozapine 100 Mg Tablet) 100 mg PO DAILY [facility] Last Admin: 04/08/25 10:57 Dose: 100 mg Clozapine (Clozapine 25 Mg Tablet) 50 mg PO BEDTIME [facility] Last Admin: 04/07/25 20:12 Dose: 50 mg Divalproex Sodium (Divalproex Sodium Er 500 Mg Tab.Er.24h) 500 mg PO DAILY [facility] Last Admin: 04/08/25 10:58 Dose: 500 mg Empagliflozin (Empagliflozin 25 Mg Tablet) 25 mg PO DAILY [facility] Last Admin: 04/08/25 10:58 Dose: 25 mg Ferrous Sulfate (Ferrous Sulfate 324 Mg Tablet.) 324 mg PO DAILY [facility] Last Admin: 04/08/25 10:58 Dose: 324 mg Fluticasone/Umeclidinium/Vilanterol (Fluticasone/Umeclidinium/Vilanterol 100/62.5/25 Blst.W.Dev) 1 puff INHALE RDAILY [facility] Last Admin: 04/08/25 11:01 Dose: 1 puff Loratadine (Loratadine 10 Mg Tablet) 10 mg PO DAILY [facility] Last Admin: 04/08/25 10:58 Dose: 10 mg Magnesium Hydroxide (Milk Of Magnesia 30 Ml Oral.Susp) 30 ml PO DAILY PRN PRN Reason: Constipation Nitroglycerin (Nitroglycerin 0.4 Mg Tab.Subl) 0.4 mg SUBLINGUAL Q5MX3 PRN PRN Reason: chest pain Omeprazole (Omeprazole 20 Mg Capsule.) 20 mg PO DAILY@0700 [facility] Last Admin: 04/08/25 05:28 Dose: 20 mg Senna/Docusate Sodium (Sennosides/Docusate Sodium Tablet) 1 tab PO BID [facility] Last Admin: 04/08/25 10:58 Dose: 1 tab Trazodone HCl (Trazodone Hcl 50 Mg Tablet) 50 mg PO BEDTIME MRX1 PRN PRN Reason: Insomnia Last Admin: 04/06/25 20:48 Dose: 50 mg Allergies Allergies Allergy/AdvReac Type Severity Reaction Status Date / Time Iodinated Contrast Media Allergy Severe hives Verified 03/13/25 11:42 Penicillins Allergy Severe Unknown Verified 03/13/25 11:42 lisinopril AdvReac Intermediate Cough Verified 03/13/25 11:42 succinylcholine (From AdvReac Unknown Unknown Verified 03/13/25 11:42 Anectine) Assessment & Plan Assessment & Plan (1) Schizophrenia: Qualifiers: Schizophrenia type: paranoid schizophrenia Qualified Code(s): F20.0 - Paranoid schizophrenia Status: Acute Code(s): F20.9 - Schizophrenia, unspecified Plan Ms. Encarnacion is a 74 year-old with hx of schizophrenia. She was initially admitted to S1 for increase AH in context of stopping clozaril. She was restarted on medication and titrated to 100mg po BID. She was transferred to medical floor due to sepsis in context of pneumonia. She was treated with ceftriaxone and doxycycline for 7 days. She had continued to report AH and CAH of not taking medications while on medical floor. On the unit, pt presents as very tired, fatigued and de-conditioned. She is now using walker to ambulate. She does not report SI/HI. She reports less AH, continues to take medications. I will recheck clozaril ratio on 03/26 was 3.9 shows decreased metabolism of clozapine maybe due to acute illness (ideal ratio is 1.32). PT consult ordered. Continue incentive spirometer. PLAN 04/08 continue tx. Reason for continued inpatient stay Substantial Risk for: inability to function Time Spent With Patient Time: Total time managing care of this patient today ____ minutes.
[2025-04-08 11:26] LABS: Glucose, Whole Blood 142 mg/dL (60-115)
[2025-04-08 20:00] VITALS: BP 115/50; PULSE 67; RESP 16; TEMP 36.8; O2SAT 95
[2025-04-09 01:05] LABS: Glucose, Whole Blood 123 mg/dL (60-115)
[2025-04-09 06:35] LABS: Glucose, Whole Blood 113 mg/dL (60-115)
[2025-04-09 08:00] VITALS: BP 108/56; PULSE 74; RESP 16; TEMP 36.4; O2SAT 95
[2025-04-09] MEDS: Ferrous Sulfate 324 MG TABLET.DR PO (08:23)
[2025-04-09] MEDS: Aspirin Enteric Coated 81 MG TABLET.DR PO (08:23)
[2025-04-09] MEDS: Fluticasone/Umeclidinium/Vilanterol 100/62.5/25 BLST.W.DEV 1 PUFF INHALE (09:16)
[2025-04-09 20:00] VITALS: BP 115/58; PULSE 70; RESP 16; TEMP 36.7; O2SAT 95
[2025-04-09 20:57] LABS: Glucose, Whole Blood 131 mg/dL (60-115)
[2025-04-10 06:30] LABS: Glucose, Whole Blood 106 mg/dL (60-115)
[2025-04-10 08:00] VITALS: BP 98/52; PULSE 82; RESP 13; TEMP 2.6; TEMP 36.7; O2SAT 95
[2025-04-10 08:09] LABS: Neut%MD 63.3 %; WBCANC 8.5 X10*3/uL
[2025-04-10] MEDS: Aspirin Enteric Coated 81 MG TABLET.DR PO (08:31)
[2025-04-10] MEDS: Fluticasone/Umeclidinium/Vilanterol 100/62.5/25 BLST.W.DEV 1 PUFF INHALE (08:32)
[2025-04-10] MEDS: Ferrous Sulfate 324 MG TABLET.DR PO (08:32)
--- NOTE | 2025-04-10 10:00 | HO.PSYCHPN ---
Subjective Subjective Date of Service: 04/09/25 Reason For Visit: Paranoia Subjective Notes: Conditional Voluntary Interim History: Pt slept through the night. She presents calmer in a way. She reports she is thinking about her ex . She denies SI/HI. She denies hallucinations but not fully forth coming. She reports she misses home and would like to go soon. She is taking medications as prescribed. Review of Systems Review of Systems Currently, GI sx have resolved Mental Status Exam Mental Status Exam Narrative: Appearance: wearing hospital gown, fair hygiene, in NAD behavior: somewhat guarded and apprehensive Psychomotor: no tremors, no ataxia, no agitation or retardation. Speech: clear, mild delayed in response seems related to being internally preoccupied, spontaneous TP: linear TC: asking to go home Mood: not assessed Affect: constricted, normo-intense SI: none expressed HI: none expressed VH/AH: none expressed Delusions: none expressed Insight/judgment: poor x 2. Memory/cog: alert, oriented to place, month and year. vaguely to situation. MOCA completed score 8/30 with impairment in executive function/visuospatial (2/5), naming (2/3), attention (which suspects related to underlying psychosis), language flunce and repetition, recall, abstraction, orientation. Although do suspect underlying cognitive impairment, active psychosis may have affected some of the scores. ACL 4.2 Diagnostics Vital Signs (24Hr): Vital Signs - 24 hr 04/09/25 20:00 04/10/25 08:00 Temperature 98.1 F 36.7 F L Pulse Rate 70 82 Respiratory Rate 16 13 Blood Pressure 115/58 L 98/52 L Pulse Oximetry 95 95 Oxygen Delivery Method Room Air Room Air BMI result Body Mass Index 34.6 Labs 04/04/25 07:23 04/04/25 07:23 Labs: Laboratory Results - last 48 hr 04/08/25 04/09/25 04/09/25 11:22 01:00 06:30 Absolute Neuts (auto) POC Glucose 142 H 123 H 113 04/09/25 04/10/25 04/10/25 20:21 06:24 07:22 Absolute Neuts (auto) 5.4 POC Glucose 131 H 106 Medications Medications Current Medications Acetaminophen (Acetaminophen 325 Mg Tablet) 650 mg PO Q6H PRN PRN Reason: Headache/Pain, Scale 1-10 Last Admin: 04/09/25 11:30 Dose: 650 mg Al Hydroxide/Mg Hydroxide (Magnesium Hydrox/Alum Hydrox 30 Ml Oral.Susp) 30 ml PO Q6H PRN PRN Reason: Heartburn/Nausea Last Admin: 04/05/25 21:40 Dose: 30 ml Ascorbic Acid (Ascorbic Acid 250 Mg Tablet) 250 mg PO DAILY [facility] Last Admin: 04/10/25 08:31 Dose: 250 mg Aspirin (Aspirin Enteric Coated 81 Mg Tablet.) 81 mg PO DAILY [facility] Last Admin: 04/10/25 08:31 Dose: 81 mg Atorvastatin Calcium (Atorvastatin Calcium 40 Mg Tablet) 40 mg PO BEDTIME [facility] Last Admin: 04/09/25 20:22 Dose: 40 mg Clozapine (Clozapine 100 Mg Tablet) 100 mg PO DAILY [facility] Last Admin: 04/10/25 08:32 Dose: 100 mg Clozapine (Clozapine 25 Mg Tablet) 50 mg PO BEDTIME [facility] Last Admin: 04/09/25 20:23 Dose: 50 mg Divalproex Sodium (Divalproex Sodium Er 500 Mg Tab.Er.24h) 500 mg PO DAILY [facility] Last Admin: 04/10/25 08:31 Dose: 500 mg Empagliflozin (Empagliflozin 25 Mg Tablet) 25 mg PO DAILY [facility] Last Admin: 04/10/25 08:32 Dose: 25 mg Ferrous Sulfate (Ferrous Sulfate 324 Mg Tablet.) 324 mg PO DAILY [facility] Last Admin: 04/10/25 08:32 Dose: 324 mg Fluticasone/Umeclidinium/Vilanterol (Fluticasone/Umeclidinium/Vilanterol 100/62.5/25 Blst.W.Dev) 1 puff INHALE RDAILY [facility] Last Admin: 04/10/25 08:32 Dose: 1 puff Loratadine (Loratadine 10 Mg Tablet) 10 mg PO DAILY [facility] Last Admin: 04/10/25 08:31 Dose: 10 mg Magnesium Hydroxide (Milk Of Magnesia 30 Ml Oral.Susp) 30 ml PO DAILY PRN PRN Reason: Constipation Nitroglycerin (Nitroglycerin 0.4 Mg Tab.Subl) 0.4 mg SUBLINGUAL Q5MX3 PRN PRN Reason: chest pain Omeprazole (Omeprazole 20 Mg Capsule.) 20 mg PO DAILY@0700 [facility] Last Admin: 04/10/25 06:06 Dose: 20 mg Senna/Docusate Sodium (Sennosides/Docusate Sodium Tablet) 1 tab PO BID [facility] Last Admin: 04/10/25 08:32 Dose: 1 tab Trazodone HCl (Trazodone Hcl 50 Mg Tablet) 50 mg PO BEDTIME MRX1 PRN PRN Reason: Insomnia Last Admin: 04/09/25 20:23 Dose: 50 mg Allergies Allergies Allergy/AdvReac Type Severity Reaction Status Date / Time Iodinated Contrast Media Allergy Severe hives Verified 03/13/25 11:42 Penicillins Allergy Severe Unknown Verified 03/13/25 11:42 lisinopril AdvReac Intermediate Cough Verified 03/13/25 11:42 succinylcholine (From AdvReac Unknown Unknown Verified 03/13/25 11:42 Anectine) Assessment & Plan Assessment & Plan (1) Schizophrenia: Qualifiers: Schizophrenia type: paranoid schizophrenia Qualified Code(s): F20.0 - Paranoid schizophrenia Status: Acute Code(s): F20.9 - Schizophrenia, unspecified Plan Ms. Encarnacion is a 74 year-old with hx of schizophrenia. She was initially admitted to S1 for increase AH in context of stopping clozaril. She was restarted on medication and titrated to 100mg po BID. She was transferred to medical floor due to sepsis in context of pneumonia. She was treated with ceftriaxone and doxycycline for 7 days. She had continued to report AH and CAH of not taking medications while on medical floor. On the unit, pt presents as very tired, fatigued and de-conditioned. She is now using walker to ambulate. She does not report SI/HI. She reports less AH, continues to take medications. I will recheck clozaril ratio on 03/26 was 3.9 shows decreased metabolism of clozapine maybe due to acute illness (ideal ratio is 1.32). PT consult ordered. Continue incentive spirometer. PLAN 04/08 continue tx. 04/09 continue tx. fam meeting this week. clozapine ration is high (3.9) showing inhibition of metabolism and getting more anticholinergic side effects. Reason for continued inpatient stay Substantial Risk for: inability to function Time Spent With Patient Time: Total time managing care of this patient today ____ minutes.
--- NOTE | 2025-04-10 10:03 | P.PNPSI_ITS ---
Subjective Subjective Date of Service: 04/10/25 Reason For Visit: Paranoia Subjective Notes: Conditional Voluntary Interim History: Pt slept through the night. She appears calmer, but still hearing voices. She has been more visible on the unit and able to participate in groups. She is taking medications as prescribed. Vs stable. denies dizziness. [facility] meeting scheduled for tomorrow. Review of Systems Review of Systems Currently, GI sx have resolved Mental Status Exam Mental Status Exam Narrative: Appearance: wearing hospital gown, fair hygiene, in NAD behavior: somewhat guarded and apprehensive Psychomotor: no tremors, no ataxia, no agitation or retardation. Speech: clear, mild delayed in response seems related to being internally preoccupied, spontaneous TP: linear TC: asking to go home Mood: not assessed Affect: constricted, normo-intense SI: none expressed HI: none expressed VH/AH: none expressed Delusions: none expressed Insight/judgment: poor x 2. Memory/cog: alert, oriented to place, month and year. vaguely to situation. MOCA completed score 8/30 with impairment in executive function/visuospatial (2/5), naming (2/3), attention (which suspects related to underlying psychosis), language flunce and repetition, recall, abstraction, orientation. Although do suspect underlying cognitive impairment, active psychosis may have affected some of the scores. ACL 4.2 Diagnostics Vital Signs (24Hr): Vital Signs - 24 hr 04/09/25 20:00 04/10/25 08:00 Temperature 98.1 F 36.7 F L Pulse Rate 70 82 Respiratory Rate 16 13 Blood Pressure 115/58 L 98/52 L Pulse Oximetry 95 95 Oxygen Delivery Method Room Air Room Air BMI result Body Mass Index 34.6 Labs 04/04/25 07:23 04/04/25 07:23 Labs: Laboratory Results - last 48 hr 04/08/25 04/09/25 04/09/25 11:22 01:00 06:30 Absolute Neuts (auto) POC Glucose 142 H 123 H 113 04/09/25 04/10/25 04/10/25 20:21 06:24 07:22 Absolute Neuts (auto) 5.4 POC Glucose 131 H 106 Medications Medications Current Medications Acetaminophen (Acetaminophen 325 Mg Tablet) 650 mg PO Q6H PRN PRN Reason: Headache/Pain, Scale 1-10 Last Admin: 04/09/25 11:30 Dose: 650 mg Al Hydroxide/Mg Hydroxide (Magnesium Hydrox/Alum Hydrox 30 Ml Oral.Susp) 30 ml PO Q6H PRN PRN Reason: Heartburn/Nausea Last Admin: 04/05/25 21:40 Dose: 30 ml Ascorbic Acid (Ascorbic Acid 250 Mg Tablet) 250 mg PO DAILY [facility] Last Admin: 04/10/25 08:31 Dose: 250 mg Aspirin (Aspirin Enteric Coated 81 Mg Tablet.) 81 mg PO DAILY [facility] Last Admin: 04/10/25 08:31 Dose: 81 mg Atorvastatin Calcium (Atorvastatin Calcium 40 Mg Tablet) 40 mg PO BEDTIME [facility] Last Admin: 04/09/25 20:22 Dose: 40 mg Clozapine (Clozapine 100 Mg Tablet) 100 mg PO DAILY [facility] Last Admin: 04/10/25 08:32 Dose: 100 mg Clozapine (Clozapine 25 Mg Tablet) 50 mg PO BEDTIME [facility] Last Admin: 04/09/25 20:23 Dose: 50 mg Divalproex Sodium (Divalproex Sodium Er 500 Mg Tab.Er.24h) 500 mg PO DAILY [facility] Last Admin: 04/10/25 08:31 Dose: 500 mg Empagliflozin (Empagliflozin 25 Mg Tablet) 25 mg PO DAILY [facility] Last Admin: 04/10/25 08:32 Dose: 25 mg Ferrous Sulfate (Ferrous Sulfate 324 Mg Tablet.) 324 mg PO DAILY [facility] Last Admin: 04/10/25 08:32 Dose: 324 mg Fluticasone/Umeclidinium/Vilanterol (Fluticasone/Umeclidinium/Vilanterol 100/62.5/25 Blst.W.Dev) 1 puff INHALE RDAILY [facility] Last Admin: 04/10/25 08:32 Dose: 1 puff Loratadine (Loratadine 10 Mg Tablet) 10 mg PO DAILY [facility] Last Admin: 04/10/25 08:31 Dose: 10 mg Magnesium Hydroxide (Milk Of Magnesia 30 Ml Oral.Susp) 30 ml PO DAILY PRN PRN Reason: Constipation Nitroglycerin (Nitroglycerin 0.4 Mg Tab.Subl) 0.4 mg SUBLINGUAL Q5MX3 PRN PRN Reason: chest pain Omeprazole (Omeprazole 20 Mg Capsule.) 20 mg PO DAILY@0700 [facility] Last Admin: 04/10/25 06:06 Dose: 20 mg Senna/Docusate Sodium (Sennosides/Docusate Sodium Tablet) 1 tab PO BID [facility] Last Admin: 04/10/25 08:32 Dose: 1 tab Trazodone HCl (Trazodone Hcl 50 Mg Tablet) 50 mg PO BEDTIME MRX1 PRN PRN Reason: Insomnia Last Admin: 04/09/25 20:23 Dose: 50 mg Allergies Allergies Allergy/AdvReac Type Severity Reaction Status Date / Time Iodinated Contrast Media Allergy Severe hives Verified 03/13/25 11:42 Penicillins Allergy Severe Unknown Verified 03/13/25 11:42 lisinopril AdvReac Intermediate Cough Verified 03/13/25 11:42 succinylcholine (From AdvReac Unknown Unknown Verified 03/13/25 11:42 Anectine) Assessment & Plan Assessment & Plan (1) Schizophrenia: Qualifiers: Schizophrenia type: paranoid schizophrenia Qualified Code(s): F20.0 - Paranoid schizophrenia Status: Acute Code(s): F20.9 - Schizophrenia, unspecified Plan Ms. Encarnacion is a 74 year-old with hx of schizophrenia. She was initially admitted to S1 for increase AH in context of stopping clozaril. She was restarted on medication and titrated to 100mg po BID. She was transferred to medical floor due to sepsis in context of pneumonia. She was treated with ceftriaxone and doxycycline for 7 days. She had continued to report AH and CAH of not taking medications while on medical floor. On the unit, pt presents as very tired, fatigued and de-conditioned. She is now using walker to ambulate. She does not report SI/HI. She reports less AH, continues to take medications. I will recheck clozaril ratio on 03/26 was 3.9 shows decreased metabolism of clozapine maybe due to acute illness (ideal ratio is 1.32). PT consult ordered. Continue incentive spirometer. PLAN 04/08 continue tx. 04/09 continue tx. fam meeting this week. clozapine ration is high (3.9) showing inhibition of metabolism and getting more anticholinergic side effects. 04/10 continue tx. fam meeting to discuss aftercare plan. Reason for continued inpatient stay Substantial Risk for: inability to function Time Spent With Patient Time: Total time managing care of this patient today ____ minutes.
[2025-04-10 20:00] VITALS: BP 103/51; PULSE 77; RESP 18; TEMP 36.4; O2SAT 96
[2025-04-11 08:00] VITALS: BP 105/48; PULSE 74; RESP 16; TEMP 36.3; O2SAT 95
[2025-04-11] MEDS: Ferrous Sulfate 324 MG TABLET.DR PO (08:37)
[2025-04-11] MEDS: Aspirin Enteric Coated 81 MG TABLET.DR PO (08:38)
[2025-04-11] MEDS: Fluticasone/Umeclidinium/Vilanterol 100/62.5/25 BLST.W.DEV 1 PUFF INHALE (08:40)
[2025-04-11 10:00] VITALS: BMI 34.4
--- NOTE | 2025-04-11 17:14 | HO.PSYCHPN ---
Subjective Subjective Date of Service: 04/11/25 Reason For Visit: Paranoia Subjective Notes: Conditional Voluntary Interim History: Pt slept through the night. She appears calmer, but still hearing voices. She has been more visible on the unit and able to participate in groups. She is taking medications as prescribed. Vs stable. denies dizziness. We had family meeting, updated son about cognitive assessment showing vascular dementia. She does have good supports daily at home. plan for d/c next Tuesday. Medication Compliance: Yes Review of Systems Review of Systems Currently, GI sx have resolved Mental Status Exam Mental Status Exam Narrative: Appearance: wearing hospital gown, fair hygiene, in NAD behavior: somewhat guarded and apprehensive Psychomotor: no tremors, no ataxia, no agitation or retardation. Speech: clear, mild delayed in response seems related to being internally preoccupied, spontaneous TP: linear TC: asking to go home Mood: not assessed Affect: constricted, normo-intense SI: none expressed HI: none expressed VH/AH: none expressed Delusions: none expressed Insight/judgment: poor x 2. Memory/cog: alert, oriented to place, month and year. vaguely to situation. MOCA completed score 8/30 with impairment in executive function/visuospatial (2/5), naming (2/3), attention (which suspects related to underlying psychosis), language flunce and repetition, recall, abstraction, orientation. Although do suspect underlying cognitive impairment, active psychosis may have affected some of the scores. ACL 4.2 Diagnostics Vital Signs (24Hr): Vital Signs - 24 hr 04/10/25 20:00 04/11/25 08:00 Temperature 97.5 F 97.3 F Pulse Rate 77 74 Respiratory Rate 18 16 Blood Pressure 103/51 L 105/48 L Pulse Oximetry 96 95 Oxygen Delivery Method Room Air Room Air BMI result Body Mass Index 34.4 Labs 04/04/25 07:23 04/04/25 07:23 Labs: Laboratory Results - last 48 hr 04/09/25 04/10/25 04/10/25 20:21 06:24 07:22 Absolute Neuts (auto) 5.4 POC Glucose 131 H 106 Medications Medications Current Medications Acetaminophen (Acetaminophen 325 Mg Tablet) 650 mg PO Q6H PRN PRN Reason: Headache/Pain, Scale 1-10 Last Admin: 04/10/25 21:15 Dose: 650 mg Al Hydroxide/Mg Hydroxide (Magnesium Hydrox/Alum Hydrox 30 Ml Oral.Susp) 30 ml PO Q6H PRN PRN Reason: Heartburn/Nausea Last Admin: 04/05/25 21:40 Dose: 30 ml Ascorbic Acid (Ascorbic Acid 250 Mg Tablet) 250 mg PO DAILY [facility] Last Admin: 04/11/25 08:37 Dose: 250 mg Aspirin (Aspirin Enteric Coated 81 Mg Tablet.) 81 mg PO DAILY [facility] Last Admin: 04/11/25 08:38 Dose: 81 mg Atorvastatin Calcium (Atorvastatin Calcium 40 Mg Tablet) 40 mg PO BEDTIME [facility] Last Admin: 04/10/25 20:44 Dose: 40 mg Clozapine (Clozapine 100 Mg Tablet) 100 mg PO DAILY [facility] Last Admin: 04/11/25 08:37 Dose: 100 mg Clozapine (Clozapine 25 Mg Tablet) 50 mg PO BEDTIME [facility] Last Admin: 04/10/25 20:45 Dose: 50 mg Divalproex Sodium (Divalproex Sodium Er 500 Mg Tab.Er.24h) 500 mg PO DAILY [facility] Last Admin: 04/11/25 08:37 Dose: 500 mg Empagliflozin (Empagliflozin 25 Mg Tablet) 25 mg PO DAILY [facility] Last Admin: 04/11/25 08:37 Dose: 25 mg Ferrous Sulfate (Ferrous Sulfate 324 Mg Tablet.) 324 mg PO DAILY [facility] Last Admin: 04/11/25 08:37 Dose: 324 mg Fluticasone/Umeclidinium/Vilanterol (Fluticasone/Umeclidinium/Vilanterol 100/62.5/25 Blst.W.Dev) 1 puff INHALE RDAILY [facility] Last Admin: 04/11/25 08:40 Dose: 1 puff Loratadine (Loratadine 10 Mg Tablet) 10 mg PO DAILY [facility] Last Admin: 04/11/25 08:38 Dose: 10 mg Magnesium Hydroxide (Milk Of Magnesia 30 Ml Oral.Susp) 30 ml PO DAILY PRN PRN Reason: Constipation Nitroglycerin (Nitroglycerin 0.4 Mg Tab.Subl) 0.4 mg SUBLINGUAL Q5MX3 PRN PRN Reason: chest pain Omeprazole (Omeprazole 20 Mg Capsule.) 20 mg PO DAILY@0700 [facility] Last Admin: 04/11/25 06:48 Dose: 20 mg Senna/Docusate Sodium (Sennosides/Docusate Sodium Tablet) 1 tab PO BID [facility] Last Admin: 04/11/25 08:37 Dose: 1 tab Trazodone HCl (Trazodone Hcl 50 Mg Tablet) 50 mg PO BEDTIME MRX1 PRN PRN Reason: Insomnia Last Admin: 04/09/25 20:23 Dose: 50 mg Allergies Allergies Allergy/AdvReac Type Severity Reaction Status Date / Time Iodinated Contrast Media Allergy Severe hives Verified 03/13/25 11:42 Penicillins Allergy Severe Unknown Verified 03/13/25 11:42 lisinopril AdvReac Intermediate Cough Verified 03/13/25 11:42 succinylcholine (From AdvReac Unknown Unknown Verified 03/13/25 11:42 Anectine) Assessment & Plan Assessment & Plan (1) Schizophrenia: Qualifiers: Schizophrenia type: paranoid schizophrenia Qualified Code(s): F20.0 - Paranoid schizophrenia Status: Acute Code(s): F20.9 - Schizophrenia, unspecified Plan Ms. Encarnacion is a 74 year-old with hx of schizophrenia. She was initially admitted to [facility] for increase AH in context of stopping clozaril. She was restarted on medication and titrated to 100mg po BID. She was transferred to medical floor due to sepsis in context of pneumonia. She was treated with ceftriaxone and doxycycline for 7 days. She had continued to report AH and CAH of not taking medications while on medical floor. On the unit, pt presents as very tired, fatigued and de-conditioned. She is now using walker to ambulate. She does not report SI/HI. She reports less AH, continues to take medications. I will recheck clozaril ratio on 03/26 was 3.9 shows decreased metabolism of clozapine maybe due to acute illness (ideal ratio is 1.32). PT consult ordered. Continue incentive spirometer. PLAN 04/08 continue tx. 04/09 continue tx. fam meeting this week. clozapine ration is high (3.9) showing inhibition of metabolism and getting more anticholinergic side effects. 04/10 continue tx. discussed d/c next Tue. Reason for continued inpatient stay Substantial Risk for: inability to function Time Spent With Patient Time: Total time managing care of this patient today ____ minutes.
[2025-04-11 20:00] VITALS: BP 121/57; PULSE 70; RESP 16; TEMP 36.4; O2SAT 94
[2025-04-12 08:00] VITALS: BP 117/58; PULSE 81; RESP 16; TEMP 36.3; O2SAT 96
[2025-04-12] MEDS: Fluticasone/Umeclidinium/Vilanterol 100/62.5/25 BLST.W.DEV 1 PUFF INHALE (08:27)
[2025-04-12] MEDS: Aspirin Enteric Coated 81 MG TABLET.DR PO (08:28)
[2025-04-12] MEDS: Ferrous Sulfate 324 MG TABLET.DR PO (08:28)
--- NOTE | 2025-04-12 11:58 | HO.PSYCHPN ---
Subjective Subjective Date of Service: 04/12/25 Reason For Visit: Paranoia Subjective Notes: Conditional Voluntary Interim History: Pt slept through the night. She appears calmer, but still hearing voices. She has been more visible on the unit and able to participate in groups. She is taking medications as prescribed. Vs stable. denies dizziness. Pt denies any concerns. No behavioral concerns. less self dialoguing. Review of Systems Review of Systems Currently, GI sx have resolved Mental Status Exam Mental Status Exam Narrative: Appearance: wearing hospital gown, fair hygiene, in NAD behavior: somewhat guarded and apprehensive Psychomotor: no tremors, no ataxia, no agitation or retardation. Speech: clear, mild delayed in response seems related to being internally preoccupied, spontaneous TP: linear TC: asking to go home Mood: not assessed Affect: constricted, normo-intense SI: none expressed HI: none expressed VH/AH: none expressed Delusions: none expressed Insight/judgment: poor x 2. Memory/cog: alert, oriented to place, month and year. vaguely to situation. MOCA completed score 8/30 with impairment in executive function/visuospatial (2/5), naming (2/3), attention (which suspects related to underlying psychosis), language flunce and repetition, recall, abstraction, orientation. Although do suspect underlying cognitive impairment, active psychosis may have affected some of the scores. ACL 4.2 Diagnostics Vital Signs (24Hr): Vital Signs - 24 hr 04/11/25 20:00 Temperature 97.5 F Pulse Rate 70 Respiratory Rate 16 Blood Pressure 121/57 L Pulse Oximetry 94 Oxygen Delivery Method Room Air BMI result Body Mass Index 34.4 Labs 04/04/25 07:23 04/04/25 07:23 Medications Medications Current Medications Acetaminophen (Acetaminophen 325 Mg Tablet) 650 mg PO Q6H PRN PRN Reason: Headache/Pain, Scale 1-10 Last Admin: 04/10/25 21:15 Dose: 650 mg Al Hydroxide/Mg Hydroxide (Magnesium Hydrox/Alum Hydrox 30 Ml Oral.Susp) 30 ml PO Q6H PRN PRN Reason: Heartburn/Nausea Last Admin: 04/05/25 21:40 Dose: 30 ml Ascorbic Acid (Ascorbic Acid 250 Mg Tablet) 250 mg PO DAILY [facility] Last Admin: 04/12/25 08:28 Dose: 250 mg Aspirin (Aspirin Enteric Coated 81 Mg Tablet.) 81 mg PO DAILY [facility] Last Admin: 04/12/25 08:28 Dose: 81 mg Atorvastatin Calcium (Atorvastatin Calcium 40 Mg Tablet) 40 mg PO BEDTIME [facility] Last Admin: 04/11/25 20:55 Dose: 40 mg Clozapine (Clozapine 100 Mg Tablet) 100 mg PO DAILY [facility] Last Admin: 04/12/25 08:27 Dose: 100 mg Clozapine (Clozapine 25 Mg Tablet) 50 mg PO BEDTIME [facility] Last Admin: 04/11/25 20:55 Dose: 50 mg Divalproex Sodium (Divalproex Sodium Er 500 Mg Tab.Er.24h) 500 mg PO DAILY [facility] Last Admin: 04/12/25 08:27 Dose: 500 mg Empagliflozin (Empagliflozin 25 Mg Tablet) 25 mg PO DAILY [facility] Last Admin: 04/12/25 08:28 Dose: 25 mg Ferrous Sulfate (Ferrous Sulfate 324 Mg Tablet.) 324 mg PO DAILY [facility] Last Admin: 04/12/25 08:28 Dose: 324 mg Fluticasone/Umeclidinium/Vilanterol (Fluticasone/Umeclidinium/Vilanterol 100/62.5/25 Blst.W.Dev) 1 puff INHALE RDAILY [facility] Last Admin: 04/12/25 08:27 Dose: 1 puff Loratadine (Loratadine 10 Mg Tablet) 10 mg PO DAILY [facility] Last Admin: 04/12/25 08:28 Dose: 10 mg Magnesium Hydroxide (Milk Of Magnesia 30 Ml Oral.Susp) 30 ml PO DAILY PRN PRN Reason: Constipation Nitroglycerin (Nitroglycerin 0.4 Mg Tab.Subl) 0.4 mg SUBLINGUAL Q5MX3 PRN PRN Reason: chest pain Omeprazole (Omeprazole 20 Mg Capsule.) 20 mg PO DAILY@0700 [facility] Last Admin: 04/12/25 06:03 Dose: 20 mg Senna/Docusate Sodium (Sennosides/Docusate Sodium Tablet) 1 tab PO BID [facility] Last Admin: 04/12/25 08:27 Dose: 1 tab Trazodone HCl (Trazodone Hcl 50 Mg Tablet) 50 mg PO BEDTIME MRX1 PRN PRN Reason: Insomnia Last Admin: 04/11/25 20:55 Dose: 50 mg Allergies Allergies Allergy/AdvReac Type Severity Reaction Status Date / Time Iodinated Contrast Media Allergy Severe hives Verified 03/13/25 11:42 Penicillins Allergy Severe Unknown Verified 03/13/25 11:42 lisinopril AdvReac Intermediate Cough Verified 03/13/25 11:42 succinylcholine (From AdvReac Unknown Unknown Verified 03/13/25 11:42 Anectine) Assessment & Plan Assessment & Plan (1) Schizophrenia: Qualifiers: Schizophrenia type: paranoid schizophrenia Qualified Code(s): F20.0 - Paranoid schizophrenia Status: Acute Code(s): F20.9 - Schizophrenia, unspecified Plan Ms. Encarnacion is a 74 year-old with hx of schizophrenia. She was initially admitted to [facility] for increase AH in context of stopping clozaril. She was restarted on medication and titrated to 100mg po BID. She was transferred to medical floor due to sepsis in context of pneumonia. She was treated with ceftriaxone and doxycycline for 7 days. She had continued to report AH and CAH of not taking medications while on medical floor. On the unit, pt presents as very tired, fatigued and de-conditioned. She is now using walker to ambulate. She does not report SI/HI. She reports less AH, continues to take medications. I will recheck clozaril ratio on 03/26 was 3.9 shows decreased metabolism of clozapine maybe due to acute illness (ideal ratio is 1.32). PT consult ordered. Continue incentive spirometer. PLAN 04/08 continue tx. 04/09 continue tx. fam meeting this week. clozapine ration is high (3.9) showing inhibition of metabolism and getting more anticholinergic side effects. 04/10 continue tx. discussed d/c next Tue. 04/12 continue tx. Reason for continued inpatient stay Substantial Risk for: inability to function Time Spent With Patient Time: Total time managing care of this patient today ____ minutes.
[2025-04-12 20:00] VITALS: BP 112/55; PULSE 65; RESP 18; TEMP 36.8; O2SAT 95
[2025-04-13 08:00] VITALS: BP 115/57; PULSE 86; RESP 16; TEMP 36.4; O2SAT 97
[2025-04-13] MEDS: Aspirin Enteric Coated 81 MG TABLET.DR PO (09:26)
[2025-04-13] MEDS: Ferrous Sulfate 324 MG TABLET.DR PO (09:26)
[2025-04-13] MEDS: Fluticasone/Umeclidinium/Vilanterol 100/62.5/25 BLST.W.DEV 1 PUFF INHALE (09:34)
--- NOTE | 2025-04-13 19:21 | P.PNPSI_ITS ---
Subjective Subjective Date of Service: 04/13/25 Reason For Visit: Paranoia Subjective Notes: Conditional Voluntary Interim History: Pt slept through the night. She appears calmer, but still hearing voices. She has been more visible on the unit and able to participate in groups. She is taking medications as prescribed. Vs stable. denies dizziness. Pt denies any concerns. No behavioral concerns. less self dialoguing. Review of Systems Review of Systems Currently, GI sx have resolved Mental Status Exam Mental Status Exam Narrative: Appearance: wearing hospital gown, fair hygiene, in NAD behavior: somewhat guarded and apprehensive Psychomotor: no tremors, no ataxia, no agitation or retardation. Speech: clear, mild delayed in response seems related to being internally preoccupied, spontaneous TP: linear TC: asking to go home Mood: not assessed Affect: constricted, normo-intense SI: none expressed HI: none expressed VH/AH: none expressed Delusions: none expressed Insight/judgment: poor x 2. Memory/cog: alert, oriented to place, month and year. vaguely to situation. MOCA completed score 8/30 with impairment in executive function/visuospatial (2/5), naming (2/3), attention (which suspects related to underlying psychosis), language flunce and repetition, recall, abstraction, orientation. Although do suspect underlying cognitive impairment, active psychosis may have affected some of the scores. ACL 4.2 Diagnostics Vital Signs (24Hr): Vital Signs - 24 hr 04/12/25 20:00 04/13/25 08:00 Temperature 98.3 F 97.5 F Pulse Rate 65 86 Respiratory Rate 18 16 Blood Pressure 112/55 L 115/57 L Pulse Oximetry 95 97 Oxygen Delivery Method Room Air Room Air BMI result Body Mass Index 34.4 Labs 04/04/25 07:23 04/04/25 07:23 Medications Medications Current Medications Acetaminophen (Acetaminophen 325 Mg Tablet) 650 mg PO Q6H PRN PRN Reason: Headache/Pain, Scale 1-10 Last Admin: 04/12/25 15:26 Dose: 650 mg Al Hydroxide/Mg Hydroxide (Magnesium Hydrox/Alum Hydrox 30 Ml Oral.Susp) 30 ml PO Q6H PRN PRN Reason: Heartburn/Nausea Last Admin: 04/05/25 21:40 Dose: 30 ml Ascorbic Acid (Ascorbic Acid 250 Mg Tablet) 250 mg PO DAILY [facility] Last Admin: 04/13/25 09:27 Dose: 250 mg Aspirin (Aspirin Enteric Coated 81 Mg Tablet.) 81 mg PO DAILY [facility] Last Admin: 04/13/25 09:26 Dose: 81 mg Atorvastatin Calcium (Atorvastatin Calcium 40 Mg Tablet) 40 mg PO BEDTIME [facility] Last Admin: 04/12/25 20:53 Dose: 40 mg Clozapine (Clozapine 100 Mg Tablet) 100 mg PO DAILY [facility] Last Admin: 04/13/25 09:27 Dose: 100 mg Clozapine (Clozapine 25 Mg Tablet) 50 mg PO BEDTIME [facility] Last Admin: 04/12/25 20:53 Dose: 50 mg Divalproex Sodium (Divalproex Sodium Er 500 Mg Tab.Er.24h) 500 mg PO DAILY [facility] Last Admin: 04/13/25 09:27 Dose: 500 mg Empagliflozin (Empagliflozin 25 Mg Tablet) 25 mg PO DAILY [facility] Last Admin: 04/13/25 09:27 Dose: 25 mg Ferrous Sulfate (Ferrous Sulfate 324 Mg Tablet.) 324 mg PO DAILY [facility] Last Admin: 04/13/25 09:26 Dose: 324 mg Fluticasone/Umeclidinium/Vilanterol (Fluticasone/Umeclidinium/Vilanterol 100/62.5/25 Blst.W.Dev) 1 puff INHALE RDAILY [facility] Last Admin: 04/13/25 09:34 Dose: 1 puff Loratadine (Loratadine 10 Mg Tablet) 10 mg PO DAILY [facility] Last Admin: 04/13/25 09:26 Dose: 10 mg Magnesium Hydroxide (Milk Of Magnesia 30 Ml Oral.Susp) 30 ml PO DAILY PRN PRN Reason: Constipation Nitroglycerin (Nitroglycerin 0.4 Mg Tab.Subl) 0.4 mg SUBLINGUAL Q5MX3 PRN PRN Reason: chest pain Omeprazole (Omeprazole 20 Mg Capsule.) 20 mg PO DAILY@0700 [facility] Last Admin: 04/13/25 05:52 Dose: 20 mg Senna/Docusate Sodium (Sennosides/Docusate Sodium Tablet) 1 tab PO BID [facility] Last Admin: 04/13/25 09:26 Dose: 1 tab Trazodone HCl (Trazodone Hcl 50 Mg Tablet) 50 mg PO BEDTIME MRX1 PRN PRN Reason: Insomnia Last Admin: 04/12/25 20:53 Dose: 50 mg Allergies Allergies Allergy/AdvReac Type Severity Reaction Status Date / Time Iodinated Contrast Media Allergy Severe hives Verified 03/13/25 11:42 Penicillins Allergy Severe Unknown Verified 03/13/25 11:42 lisinopril AdvReac Intermediate Cough Verified 03/13/25 11:42 succinylcholine (From AdvReac Unknown Unknown Verified 03/13/25 11:42 Anectine) Assessment & Plan Assessment & Plan (1) Schizophrenia: Qualifiers: Schizophrenia type: paranoid schizophrenia Qualified Code(s): F20.0 - Paranoid schizophrenia Status: Acute Code(s): F20.9 - Schizophrenia, unspecified Plan Ms. Encarnacion is a 74 year-old with hx of schizophrenia. She was initially admitted to S1 for increase AH in context of stopping clozaril. She was restarted on medication and titrated to 100mg po BID. She was transferred to medical floor due to sepsis in context of pneumonia. She was treated with ceftriaxone and doxycycline for 7 days. She had continued to report AH and CAH of not taking medications while on medical floor. On the unit, pt presents as very tired, fatigued and de-conditioned. She is now using walker to ambulate. She does not report SI/HI. She reports less AH, continues to take medications. I will recheck clozaril ratio on 03/26 was 3.9 shows decreased metabolism of clozapine maybe due to acute illness (ideal ratio is 1.32). PT consult ordered. Continue incentive spirometer. PLAN 04/08 continue tx. 04/09 continue tx. fam meeting this week. clozapine ration is high (3.9) showing inhibition of metabolism and getting more anticholinergic side effects. 04/10 continue tx. discussed d/c next Tue. 04/13 continue tx. Reason for continued inpatient stay Substantial Risk for: inability to function Time Spent With Patient Time: Total time managing care of this patient today ____ minutes.
[2025-04-13 19:55] VITALS: BP 113/56; PULSE 87; RESP 16; TEMP 36.4; O2SAT 96
[2025-04-14 08:00] VITALS: BP 120/54; PULSE 80; RESP 16; TEMP 36.6; O2SAT 95
[2025-04-14] MEDS: Aspirin Enteric Coated 81 MG TABLET.DR PO (08:08)
[2025-04-14] MEDS: Ferrous Sulfate 324 MG TABLET.DR PO (08:08)
[2025-04-14] MEDS: Fluticasone/Umeclidinium/Vilanterol 100/62.5/25 BLST.W.DEV 1 PUFF INHALE (08:09)
--- NOTE | 2025-04-14 16:55 | HO.PSYCHPN ---
Subjective Subjective Date of Service: 04/14/25 Reason For Visit: Paranoia Interim History: Pt slept through the night. She appears calmer, but still hearing voices. She has been more visible on the unit and able to participate in groups. She is taking medications as prescribed. Vs stable. denies dizziness. Pt denies any concerns. No behavioral concerns. less self dialoguing. Review of Systems Review of Systems Currently, GI sx have resolved Mental Status Exam Mental Status Exam Narrative: Appearance: wearing hospital gown, fair hygiene, in NAD behavior: somewhat guarded and apprehensive Psychomotor: no tremors, no ataxia, no agitation or retardation. Speech: clear, mild delayed in response seems related to being internally preoccupied, spontaneous TP: linear TC: asking to go home Mood: not assessed Affect: constricted, normo-intense SI: none expressed HI: none expressed VH/AH: none expressed Delusions: none expressed Insight/judgment: poor x 2. Memory/cog: alert, oriented to place, month and year. vaguely to situation. MOCA completed score 8/30 with impairment in executive function/visuospatial (2/5), naming (2/3), attention (which suspects related to underlying psychosis), language flunce and repetition, recall, abstraction, orientation. Although do suspect underlying cognitive impairment, active psychosis may have affected some of the scores. ACL 4.2 Diagnostics Vital Signs (24Hr): Vital Signs - 24 hr 04/13/25 19:55 04/14/25 08:00 Temperature 97.5 F 97.9 F Pulse Rate 87 80 Respiratory Rate 16 16 Blood Pressure 113/56 L 120/54 L Pulse Oximetry 96 95 Oxygen Delivery Method Room Air Room Air BMI result Body Mass Index 34.4 Labs 04/04/25 07:23 04/04/25 07:23 Medications Medications Current Medications Acetaminophen (Acetaminophen 325 Mg Tablet) 650 mg PO Q6H PRN PRN Reason: Headache/Pain, Scale 1-10 Last Admin: 04/13/25 20:17 Dose: 650 mg Al Hydroxide/Mg Hydroxide (Magnesium Hydrox/Alum Hydrox 30 Ml Oral.Susp) 30 ml PO Q6H PRN PRN Reason: Heartburn/Nausea Last Admin: 04/05/25 21:40 Dose: 30 ml Ascorbic Acid (Ascorbic Acid 250 Mg Tablet) 250 mg PO DAILY [facility] Last Admin: 04/14/25 08:08 Dose: 250 mg Aspirin (Aspirin Enteric Coated 81 Mg Tablet.) 81 mg PO DAILY [facility] Last Admin: 04/14/25 08:08 Dose: 81 mg Atorvastatin Calcium (Atorvastatin Calcium 40 Mg Tablet) 40 mg PO BEDTIME [facility] Last Admin: 04/13/25 20:17 Dose: 40 mg Clozapine (Clozapine 100 Mg Tablet) 100 mg PO DAILY [facility] Last Admin: 04/14/25 08:09 Dose: 100 mg Clozapine (Clozapine 25 Mg Tablet) 50 mg PO BEDTIME [facility] Last Admin: 04/13/25 20:16 Dose: 50 mg Divalproex Sodium (Divalproex Sodium Er 500 Mg Tab.Er.24h) 500 mg PO DAILY [facility] Last Admin: 04/14/25 08:08 Dose: 500 mg Empagliflozin (Empagliflozin 25 Mg Tablet) 25 mg PO DAILY [facility] Last Admin: 04/14/25 08:08 Dose: 25 mg Ferrous Sulfate (Ferrous Sulfate 324 Mg Tablet.) 324 mg PO DAILY [facility] Last Admin: 04/14/25 08:08 Dose: 324 mg Fluticasone/Umeclidinium/Vilanterol (Fluticasone/Umeclidinium/Vilanterol 100/62.5/25 Blst.W.Dev) 1 puff INHALE RDAILY [facility] Last Admin: 04/14/25 08:09 Dose: 1 puff Loratadine (Loratadine 10 Mg Tablet) 10 mg PO DAILY [facility] Last Admin: 04/14/25 08:08 Dose: 10 mg Magnesium Hydroxide (Milk Of Magnesia 30 Ml Oral.Susp) 30 ml PO DAILY PRN PRN Reason: Constipation Nitroglycerin (Nitroglycerin 0.4 Mg Tab.Subl) 0.4 mg SUBLINGUAL Q5MX3 PRN PRN Reason: chest pain Omeprazole (Omeprazole 20 Mg Capsule.) 20 mg PO DAILY@0700 [facility] Last Admin: 04/14/25 05:52 Dose: 20 mg Senna/Docusate Sodium (Sennosides/Docusate Sodium Tablet) 1 tab PO BID [facility] Last Admin: 04/14/25 08:09 Dose: 1 tab Trazodone HCl (Trazodone Hcl 50 Mg Tablet) 50 mg PO BEDTIME MRX1 PRN PRN Reason: Insomnia Last Admin: 04/13/25 20:17 Dose: 50 mg Allergies Allergies Allergy/AdvReac Type Severity Reaction Status Date / Time Iodinated Contrast Media Allergy Severe hives Verified 03/13/25 11:42 Penicillins Allergy Severe Unknown Verified 03/13/25 11:42 lisinopril AdvReac Intermediate Cough Verified 03/13/25 11:42 succinylcholine (From AdvReac Unknown Unknown Verified 03/13/25 11:42 Anectine) Assessment & Plan Assessment & Plan (1) Schizophrenia: Qualifiers: Schizophrenia type: paranoid schizophrenia Qualified Code(s): F20.0 - Paranoid schizophrenia Status: Acute Code(s): F20.9 - Schizophrenia, unspecified Plan Ms. Encarnacion is a 74 year-old with hx of schizophrenia. She was initially admitted to S[facility] for increase AH in context of stopping clozaril. She was restarted on medication and titrated to 100mg po BID. She was transferred to medical floor due to sepsis in context of pneumonia. She was treated with ceftriaxone and doxycycline for 7 days. She had continued to report AH and CAH of not taking medications while on medical floor. On the unit, pt presents as very tired, fatigued and de-conditioned. She is now using walker to ambulate. She does not report SI/HI. She reports less AH, continues to take medications. I will recheck clozaril ratio on 03/26 was 3.9 shows decreased metabolism of clozapine maybe due to acute illness (ideal ratio is 1.32). PT consult ordered. Continue incentive spirometer. PLAN 04/08 continue tx. 04/09 continue tx. fam meeting this week. clozapine ration is high (3.9) showing inhibition of metabolism and getting more anticholinergic side effects. 04/10 continue tx. discussed d/c next Tue. 04/13 continue tx. 04/14 continue tx. Reason for continued inpatient stay Substantial Risk for: inability to function Time Spent With Patient Time: Total time managing care of this patient today ____ minutes.
[2025-04-14 19:55] VITALS: BP 118/57; PULSE 95; RESP 17; TEMP 36.6; O2SAT 92
[2025-04-15 08:00] VITALS: BP 95/50; PULSE 72; RESP 18; TEMP 37.2; O2SAT 95
[2025-04-15] MEDS: Aspirin Enteric Coated 81 MG TABLET.DR PO (08:46)
[2025-04-15] MEDS: Fluticasone/Umeclidinium/Vilanterol 100/62.5/25 BLST.W.DEV 1 PUFF INHALE (08:46)
[2025-04-15] MEDS: Ferrous Sulfate 324 MG TABLET.DR PO (08:47)
--- NOTE | 2025-04-15 11:12 | P.PNPSI_ITS ---
Subjective Subjective Date of Service: 04/15/25 Reason For Visit: Paranoia Interim History: Pt slept through the night. She appears calmer, but still hearing voices. She has been more visible on the unit and able to participate in groups. She is taking medications as prescribed. Vs stable. denies dizziness. Pt denies any concerns. No behavioral concerns. less self dialoguing. Review of Systems Review of Systems Currently, GI sx have resolved Mental Status Exam Mental Status Exam Narrative: Appearance: wearing hospital gown, fair hygiene, in NAD behavior: somewhat guarded and apprehensive Psychomotor: no tremors, no ataxia, no agitation or retardation. Speech: clear, mild delayed in response seems related to being internally preoccupied, spontaneous TP: linear TC: asking to go home Mood: not assessed Affect: constricted, normo-intense SI: none expressed HI: none expressed VH/AH: none expressed Delusions: none expressed Insight/judgment: poor x 2. Memory/cog: alert, oriented to place, month and year. vaguely to situation. MOCA completed score 8/30 with impairment in executive function/visuospatial (2/5), naming (2/3), attention (which suspects related to underlying psychosis), language flunce and repetition, recall, abstraction, orientation. Although do suspect underlying cognitive impairment, active psychosis may have affected some of the scores. ACL 4.2 Diagnostics Vital Signs (24Hr): Vital Signs - 24 hr 04/14/25 19:55 04/15/25 08:00 Temperature 97.8 F 99.0 F Pulse Rate 95 72 Respiratory Rate 17 18 Blood Pressure 118/57 L 95/50 L Pulse Oximetry 92 95 Oxygen Delivery Method Room Air Room Air BMI result Body Mass Index 34.4 Labs 04/04/25 07:23 04/04/25 07:23 Medications Medications Current Medications Acetaminophen (Acetaminophen 325 Mg Tablet) 650 mg PO Q6H PRN PRN Reason: Headache/Pain, Scale 1-10 Last Admin: 04/13/25 20:17 Dose: 650 mg Al Hydroxide/Mg Hydroxide (Magnesium Hydrox/Alum Hydrox 30 Ml Oral.Susp) 30 ml PO Q6H PRN PRN Reason: Heartburn/Nausea Last Admin: 04/05/25 21:40 Dose: 30 ml Ascorbic Acid (Ascorbic Acid 250 Mg Tablet) 250 mg PO DAILY [facility] Last Admin: 04/15/25 08:47 Dose: 250 mg Aspirin (Aspirin Enteric Coated 81 Mg Tablet.) 81 mg PO DAILY [facility] Last Admin: 04/15/25 08:46 Dose: 81 mg Atorvastatin Calcium (Atorvastatin Calcium 40 Mg Tablet) 40 mg PO BEDTIME [facility] Last Admin: 04/14/25 20:34 Dose: 40 mg Clozapine (Clozapine 100 Mg Tablet) 100 mg PO DAILY [facility] Last Admin: 04/15/25 08:46 Dose: 100 mg Clozapine (Clozapine 25 Mg Tablet) 50 mg PO BEDTIME [facility] Last Admin: 04/14/25 20:35 Dose: 50 mg Divalproex Sodium (Divalproex Sodium Er 500 Mg Tab.Er.24h) 500 mg PO DAILY [facility] Last Admin: 04/15/25 08:47 Dose: 500 mg Empagliflozin (Empagliflozin 25 Mg Tablet) 25 mg PO DAILY [facility] Last Admin: 04/15/25 08:47 Dose: 25 mg Ferrous Sulfate (Ferrous Sulfate 324 Mg Tablet.) 324 mg PO DAILY [facility] Last Admin: 04/15/25 08:47 Dose: 324 mg Fluticasone/Umeclidinium/Vilanterol (Fluticasone/Umeclidinium/Vilanterol 100/62.5/25 Blst.W.Dev) 1 puff INHALE RDAILY [facility] Last Admin: 04/15/25 08:46 Dose: 1 puff Loratadine (Loratadine 10 Mg Tablet) 10 mg PO DAILY [facility] Last Admin: 04/15/25 08:47 Dose: 10 mg Magnesium Hydroxide (Milk Of Magnesia 30 Ml Oral.Susp) 30 ml PO DAILY PRN PRN Reason: Constipation Nitroglycerin (Nitroglycerin 0.4 Mg Tab.Subl) 0.4 mg SUBLINGUAL Q5MX3 PRN PRN Reason: chest pain Omeprazole (Omeprazole 20 Mg Capsule.) 20 mg PO DAILY@0700 [facility] Last Admin: 04/15/25 05:46 Dose: 20 mg Senna/Docusate Sodium (Sennosides/Docusate Sodium Tablet) 1 tab PO BID [facility] Last Admin: 04/15/25 08:48 Dose: 1 tab Trazodone HCl (Trazodone Hcl 50 Mg Tablet) 50 mg PO BEDTIME MRX1 PRN PRN Reason: Insomnia Last Admin: 04/14/25 20:34 Dose: 50 mg Allergies Allergies Allergy/AdvReac Type Severity Reaction Status Date / Time Iodinated Contrast Media Allergy Severe hives Verified 03/13/25 11:42 Penicillins Allergy Severe Unknown Verified 03/13/25 11:42 lisinopril AdvReac Intermediate Cough Verified 03/13/25 11:42 succinylcholine (From AdvReac Unknown Unknown Verified 03/13/25 11:42 Anectine) Assessment & Plan Assessment & Plan (1) Schizophrenia: Qualifiers: Schizophrenia type: paranoid schizophrenia Qualified Code(s): F20.0 - Paranoid schizophrenia Status: Acute Code(s): F20.9 - Schizophrenia, unspecified Plan Ms. Encarnacion is a 74 year-old with hx of schizophrenia. She was initially admitted to [facility] for increase AH in context of stopping clozaril. She was restarted on medication and titrated to 100mg po BID. She was transferred to medical floor due to sepsis in context of pneumonia. She was treated with ceftriaxone and doxycycline for 7 days. She had continued to report AH and CAH of not taking medications while on medical floor. On the unit, pt presents as very tired, fatigued and de-conditioned. She is now using walker to ambulate. She does not report SI/HI. She reports less AH, continues to take medications. I will recheck clozaril ratio on 03/26 was 3.9 shows decreased metabolism of clozapine maybe due to acute illness (ideal ratio is 1.32). PT consult ordered. Continue incentive spirometer. PLAN 04/08 continue tx. 04/09 continue tx. fam meeting this week. clozapine ration is high (3.9) showing inhibition of metabolism and getting more anticholinergic side effects. 04/10 continue tx. discussed d/c next Tue. 04/13 continue tx. 04/14 continue tx. Reason for continued inpatient stay Substantial Risk for: inability to function Time Spent With Patient Time: Total time managing care of this patient today ____ minutes.
[2025-04-15 20:00] VITALS: BP 124/56; PULSE 72; RESP 20; TEMP 36.6; O2SAT 96
[2025-04-16 09:44] VITALS: BP 109/53; PULSE 89; RESP 20; TEMP 36.8; O2SAT 94
[2025-04-16] MEDS: Fluticasone/Umeclidinium/Vilanterol 100/62.5/25 BLST.W.DEV 1 PUFF INHALE (09:45)
[2025-04-16] MEDS: Ferrous Sulfate 324 MG TABLET.DR PO (09:47)
[2025-04-16] MEDS: Aspirin Enteric Coated 81 MG TABLET.DR PO (09:48)
--- NOTE | 2025-04-16 18:56 | HO.PSYCHPN ---
Subjective Subjective Date of Service: 04/16/25 Reason For Visit: Paranoia Interim History: Pt slept through the night. She appears calmer, but still hearing voices. She has been more visible on the unit and able to participate in groups. She is taking medications as prescribed. Vs stable. denies dizziness. Pt denies any concerns. No behavioral concerns. less self dialoguing. Review of Systems Review of Systems Currently, GI sx have resolved Mental Status Exam Mental Status Exam Narrative: Appearance: wearing hospital gown, fair hygiene, in NAD behavior: somewhat guarded and apprehensive Psychomotor: no tremors, no ataxia, no agitation or retardation. Speech: clear, mild delayed in response seems related to being internally preoccupied, spontaneous TP: linear TC: asking to go home Mood: not assessed Affect: constricted, normo-intense SI: none expressed HI: none expressed VH/AH: none expressed Delusions: none expressed Insight/judgment: poor x 2. Memory/cog: alert, oriented to place, month and year. vaguely to situation. MOCA completed score 8/30 with impairment in executive function/visuospatial (2/5), naming (2/3), attention (which suspects related to underlying psychosis), language flunce and repetition, recall, abstraction, orientation. Although do suspect underlying cognitive impairment, active psychosis may have affected some of the scores. ACL 4.2 Diagnostics Vital Signs (24Hr): Vital Signs - 24 hr 04/15/25 20:00 04/16/25 09:44 Temperature 98 F 98.2 F Pulse Rate 72 89 Respiratory Rate 20 20 Blood Pressure 124/56 L 109/53 L Pulse Oximetry 96 94 Oxygen Delivery Method Room Air Room Air BMI result Body Mass Index 34.4 Labs 04/04/25 07:23 04/04/25 07:23 Medications Medications Current Medications Acetaminophen (Acetaminophen 325 Mg Tablet) 650 mg PO Q6H PRN PRN Reason: Headache/Pain, Scale 1-10 Last Admin: 04/13/25 20:17 Dose: 650 mg Al Hydroxide/Mg Hydroxide (Magnesium Hydrox/Alum Hydrox 30 Ml Oral.Susp) 30 ml PO Q6H PRN PRN Reason: Heartburn/Nausea Last Admin: 04/05/25 21:40 Dose: 30 ml Ascorbic Acid (Ascorbic Acid 250 Mg Tablet) 250 mg PO DAILY [facility] Last Admin: 04/16/25 09:47 Dose: 250 mg Aspirin (Aspirin Enteric Coated 81 Mg Tablet.) 81 mg PO DAILY [facility] Last Admin: 04/16/25 09:48 Dose: 81 mg Atorvastatin Calcium (Atorvastatin Calcium 40 Mg Tablet) 40 mg PO BEDTIME [facility] Last Admin: 04/15/25 21:07 Dose: 40 mg Clozapine (Clozapine 100 Mg Tablet) 100 mg PO DAILY [facility] Last Admin: 04/16/25 09:47 Dose: 100 mg Clozapine (Clozapine 25 Mg Tablet) 50 mg PO BEDTIME [facility] Last Admin: 04/15/25 21:07 Dose: 50 mg Divalproex Sodium (Divalproex Sodium Er 500 Mg Tab.Er.24h) 500 mg PO DAILY [facility] Last Admin: 04/16/25 09:46 Dose: 500 mg Empagliflozin (Empagliflozin 25 Mg Tablet) 25 mg PO DAILY [facility] Last Admin: 04/16/25 09:47 Dose: 25 mg Ferrous Sulfate (Ferrous Sulfate 324 Mg Tablet.) 324 mg PO DAILY [facility] Last Admin: 04/16/25 09:47 Dose: 324 mg Fluticasone/Umeclidinium/Vilanterol (Fluticasone/Umeclidinium/Vilanterol 100/62.5/25 Blst.W.Dev) 1 puff INHALE RDAILY [facility] Last Admin: 04/16/25 09:45 Dose: 1 puff Loratadine (Loratadine 10 Mg Tablet) 10 mg PO DAILY [facility] Last Admin: 04/16/25 09:46 Dose: 10 mg Magnesium Hydroxide (Milk Of Magnesia 30 Ml Oral.Susp) 30 ml PO DAILY PRN PRN Reason: Constipation Nitroglycerin (Nitroglycerin 0.4 Mg Tab.Subl) 0.4 mg SUBLINGUAL Q5MX3 PRN PRN Reason: chest pain Omeprazole (Omeprazole 20 Mg Capsule.) 20 mg PO DAILY@0700 [facility] Last Admin: 04/16/25 06:00 Dose: 20 mg Senna/Docusate Sodium (Sennosides/Docusate Sodium Tablet) 1 tab PO BID [facility] Last Admin: 04/16/25 09:48 Dose: 1 tab Trazodone HCl (Trazodone Hcl 50 Mg Tablet) 50 mg PO BEDTIME MRX1 PRN PRN Reason: Insomnia Last Admin: 04/15/25 21:07 Dose: 50 mg Allergies Allergies Allergy/AdvReac Type Severity Reaction Status Date / Time Iodinated Contrast Media Allergy Severe hives Verified 03/13/25 11:42 Penicillins Allergy Severe Unknown Verified 03/13/25 11:42 lisinopril AdvReac Intermediate Cough Verified 03/13/25 11:42 succinylcholine (From AdvReac Unknown Unknown Verified 03/13/25 11:42 Anectine) Assessment & Plan Assessment & Plan (1) Schizophrenia: Qualifiers: Schizophrenia type: paranoid schizophrenia Qualified Code(s): F20.0 - Paranoid schizophrenia Status: Acute Code(s): F20.9 - Schizophrenia, unspecified Plan Ms. Encarnacion is a 74 year-old with hx of schizophrenia. She was initially admitted to [facility] for increase AH in context of stopping clozaril. She was restarted on medication and titrated to 100mg po BID. She was transferred to medical floor due to sepsis in context of pneumonia. She was treated with ceftriaxone and doxycycline for 7 days. She had continued to report AH and CAH of not taking medications while on medical floor. On the unit, pt presents as very tired, fatigued and de-conditioned. She is now using walker to ambulate. She does not report SI/HI. She reports less AH, continues to take medications. I will recheck clozaril ratio on 03/26 was 3.9 shows decreased metabolism of clozapine maybe due to acute illness (ideal ratio is 1.32). PT consult ordered. Continue incentive spirometer. PLAN 04/08 continue tx. 04/09 continue tx. fam meeting this week. clozapine ration is high (3.9) showing inhibition of metabolism and getting more anticholinergic side effects. 04/10 continue tx. discussed d/c next Tue. 04/13 continue tx. 04/14 continue tx. 04/16 continue tx. Reason for continued inpatient stay Substantial Risk for: inability to function Time Spent With Patient Time: Total time managing care of this patient today ____ minutes.
[2025-04-16 20:00] VITALS: BP 122/57; PULSE 85; RESP 16; TEMP 35.9; O2SAT 93
[2025-04-17 08:06] VITALS: BP 105/51; PULSE 86; RESP 20; TEMP 36.7; O2SAT 95
[2025-04-17] MEDS: Aspirin Enteric Coated 81 MG TABLET.DR PO (08:10)
[2025-04-17] MEDS: Ferrous Sulfate 324 MG TABLET.DR PO (08:10)
[2025-04-17] MEDS: Fluticasone/Umeclidinium/Vilanterol 100/62.5/25 BLST.W.DEV 1 PUFF INHALE (08:11)
[2025-04-17 08:32] LABS: Neut%MD 63.5 %; WBCANC 8.7 X10*3/uL
--- NOTE | 2025-04-17 09:45 | PM.PSYDC ---
DS: Providers Provider Date of Service: 04/17/25 Date of admission: 04/01/25 12:31 Date of discharge: 04/17/25 Primary care physician: Unknown Physician Discharging clinician: Vane Bueno DS: Diagnosis Discharge Diagnosis (1) Schizophrenia: Status: Acute DS: Medications Discharge Medications Home Medications: Previous Rx's ?Medication ?Instructions ?Recorded ascorbic acid (vitamin C) 250 mg 250 mg PO DAILY #30 tabs 04/17/25 tablet aspirin 81 mg tablet,delayed 81 mg PO DAILY #30 tabs 04/17/25 release atorvastatin 40 mg tablet 40 mg PO BEDTIME #30 tabs 04/17/25 clozapine 100 mg tablet 100 mg PO DAILY #30 tabs 04/17/25 clozapine 25 mg tablet 50 mg (2 x 25 mg) PO BEDTIME #60 04/17/25 tabs divalproex 500 mg tablet,extended 500 mg PO DAILY #30 tabs 04/17/25 release 24 hr empagliflozin 25 mg tablet 25 mg PO DAILY #30 tabs 04/17/25 (Jardiance) ferrous sulfate 324 mg (65 mg 324 mg PO DAILY #30 tabs 04/17/25 iron) tablet,delayed release fluticasone fur. 100 mcg-umeclid 1 inh inhalation DAILY #28 ea 04/17/25 62.5 mcg-vilant 25 mcg inhalat.powder loratadine 10 mg tablet 10 mg PO DAILY #30 tabs 04/17/25 nitroglycerin 0.4 mg sublingual 0.4 mg sublingual Q5MX3 PRN chest 04/17/25 tablet (Nitrostat) pain #60 tabs omeprazole 20 mg capsule,delayed 20 mg PO DAILY@0700 #30 caps 04/17/25 release sennosides 8.6 mg-docusate sodium 1 tab PO BID #60 tabs 04/17/25 50 mg tablet (Senna Plus) trazodone 50 mg tablet 50 mg PO BEDTIME PRN Insomnia #30 04/17/25 tabs Mental Status Exam Mental Status Exam Narrative: Appearance: wearing hospital gown, fair hygiene, in NAD behavior: somewhat guarded and apprehensive Psychomotor: no tremors, no ataxia, no agitation or retardation. Speech: clear, regular rate/rhythm, spontaneous TP: linear TC: feeling better, thankful for treatment here Mood: good Affect: constricted, normo-intense SI: none expressed HI: none expressed VH/AH: none expressed Delusions: none expressed Insight/judgment: poor x 2. Memory/cog: alert, oriented to place, month and year. vaguely to situation. MOCA completed score 8/30 with impairment in executive function/visuospatial (2/5), naming (2/3), attention (which suspects related to underlying psychosis), language flunce and repetition, recall, abstraction, orientation. Although do suspect underlying cognitive impairment, active psychosis may have affected some of the scores. ACL 4.2 Data Data Completed and Pending Completed studies during hospitalization [Text1]: 04/17/25 08:27 Absolute Neuts (auto) 5.6 DS: Summary Hospital Course Hospital Course: Ms. Encarnacion is a 74 year-old woman with hx of schizophrenia. She was initially brought to [facility] ED due to increase agitation and auditory hallucinations in context of pt stopping antipsychotic clozapine. She was admitted to on 03/13/2025. She was restarted on clozaril, titrated to 100mg po BID. She developed s/s of sepsis due to pneumonia and transferred to medical floor on 03/26/2025. She was treated with ceftriaxone and doxycycline for 7 days. She was assessed by care team once medically cleared and had continued to report auditory and ideas that she does not need medications. On the unit, pt presents as very tired and fatigue. She reports she feels very weak and with difficulty ambulating which she did not have prior to pneumonia. She has been afebrile. She reports less AH. She continues to take medications. She reports feeling safe here and needing to rest. Will lower clozaril at bedtime to avoid oversedation while she recovers from pneumonia. Past Psychiatric History: Inpt: reports number of admission but can't remember when or where. She reports last one was a long time a go. She could not tell whether it was in the past 5 years or more than that. OP: Pt reports seeing Alma Rosa Ramesh, but she is no longer in the practice. She now sees Génesis Buck NP ([phone]). Past medication trials: depakote, clozapine. Pt can't remember if she has been on other medications. Medical Evaluation Reviewed: Yes HOSPITAL COURSE On the unit, pt was admitted on CV and placed on 15 minutes checks for safety. Pt was weaker and tired due to pneumonia. She had combination of incentive spirometer and worked with PT to regained strengh. Pt was continued on clozaril 100mg po daily and 50 mg qhs. Clozaril was lowered from 100mg po BID to 100mg po daily and 50mg po qhs due to sedation. Her affect gradually presented as calmer, les suspicious and less paranoid. No SI/HI. She was taking medications as prescribed. Sleeping and eating well. She was more visible on the unit and social with select peers. We had meeting with son to discuss aftercare planning and assistance at home. Status at Discharge Cognitive/behavioral status at discharge: Pt with brighter, less suspicious and paranoid affect. No SI/HI. Sleeping and eating well. Functional status at discharge: independent ambulation Overall status at discharge: patient is progressing back to baseline Time Spent with Patient Time attestation: Total time managing care of this patient today __45__ minutes. Discharge Plan Discharge Anticipated Discharge Date/Time: 04/17/25 09:22 Patient Disposition: Home, Self-Care Discharge Diagnosis: Schizophrenia Referrals: [facility] [Other] - 04/18/25 Referral Note: Your [facility] care will restart on 04/18/25. If you have nay concerns or questions please call the number listed. [facility] [Other] - 04/18/25 Referral Note: Your usual home making and laundry services will restarted on 04/18/25. Any questions or concerned can be answered at the number listed above. Génesis Buck NP [Other] - 04/30/25 2:00 pm Referral Note: You will see Génesis on 04/30 at 2:00pm. This will be an in person appointment and if you need to reschedule or cancel the appointment please call the number listed Discharge Medications: New loratadine 10 mg Tablet 10 mg PO DAILY Qty: 30 0RF atorvastatin 40 mg Tablet 40 mg PO BEDTIME Qty: 30 0RF trazodone 50 mg Tablet 50 mg PO BEDTIME PRN (Reason: Insomnia) Qty: 30 0RF clozapine 100 mg Tablet 100 mg PO DAILY Qty: 30 0RF sennosides-docusate sodium [Senna Plus] 8.6-50 mg Tablet 1 tab PO BID Qty: 60 0RF aspirin 81 mg Tablet,Delayed Release (Dr/Ec) 81 mg PO DAILY Qty: 30 0RF divalproex 500 mg Tablet Extended Release 24 Hr 500 mg PO DAILY Qty: 30 0RF nitroglycerin [Nitrostat] 0.4 mg Tablet, Sublingual 0.4 mg sublingual Q5MX3 PRN (Reason: chest pain) Qty: 60 0RF omeprazole 20 mg Capsule,Delayed Release(Dr/Ec) 20 mg PO DAILY@0700 Qty: 30 0RF clozapine 25 mg Tablet 50 mg PO BEDTIME Qty: 60 0RF ferrous sulfate 324 mg (65 mg iron) Tablet,Delayed Release (Dr/Ec) 324 mg PO DAILY Qty: 30 0RF [id number] 100-62.5-25 mcg blister with device 1 inh inhalation DAILY Qty: 28 0RF ascorbic acid (vitamin C) 250 mg Tablet 250 mg PO DAILY Qty: 30 0RF Jardiance 25 mg Tablet 25 mg PO DAILY Qty: 30 0RF Discontinued loratadine 10 mg Tablet 10 mg PO DAILY Qty: 0 0RF Trelegy Ellipta 100-62.5-25 mcg Blister With Device 1 inh inhalation RDAILY Qty: 0 0RF atorvastatin 40 mg Tablet 40 mg PO BEDTIME Qty: 0 0RF sennosides [Senna Lax] 8.6 mg Tablet 17.2 mg PO BEDTIME Qty: 0 0RF acetaminophen 325 mg Tablet 650 mg PO Q6H PRN (Reason: Headache/Pain, Scale 1-10) Qty: 0 0RF nicotine 14 mg/24 hr Patch 24 Hour 14 mg transdermal DAILY Qty: 0 0RF trazodone 50 mg Tablet 50 mg PO BEDTIME PRN (Reason: Insomnia) Qty: 0 0RF clozapine 100 mg Tablet 100 mg PO DAILY Qty: 0 0RF clozapine 100 mg Tablet 100 mg PO BEDTIME Qty: 0 0RF aspirin 81 mg Tablet,Delayed Release (Dr/Ec) 81 mg PO DAILY Qty: 0 0RF nitroglycerin [Nitrostat] 0.4 mg Tablet, Sublingual 0.4 mg sublingual Q5MX3 PRN (Reason: Chest Pain) Qty: 0 0RF omeprazole 20 mg Capsule,Delayed Release(Dr/Ec) 20 mg PO DAILY@0630 Qty: 0 0RF ondansetron 4 mg Tablet,Disintegrating 4 mg translingual Q6H PRN (Reason: Nausea And Vomiting) Qty: 0 0RF divalproex 250 mg Tablet Extended Release 24 Hr 750 mg PO DAILY Qty: 0 0RF ferrous sulfate 324 mg (65 mg iron) Tablet,Delayed Release (Dr/Ec) 324 mg PO DAILY Qty: 0 0RF Jardiance 25 mg Tablet 25 mg PO DAILY Qty: 0 0RF olanzapine 2.5 mg Tablet 2.5 mg PO TID PRN (Reason: Agitation) magnesium hydroxide [Milk of Magnesia] 400 mg/5 mL Suspension 400 mg PO Q6H PRN (Reason: Heartburn/Nausea) alum-mag hydroxide-simeth 200-200-20 mg/5 mL Suspension 30 ml PO Q6H PRN (Reason: Constipation) Rx Instructions: administer between meals and at bedtime Discharge Orders: Discharge Order (Routine); Ordered 04/17/25 Ordered By: Vane Bueno Diet: Diabetic diet Activity on Discharge: As tolerated Stand Alone Forms: Patient Portal Discharge page, Community Support Print Language: French Care Plan Goals: 1. Maintain mood 2. No SI/HI. 3. Less VH/AH 4. Less paranoid delusions Health Concerns: Follow up with PCP for DM Plan of Treatment: 1. Take medications as prescribed 2. Go to nearest ED or call 911 in event of emergency Assessment: Pt with brighter affect. No SI/HI. Sleeping and eating well. No aggression towards self. Less AH. less paranoid delusions, calmer.
--- NOTE | 2025-04-17 18:04 | PM.PSYDC ---
DS: Providers Provider Date of Service: 04/17/25 Date of admission: 04/01/25 12:31 Date of discharge: 04/17/25 Primary care physician: Unknown Physician Attending physician on admission: Vane Bueno Attending physician on discharge: Makenna Rogers DS: Diagnosis Discharge Diagnosis (1) Schizophrenia: Status: Acute DS: Medications Discharge Medications Home Medications: Previous Rx's ?Medication ?Instructions ?Recorded ascorbic acid (vitamin C) 250 mg 250 mg PO DAILY #30 tabs 04/17/25 tablet aspirin 81 mg tablet,delayed 81 mg PO DAILY #30 tabs 04/17/25 release atorvastatin 40 mg tablet 40 mg PO BEDTIME #30 tabs 04/17/25 clozapine 100 mg tablet 100 mg PO DAILY #30 tabs 04/17/25 clozapine 25 mg tablet 50 mg (2 x 25 mg) PO BEDTIME #60 04/17/25 tabs divalproex 500 mg tablet,extended 500 mg PO DAILY #30 tabs 04/17/25 release 24 hr empagliflozin 25 mg tablet 25 mg PO DAILY #30 tabs 04/17/25 (Jardiance) ferrous sulfate 324 mg (65 mg 324 mg PO DAILY #30 tabs 04/17/25 iron) tablet,delayed release fluticasone fur. 100 mcg-umeclid 1 inh inhalation DAILY #28 ea 04/17/25 62.5 mcg-vilant 25 mcg inhalat.powder loratadine 10 mg tablet 10 mg PO DAILY #30 tabs 04/17/25 nitroglycerin 0.4 mg sublingual 0.4 mg sublingual Q5MX3 PRN chest 04/17/25 tablet (Nitrostat) pain #60 tabs omeprazole 20 mg capsule,delayed 20 mg PO DAILY@0700 #30 caps 04/17/25 release sennosides 8.6 mg-docusate sodium 1 tab PO BID #60 tabs 04/17/25 50 mg tablet (Senna Plus) trazodone 50 mg tablet 50 mg PO BEDTIME PRN Insomnia #30 04/17/25 tabs Mental Status Exam Mental Status Exam Narrative: Patient presents well-groomed, casually dressed. Affect is euthymic with full range. Speech is clear and coherent. Thought process is linear and logical. Thought content is appropriate and relevant. Patient denies suicidal or homicidal ideation intent or plan. No overt psychotic symptoms elicited. Insight is fair. Judgement is good. Data Data Completed and Pending Completed studies during hospitalization [Text1]: 04/17/25 08:27 Absolute Neuts (auto) 5.6 DS: Summary Hospital Course Hospital Course: Ms. Encarnacion is a 74 year-old woman with hx of schizophrenia. She was initially brought to [facility] ED due to increase agitation and auditory hallucinations in context of pt stopping antipsychotic clozapine. She was admitted to [facility] on 03/13/2025. She was restarted on clozaril, titrated to 100mg po BID. She developed s/s of sepsis due to pneumonia and transferred to medical floor on 03/26/2025. She was treated with ceftriaxone and doxycycline for 7 days. She was assessed by care team once medically cleared and had continued to report auditory and ideas that she does not need medications. On the unit, pt presents as very tired and fatigue. She reports she feels very weak and with difficulty ambulating which she did not have prior to pneumonia. She has been afebrile. She reports less AH. She continues to take medications. She reports feeling safe here and needing to rest. Will lower clozaril at bedtime to avoid oversedation while she recovers from pneumonia. Past Psychiatric History: Inpt: reports number of admission but can't remember when or where. She reports last one was a long time a go. She could not tell whether it was in the past 5 years or more than that. OP: Pt reports seeing Alma Rosa Ramesh, but she is no longer in the practice. She now sees Génesis Buck NP ([phone]). Past medication trials: depakote, clozapine. Pt can't remember if she has been on other medications. Medical Evaluation Reviewed: Yes HOSPITAL COURSE On the unit, pt was admitted on CV and placed on 15 minutes checks for safety. Pt was weaker and tired due to pneumonia. She had combination of incentive spirometer and worked with PT to regained strengh. Pt was continued on clozaril 100mg po daily and 50 mg qhs. Clozaril was lowered from 100mg po BID to 100mg po daily and 50mg po qhs due to sedation. Her affect gradually presented as calmer, les suspicious and less paranoid. No SI/HI. She was taking medications as prescribed. Sleeping and eating well. She was more visible on the unit and social with select peers. We had meeting with son to discuss aftercare planning and assistance at home On the day of discharge, patient understands it is important to consistently taking Clozaril, and important to follow-up with outpatient services and follow-up appointments. She accepts the VNA coming to the house to manage her medications. Charge nurse also review medication with family. Patient is very pleasant, calm and cooperative. No safety concerns. No paranoid thoughts. Denies safety concerns SI/SIB/HI/AVH. Cloziril level on 04/02: 595 and Non-clozaril levle 134 WNL. ANC WNL. Time spent discussing smoking cessation with patient: 3 to 10 minutes Status at Discharge Cognitive/behavioral status at discharge: CONDITION ON DISCHARGE: CURRENT STATUS IT RELATES TO ADMISSION CRITERIA: Stable, improved. Improvements in depression, anxiety, and suicidal ideation. Improvements in sleep, energy, and appetite. and no hallucination or paranoia/delusional thought. Functional status at discharge: independent ambulation Overall status at discharge: patient is back to baseline Time Spent with Patient Time attestation: Total time managing care of this patient today ____ minutes. Time spent: Greater than 30 minutes Discharge Plan Discharge Anticipated Discharge Date/Time: 04/17/25 09:22 Patient Disposition: Home, Self-Care Discharge Diagnosis: Schizophrenia Referrals: [facility] [Other] - 04/18/25 Referral Note: Your usual home making and laundry services will restarted on 04/18/25. Any questions or concerned can be answered at the number listed above. Génesis Buck NP [Other] - 04/30/25 2:00 pm Referral Note: You will see Génesis on 04/30 at 2:00pm. This will be an in person appointment and if you need to reschedule or cancel the appointment please call the number listed. This is psychiatric prescriber, not PCP. Discharge Medications: New loratadine 10 mg Tablet 10 mg PO DAILY Qty: 30 0RF atorvastatin 40 mg Tablet 40 mg PO BEDTIME Qty: 30 0RF trazodone 50 mg Tablet 50 mg PO BEDTIME PRN (Reason: Insomnia) Qty: 30 0RF clozapine 100 mg Tablet 100 mg PO DAILY Qty: 30 0RF sennosides-docusate sodium [Senna Plus] 8.6-50 mg Tablet 1 tab PO BID Qty: 60 0RF aspirin 81 mg Tablet,Delayed Release (Dr/Ec) 81 mg PO DAILY Qty: 30 0RF divalproex 500 mg Tablet Extended Release 24 Hr 500 mg PO DAILY Qty: 30 0RF nitroglycerin [Nitrostat] 0.4 mg Tablet, Sublingual 0.4 mg sublingual Q5MX3 PRN (Reason: chest pain) Qty: 60 0RF omeprazole 20 mg Capsule,Delayed Release(Dr/Ec) 20 mg PO DAILY@0700 Qty: 30 0RF clozapine 25 mg Tablet 50 mg PO BEDTIME Qty: 60 0RF ferrous sulfate 324 mg (65 mg iron) Tablet,Delayed Release (Dr/Ec) 324 mg PO DAILY Qty: 30 0RF [id number] 100-62.5-25 mcg blister with device 1 inh inhalation DAILY Qty: 28 0RF ascorbic acid (vitamin C) 250 mg Tablet 250 mg PO DAILY Qty: 30 0RF Jardiance 25 mg Tablet 25 mg PO DAILY Qty: 30 0RF Discontinued loratadine 10 mg Tablet 10 mg PO DAILY Qty: 0 0RF Trelegy Ellipta 100-62.5-25 mcg Blister With Device 1 inh inhalation RDAILY Qty: 0 0RF atorvastatin 40 mg Tablet 40 mg PO BEDTIME Qty: 0 0RF sennosides [Senna Lax] 8.6 mg Tablet 17.2 mg PO BEDTIME Qty: 0 0RF acetaminophen 325 mg Tablet 650 mg PO Q6H PRN (Reason: Headache/Pain, Scale 1-10) Qty: 0 0RF nicotine 14 mg/24 hr Patch 24 Hour 14 mg transdermal DAILY Qty: 0 0RF trazodone 50 mg Tablet 50 mg PO BEDTIME PRN (Reason: Insomnia) Qty: 0 0RF clozapine 100 mg Tablet 100 mg PO DAILY Qty: 0 0RF clozapine 100 mg Tablet 100 mg PO BEDTIME Qty: 0 0RF aspirin 81 mg Tablet,Delayed Release (Dr/Ec) 81 mg PO DAILY Qty: 0 0RF nitroglycerin [Nitrostat] 0.4 mg Tablet, Sublingual 0.4 mg sublingual Q5MX3 PRN (Reason: Chest Pain) Qty: 0 0RF omeprazole 20 mg Capsule,Delayed Release(Dr/Ec) 20 mg PO DAILY@0630 Qty: 0 0RF ondansetron 4 mg Tablet,Disintegrating 4 mg translingual Q6H PRN (Reason: Nausea And Vomiting) Qty: 0 0RF divalproex 250 mg Tablet Extended Release 24 Hr 750 mg PO DAILY Qty: 0 0RF ferrous sulfate 324 mg (65 mg iron) Tablet,Delayed Release (Dr/Ec) 324 mg PO DAILY Qty: 0 0RF Jardiance 25 mg Tablet 25 mg PO DAILY Qty: 0 0RF olanzapine 2.5 mg Tablet 2.5 mg PO TID PRN (Reason: Agitation) magnesium hydroxide [Milk of Magnesia] 400 mg/5 mL Suspension 400 mg PO Q6H PRN (Reason: Heartburn/Nausea) alum-mag hydroxide-simeth 200-200-20 mg/5 mL Suspension 30 ml PO Q6H PRN (Reason: Constipation) Rx Instructions: administer between meals and at bedtime Discharge Orders: Discharge Order (Routine); Ordered 04/17/25 Ordered By: Vane Bueno Diet: Diabetic diet Activity on Discharge: As tolerated Stand Alone Forms: Patient Portal Discharge page, Community Support Print Language: Mongolian Care Plan Goals: 1. Maintain mood 2. No SI/HI. 3. Less VH/AH 4. Less paranoid delusions Health Concerns: Follow up with PCP for DM Plan of Treatment: 1. Take medications as prescribed 2. Go to nearest ED or call 911 in event of emergency Assessment: Pt with brighter affect. No SI/HI. Sleeping and eating well. No aggression towards self. Less AH. less paranoid delusions, calmer. Discharge Date/Time: 04/17/25 14:20
== END 2025-04-17 14:20 | disposition home or self-care (01) | DRG 885 ==
PROVIDERS: Nurse Practitioner Family; Admitting Provider Social Worker; Visit Provider Social Worker
DX: F20.0 Paranoid schizophrenia (principal); I12.9 Hypertensive chronic kidney disease with stage 1 through stage 4 chronic kidney disease, or unspecified chronic kidney disease; N18.30 Chronic kidney disease, stage 3 unspecified; J44.9 Chronic obstructive pulmonary disease, unspecified; E11.22 Type 2 diabetes mellitus with diabetic chronic kidney disease; Z91.148 Patient's other noncompliance with medication regimen for other reason; Z87.891 Personal history of nicotine dependence; Z79.51 Long term (current) use of inhaled steroids; Z79.899 Other long term (current) drug therapy
CPT/HCPCS: 36415; 80048; 80053; 80061; 80159; 82607; 82947; 83036; 84443; 85025; 85048; 97116; 97161; 97530

== ENCOUNTER → 2025-04-01 12:31 | Outpatient (BNV) | payer OTHER, SELFPAY | PROVIDERS: Admitting Provider Social Worker; Visit Provider Nurse Practitioner Family | DX: J18.9 Pneumonia, unspecified organism (principal) | CPT/HCPCS: 99222 ==

== ENCOUNTER → 2025-04-01 12:31 | Outpatient (BNV) | payer OTHER, SELFPAY | PROVIDERS: Admitting Provider Social Worker; Visit Provider Social Worker | DX: F20.0 Paranoid schizophrenia (principal) | CPT/HCPCS: 90792; 99231; 99232 ==